=== PATIENT | female | born 1945 | race African-American/Black ===

== ENCOUNTER 2016-12-02 13:01 | Inpatient (IN) | payer OTHER ==
--- NOTE | 2016-12-02 13:18 | PDOC ---
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 She seems to attribute the paitn to the ingestion of some [employer] as it began a few hours after eating them. She describes the pain as a sharp/ tight pain 8/10 in her right lower quadrant that is occasionally positional and occasionally co-presents in her back. The pain did not allow her to sleep last night and she went to [facility] ED at which point she was diagnosed with food poisoning without imaging. She describes non-bilious/ non-bloody emesis and non-bloody, brown diarrhea. Denies fevers, chills, chest pain, cough, urinary changes, or palpitations. 12/02/16 13:37 Past History - Past Medical History Allergies/Adverse Reactions: Allergies Allergy/AdvReac Type Severity Reaction Status Date / Time No Known Drug Allergies Allergy Verified 12/02/16 13:06 Home Medications: Ambulatory Orders Amlodipine Besylate [Norvasc -] 5 mg PO DAILY 01/16/12 Levothyroxine [Synthroid -] 75 mcg PO DAILY 01/16/12 Metformin HCl [Glucophage] 1,000 mg PO BID 01/16/12 Tamoxifen Citrate 10 mg PO DAILY 01/16/12 Ergocalciferol (Vitamin D2) [Vitamin D] 50,000 PO WEEKLY 02/13/12 Warfarin Sodium [Coumadin] 4 mg PO UTDICT 02/13/12 Tramadol HCl/Acetaminophen [Ultracet -] 2 each PO TID 02/14/12 Anemia: No Asthma: No Cancer: No Cardiac Disorders: No CVA: No COPD: No CHF: No Dementia: No Diabetes: Yes GI Disorders: No Disorders: No HTN: No Hypercholesterolemia: No Liver Disease: No Seizures: No Thyroid Disease: Yes Other medical history: obesity - Surgical History Abdominal Surgery: Yes (exploratory lap for obstruction 1993) Appendectomy: No Cardiac Surgery: No Cholecystectomy: No Lung Surgery: No Neurologic Surgery: No - Suicide/Smoking/Psychosocial Hx Smoking History: Never smoked Information on smoking cessation initiated: No Hx Alcohol Use: No Drug/Substance Use Hx: No Substance Use Type: None Hx Substance Use Treatment: No Review of Systems - Review of Systems Constitutional: No: Chills, Diaphoresis, Fever HEENTM: No: Blurred Vision Respiratory: No: Cough, Orthopnea, Shortness of Breath Cardiac (ROS): No: Chest Pain ABD/GI: Yes: Diarrhea, Nausea, Poor Appetite, Vomiting Musculoskeletal: No: Back Pain Integumentary: No: Bruising, Change in Color Neurological: No: Headache, Numbness *Physical Exam - Vital Signs Last Vital Signs Temp Pulse Resp BP Pulse Ox 99.3 F 85 18 154/92 100 12/02/16 13:02 12/02/16 13:02 12/02/16 13:02 12/02/16 13:02 12/02/16 13:02 - Physical Exam General Appearance: Yes: Nourished, Appropriately Dressed. No: Apparent Distress HEENT: positive: EOMI, NEHEMIAH, Normal Voice Neck: positive: Trachea midline, Normal Thyroid, Supple. negative: Tender, Rigid Respiratory/Chest: positive: Lungs Clear, Normal Breath Sounds. negative: Chest Tender, Respiratory Distress Cardiovascular: positive: Regular Rhythm, Regular Rate, S1, S2. negative: Edema , Murmur Gastrointestinal/Abdominal: positive: Normal Bowel Sounds, Tender (RLQ rebound tenderness. + Rosving's sign. + McBurney's sign), Flat, Soft Integumentary: positive: Normal Color, Dry, Warm Neurologic: positive: Fully Oriented, Alert, Normal Mood/Affect, Normal Response ED Treatment Course - LABORATORY CBC & Chemistry Diagram: 12/02/16 14:15 12/02/16 14:15 Medical Decision Making - Medical Decision Making 71 year old female with PMH of CVA and PE on coumadin presenting with abdominal pain and current fear of food. PE most concerning for appendicitis whoever patient's medical history puts her at risk for thrombotic diseases such as mesenteric ischemia and atypical ACS presentation. Also on the differntial given her history of ex-lap and resection is obstruction (although she is having bowel movements) and diverticulitis. Lower on the list is pancreatitis, cholecystitis, or primary liver pathology. We should also exclude UTI as that could masqu[place]ade as an abdominal pain, although severity and location of pain does not match that diagnosis. This could be a simple bacterial vs. viral gastroenteritis as well which would be higher on the differential if labs and imaging return roughly inconclusive. Will get CBC, CMP, lipase, cardiac panel, EKG, CT abdomen/ pelvis with PO contrast, pt/inr, UA/UC, and type and screen. 12/02/16 14:35 12/02/16 18:59 CT came back with likely cholecystitis but no sign of stone. Patient evaluated by Dr. Fontenot and she agrees that she is appropriate for admission with need for ultrasound and fluids given lactate. Will admit patient to hospitalist. 12/02/16 19:30 Talked to medicine and will admit patient to [facility]. 12/02/16 20:37 12/02/16 20:39 *DC/Admit/Observation/Transfer Diagnosis at time of Disposition: Cholecystitis - Discharge Dispostion Condition at time of disposition: Stable Admit: Yes - Referrals Referrals: Ana Arroyo [Primary Care Provider] -
[2016-12-02 14:04] LABS: URINE APPEARANCE SLCLOUDY; URINE BILIRUBIN NEGATIVE (NEGATIVE); URINE BLOOD NEGATIVE (NEGATIVE); URINE COLOR YELLOW; URINE GLUCOSE (UA) NEGATIVE (NEGATIVE); URINE KETONE NEGATIVE (NEGATIVE); URINE LEUK ESTERASE TRACE (NEGATIVE); URINE NITRITE NEGATIVE (NEGATIVE); URINE UROBILINOGEN NEGATIVE mg/dL (0.2-1.0)
[2016-12-02 14:06] LABS: URINE PROTEIN 2+ (NEGATIVE)
[2016-12-02 14:07] LABS: URINE BACTERIA RARE /hpf (NONE SEEN); URINE MUCUS RARE; URINE RBC 1 /hpf (0-3); URINE WBC 13 /hpf (3-5)
[2016-12-02 14:25] LABS: BASOPHIL 0.5 % (0-2.0); MCH 31.7 pg (25.7-33.7); MCHC 33.3 g/dl (32.0-36.0); MEAN PLT VOLUME 7.6 fl (7.5-11.1); PLATELET COUNT 217 K/MM3 (134-434); WHITE BLOOD COUNT 8.9 K/mm3 (4.0-10.0)
[2016-12-02 14:54] LABS: ALBUMIN 3.5 g/dl (3.4-5.0); ANION GAP 12 (8-16); BILIRUBIN,TOTAL 0.6 mg/dL (0.2-1.0); CALCIUM 8.9 mg/dL (8.5-10.1); CO2 27 mmol/L (21-32); CREATININE 1.1 mg/dL (0.55-1.02); GLUCOSE,RANDOM 122 mg/dL (74-106); SGOT/AST 46 U/L (15-37); SGPT/ALT 26 U/L (12-78); TOT PROT 7.1 g/dl (6.4-8.2)
[2016-12-02 14:57] LABS: ALK PHOS 43 U/L (45-117); CPK 37 IU/L (26-192); TROPONIN I < 0.02 ng/ml (0.00-0.05)
[2016-12-02] MEDS ORDERED: MAG HYDROX/AL HYDROX/SIMETH 355 ML ORAL.SUSP PO ONE (15:02)
[2016-12-02] MEDS ORDERED: LIDOCAINE VISCOUS 2% ORAL/TOP 20 ML UNIT-DOSE CUP MM ONE (15:02)
[2016-12-02] MEDS ORDERED: FAMOTIDINE 20 MG/50 ML IVPB 50 ML IVPB ONE ×2 (15:02→15:29)
[2016-12-02 15:06] LABS: INR 1.72 (0.82-1.09); PROTHROMBIN TIME (PATIENT) 19.1 SEC (9.98-11.88)
[2016-12-02] MEDS ORDERED: MAG HYDROX/AL HYDROX/SIMETH 30 ML UNIT-DOSE CUP ONE (15:28)
[2016-12-02] MEDS ORDERED: LIDOCAINE VISCOUS 2% ORAL/TOP 20 ML UNIT-DOSE CUP ONE (15:28)
[2016-12-02] MEDS ORDERED: SODIUM CHLORIDE 0.9% 1000 ML INFUS.BAG IV ONE (15:53)
--- NOTE | 2016-12-02 20:52 | PN ---
Teaching Attending Note Name of Resident: Agustin Horta ATTENDING PHYSICIAN STATEMENT I saw and evaluated the patient. I reviewed the resident's note and discussed the case with the resident. I agree with the resident's findings and plan as documented. SUBJECTIVE: 71 F with pmhx. of HTN, HLD, Hypothyriodism, NIDDM, DVT/PE (unprovoked IVC filter/Coumadin), Colon Ca s/p hemicolectomy, Breast Ca? On Tamoxifen, who pw Right lower quadranr abdominal pain with associated nausea and vomiting X1 day. Pain level is 8/10. Non- bilous, non-bloody emesis. No chest pain or pressure, but states that she has palpitations which is related to a "valvular problem," but does not know what it is and has not followed with a restaurant culinary manager. OBJECTIVE: Physical: VS: Vital Signs Period Temp Pulse Resp BP Sys/Brandt Pulse Ox Last 24 Hr 99.3 F-100.1 F 85 18 154/92 100 GEN: NAD, Resting in bed HEENT: NCAT, PERRL, Throat without erythema or exudates CARD:RRR S1, S2 RESP: CTAB ABD: + TTP right upper/lower quadrant, BSx4 EXT: - C/C/E CBCD WBC 8.9 K/mm3 (4.0-10.0) 12/02/16 14:15 RBC 3.75 M/mm3 (3.60-5.2) 12/02/16 14:15 Hgb 11.9 GM/dL (10.7-15.3) 12/02/16 14:15 Hct 35.6 % (32.4-45.2) 12/02/16 14:15 MCV 95.0 fl (80-96) 12/02/16 14:15 MCHC 33.3 g/dl (32.0-36.0) 12/02/16 14:15 RDW 15.0 % (11.6-15.6) 12/02/16 14:15 Plt Count 217 K/MM3 (134-434) 12/02/16 14:15 MPV 7.6 fl (7.5-11.1) 12/02/16 14:15 CMP Sodium 139 mmol/L (136-145) 12/02/16 14:15 Potassium 3.7 mmol/L (3.5-5.1) 12/02/16 14:15 Chloride 100 mmol/L (98-107) 12/02/16 14:15 Carbon Dioxide 27 mmol/L (21-32) 12/02/16 14:15 Anion Gap 12 (8-16) 12/02/16 14:15 BUN 14 mg/dL (7-18) 12/02/16 14:15 Creatinine 1.1 mg/dL (0.55-1.02) H 12/02/16 14:15 Creat Clearance w eGFR 48.82 (>60) 12/02/16 14:15 Random Glucose 122 mg/dL (74-106) H 12/02/16 14:15 Calcium 8.9 mg/dL (8.5-10.1) 12/02/16 14:15 Total Bilirubin 0.6 mg/dL (0.2-1.0) 12/02/16 14:15 AST 46 U/L (15-37) H 12/02/16 14:15 ALT 26 U/L (12-78) 12/02/16 14:15 Alkaline Phosphatase 43 U/L (45-117) L 12/02/16 14:15 Total Protein 7.1 g/dl (6.4-8.2) 12/02/16 14:15 Albumin 3.5 g/dl (3.4-5.0) 12/02/16 14:15 CARDIAC ENZYMES Creatine Kinase 37 IU/L (26-192) 12/02/16 14:15 Troponin I < 0.02 ng/ml (0.00-0.05) 12/02/16 14:15 INR 1.7 Ambulatory Orders Amlodipine Besylate [Norvasc -] 5 mg PO DAILY 01/16/12 Levothyroxine [Synthroid -] 75 mcg PO DAILY 01/16/12 Metformin HCl [Glucophage] 1,000 mg PO BID 01/16/12 Tamoxifen Citrate 10 mg PO DAILY 01/16/12 Ergocalciferol (Vitamin D2) [Vitamin D] 50,000 PO WEEKLY 02/13/12 Warfarin Sodium [Coumadin] 4 mg PO UTDICT 02/13/12 Tramadol HCl/Acetaminophen [Ultracet -] 2 each PO TID 02/14/12 CT ABD/PELVIS: 7 X6 mm Opacity JEANNIE Acute Choley EKG: NSR No acute ST-t changes prolonged QTc 548 ASSESSMENT AND PLAN: 71 F with pmhx of HTN, HLD, NIDDM, Colon Ca s/p resection, ?Breast Pathology on Tamoxifen, who presents with Right abdominal pain being admitted for Acute Choleycystitis 1.) GI: Acute Choleycystitis - NPO - IVF - IV abx Zosyn - Cx - Sx. Consult - ID consult - Type and Screen - Coags, CBC in am - Repeat labs in am - LA - ? palpitations/w inc. QtC and ? Valvular path- Cardio clearance prior to sx 2.) CARDS: Palpitations/?Valvular disorder - Echo - Cardio consult 3.) Pulm- Hx. OF Dvt/PE - Hold Coumadin - Hep gtt. Hold 4 hrs prior to sx 4.) ?Breast Ca - Hold Tamoxifen 5.) NIDDM - RAISS - FS 6.) HTN - C/W Amlodipine 7.) Dvt Ppx - Hep. Gtt
--- NOTE | 2016-12-02 21:03 | CONSULT ---
Consult Consult Specialty:: General Surgery Referred by:: Dr. 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 By 2pm, she had severe right-sided abdominal pain and went to [facility]; she began having N/V on the way there and while at the ER. They gave her some meds, did no imaging, and discharged her with presumed food poisoning, but the pain persisted and got worse. She came to our ER today, where she had temp 100.1, with wbc 8.9, slightly elevated AST but essentially normal LFTs and lipase, INR 1.72 (took yest am meds but not last night or this morning). CT was done without IV contrast showing inflammation around gallbladder but no visible stones, no cbd dilation, + R hemicolectomy, fragment of metal merry near spine, IVC filter in place. US was then ordered and surgery consulted to evaluate for cholecystitis. She states her stool has tended to loose since her colon surgery. Last BM was yesterday, loose but normal for her. Tolerated oral contrast for CT, no further nausea or vomiting. Pain is described as right-sided, mostly upper at this point, sometimes also around in the back. She is always somewhat cold but had no helen fever or chills. - History Source History Provided By: Patient Limitations to Obtaining History: No Limitations - Past Medical History PVC MONITOR: Yes: CVA (h/o but pt was not aware of it) Cardio/Vascular: Yes: Deep Vein Thrombosis (and PE s/p IVC filter on coumadin), HTN, Hyperlipdemia (?), Other (possible valvular stenosis?) Gastrointestinal: Yes: Cancer (R hemicolectomy), Other (diarrhea/chronic loose stool) Reproductive: Yes: Postmenopausal ...: No Heme/Onc: Yes: Other (on tamoxifen for breast condition) Musculoskeletal: Yes: Other (R shoulder tendinitis) Endocrine: Yes: Hypothyroidism - Past Surgical History Past Surgical History: Yes: Appendectomy ((part of R hemicolectomy)), Breast Biopsy (?), Colectomy (R massiel for CA 2003), Hernia Repair (abdominal wall with mesh at time of hemicolectomy per pt) Additional Surgical History: spinal merry for scoliosis with migration and subsequent removal and revision; laparotomy for SBO prior to hemicolectomy; IVC filter - Alcohol/Substance Use Hx Alcohol Use: Yes (rare/occasional) History of Substance Use: reports: None - Smoking History Smoking history: Former smoker Have you smoked in the past 12 months: No Aproximately how many cigarettes per day: 0 (~5 pk-yr hx quit 1970) If you are a former smoker, when did you quit?: 1970 Home Medications - Allergies Allergies/Adverse Reactions: Allergies Allergy/AdvReac Type Severity Reaction Status Date / Time No Known Drug Allergies Allergy Verified 12/02/16 13:06 - Home Medications Home Medications: Ambulatory Orders Amlodipine Besylate [Norvasc -] 5 mg PO DAILY 01/16/12 Levothyroxine [Synthroid -] 75 mcg PO DAILY 01/16/12 Metformin HCl [Glucophage] 1,000 mg PO BID 01/16/12 Tamoxifen Citrate 10 mg PO DAILY 01/16/12 Ergocalciferol (Vitamin D2) [Vitamin D] 50,000 unit PO WEEKLY 02/13/12 Warfarin Sodium [Coumadin] 4 mg PO UTDICT 02/13/12 Tramadol HCl/Acetaminophen [Ultracet -] 2 each PO TID 02/14/12 Home Medications (free text): coumadin - alternates 3mg with 4mg nightly, last taken 11/30 (not last night) Review of Systems - Review of Systems Constitutional: denies: Chills, Fever Eyes: reports: Other (wears glasses). denies: Recent Change in Vision HENT: reports: Hearing Loss (left ear mostly, less on right). denies: Difficult Swallowing, Throat Pain Neck: denies: Swollen Glands, Tenderness Cardiovascular: reports: Palpitations (occasional). denies: Chest Pain Respiratory: denies: Cough, SOB Gastrointestinal: reports: Abdominal Pain (with hpi only), Diarrhea (since colon surgery tends to loose stool), Nausea (with hpi), Vomiting (with hpi). denies: Constipation, Melena, Rectal Bleeding Genitourinary: denies: Burning, Dysuria Musculoskeletal: reports: Back Pain (sometimes), Joint Pain (R shoulder), Muscle Weakness (R shoulder sometimes, has trouble lifting things) Integumentary: denies: Change in Color, Rash Neurological: reports: Headache (sometimes), Other (walks with cane). denies: Dizziness Endocrine: reports: Intolerance to Cold. denies: Excessive Sweating Psychiatric: denies: Anxiety, Depression Physical Exam Vital Signs: Vital Signs Temperature 100.1 F H 12/02/16 14:35 Pulse Rate 85 12/02/16 13:02 Respiratory Rate 18 12/02/16 13:02 Blood Pressure 154/92 12/02/16 13:02 O2 Sat by Pulse Oximetry (%) 100 12/02/16 13:02 Constitutional: Yes: No Distress, Calm, Obese Eyes: Yes: Conjunctiva Clear, EOM Intact. No: Sclera Icterus HENT: Yes: Atraumatic, Normocephalic Cardiovascular: Yes: Regular Rate and Rhythm, Murmur (systolic) Respiratory: Yes: Regular, CTA Bilaterally Gastrointestinal: Yes: Soft, Abdomen, Obese, Hyperactive Bowel Sounds, Tenderness (RUQ mainly, no R/G), Other (healed midline scar, no umbilicus) ...Rectal Exam: Yes: Deferred Renal/: No: CVA Tenderness - Left, CVA Tenderness - Right Musculoskeletal: No: Joint Stiffness, Joint Swelling Extremities: No: Cool, Cyanosis Edema: Yes Edema: LLE: 1+, RLE: 1+ Peripheral Pulses WNL: Yes Integumentary: No: Jaundice, Rash Neurological: Yes: Alert, Oriented ...Motor Strength: LUE (normal), RUE (normal) Psychiatric: Yes: Alert, Oriented Labs: CBC, BMP 12/02/16 14:15 12/02/16 14:15 CMP Sodium 139 mmol/L (136-145) 12/02/16 14:15 Potassium 3.7 mmol/L (3.5-5.1) 12/02/16 14:15 Chloride 100 mmol/L (98-107) 12/02/16 14:15 Carbon Dioxide 27 mmol/L (21-32) 12/02/16 14:15 Anion Gap 12 (8-16) 12/02/16 14:15 BUN 14 mg/dL (7-18) 12/02/16 14:15 Creatinine 1.1 mg/dL (0.55-1.02) H 12/02/16 14:15 Creat Clearance w eGFR 48.82 (>60) 12/02/16 14:15 Random Glucose 122 mg/dL (74-106) H 12/02/16 14:15 Lactic Acid 2.9 mmol/L (0.4-2.0) H* 12/02/16 14:15 Calcium 8.9 mg/dL (8.5-10.1) 12/02/16 14:15 Total Bilirubin 0.6 mg/dL (0.2-1.0) 12/02/16 14:15 AST 46 U/L (15-37) H 12/02/16 14:15 ALT 26 U/L (12-78) 12/02/16 14:15 Alkaline Phosphatase 43 U/L (45-117) L 12/02/16 14:15 Creatine Kinase 37 IU/L (26-192) 12/02/16 14:15 Troponin I < 0.02 ng/ml (0.00-0.05) 12/02/16 14:15 Total Protein 7.1 g/dl (6.4-8.2) 12/02/16 14:15 Albumin 3.5 g/dl (3.4-5.0) 12/02/16 14:15 Lipase 90 U/L (73-393) 12/02/16 14:15 INR, PTT INR 1.72 (0.82-1.09) H 12/02/16 14:15 dehydrated by labs Imaging - Results Cat Scan: Report Reviewed (inflammatory changes around gallbladder, no stones seen, no biliary dilation; R colectomy), Image Reviewed Ultrasound: Report Reviewed (multiple gallstones, wall almost 1cm thick against liver bed, mild pericholecystic fluid, little perihepatic ascites, normal cbd), Image Reviewed Problem List - Problems (1) Calculus of gallbladder with acute cholecystitis Assessment/Plan: admit to medicine NPO/IVF except essential meds with sips of H2O trend labs, ensure all preop labs are done pain meds prn Zosyn 4.5g q8H and ID to follow preop optimization, risk stratification for laparoscopic possible open cholecystectomy hold coumadin - if on heparin, will need to stop at least 6 hrs prior to surgery GI prophylaxis (NPO) DVT prophylaxis if not on heparin drip Code(s): K80.00 - CALCULUS OF GALLBLADDER W ACUTE CHOLECYST W/O OBSTRUCTION Qualifiers: Biliary obstruction: without biliary obstruction Qualified Code(s): K80.00 - Calculus of gallbladder with acute cholecystitis without obstruction (2) History of pulmonary embolus (PE) Assessment/Plan: pt has IVC filter hold coumadin if hep drip, stop 6+ hrs prior to OR if no hep drip, dvt prophylaxis needed daily coags Code(s): Z86.711 - PERSONAL HISTORY OF PULMONARY EMBOLISM (3) Hypertension Assessment/Plan: continue meds as indicated Code(s): I10 - ESSENTIAL (PRIMARY) HYPERTENSION Qualifiers: Hypertension type: essential hypertension Qualified Code(s): I10 - Essential (primary) hypertension (4) Diabetes mellitus type 2, noninsulin dependent Assessment/Plan: FS with SSI while NPO resume metformin when tolerating usual po Code(s): E11.9 - TYPE 2 DIABETES MELLITUS WITHOUT COMPLICATIONS (5) Hypothyroidism Assessment/Plan: continue synthroid, IV while NPO Code(s): E03.9 - HYPOTHYROIDISM, UNSPECIFIED Qualifiers: Hypothyroidism type: acquired Qualified Code(s): E03.9 - Hypothyroidism, unspecified (6) Obesity (BMI 30-39.9) Code(s): E66.9 - OBESITY, UNSPECIFIED Assessment/Plan Thank you for the opportunity to participate in the care of this patient.
[2016-12-02] MEDS ORDERED: SODIUM CHLORIDE 1,000 ML IV STA (21:07)
[2016-12-02] MEDS ORDERED: SODIUM CHLORIDE 1,000 ML IV SCH (21:15)
--- NOTE | 2016-12-02 22:05 | HP ---
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 As per the patient, she started having abdominal pain RUQ, 8/10 in intensity, non radiating, spasmodic, associated with nausea and vomiting after she had burger from [employer]. She went to the ED at [facility], was diagnosed to have food poisoning and was discharged. She returns to the ED as symptoms have been worsening. Denies chest pain, cough, fever, chills, rigors, sweating. Does complaint of sob which is chronic. Due to her multiple back surgeris, is wheel chair bound. 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 Allergies No Known Drug Allergies Allergy (Verified 12/02/16 13:06) HOME MEDICATIONS: Home Medications Medication Instructions Recorded Amlodipine Besylate [Norvasc -] 5 mg PO DAILY 01/16/12 Levothyroxine [Synthroid -] 75 mcg PO DAILY 01/16/12 Metformin HCl [Glucophage] 1,000 mg PO BID 01/16/12 Tamoxifen Citrate 10 mg PO DAILY 01/16/12 Ergocalciferol (Vitamin D2) 50,000 PO WEEKLY 02/13/12 [Vitamin D] Warfarin Sodium [Coumadin] 4 mg PO UTDICT 02/13/12 Tramadol HCl/Acetaminophen 2 each PO TID 02/14/12 [Ultracet -] REVIEW OF SYSTEMS CONSTITUTIONAL: Absent: fever, chills, diaphoresis, generalized weakness, malaise, loss of appetite, weight change HEENT: Absent: rhinorrhea, nasal congestion, throat pain, throat swelling, difficulty swallowing, mouth swelling, ear pain, eye pain, visual changes CARDIOVASCULAR: Absent: chest pain, syncope, palpitations, irregular heart rate, lightheadedness , peripheral edema RESPIRATORY: Absent: cough, shortness of breath, dyspnea with exertion, orthopnea, wheezing, stridor, hemoptysis GASTROINTESTINAL: Present: abdominal pain, nausea, vomiting Absent: abdominal distension, , diarrhea, constipation, melena, hematochezia GENITOURINARY: Absent: dysuria, frequency, urgency, hesitancy, hematuria, flank pain, genital pain MUSCULOSKELETAL: Absent: myalgia, arthralgia, joint swelling, back pain, neck pain SKIN: Absent: rash, itching, pallor HEMATOLOGIC/IMMUNOLOGIC: Absent: easy bleeding, easy bruising, lymphadenopathy, frequent infections ENDOCRINE: Absent: unexplained weight gain, unexplained weight loss, heat intolerance, cold intolerance NEUROLOGIC: Absent: headache, focal weakness or paresthesias, dizziness, unsteady gait, seizure, mental status changes, bladder or bowel incontinence PSYCHIATRIC: Absent: anxiety, depression, suicidal or homicidal ideation, hallucinations. PHYSICAL EXAMINATION Vital Signs - 24 hr 12/02/16 12/02/16 12/02/16 13:02 14:35 21:36 Temperature 99.3 F 100.1 F H 98.1 F Pulse Rate 85 Pulse Rate [ 81 Right Radial] Respiratory 18 18 Rate Blood Pressure 154/92 Blood Pressure 133/77 [Left Arm] O2 Sat by Pulse 100 95 Oximetry (%) GENERAL: Elderly female, Awake, alert, and fully oriented, in no acute distress. HEAD: Normal with no signs of trauma. EYES: EOM intact, no pallor or icterus. EARS, NOSE, THROAT: Ears normal. Dry mucous membranes. NECK: Supple. LUNGS: Breath sounds equal, clear to auscultation bilaterally. No wheezes, and no crackles. No accessory muscle use. HEART: Regular rate and rhythm, normal S1 and S2 without murmur, rub or gallop. ABDOMEN: Soft, tenderness in right upper quadrant, Field's sign +; not distended, normoactive bowel sounds, no guarding, no rebound, no masses. Hepatosplenomegaly couldn't be appreciated MUSCULOSKELETAL: Normal range of motion at all joints. No bony deformities or tenderness. No CVA tenderness. UPPER EXTREMITIES: 2+ pulses, warm, well-perfused. No cyanosis. No clubbing. No peripheral edema. LOWER EXTREMITIES: 2+ pulses, warm, well-perfused. No calf tenderness. No peripheral edema. NEUROLOGICAL: No facial droop; Normal speech. Gait not observed. PSYCHIATRIC: Cooperative. Good eye contact. Appropriate mood and affect. SKIN: Warm, dry, normal turgor, no rashes or lesions noted, normal capillary refill. Laboratory Results - last 24 hr 12/02/16 12/02/16 12/02/16 13:55 14:15 14:15 WBC 8.9 RBC 3.75 Hgb 11.9 Hct 35.6 MCV 95.0 MCH 31.7 MCHC 33.3 RDW 15.0 Plt Count 217 MPV 7.6 Neutrophils % 84.0 H Lymphocytes % 9.5 Monocytes % 6.0 Eosinophils % 0.0 Basophils % 0.5 PT with INR INR Sodium 139 Potassium 3.7 Chloride 100 Carbon Dioxide 27 Anion Gap 12 BUN 14 Creatinine 1.1 H Creat Clearance w eGFR 48.82 Random Glucose 122 H Lactic Acid Calcium 8.9 Total Bilirubin 0.6 AST 46 H ALT 26 Alkaline Phosphatase 43 L Creatine Kinase 37 Troponin I < 0.02 Total Protein 7.1 Albumin 3.5 Lipase 90 Urine Color Yellow Urine Appearance Slcloudy Urine pH 5.0 Ur Specific [place] >= 1.030 H Urine Protein 2+ H Urine Glucose (UA) Negative Urine Ketones Negative Urine Blood Negative Urine Nitrite Negative Urine Bilirubin Negative Urine Urobilinogen Negative Urine RBC 1 Urine WBC 13 Ur Epithelial Cells Many Urine Bacteria Rare Urine Mucus Rare Blood Type Antibody Screen 12/02/16 12/02/16 12/02/16 14:15 14:15 14:28 WBC RBC Hgb Hct MCV MCH MCHC RDW Plt Count MPV Neutrophils % Lymphocytes % Monocytes % Eosinophils % Basophils % PT with INR 19.10 H INR 1.72 H Sodium Potassium Chloride Carbon Dioxide Anion Gap BUN Creatinine Creat Clearance w eGFR Random Glucose Lactic Acid 2.9 H* Calcium Total Bilirubin AST ALT Alkaline Phosphatase Creatine Kinase Troponin I Total Protein Albumin Lipase Urine Color Urine Appearance Urine pH Ur Specific [place] Urine Protein Urine Glucose (UA) Urine Ketones Urine Blood Urine Nitrite Urine Bilirubin Urine Urobilinogen Urine RBC Urine WBC Ur Epithelial Cells Urine Bacteria Urine Mucus Blood Type A POSITIVE Antibody Screen Negative ASSESSMENT/PLAN: Patient is a 71 year old female with significant Past Medical History of Hypertension, Hyperlipidemia, Hypothyroidism, diabetes (non-insulin dependent), 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 # Abdominal pain likely due to acute cholecystits Presented with RUQ pain, + Antoine sign CT abdomen showed Acute cholecystitis. USG abdomen- official report pending On arrival, she had a fever of Tmax 100.1 F, hemodynamically stable, lactic acid 2.9 Admitted in Med-Surg Continue IV NS @ 100mls/hr IV Zosyn 3.375 gm given once, next scheduled at 6am ID consult requested Dr. Sy saw the patient in the ED and will follow her recommendations NPO after midnight for possible surgery, cardio consult requested for cardio clearance- will do an ECHo in the morning, repeat EKG in the morning. Lactic acid 2.9---> 1.8 Pain control with Continue IV Morphine 2mg Q4H PRN # DVT/PE on coumadin : subtherapeutic INR Pt mentioned that she has a IVC filter, her doc recommended her to take coumadin for life given her h/o malignancy IV Heparin drip for now and to stop 6hrs prior to surgery Watch for any bleeding and H/H drop # Acute Kidney Injury Creatinine 1.1, no baseline to compare Most likely it will improved after IV hydration Avoid nephrotoxic drugs # Prolonged QTc - approx 548 Repeat EKG in AM Avoid QTc prolonging medications # Diabetes Mellitus A1c ordered for am Hold Metformin; ISS and BGM Watch for hypoglycemic symptoms # Hypertension- stable Continue Norvasc 5mg po daily # Hypothyroidism TSH for am Continue Synthroid 75 mcg PO Daily # ? Breast Pathology As per patient, she is awaiting the biopsy report. - Hold Tamoxifen 10mg PO daily, (Day team: please call her oncologist and confirm the dose) # Chronic Back Pain - multiple back surgeries Continue IV Morphine 2mg Q4H PRN # FEN IV Fluids: IV NS @ 100 mls/hr Electrolytes WNL, to be repeated in am NPO after midnight for possible surgery in am # Prophylaxis For DVT: Already on Heparin Drip For GI: Not indicated # Dispo- Admit to Med/Surg. Duration of stay unknown. # Code Status: Full code Illness, Investigation and Plan of care explained to the patient. She verbalized understanding. Case seen and discussed with Dr. Quiroz. Visit type - Emergency Visit Emergency Visit: Yes ED Registration Date: 12/02/16 Care time: The patient presented to the Emergency Department on the above date and was hospitalized for further evaluation of their emergent condition. - New Patient This patient is new to me today: Yes Date on this admission: 12/02/16 - Critical Care Critical Care patient: No
[2016-12-02] MEDS ORDERED: HEPARIN NA (PORCINE) 5,000 UNITS/ML 1ML VIAL IVPUSH PRN ×2 (22:17)
[2016-12-02] MEDS ORDERED: PIPERACILLIN/TAZOB 3.375 GM 3.375 GM in DEXTROSE 5%-WATER - 50 ML IVPB ONE (22:18)
[2016-12-02] MEDS: SODIUM CHLORIDE 1,000 ML IV SCH (22:30)
[2016-12-02] MEDS: HEPARIN - 25,000 UNIT in SODIUM CHLORIDE 495 ML IV SCH (23:00)
--- NOTE | 2016-12-02 23:00 | HP ---
CHIEF COMPLAINT: Abdominal Pain HISTORY OF PRESENT ILLNESS: Pt is a 71yo F w/ PMHx of HTN, HLD, NIDDM who presented with R sided abdominal pain. She had 10/10, constant, sharp, that started early in the AM. Pain was assoc with nausea, few episodes of NBNB emesis. She denies fevers, but endorses chills. She has had abdominal pain before, recently after eating food at [employer]. She was seen at [facility] ER, diagnosed with food poisoning, and discharged, but the pain persisted. She denies CP, has chronic SOB on exertion. She is wheel chair bound due to numerous back surgeries. Pt endorses intermittent palpitations, and speaks of ? valvular pathology but does not follow with cardiology. Denies CHF, does not remember having an Echo cardiogram ER course was notable for: (1) Hemodynamically stable. Tmax 100.1. 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), colon cancer (s/p ex-lap and resection) and current breast pathology concerning for cancer (on tamoxifen) PAST SURGICAL HISTORY: R hemicolectomy for CRC, scoliosis surgery, disc herniation surgery Social History: Smoking: Denies Alcohol: Denies Drugs: Denies Family History: Sister has breast CA, other sister has Stomach CA Allergies: No Known Drug Allergies Allergy (Verified 12/02/16 13:06) REVIEW OF SYSTEMS CONSTITUTIONAL: Absent: fever, chills, diaphoresis, generalized weakness, malaise, loss of appetite, weight change HEENT: Absent: rhinorrhea, nasal congestion, throat pain, throat swelling, difficulty swallowing, mouth swelling, ear pain, eye pain, visual changes CARDIOVASCULAR: Absent: chest pain, syncope, palpitations, irregular heart rate, lightheadedness , peripheral edema RESPIRATORY: Absent: cough, shortness of breath, dyspnea with exertion, orthopnea, wheezing, stridor, hemoptysis GASTROINTESTINAL: Absent: abdominal pain, abdominal distension, nausea, vomiting, diarrhea, constipation, melena, hematochezia Present: abdominal pain, nausea GENITOURINARY: Absent: dysuria, frequency, urgency, hesitancy, hematuria, flank pain, genital pain MUSCULOSKELETAL: Absent: myalgia, arthralgia, joint swelling, back pain, neck pain SKIN: Absent: rash, itching, pallor HEMATOLOGIC/IMMUNOLOGIC: Absent: easy bleeding, easy bruising, lymphadenopathy, frequent infections ENDOCRINE: Absent: unexplained weight gain, unexplained weight loss, heat intolerance, cold intolerance NEUROLOGIC: Absent: headache, focal weakness or paresthesias, dizziness, unsteady gait, seizure, mental status changes, bladder or bowel incontinence PSYCHIATRIC: Absent: anxiety, depression, suicidal or homicidal ideation, hallucinations. PHYSICAL EXAMINATION GEN: AAOx3, NAD HEENT: PERRLA, EOMi, No cervical LAD CV: S1, S2, RRR, no murmurs LUNG: CTABL ABD: Soft, extreme TTP in RUQ, nondistended, normoactive BS MSK: No edema, no erythema, full ROM NEURO: CN 2-12 intact, no sensation deficits, MSK 5/5, reflexes 2+ Laboratory Last Values WBC 8.9 K/mm3 (4.0-10.0) 12/02/16 14:15 RBC 3.75 M/mm3 (3.60-5.2) 12/02/16 14:15 Hgb 11.9 GM/dL (10.7-15.3) 12/02/16 14:15 Hct 35.6 % (32.4-45.2) 12/02/16 14:15 MCV 95.0 fl (80-96) 12/02/16 14:15 MCH 31.7 pg (25.7-33.7) 12/02/16 14:15 MCHC 33.3 g/dl (32.0-36.0) 12/02/16 14:15 RDW 15.0 % (11.6-15.6) 12/02/16 14:15 Plt Count 217 K/MM3 (134-434) 12/02/16 14:15 MPV 7.6 fl (7.5-11.1) 12/02/16 14:15 Neutrophils % 84.0 % (42.8-82.8) H 12/02/16 14:15 Lymphocytes % 9.5 % (8-40) 12/02/16 14:15 Monocytes % 6.0 % (3.8-10.2) 12/02/16 14:15 Eosinophils % 0.0 % (0-4.5) 12/02/16 14:15 Basophils % 0.5 % (0-2.0) 12/02/16 14:15 PT with INR 19.10 SEC (9.98-11.88) H 12/02/16 14:15 INR 1.72 (0.82-1.09) H 12/02/16 14:15 PTT (Actin FS) 28.7 SECONDS (26.9-34.4) 12/02/16 21:56 Sodium 139 mmol/L (136-145) 12/02/16 14:15 Potassium 3.7 mmol/L (3.5-5.1) 12/02/16 14:15 Chloride 100 mmol/L (98-107) 12/02/16 14:15 Carbon Dioxide 27 mmol/L (21-32) 12/02/16 14:15 Anion Gap 12 (8-16) 12/02/16 14:15 BUN 14 mg/dL (7-18) 12/02/16 14:15 Creatinine 1.1 mg/dL (0.55-1.02) H 12/02/16 14:15 Creat Clearance w eGFR 48.82 (>60) 12/02/16 14:15 Random Glucose 122 mg/dL (74-106) H 12/02/16 14:15 Lactic Acid 1.8 mmol/L (0.4-2.0) 12/02/16 21:56 Calcium 8.9 mg/dL (8.5-10.1) 12/02/16 14:15 Total Bilirubin 0.6 mg/dL (0.2-1.0) 12/02/16 14:15 AST 46 U/L (15-37) H 12/02/16 14:15 ALT 26 U/L (12-78) 12/02/16 14:15 Alkaline Phosphatase 43 U/L (45-117) L 12/02/16 14:15 Creatine Kinase 37 IU/L (26-192) 12/02/16 14:15 Troponin I < 0.02 ng/ml (0.00-0.05) 12/02/16 14:15 Total Protein 7.1 g/dl (6.4-8.2) 12/02/16 14:15 Albumin 3.5 g/dl (3.4-5.0) 12/02/16 14:15 Lipase 90 U/L (73-393) 12/02/16 14:15 Urine Color Yellow 12/02/16 13:55 Urine Appearance Slcloudy 12/02/16 13:55 Urine pH 5.0 (5.0-8.0) 12/02/16 13:55 Ur Specific [place] >= 1.030 (1.005-1.025) H 12/02/16 13:55 Urine Protein 2+ (NEGATIVE) H 12/02/16 13:55 Urine Glucose (UA) Negative (NEGATIVE) 12/02/16 13:55 Urine Ketones Negative (NEGATIVE) 12/02/16 13:55 Urine Blood Negative (NEGATIVE) 12/02/16 13:55 Urine Nitrite Negative (NEGATIVE) 12/02/16 13:55 Urine Bilirubin Negative (NEGATIVE) 12/02/16 13:55 Urine Urobilinogen Negative mg/dL (0.2-1.0) 12/02/16 13:55 Urine RBC 1 /hpf (0-3) 12/02/16 13:55 Urine WBC 13 /hpf (3-5) 12/02/16 13:55 Ur Epithelial Cells Many /hpf (FEW) 12/02/16 13:55 Urine Bacteria Rare /hpf (NONE SEEN) 12/02/16 13:55 Urine Mucus Rare 12/02/16 13:55 Blood Type A POSITIVE 12/02/16 14:28 Antibody Screen Negative 12/02/16 14:28 Home Medication List Medication Instructions Recorded Confirmed Type Amlodipine Besylate [Norvasc -] 5 mg PO DAILY 01/16/12 12/02/16 History Levothyroxine [Synthroid -] 75 mcg PO DAILY 01/16/12 12/02/16 History Metformin HCl [Glucophage] 1,000 mg PO BID 01/16/12 12/02/16 History Tamoxifen Citrate 10 mg PO DAILY 01/16/12 12/02/16 History Ergocalciferol (Vitamin D2) 50,000 unit PO WEEKLY 02/13/12 12/02/16 History [Vitamin D] Warfarin Sodium [Coumadin] 4 mg PO UTDICT 02/13/12 12/02/16 History Tramadol HCl/Acetaminophen 2 each PO TID 02/14/12 12/02/16 History [Ultracet -] Active Medications Generic Name Dose Route Start Last Admin Trade Name Freq PRN Reason Stop Dose Admin Amlodipine Besylate 5 mg 12/03/16 10:00 Norvasc - PO DAILY [facility] Heparin Sodium (Porcine) 1,000 unit 12/02/16 22:17 Heparin - IVPUSH PRN PRN Heparin Heparin Sodium (Porcine) 5,000 unit 12/02/16 22:17 Heparin - IVPUSH PRN PRN Heparin Sodium Chloride 1,000 mls @ 100 mls/hr 12/02/16 21:57 Normal Saline - IV ASDIR GIL Heparin Sodium (Porcine) 25, 500 mls @ 20 mls/hr 12/02/16 22:30 000 unit/ Sodium Chloride IV TITR GIL Protocol 1,000 UNIT/HR Insulin Aspart 1 vial 12/03/16 07:00 Novolog Vial Sliding Scale - SQ ACHS [facility] Protocol Levothyroxine Sodium 75 mcg 12/03/16 10:00 Synthroid - PO DAILY [facility] Morphine Sulfate 2 mg 12/02/16 22:06 Morphine Injection - IVPUSH Q4H PRN PAIN Tamoxifen Citrate 10 mg 12/03/16 10:00 Tamoxifen Citrate PO DAILY [facility] IMAGING: CT Abdomen/Pelvis - Acute cholecystitis without common bile duct dilatation. Reactive duodenitis likely secondary to gallbladder inflammation. A 1.7 x 1.8 cm diverticulum in the first portion of the duodenum. Status post right hemicolectomy. No evidence of intestinal obstruction. Dilated main pulmonary artery measuring 34 mm, suggestive of pulmonary artery hypertension. U/S RUQ - Official read pending ASSESSMENT/PLAN: Pt is a 71 yo F with PMHx of HTN, HLD, NIDDM who presented with R sided abdominal pain and diagnosed with acute cholecystitis. # Acute Cholecystitis - signs on CT abd, RUQ U/S to check for gallstones - IV Zosyn 3.375mg x1 - ID to continue - IVF 100cc/hr - Lactic acid normalized - NPO, T+S, Coags - IV Morphine 2mg Q4 PRN - Surgery consulted, evaluated in ED - Cardio consulted for pre-op risk - ID consult # Subjective Palpitations - pt states she has ?valvular problems, no prior echo - Cardio consult for ?palpitations + preop risk - Echo # Prolonged QTc - >500, poor quality EKG, asymptomatic - Repeat EKG in AM - Avoid QTc prolonging medications # Subtherapeutic INR - hx of DVT/PE - Pt is on Coumadin daily for DVT/PE, also has IVC filter - Will start Heparin drip, stop 6 hrs prior to surgery - Eventually bridge to Coumadin # Elevated Cr - 1.1, no hx of Kidney Disease, no baseline - IVF - Repeat BMP in AM # NIDDM - Hold Metformin due to lactic acidosis - ISS and BGMs ACHS - A1C ordered # Hx of HTN - Continue Norvasc # Hx of Hypothyroidism - Continue Synthroid # ?Breast Pathology - Hold Tamoxifen, Dayteam to call Oncology to confirm medications # Hx of Chronic Back Pain - multiple back surgeries - Hold Ultracet pain meds - Pt is already on IV Morphine for cholecystitsis # Pulmonary Nodule - Irregular 7 x 6 mm nodular opacity in the left upper lobe seen on CT scan - Recommend outpatient imaging followup # FEN - Fluids: IVNS @ 100cc/hr - Electrolytes: WNL - Nutrition: NPO except PO meds # Prophylaxis - DVT: On Heparin Drip - GI: Not indicated - Deconditioning: PT ordered # Dispo - Admit to Med/Surg Case d/w Dr. Quiroz and Dr. Radha Horta MD - PGY1 Internal Medicine Visit type - Emergency Visit Emergency Visit: Yes ED Registration Date: 12/02/16 Care time: The patient presented to the Emergency Department on the above date and was hospitalized for further evaluation of their emergent condition. - New Patient This patient is new to me today: Yes Date on this admission: 12/04/16 - Critical Care Critical Care patient: No
[2016-12-03 00:40] VITALS: BMI 35.2
[2016-12-03] MEDS ORDERED: PIPERACILLIN/TAZOB 3.375 GM/50 ML PRE-DOCKED IVPB ONE ×2 (06:00→10:00)
[2016-12-03] MEDS: INSULIN SLIDING SCALE (NOVOLOG) 1 VIAL SQ SCH ×4 (06:38→21:09)
[2016-12-03] MEDS: morphine CARPU-JECT 2 MG/1 ML DISP.SYRIN IVPUSH PRN ×4 (06:43→21:02)
[2016-12-03] MEDS: LEVOTHYROXINE NA 75 MCG TABLET (FP) PO SCH (06:43)
[2016-12-03] MEDS: SODIUM CHLORIDE 1,000 ML IV SCH (07:01)
--- NOTE | 2016-12-03 08:56 | CON.CARD ---
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 She seems to attribute the paitn to the ingestion of some [employer] as it began a few hours after eating them. She describes the pain as a sharp/ tight pain 8/10 in her right lower quadrant that is occasionally positional and occasionally co-presents in her back. The pain did not allow her to sleep last night and she went to [facility] ED at which point she was diagnosed with food poisoning without imaging. She describes non-bilious/ non-bloody emesis and non-bloody, brown diarrhea. Denies fevers, chills, chest pain, cough, urinary changes, or palpitations. 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: CVA (h/o but pt was not aware of it) Cardio/Vascular: Yes: Deep Vein Thrombosis (and PE s/p IVC filter on coumadin), HTN, Hyperlipdemia (?), Other (possible valvular stenosis?) Gastrointestinal: Yes: Cancer (R hemicolectomy), Other (diarrhea/chronic loose stool) ...: No Musculoskeletal: Yes: Other (R shoulder tendinitis) Endocrine: Yes: Hypothyroidism - Past Surgical History Past Surgical History: Yes: Appendectomy ((part of R hemicolectomy)), Breast Biopsy (?), Colectomy (R massiel for CA 2003), Hernia Repair (abdominal wall with mesh at time of hemicolectomy per pt) Additional Surgical History: spinal merry for scoliosis with migration and subsequent removal and revision; laparotomy for SBO prior to hemicolectomy; IVC filter - Alcohol/Substance Use Hx Alcohol Use: Yes (rare/occasional) History of Substance Use: reports: None - Smoking History Smoking history: Former smoker Have you smoked in the past 12 months: No Aproximately how many cigarettes per day: 0 (~5 pk-yr hx quit 1970) If you are a former smoker, when did you quit?: 1971 Home Medications - Allergies Allergies/Adverse Reactions: Allergies Allergy/AdvReac Type Severity Reaction Status Date / Time No Known Drug Allergies Allergy Verified 12/02/16 13:06 - Home Medications Home Medications: Ambulatory Orders Amlodipine Besylate [Norvasc -] 5 mg PO DAILY 01/16/12 Levothyroxine [Synthroid -] 75 mcg PO DAILY 01/16/12 Metformin HCl [Glucophage] 1,000 mg PO BID 01/16/12 Tamoxifen Citrate 10 mg PO DAILY 01/16/12 Ergocalciferol (Vitamin D2) [Vitamin D] 50,000 unit PO WEEKLY 02/13/12 Warfarin Sodium [Coumadin] 4 mg PO UTDICT 02/13/12 Tramadol HCl/Acetaminophen [Ultracet -] 2 each PO TID 02/14/12 Review of Systems - Review of Systems Constitutional: reports: No Symptoms Eyes: reports: No Symptoms HENT: reports: No Symptoms Neck: reports: No Symptoms Cardiovascular: reports: No Symptoms Gastrointestinal: reports: Abdominal Pain, Nausea, Vomiting Genitourinary: reports: No Symptoms Breasts: reports: No Symptoms Reported Musculoskeletal: reports: No Symptoms Integumentary: reports: No Symptoms Neurological: reports: No Symptoms Endocrine: reports: No Symptoms Hematology/Lymphatic: reports: No Symptoms Psychiatric: reports: No Symptoms Vital Signs: Vital Signs Temperature 98.4 F 12/03/16 05:22 Pulse Rate 76 12/03/16 05:22 Respiratory Rate 18 12/03/16 05:22 Blood Pressure 120/70 12/03/16 05:22 O2 Sat by Pulse Oximetry (%) 96 12/02/16 22:34 Constitutional: Yes: Well Nourished, No Distress, Calm Eyes: Yes: WNL, Conjunctiva Clear, EOM Intact HENT: Yes: WNL, Atraumatic, Normocephalic Neck: Yes: WNL, Supple, Trachea Midline Respiratory: Yes: WNL, Regular, CTA Bilaterally Gastrointestinal: Yes: Tenderness Renal/: Yes: WNL Cardiovascular: Yes: WNL, Regular Rate and Rhythm Musculoskeletal: Yes: WNL Extremities: Yes: WNL Integumentary: Yes: WNL Neurological: Yes: WNL, Alert, Oriented ...Motor Strength: WNL Psychiatric: Yes: WNL, Alert, Oriented - Other Data Labs, Other Data: INR, PTT INR 1.72 (0.82-1.09) H 12/02/16 14:15 Imaging - Results Chest X-ray: Image Reviewed (no i/e) EKG: Image Reviewed (sr lvh) Problem List - Problems (1) Calculus of gallbladder with acute cholecystitis Code(s): K80.00 - CALCULUS OF GALLBLADDER W ACUTE CHOLECYST W/O OBSTRUCTION Qualifiers: Biliary obstruction: without biliary obstruction Qualified Code(s): K80.00 - Calculus of gallbladder with acute cholecystitis without obstruction (2) Cholecystitis Code(s): K81.9 - CHOLECYSTITIS, UNSPECIFIED (3) Diabetes mellitus type 2, noninsulin dependent Code(s): E11.9 - TYPE 2 DIABETES MELLITUS WITHOUT COMPLICATIONS (4) History of pulmonary embolus (PE) Code(s): Z86.711 - PERSONAL HISTORY OF PULMONARY EMBOLISM (5) Hypertension Code(s): I10 - ESSENTIAL (PRIMARY) HYPERTENSION Qualifiers: Hypertension type: essential hypertension Qualified Code(s): I10 - Essential (primary) hypertension (6) Hypothyroidism Code(s): E03.9 - HYPOTHYROIDISM, UNSPECIFIED Qualifiers: Hypothyroidism type: acquired Qualified Code(s): E03.9 - Hypothyroidism, unspecified (7) Obesity (BMI 30-39.9) Code(s): E66.9 - OBESITY, UNSPECIFIED Assessment/Plan HTN, HLD, Hypothyroidism, diabetes (non-insulin dependent), history of DVT/ PE ( most recently 5 years prior on Coumadin), colon cancer (s/p ex-lap and resection , and current breast pathology concerning for cancer (on tamoxifen) presenting with cholecystitis. echo nl ef no recent mi/angina/or chf patient is moderate risks for non-cardiac surgery on the basis of comorbidities. She is curently optimized and cleared for OR - awaiting INR normalization. cont bridging with IV heparin. Post op telemetry monitoring. Risk stratification with MIBI stress test as outpatient when stable.
[2016-12-03] MEDS ORDERED: FLU VACCINE QUAD 60 MCG/0.5 ML (MDV 17-18) IM ONE (09:00)
[2016-12-03] MEDS ORDERED: TAMOXIFEN CITRATE 10 MG TABLET PO SCH (10:00)
[2016-12-03] MEDS ORDERED: PIPERACILLIN/TAZOB 3.375 GM 3.375 GM in DEXTROSE 5%-WATER - 50 ML IVPB ONE (10:00)
--- NOTE | 2016-12-03 10:45 | PN ---
Progress Note (short form) - Note Progress Note: ID Full note dictated Assessment Acute cholecystitis Plan For surgery Empiric Ceftriaxone and metrondazole Sam JANG Problem List - Problems (1) Cholecystitis Code(s): K81.9 - CHOLECYSTITIS, UNSPECIFIED
[2016-12-03] MEDS ORDERED: PIPERACILLIN/TAZOBACTAM 3.375 GM VIAL IVPB ONE (10:56)
[2016-12-03] MEDS ORDERED: DEXTROSE 5%-WATER - 50 ML IVPB ONE (10:56)
[2016-12-03] MEDS ORDERED: PIPERACILLIN/TAZOB 4.5 GM/100 ML PRE-DOCKED IVPB ONE (10:58)
[2016-12-03 11:00] LABS: MCH 31.6 pg (25.7-33.7); MCHC 33.3 g/dl (32.0-36.0); MEAN CELL VOLUME 95.1 fl (80-96); MEAN PLT VOLUME 7.9 fl (7.5-11.1); PLATELET COUNT 171 K/MM3 (134-434); RDW 14.5 % (11.6-15.6); WHITE BLOOD COUNT 6.3 K/mm3 (4.0-10.0)
--- NOTE | 2016-12-03 11:01 | EKG ---
Test Reason : Blood Pressure : / mmHG Vent. Rate : 074 BPM Atrial Rate : 074 BPM P-R Int : 156 ms QRS Dur : 080 ms QT Int : 386 ms P-R-T Axes : 024 -17 -12 degrees QTc Int : 428 ms NORMAL SINUS RHYTHM MINIMAL VOLTAGE CRITERIA FOR LVH, MAY BE NORMAL VARIANT CANNOT RULE OUT ANTERIOR INFARCT (CITED ON OR BEFORE 02-DEC-2016) ABNORMAL ECG WHEN COMPARED WITH ECG OF 02-DEC-2016 15:53, QUESTIONABLE CHANGE IN INITIAL FORCES OF LATERAL LEADS NONSPECIFIC T WAVE ABNORMALITY NO LONGER EVIDENT IN ANTERIOR LEADS QT HAS SHORTENED Confirmed by NIALL CHACKO MD ([id number]) on 12/03/2016 11:00:20 AM Referred By: [facility] [place] Confirmed By:NIALL CHACKO MD
[2016-12-03] MEDS ORDERED: PIPERACILLIN/TAZOBACTAM 4.5 GM VIAL IVPB ONE ×2 (11:10→18:16)
[2016-12-03] MEDS ORDERED: DEXTROSE 5%-WATER 100 ML IVPB ONE ×2 (11:10→18:16)
[2016-12-03] MEDS: amLODIPine BESYLATE 5 MG TABLET (FP) PO SCH (11:13)
--- NOTE | 2016-12-03 11:15 | EKG ---
Test Reason : Blood Pressure : / mmHG Vent. Rate : 078 BPM Atrial Rate : 078 BPM P-R Int : 174 ms QRS Dur : 074 ms QT Int : 490 ms P-R-T Axes : 031 -19 -40 degrees QTc Int : 558 ms POOR DATA QUALITY, INTERPRETATION MAY BE ADVERSELY AFFECTED BASELINE ARTIFACT NORMAL SINUS RHYTHM MINIMAL VOLTAGE CRITERIA FOR LVH, MAY BE NORMAL VARIANT POSSIBLE ANTEROLATERAL INFARCT (CITED ON OR BEFORE 02-DEC-2016) ABNORMAL ECG WHEN COMPARED WITH ECG OF 01-MAY-2004 14:39, QUESTIONABLE CHANGE IN INITIAL FORCES OF LATERAL LEADS QT HAS LENGTHENED Confirmed by NIALL CHACKO MD ([id number]) on 12/03/2016 11:15:04 AM Referred By: Confirmed By:NIALL CHACKO MD
[2016-12-03 11:24] LABS: CHOLESTEROL 203 mg/dL (50-200)
[2016-12-03 11:30] LABS: PROTHROMBIN TIME (PATIENT) 22.3 SEC (9.98-11.88)
[2016-12-03] MEDS ORDERED: PIPERACILLIN/TAZOB 4.5 GM 4.5 GM in DEXTROSE 5%-WATER 100 ML IVPB ONE (11:30)
[2016-12-03 11:32] LABS: AMYLASE 183 U/L (25-115); ANION GAP 8 (8-16); CO2 28 mmol/L (21-32); CREATININE 0.8 mg/dL (0.55-1.02); GLUCOSE,RANDOM 91 mg/dL (74-106)
--- NOTE | 2016-12-03 11:39 | CONS ---
DATE OF CONSULTATION: HISTORY: This is a 71-year-old female with a history of multiple comorbidities including hypertension and noninsulin-dependent diabetes who presented with chief complaint of right-sided abdominal pain severe in nature and associated with nausea and vomiting. She denied any fever but did note chills. Temperature was noted to be low grade, 100.1, and a CT scan of the abdomen suggested acute cholecystitis. She is currently scheduled for surgery, and I am asked to see her regarding antibiotic management having been given a dose of Zosyn already. She has been afebrile here and denies any chills or systemic complaints. PAST MEDICAL HISTORY: Hypertension, hypothyroidism, history of DVT and PE, colon cancer status post resection, current breast pathology concerning for malignancy. MEDICATIONS: Include Norvasc, Synthroid. ALLERGIES: None known. SOCIAL HISTORY: Nonsmoker. No history of alcohol use. Denies substance use. FAMILY HISTORY: Reviewed and noncontributory. REVIEW OF SYSTEMS: All systems reviewed and noncontributory. PHYSICAL EXAMINATION: General: She is an alert female in no acute distress. Vital Signs: Temperature 98.4, pulse 76, blood pressure 120/70, respirations 18. Neck: Supple. Lungs: Clear to percussion and auscultation. Heart: S1, S2. Regular rhythm without audible murmur. Abdomen: Soft. Normoactive bowel sounds. Tenderness noted in the right upper quadrant area. Positive Field sign. Extremities: No clubbing, cyanosis, or edema. LABORATORY DATA: The white count was 8.9 with a hemoglobin 11.9, INR 1.72, bilirubin 0.6, AST 46, ALT 26, alkaline phosphatase 43, lactic acid 1.8. Abdominal sonogram shows distended gallbladder with calculi, thickened cheney, and pericholecystic fluid as well as diffuse fatty infiltration of other liver and trace ascites. ASSESSMENT: Acute cholecystitis. PLAN: Empiric therapy with Pip Tazobactam. Surgical for scheduled cholecystectomy. ANH MARSHALL M.D. [id number] MTDD
[2016-12-03 11:57] LABS: ALBUMIN 2.7 g/dl (3.4-5.0); ALK PHOS 55 U/L (45-117); ANION GAP 8 (8-16); BILIRUBIN,TOTAL 0.5 mg/dL (0.2-1.0); CALCIUM 7.9 mg/dL (8.5-10.1); CO2 26 mmol/L (21-32); CREATININE 0.8 mg/dL (0.55-1.02); GLUCOSE,RANDOM 91 mg/dL (74-106); SGOT/AST 89 U/L (15-37); SGPT/ALT 88 U/L (12-78); TOT PROT 5.6 g/dl (6.4-8.2)
--- NOTE | 2016-12-03 12:00 | PN ---
Progress Note, Physician Chief Complaint: RUQ pain History of Present Illness: Pt seen and examined sitting in chair in room. No overnight events. Pt still with RUQ pain, but somewhat better. No N/V. No BM yet. She is NPO except meds. Heparin drip running, some am labs still pending. Family at bedside toward end of visit; R/B/A of surgery discussed and questions of all answered. - Current Medication List Current Medications: Active Medications Amlodipine Besylate (Norvasc -) 5 mg PO DAILY [facility] Last Admin: 12/03/16 11:13 Dose: 5 mg Heparin Sodium (Porcine) (Heparin -) 1,000 unit IVPUSH PRN PRN PRN Reason: Heparin Heparin Sodium (Porcine) (Heparin -) 5,000 unit IVPUSH PRN PRN PRN Reason: Heparin Sodium Chloride (Normal Saline -) 1,000 mls @ 100 mls/hr IV ASDIR [facility] Last Admin: 12/03/16 07:01 Dose: 100 mls/hr Heparin Sodium (Porcine) 25, (000 unit/ Sodium Chloride) 500 mls @ 20 mls/hr IV TITR GIL; 1,000 UNIT/HR PRN Reason: Protocol Last Admin: 12/02/16 23:00 Dose: 20 mls/hr Piperacillin Sod/Tazobactam (Sod 4.5 gm/ Dextrose) 100 mls @ 200 mls/hr IVPB ONCE ONE Stop: 12/03/16 11:59 Last Admin: 12/03/16 11:13 Dose: 200 mls/hr Piperacillin Sod/Tazobactam (Sod 4.5 gm/ Dextrose) 100 mls @ 200 mls/hr IVPB Q8H-IV GIL Insulin Aspart (Novolog Vial Sliding Scale -) 1 vial SQ ACHS GIL PRN Reason: Protocol Last Admin: 12/03/16 11:33 Dose: Not Given Levothyroxine Sodium (Synthroid -) 75 mcg PO DAILY@0700 [facility] Last Admin: 12/03/16 06:43 Dose: 75 mcg Morphine Sulfate (Morphine Injection -) 2 mg IVPUSH Q4H PRN PRN Reason: PAIN Last Admin: 12/03/16 06:43 Dose: 2 mg - Objective Vital Signs: Vital Signs Temperature 98.7 F 12/03/16 09:00 Pulse Rate 75 12/03/16 09:00 Respiratory Rate 18 12/03/16 09:00 Blood Pressure 115/73 12/03/16 09:00 O2 Sat by Pulse Oximetry (%) 96 12/02/16 22:34 Vital Signs Period Temp Pulse Resp BP Sys/Brandt Pulse Ox Last 24 Hr 98.1 F-100.1 F 75-85 18-18 110-154/57-92 95-100 Constitutional: Yes: No Distress, Calm, Obese Eyes: Yes: Conjunctiva Clear. No: Sclera Icterus Cardiovascular: Yes: Regular Rate and Rhythm. No: Murmur (not appreciated at this time) Respiratory: Yes: Regular, CTA Bilaterally Gastrointestinal: Yes: Normal Bowel Sounds, Soft, Abdomen, Obese, Tenderness ( RUQ without R/G). No: Tenderness, Epigastrium Neurological: Yes: Alert, Oriented Labs: CBC, BMP 12/03/16 10:00 12/03/16 10:00 INR, PTT INR 1.72 (0.82-1.09) H 12/02/16 14:15 CMP Sodium 142 mmol/L (136-145) 12/03/16 10:00 Potassium 3.6 mmol/L (3.5-5.1) 12/03/16 10:00 Chloride 108 mmol/L (98-107) H 12/03/16 10:00 Carbon Dioxide 26 mmol/L (21-32) 12/03/16 10:00 Anion Gap 8 (8-16) 12/03/16 10:00 BUN 12 mg/dL (7-18) 12/03/16 10:00 Creatinine 0.8 mg/dL (0.55-1.02) 12/03/16 10:00 Creat Clearance w eGFR > 60 (>60) 12/03/16 10:00 POC Glucometer 111 UNITS (()) 12/03/16 11:32 Random Glucose 91 mg/dL (74-106) 12/03/16 10:00 Hemoglobin A1c % 5.2 % (4.8-6.0) 12/03/16 10:00 Lactic Acid 1.8 mmol/L (0.4-2.0) 12/02/16 21:56 Calcium 7.9 mg/dL (8.5-10.1) L 12/03/16 10:00 Total Bilirubin 0.5 mg/dL (0.2-1.0) 12/03/16 10:00 AST 89 U/L (15-37) H D 12/03/16 10:00 ALT 88 U/L (12-78) H D 12/03/16 10:00 Alkaline Phosphatase 55 U/L (45-117) D 12/03/16 10:00 Creatine Kinase 37 IU/L (26-192) 12/02/16 14:15 Troponin I < 0.02 ng/ml (0.00-0.05) 12/02/16 14:15 Total Protein 5.6 g/dl (6.4-8.2) L D 12/03/16 10:00 Albumin 2.7 g/dl (3.4-5.0) L D 12/03/16 10:00 Triglycerides 98 mg/dL (35-160) 12/03/16 10:00 Cholesterol 203 mg/dL (50-200) H 12/03/16 10:00 Total LDL Cholesterol 99 mg/dL (5-100) 12/03/16 10:00 HDL Cholesterol 80 mg/dL (40-60) H 12/03/16 10:00 Total Amylase 183 U/L (25-115) H 12/03/16 10:00 Lipase 344 U/L (73-393) 12/03/16 10:00 TSH 2.57 uIU/ml (0.358-3.74) 12/03/16 10:00 AST/ALT slightly up, amylase elevated, lipase up INR, PTT INR 2.00 (0.82-1.09) H 12/03/16 10:00 PTT pending - ....Imaging Other: Report Reviewed (echo - EF 57%, trace regurgitations, trace aortic stenosis, mild pulm htn) Problem List - Problems (1) Calculus of gallbladder with acute cholecystitis Assessment/Plan: NPO/IVF except essential meds with sips of H2O trend labs - amylase elevated, lipase, AST, ALT up today consider GI consultation pt may not be able to have MRI/MRCP secondary to metal merry fragments in back pain meds prn Zosyn per ID preop optimization, risk stratification for laparoscopic possible open cholecystectomy echo done, cardio consult pending hold coumadin - if on heparin, will need to stop at least 6 hrs prior to surgery GI prophylaxis (NPO) DVT prophylaxis if not on heparin drip Discussed with patient risks, benefits and alternatives of laparoscopic possible open cholecystectomy, including but not limited to bleeding, infection , injury to adjacent structures, bile leak or ductal injury, intraabdominal fluid collection, higher risk for open procedure, hernia, existing abdominal wall mesh infection, need for further procedures; alternatives include antibiotics, percutaneous biliary drainage, delayed or no surgery - risks of this include recurrent cholecystitis, pancreatitis, ascending cholangitis, sepsis, need for future surgery, . Patient being risk stratified and optimized for surgery, desires to proceed with operation when appropriate. Will sign informed consent for same. Will follow and plan for OR pending cardiac and medical optimization. Code(s): K80.00 - CALCULUS OF GALLBLADDER W ACUTE CHOLECYST W/O OBSTRUCTION Qualifiers: Biliary obstruction: without biliary obstruction Qualified Code(s): K80.00 - Calculus of gallbladder with acute cholecystitis without obstruction (2) History of pulmonary embolus (PE) Assessment/Plan: pt has IVC filter hold coumadin if hep drip, stop 6+ hrs prior to OR if no hep drip, dvt prophylaxis needed daily coags Code(s): Z86.711 - PERSONAL HISTORY OF PULMONARY EMBOLISM (3) Hypertension Assessment/Plan: continue meds as indicated Code(s): I10 - ESSENTIAL (PRIMARY) HYPERTENSION Qualifiers: Hypertension type: essential hypertension Qualified Code(s): I10 - Essential (primary) hypertension (4) Diabetes mellitus type 2, noninsulin dependent Assessment/Plan: FS with SSI while NPO resume metformin when tolerating usual po Code(s): E11.9 - TYPE 2 DIABETES MELLITUS WITHOUT COMPLICATIONS (5) Hypothyroidism Assessment/Plan: continue synthroid Code(s): E03.9 - HYPOTHYROIDISM, UNSPECIFIED Qualifiers: Hypothyroidism type: acquired Qualified Code(s): E03.9 - Hypothyroidism, unspecified (6) Obesity (BMI 30-39.9) Code(s): E66.9 - OBESITY, UNSPECIFIED
--- NOTE | 2016-12-03 15:53 | CONSULT ---
Consult Consult Specialty:: Gastronenterology Referred by:: Natty Gonzalez Reason for Consultation:: Abdominal Pain - History of Present Illness History of Present Illness: RUQ abdominal pain since Saturday preceded by nausea "few" days prior to that. The pain is moderate, non-radiating, interferes with breathing. Feels nauseous, denies vomiting. Last meal (take out) on Saturday. No appetite. Reports loose stools, no melena, hematochezia, mucous. Denies fever, but had chills at home. Denies icterus/jaundice. No ill contacts. Family members asymptomatic. Denies dysphasia, odynophagia, hematemesis. RUQ US showed thickened GB with pericholesystic fluid. CT abdomen revealed the same with 1st portion of the duodenum evolvement, s/p R. hemicolectomy. Blood testing revealed mild transaminatis, normal WBC, bili, ALP and lipase. Last surveillance colonoscopy, by Dr Elliott, was done earlier this year. R. hemicolectomy for "colon cancer" in 2003. Hx of exlap for abdominal pain. No history of pancreatitis, /PUD, esophgagitis. 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 hemicolectomy) Musculoskeletal: Yes: Other (R shoulder tendinitis) Endocrine: Yes: Hypothyroidism - Past Surgical History Past Surgical History: Yes: Appendectomy ((part of R hemicolectomy)), Breast Biopsy (?), Colectomy (R massiel for CA 2003), Hernia Repair (abdominal wall with mesh at time of hemicolectomy per pt) Additional Surgical History: spinal merry for scoliosis with migration and subsequent removal and revision; laparotomy for SBO prior to hemicolectomy; IVC filter - Alcohol/Substance Use Hx Alcohol Use: Yes (rare/occasional) History of Substance Use: reports: None - Smoking History Smoking history: Former smoker Have you smoked in the past 12 months: No Aproximately how many cigarettes per day: 0 (~5 pk-yr hx quit 1970) If you are a former smoker, when did you quit?: 1970 Home Medications - Allergies Allergies/Adverse Reactions: Allergies Allergy/AdvReac Type Severity Reaction Status Date / Time No Known Drug Allergies Allergy Verified 12/02/16 13:06 - Home Medications Home Medications: Ambulatory Orders Amlodipine Besylate [Norvasc -] 5 mg PO DAILY 01/16/12 Levothyroxine [Synthroid -] 75 mcg PO DAILY 01/16/12 Metformin HCl [Glucophage] 1,000 mg PO BID 01/16/12 Tamoxifen Citrate 10 mg PO DAILY 01/16/12 Ergocalciferol (Vitamin D2) [Vitamin D] 50,000 unit PO WEEKLY 02/13/12 Warfarin Sodium [Coumadin] 4 mg PO UTDICT 02/13/12 Tramadol HCl/Acetaminophen [Ultracet -] 2 each PO TID 02/14/12 Family Disease History - Family Disease History Family History: Unremarkable Review of Systems - Review of Systems Constitutional: reports: Chills Eyes: reports: No Symptoms HENT: reports: No Symptoms Neck: reports: No Symptoms Cardiovascular: reports: No Symptoms Respiratory: reports: No Symptoms Gastrointestinal: reports: Abdominal Pain (see HPI), Diarrhea (lose stools), Nausea. denies: Dysphagia, Melena, Rectal Bleeding, Vomiting, Vomiting Blood Physical Exam Vital Signs: Vital Signs Temperature 98.5 F 12/03/16 13:41 Pulse Rate 79 12/03/16 13:41 Respiratory Rate 17 12/03/16 13:41 Blood Pressure 127/58 12/03/16 13:41 O2 Sat by Pulse Oximetry (%) 96 12/03/16 09:00 Constitutional: Yes: No Distress, Calm, Obese Eyes: Yes: WNL. No: Sclera Icterus HENT: Yes: Atraumatic, Normocephalic Neck: No: Thyromegaly Cardiovascular: Yes: Regular Rate and Rhythm. No: JVD Respiratory: Yes: CTA Bilaterally. No: Cough, Rhonchi, SOB Gastrointestinal: Yes: Abdomen, Obese, Tenderness (RUQ, postive ahmadi's). No: Distention Integumentary: No: Jaundice Neurological: Yes: Alert, Oriented Labs: CBC, BMP Laboratory Tests 12/02/16 12/02/16 12/02/16 13:55 14:15 14:15 WBC 8.9 RBC 3.75 Hgb 11.9 Hct 35.6 MCV 95.0 MCH 31.7 MCHC 33.3 RDW 15.0 Plt Count 217 MPV 7.6 Neutrophils % 84.0 H Lymphocytes % 9.5 Monocytes % 6.0 Eosinophils % 0.0 Basophils % 0.5 PT with INR INR PTT (Actin FS) Sodium 139 Potassium 3.7 Chloride 100 Carbon Dioxide 27 Anion Gap 12 BUN 14 Creatinine 1.1 H Creat Clearance w eGFR 48.82 POC Glucometer Random Glucose 122 H Hemoglobin A1c % Lactic Acid Calcium 8.9 Total Bilirubin 0.6 AST 46 H ALT 26 Alkaline Phosphatase 43 L Creatine Kinase 37 Troponin I < 0.02 Total Protein 7.1 Albumin 3.5 Triglycerides Cholesterol Total LDL Cholesterol HDL Cholesterol Total Amylase Lipase 90 TSH Urine Color Yellow Urine Appearance Slcloudy Urine pH 5.0 Ur Specific [place] >= 1.030 H Urine Protein 2+ H Urine Glucose (UA) Negative Urine Ketones Negative Urine Blood Negative Urine Nitrite Negative Urine Bilirubin Negative Urine Urobilinogen Negative Urine RBC 1 Urine WBC 13 Ur Epithelial Cells Many Urine Bacteria Rare Urine Mucus Rare Blood Type Antibody Screen 12/02/16 12/02/16 12/02/16 14:15 14:15 14:28 WBC RBC Hgb Hct MCV MCH MCHC RDW Plt Count MPV Neutrophils % Lymphocytes % Monocytes % Eosinophils % Basophils % PT with INR 19.10 H INR 1.72 H PTT (Actin FS) Sodium Potassium Chloride Carbon Dioxide Anion Gap BUN Creatinine Creat Clearance w eGFR POC Glucometer Random Glucose Hemoglobin A1c % Lactic Acid 2.9 H* Calcium Total Bilirubin AST ALT Alkaline Phosphatase Creatine Kinase Troponin I Total Protein Albumin Triglycerides Cholesterol Total LDL Cholesterol HDL Cholesterol Total Amylase Lipase TSH Urine Color Urine Appearance Urine pH Ur Specific [place] Urine Protein Urine Glucose (UA) Urine Ketones Urine Blood Urine Nitrite Urine Bilirubin Urine Urobilinogen Urine RBC Urine WBC Ur Epithelial Cells Urine Bacteria Urine Mucus Blood Type A POSITIVE Antibody Screen Negative 12/02/16 12/02/16 12/03/16 21:56 21:56 06:37 WBC RBC Hgb Hct MCV MCH MCHC RDW Plt Count MPV Neutrophils % Lymphocytes % Monocytes % Eosinophils % Basophils % PT with INR INR PTT (Actin FS) 28.7 Sodium Potassium Chloride Carbon Dioxide Anion Gap BUN Creatinine Creat Clearance w eGFR POC Glucometer 116 Random Glucose Hemoglobin A1c % Lactic Acid 1.8 Calcium Total Bilirubin AST ALT Alkaline Phosphatase Creatine Kinase Troponin I Total Protein Albumin Triglycerides Cholesterol Total LDL Cholesterol HDL Cholesterol Total Amylase Lipase TSH Urine Color Urine Appearance Urine pH Ur Specific [place] Urine Protein Urine Glucose (UA) Urine Ketones Urine Blood Urine Nitrite Urine Bilirubin Urine Urobilinogen Urine RBC Urine WBC Ur Epithelial Cells Urine Bacteria Urine Mucus Blood Type Antibody Screen 12/03/16 12/03/16 12/03/16 10:00 10:00 10:00 WBC 6.3 RBC 3.30 L Hgb 10.4 L D Hct 31.4 L MCV 95.1 MCH 31.6 MCHC 33.3 RDW 14.5 Plt Count 171 D MPV 7.9 Neutrophils % Lymphocytes % Monocytes % Eosinophils % Basophils % PT with INR 22.30 H INR 2.00 H PTT (Actin FS) Sodium Potassium Chloride Carbon Dioxide Anion Gap BUN Creatinine Creat Clearance w eGFR POC Glucometer Random Glucose Hemoglobin A1c % Lactic Acid Calcium Total Bilirubin AST ALT Alkaline Phosphatase Creatine Kinase Troponin I Total Protein Albumin Triglycerides Cholesterol Total LDL Cholesterol HDL Cholesterol Total Amylase Lipase TSH 2.57 Urine Color Urine Appearance Urine pH Ur Specific [place] Urine Protein Urine Glucose (UA) Urine Ketones Urine Blood Urine Nitrite Urine Bilirubin Urine Urobilinogen Urine RBC Urine WBC Ur Epithelial Cells Urine Bacteria Urine Mucus Blood Type Antibody Screen 12/03/16 12/03/16 12/03/16 10:00 10:00 10:00 WBC RBC Hgb Hct MCV MCH MCHC RDW Plt Count MPV Neutrophils % Lymphocytes % Monocytes % Eosinophils % Basophils % PT with INR INR PTT (Actin FS) Sodium 143 Potassium 3.6 Chloride 107 Carbon Dioxide 28 Anion Gap 8 BUN 11 D Creatinine 0.8 D Creat Clearance w eGFR POC Glucometer Random Glucose 91 D Hemoglobin A1c % 5.2 Lactic Acid Calcium 8.0 L Total Bilirubin AST ALT Alkaline Phosphatase Creatine Kinase Troponin I Total Protein Albumin Triglycerides 98 Cholesterol 203 H Total LDL Cholesterol 99 HDL Cholesterol 80 H Total Amylase 183 H Lipase 344 TSH Urine Color Urine Appearance Urine pH Ur Specific [place] Urine Protein Urine Glucose (UA) Urine Ketones Urine Blood Urine Nitrite Urine Bilirubin Urine Urobilinogen Urine RBC Urine WBC Ur Epithelial Cells Urine Bacteria Urine Mucus Blood Type Antibody Screen 12/03/16 12/03/16 12/03/16 10:00 10:00 11:32 WBC RBC Hgb Hct MCV MCH MCHC RDW Plt Count MPV Neutrophils % Lymphocytes % Monocytes % Eosinophils % Basophils % PT with INR INR PTT (Actin FS) 53.6 H D Sodium 142 Potassium 3.6 Chloride 108 H Carbon Dioxide 26 Anion Gap 8 BUN 12 Creatinine 0.8 Creat Clearance w eGFR > 60 POC Glucometer 111 Random Glucose 91 Hemoglobin A1c % Lactic Acid Calcium 7.9 L Total Bilirubin 0.5 AST 89 H D ALT 88 H D Alkaline Phosphatase 55 D Creatine Kinase Troponin I Total Protein 5.6 L D Albumin 2.7 L D Triglycerides Cholesterol Total LDL Cholesterol HDL Cholesterol Total Amylase Lipase TSH Urine Color Urine Appearance Urine pH Ur Specific [place] Urine Protein Urine Glucose (UA) Urine Ketones Urine Blood Urine Nitrite Urine Bilirubin Urine Urobilinogen Urine RBC Urine WBC Ur Epithelial Cells Urine Bacteria Urine Mucus Blood Type Antibody Screen Vital Signs (72 hours) 12/02/16 12/02/16 12/02/16 13:02 14:35 21:36 Temperature 99.3 F 100.1 F H 98.1 F Pulse Rate 85 Pulse Rate [ 81 Right Radial] Respiratory 18 18 Rate Blood Pressure 154/92 Blood Pressure 133/77 [Left Arm] O2 Sat by Pulse 100 95 Oximetry (%) 12/02/16 12/03/16 12/03/16 22:34 05:22 09:00 Temperature 98.8 F 98.4 F 98.7 F Pulse Rate 82 76 75 Pulse Rate [ Right Radial] Respiratory 18 18 18 Rate Blood Pressure 110/57 120/70 115/73 Blood Pressure [Left Arm] O2 Sat by Pulse 96 96 Oximetry (%) 12/03/16 13:41 Temperature 98.5 F Pulse Rate 79 Pulse Rate [ Right Radial] Respiratory 17 Rate Blood Pressure 127/58 Blood Pressure [Left Arm] O2 Sat by Pulse Oximetry (%) Current Medications Generic Name Dose Route Start Last Admin Trade Name Freq PRN Reason Stop Dose Admin Amlodipine Besylate 5 mg 12/03/16 10:00 12/03/16 11:13 Norvasc - PO 5 mg DAILY GIL Administration Heparin Sodium (Porcine) 1,000 unit 12/02/16 22:17 Heparin - IVPUSH PRN PRN Heparin Heparin Sodium (Porcine) 5,000 unit 12/02/16 22:17 Heparin - IVPUSH PRN PRN Heparin Sodium Chloride 1,000 mls @ 100 mls/hr 12/02/16 21:57 12/03/16 07:01 Normal Saline - IV 100 mls/hr ASDIR GIL Administration Heparin Sodium (Porcine) 25, 500 mls @ 20 mls/hr 12/02/16 22:30 12/02/16 23:00 000 unit/ Sodium Chloride IV 20 mls/hr TITR GIL Administration Protocol 1,000 UNIT/HR Piperacillin Sod/Tazobactam 100 mls @ 200 mls/hr 12/03/16 18:00 Sod 4.5 gm/ Dextrose IVPB Q8H-IV GIL Insulin Aspart 1 vial 12/03/16 07:00 12/03/16 11:33 Novolog Vial Sliding Scale - SQ Not Given ACHS [facility] Protocol Levothyroxine Sodium 75 mcg 12/03/16 07:00 12/03/16 06:43 Synthroid - PO 75 mcg DAILY@0700 [facility] Administration Morphine Sulfate 2 mg 12/02/16 22:06 12/03/16 13:01 Morphine Injection - IVPUSH 2 mg Q4H PRN Administration PAIN Home Medications Medication Instructions Recorded Amlodipine Besylate [Norvasc -] 5 mg PO DAILY 01/16/12 Levothyroxine [Synthroid -] 75 mcg PO DAILY 01/16/12 Metformin HCl [Glucophage] 1,000 mg PO BID 01/16/12 Tamoxifen Citrate 10 mg PO DAILY 01/16/12 Ergocalciferol (Vitamin D2) 50,000 unit PO WEEKLY 02/13/12 [Vitamin D] Warfarin Sodium [Coumadin] 4 mg PO UTDICT 02/13/12 Tramadol HCl/Acetaminophen 2 each PO TID 02/14/12 [Ultracet -] Imaging - Results X-ray: Report Reviewed Cat Scan: Report Reviewed Ultrasound: Report Reviewed Problem List - Problems (1) Cholecystitis Code(s): K81.9 - CHOLECYSTITIS, UNSPECIFIED (2) Diabetes mellitus type 2, noninsulin dependent Code(s): E11.9 - TYPE 2 DIABETES MELLITUS WITHOUT COMPLICATIONS (3) History of pulmonary embolus (PE) Code(s): Z86.711 - PERSONAL HISTORY OF PULMONARY EMBOLISM (4) Obesity (BMI 30-39.9) Code(s): E66.9 - OBESITY, UNSPECIFIED Assessment/Plan The symptoms, physical exam findings and the history are consistent with acute cholesystitis without obstruction. Mild tranasminitis is probably multifactorial including possible metabolic syndrome and the acute event. Agree with current management. Cholesystectomy as per surgery Will monitor Discussed with the patient Visit type - Emergency Visit Emergency Visit: No - New Patient This patient is new to me today: Yes Date on this admission: 12/03/16 - Critical Care Critical Care patient: No
[2016-12-03] MEDS ORDERED: PIPERACILLIN/TAZOB 4.5 GM/100 ML PRE-DOCKED IVPB SCH (18:00)
[2016-12-03] MEDS: PIPERACILLIN/TAZOB 4.5 GM 4.5 GM in DEXTROSE 5%-WATER 100 ML IVPB SCH (18:20)
--- NOTE | 2016-12-03 18:36 | PN ---
Physical Exam: SUBJECTIVE: Patient seen and examined at the bedside. She verbalizes intermittent abdominal pain. OBJECTIVE: Vital Signs Period Temp Pulse Resp BP Sys/Brandt Pulse Ox Last 24 Hr 98.4 F-98.7 F 75-79 17-18 115-127/58-73 96 GENERAL: The patient is awake, alert, and fully oriented, in no acute distress. HEAD: Normal with no signs of trauma. EYES: PERRL, extraocular movements intact, sclera anicteric, conjunctiva clear. No ptosis. ENT: Ears normal, nares patent, oropharynx clear without exudates, moist mucous membranes. NECK: Trachea midline, full range of motion, supple. LUNGS: Diminished breath sound bilaterally HEART: Regular rate and rhythm, S1, S2 without murmur, rub or gallop. ABDOMEN: Soft, +tender on RUQ, nondistended, normoactive bowel sounds, no guarding, no rebound, no hepatosplenomegaly, no masses. EXTREMITIES: no edema. NEUROLOGICAL: Normal speech, gait not observed. PSYCH: Normal mood, normal affect. SKIN: Warm, dry, normal turgor, no rashes or lesions noted Laboratory Results - last 24 hr 12/03/16 12/03/16 12/03/16 06:37 10:00 10:00 WBC 6.3 RBC 3.30 L Hgb 10.4 L D Hct 31.4 L MCV 95.1 MCH 31.6 MCHC 33.3 RDW 14.5 Plt Count 171 D MPV 7.9 PT with INR INR PTT (Actin FS) Sodium Potassium Chloride Carbon Dioxide Anion Gap BUN Creatinine Creat Clearance w eGFR POC Glucometer 116 Random Glucose Hemoglobin A1c % Calcium Total Bilirubin AST ALT Alkaline Phosphatase Total Protein Albumin Triglycerides Cholesterol Total LDL Cholesterol HDL Cholesterol Total Amylase Lipase TSH 2.57 12/03/16 12/03/16 12/03/16 10:00 10:00 10:00 WBC RBC Hgb Hct MCV MCH MCHC RDW Plt Count MPV PT with INR 22.30 H INR 2.00 H PTT (Actin FS) Sodium 143 Potassium 3.6 Chloride 107 Carbon Dioxide 28 Anion Gap 8 BUN 11 D Creatinine 0.8 D Creat Clearance w eGFR POC Glucometer Random Glucose 91 D Hemoglobin A1c % Calcium 8.0 L Total Bilirubin AST ALT Alkaline Phosphatase Total Protein Albumin Triglycerides 98 Cholesterol 203 H Total LDL Cholesterol 99 HDL Cholesterol 80 H Total Amylase 183 H Lipase 344 TSH 09/25/17 09/25/17 09/25/17 10:00 10:00 10:00 WBC RBC Hgb Hct MCV MCH MCHC RDW Plt Count MPV PT with INR INR PTT (Actin FS) 53.6 H D Sodium 142 Potassium 3.6 Chloride 108 H Carbon Dioxide 26 Anion Gap 8 BUN 12 Creatinine 0.8 Creat Clearance w eGFR > 60 POC Glucometer Random Glucose 91 Hemoglobin A1c % 5.2 Calcium 7.9 L Total Bilirubin 0.5 AST 89 H D ALT 88 H D Alkaline Phosphatase 55 D Total Protein 5.6 L D Albumin 2.7 L D Triglycerides Cholesterol Total LDL Cholesterol HDL Cholesterol Total Amylase Lipase TSH 12/03/16 12/03/16 11:32 17:03 WBC RBC Hgb Hct MCV MCH MCHC RDW Plt Count MPV PT with INR INR PTT (Actin FS) Sodium Potassium Chloride Carbon Dioxide Anion Gap BUN Creatinine Creat Clearance w eGFR POC Glucometer 111 94 Random Glucose Hemoglobin A1c % Calcium Total Bilirubin AST ALT Alkaline Phosphatase Total Protein Albumin Triglycerides Cholesterol Total LDL Cholesterol HDL Cholesterol Total Amylase Lipase TSH Active Medications Generic Name Dose Route Start Last Admin Trade Name Freq PRN Reason Stop Dose Admin Amlodipine Besylate 5 mg 12/03/16 10:00 12/03/16 11:13 Norvasc - PO 5 mg DAILY GIL Administration Heparin Sodium (Porcine) 1,000 unit 12/02/16 22:17 Heparin - IVPUSH PRN PRN Heparin Heparin Sodium (Porcine) 5,000 unit 12/02/16 22:17 Heparin - IVPUSH PRN PRN Heparin Sodium Chloride 1,000 mls @ 100 mls/hr 12/02/16 21:57 12/03/16 07:01 Normal Saline - IV 100 mls/hr ASDIR GIL Administration Heparin Sodium (Porcine) 25, 500 mls @ 20 mls/hr 12/02/16 22:30 12/02/16 23:00 000 unit/ Sodium Chloride IV 20 mls/hr TITR GIL Administration Protocol 1,000 UNIT/HR Piperacillin Sod/Tazobactam 100 mls @ 200 mls/hr 12/03/16 18:00 12/03/16 18:20 Sod 4.5 gm/ Dextrose IVPB 200 mls/hr Q8H-IV GIL Administration Insulin Aspart 1 vial 12/03/16 07:00 12/03/16 17:45 Novolog Vial Sliding Scale - SQ Not Given ACHS [facility] Protocol Levothyroxine Sodium 75 mcg 12/03/16 07:00 12/03/16 06:43 Synthroid - PO 75 mcg DAILY@0700 GIL Administration Morphine Sulfate 2 mg 12/02/16 22:06 12/03/16 16:55 Morphine Injection - IVPUSH 2 mg Q4H PRN Administration PAIN ASSESSMENT/PLAN: Patient is a 71 year old female with a significant past medical history of hypertenstion, hyperlipidemia, diabetes mellitus, colon cancer (s/p ex-lap and resection) and current breast pathology concerning for cancer (on tamoxifen). She presented to the Ed on 12/02/2016 with right sided abdominal pain. She had 10/10, constant, sharp, that started early in the AM. Pain was associated with nausea and few episodes of non bloody emesis. She denies fevers, but endorses chills. She was seen at [facility] ER, diagnosed with food poisoning, and discharged, but the pain persisted. On exam denies CP, has chronic SOB on exertion but not at rest. Imaging: GI: Acute Cholecystitis A/P: On Zosyn as per ID NS @ 100cc hr NPO as per surgery and GI Morphine 2mg ivpush q4 for abdominal pain Lactic acidosis normalized Cardiology following, for questionable valvular pathology and for pre op clearance Monitor for pain, Monitor liver function, monitor labs and vitals GI consulted Cardiology: A/P: Palpitations/Prolonged QTC No prior echos available, prolonged QT on EKG Echo reviewed Hypertension A/P: On Norvasc Monitor BP Subtherapeutic INR A/P: Hx of DVT/PE On home Coumadin daily, now on a heparin drip Bridge to Coumadin prior to d/c Renal: A/P: Sightly elevated creat on admission Monitor renal functions Oncology: Colon cancer hx/Breast pathology concerning for cancer On Tamoxifen for breast pathology concerning for cancer She is a patient of Dr. Freedman Will consult Endocrine: Diabetes Mellitus A/P: BGMs, sliding scale Hypothyroidism A/P: On Synthoroid TSH wnl Pulmonary Pulmonary Nodule - acute vs. chronic A/P: Irregular 7 x 6 mm nodular opacity in the left upper lobe seen on CT scan, Monitor respiratory status FEN Fluids: NS @ 100cc/hr Electrolytes: monitor Nutrition: NPO, PO meds OK to give Prophylaxis DVT: On Heparin Drip GI: Protonix
[2016-12-04] MEDS: HEPARIN - 25,000 UNIT in SODIUM CHLORIDE 495 ML IV SCH ×4 (01:42→22:39)
[2016-12-04] MEDS ORDERED: PIPERACILLIN/TAZOBACTAM 4.5 GM VIAL IVPB ONE ×3 (01:53→18:33)
[2016-12-04] MEDS ORDERED: DEXTROSE 5%-WATER 100 ML IVPB ONE ×3 (01:53→18:34)
[2016-12-04] MEDS: PIPERACILLIN/TAZOB 4.5 GM 4.5 GM in DEXTROSE 5%-WATER 100 ML IVPB SCH ×3 (01:57→18:41)
[2016-12-04] MEDS: morphine CARPU-JECT 2 MG/1 ML DISP.SYRIN IVPUSH PRN ×4 (04:34→18:45)
[2016-12-04] MEDS: SODIUM CHLORIDE 1,000 ML IV SCH ×2 (05:38→05:46)
[2016-12-04] MEDS: INSULIN SLIDING SCALE (NOVOLOG) 1 VIAL SQ SCH ×4 (06:16→21:32)
[2016-12-04] MEDS: LEVOTHYROXINE NA 75 MCG TABLET (FP) PO SCH (06:16)
[2016-12-04 07:16] LABS: BASOPHIL 0.8 % (0-2.0); EOSINOPHIL 1.8 % (0-4.5); MCH 31.7 pg (25.7-33.7); MCHC 33.1 g/dl (32.0-36.0); MEAN CELL VOLUME 95.8 fl (80-96); MEAN PLT VOLUME 7.9 fl (7.5-11.1); PLATELET COUNT 165 K/MM3 (134-434); RDW 14.4 % (11.6-15.6); WHITE BLOOD COUNT 5.1 K/mm3 (4.0-10.0)
[2016-12-04 07:26] LABS: INR 1.86 (0.82-1.09); PROTHROMBIN TIME (PATIENT) 20.7 SEC (9.98-11.88)
[2016-12-04 08:38] LABS: ALBUMIN 2.6 g/dl (3.4-5.0); ALK PHOS 42 U/L (45-117); AMYLASE 61 U/L (25-115); ANION GAP 9 (8-16); BILIRUBIN,TOTAL 0.5 mg/dL (0.2-1.0); CALCIUM 7.7 mg/dL (8.5-10.1); CO2 24 mmol/L (21-32); CREATININE 0.8 mg/dL (0.55-1.02); GLUCOSE,RANDOM 71 mg/dL (74-106); MAGNESIUM 1.7 mg/dL (1.8-2.4); SGOT/AST 41 U/L (15-37); SGPT/ALT 56 U/L (12-78); TOT PROT 5.1 g/dl (6.4-8.2)
--- NOTE | 2016-12-04 10:33 | PN ---
Progress Note, Physician Chief Complaint: RUQ pain History of Present Illness: Pt seen and examined in bed. No overnight events. Pt still with intermittent RUQ pain, but overall feeling a little better. No N/V. Heparin drip running, PTT therapeutic. Had pain med this am. - Current Medication List Current Medications: Active Medications Amlodipine Besylate (Norvasc -) 5 mg PO DAILY GIL Last Admin: 12/03/16 11:13 Dose: 5 mg Heparin Sodium (Porcine) (Heparin -) 1,000 unit IVPUSH PRN PRN PRN Reason: Heparin Heparin Sodium (Porcine) (Heparin -) 5,000 unit IVPUSH PRN PRN PRN Reason: Heparin Sodium Chloride (Normal Saline -) 1,000 mls @ 100 mls/hr IV ASDIR GIL Last Admin: 12/04/16 05:46 Dose: Not Given Heparin Sodium (Porcine) 25, (000 unit/ Sodium Chloride) 500 mls @ 20 mls/hr IV TITR GIL; 1,000 UNIT/HR PRN Reason: Protocol Last Admin: 12/04/16 08:59 Dose: 20 mls/hr Piperacillin Sod/Tazobactam (Sod 4.5 gm/ Dextrose) 100 mls @ 200 mls/hr IVPB Q8H-IV GIL Last Admin: 12/04/16 01:57 Dose: 200 mls/hr Insulin Aspart (Novolog Vial Sliding Scale -) 1 vial SQ ACHS GIL PRN Reason: Protocol Last Admin: 12/04/16 06:16 Dose: Not Given Levothyroxine Sodium (Synthroid -) 75 mcg PO DAILY@0700 [facility] Last Admin: 12/04/16 06:16 Dose: 75 mcg Magnesium Sulfate (Magnesium Sulfate) 1 gm IVPB ONCE ONE Stop: 12/04/16 10:25 Morphine Sulfate (Morphine Injection -) 2 mg IVPUSH Q4H PRN PRN Reason: PAIN Last Admin: 12/04/16 08:55 Dose: 2 mg - Objective Vital Signs: Vital Signs Temperature 98 F 12/04/16 09:01 Pulse Rate 70 12/04/16 09:01 Respiratory Rate 18 12/04/16 09:01 Blood Pressure 132/66 12/04/16 09:01 O2 Sat by Pulse Oximetry (%) 96 12/03/16 09:00 Vital Signs Period Temp Pulse Resp BP Sys/Brandt Pulse Ox Last 24 Hr 98 F-98.8 F 69-81 17-18 100-132/53-66 Constitutional: Yes: No Distress, Calm, Obese Eyes: Yes: Conjunctiva Clear. No: Sclera Icterus Cardiovascular: Yes: Regular Rate and Rhythm, Murmur (soft systolic) Respiratory: Yes: Regular, CTA Bilaterally (somewhat shallow but can take a deep breath) Gastrointestinal: Yes: Soft, Abdomen, Obese, Hyperactive Bowel Sounds, Tenderness (RUQ, minimal epigastric) Neurological: Yes: Alert, Oriented Labs: CBC, BMP 12/04/16 06:10 12/04/16 06:10 INR, PTT INR 1.86 (0.82-1.09) H 12/04/16 06:10 CMP Sodium 142 mmol/L (136-145) 12/04/16 06:10 Potassium 3.5 mmol/L (3.5-5.1) 12/04/16 06:10 Chloride 109 mmol/L (98-107) H 12/04/16 06:10 Carbon Dioxide 24 mmol/L (21-32) 12/04/16 06:10 Anion Gap 9 (8-16) 12/04/16 06:10 BUN 9 mg/dL (7-18) D 12/04/16 06:10 Creatinine 0.8 mg/dL (0.55-1.02) 12/04/16 06:10 Creat Clearance w eGFR > 60 (>60) 12/04/16 06:10 POC Glucometer 81 UNITS (()) 12/04/16 05:53 Random Glucose 71 mg/dL (74-106) L D 12/04/16 06:10 Hemoglobin A1c % 5.2 % (4.8-6.0) 12/03/16 10:00 Lactic Acid 1.8 mmol/L (0.4-2.0) 12/02/16 21:56 Calcium 7.7 mg/dL (8.5-10.1) L 12/04/16 06:10 Magnesium 1.7 mg/dL (1.8-2.4) L 12/04/16 06:10 Total Bilirubin 0.5 mg/dL (0.2-1.0) 12/04/16 06:10 AST 41 U/L (15-37) H D 12/04/16 06:10 ALT 56 U/L (12-78) D 12/04/16 06:10 Alkaline Phosphatase 42 U/L (45-117) L D 12/04/16 06:10 Creatine Kinase 37 IU/L (26-192) 12/02/16 14:15 Troponin I < 0.02 ng/ml (0.00-0.05) 12/02/16 14:15 Total Protein 5.1 g/dl (6.4-8.2) L 12/04/16 06:10 Albumin 2.6 g/dl (3.4-5.0) L 12/04/16 06:10 Triglycerides 98 mg/dL (35-160) 12/03/16 10:00 Cholesterol 203 mg/dL (50-200) H 12/03/16 10:00 Total LDL Cholesterol 99 mg/dL (5-100) 12/03/16 10:00 HDL Cholesterol 80 mg/dL (40-60) H 12/03/16 10:00 Total Amylase 61 U/L (25-115) D 12/04/16 06:10 Lipase 101 U/L (73-393) 12/04/16 06:10 TSH 2.57 uIU/ml (0.358-3.74) 12/03/16 10:00 PTT therapeutic LFTs, am/lip down, essentially normal Problem List - Problems (1) Calculus of gallbladder with acute cholecystitis Assessment/Plan: NPO/IVF except meds amylase/lipase/LFTs down, essentially normal today PTT therapeutic on heparin, INR 1.8 today GI consult noted pain meds prn continue Zosyn per ID preop optimization for laparoscopic possible open cholecystectomy cardiology note appreciated - postop telemetry noted holding coumadin GI prophylaxis (NPO), glucose controlled Discussed possible need for FFP to normalize INR preop, pt ok with blood product transfusion prn Need INR at least < 1.5 for OR Will sign consent for surgery today Plan for OR tomorrow 1pm if optimized per medicine Hold heparin drip at 0600 in am Repeat T&S ordered for am, as it will tomorrow midday Incentive spirometry to start today Change to maintenance IVF Code(s): K80.00 - CALCULUS OF GALLBLADDER W ACUTE CHOLECYST W/O OBSTRUCTION Qualifiers: Biliary obstruction: without biliary obstruction Qualified Code(s): K80.00 - Calculus of gallbladder with acute cholecystitis without obstruction (2) History of pulmonary embolus (PE) Assessment/Plan: pt has IVC filter hold coumadin hold heparin 6AM daily coags will advise on resuming anticoagulation postop Code(s): Z86.711 - PERSONAL HISTORY OF PULMONARY EMBOLISM (3) Hypertension Assessment/Plan: continue meds as indicated Code(s): I10 - ESSENTIAL (PRIMARY) HYPERTENSION Qualifiers: Hypertension type: essential hypertension Qualified Code(s): I10 - Essential (primary) hypertension (4) Diabetes mellitus type 2, noninsulin dependent Assessment/Plan: FS with SSI while NPO resume metformin when tolerating usual po Code(s): E11.9 - TYPE 2 DIABETES MELLITUS WITHOUT COMPLICATIONS (5) Hypothyroidism Assessment/Plan: continue synthroid Code(s): E03.9 - HYPOTHYROIDISM, UNSPECIFIED Qualifiers: Hypothyroidism type: acquired Qualified Code(s): E03.9 - Hypothyroidism, unspecified (6) Obesity (BMI 30-39.9) Code(s): E66.9 - OBESITY, UNSPECIFIED
[2016-12-04] MEDS: amLODIPine BESYLATE 5 MG TABLET (FP) PO SCH (10:38)
[2016-12-04] MEDS ORDERED: D5-1/2NS+20 MEQ KCL - 1,000 ML IV SCH (10:45)
[2016-12-04] MEDS ORDERED: MAGNESIUM SULF 50% (8.12 MEQ/2 ML-1 GM VIAL) IVPB ONE (11:30)
[2016-12-04] MEDS ORDERED: TAMOXIFEN CITRATE 10 MG TABLET PO SCH (11:45)
--- NOTE | 2016-12-04 13:23 | PN ---
Progress Note, Physician Chief Complaint: Pt sitting in chair; occasional abdominal pain; no chest pain or dyspnea. Her daughter is visiting. History of Present Illness: 71 year old black female with PMH of HTN, HLD, Hypothyroidism, diabetes (non- insulin dependent), history of DVT/ PE (most recently 5 years prior on Coumadin) , colon cancer (s/p ex-lap and resection, and current breast pathology concerning for cancer (on tamoxifen) presenting with nausea, vomiting, diarrhea , and abdominal pain for approximately 24 hours. She seems to attribute the paitn to the ingestion of some [employer] as it began a few hours after eating them. She describes the pain as a sharp/ tight pain 8/10 in her right lower quadrant that is occasionally positional and occasionally co- presents in her back. The pain did not allow her to sleep last night and she went to [facility] ED at which point she was diagnosed with food poisoning without imaging. She describes non-bilious/ non-bloody emesis and non-bloody, brown diarrhea. Denies fevers, chills, chest pain, cough, urinary changes, or palpitations. - Current Medication List Current Medications: Active Medications Amlodipine Besylate (Norvasc -) 5 mg PO DAILY [facility] Last Admin: 12/04/16 10:38 Dose: 5 mg Heparin Sodium (Porcine) (Heparin -) 1,000 unit IVPUSH PRN PRN PRN Reason: Heparin Heparin Sodium (Porcine) (Heparin -) 5,000 unit IVPUSH PRN PRN PRN Reason: Heparin Heparin Sodium (Porcine) 25, (000 unit/ Sodium Chloride) 500 mls @ 20 mls/hr IV TITR GIL; 1,000 UNIT/HR PRN Reason: Protocol Last Admin: 12/04/16 08:59 Dose: 20 mls/hr Piperacillin Sod/Tazobactam (Sod 4.5 gm/ Dextrose) 100 mls @ 200 mls/hr IVPB Q8H-IV GIL Last Admin: 12/04/16 10:40 Dose: 200 mls/hr Potassium Chloride/Dextrose/Sod Cl (D5-1/2ns+20 Meq Kcl -) 1,000 mls @ 75 mls/ hr IV ASDIR GIL Last Admin: 12/04/16 12:50 Dose: 75 mls/hr Insulin Aspart (Novolog Vial Sliding Scale -) 1 vial SQ ACHS GIL PRN Reason: Protocol Last Admin: 12/04/16 11:47 Dose: Not Given Levothyroxine Sodium (Synthroid -) 75 mcg PO DAILY@0700 [facility] Last Admin: 12/04/16 06:16 Dose: 75 mcg Morphine Sulfate (Morphine Injection -) 2 mg IVPUSH Q4H PRN PRN Reason: PAIN Last Admin: 12/04/16 08:55 Dose: 2 mg Tamoxifen Citrate (Tamoxifen Citrate) 20 mg PO DAILY [facility] - Objective Vital Signs: Vital Signs Temperature 98 F 12/04/16 09:01 Pulse Rate 70 12/04/16 09:01 Respiratory Rate 18 12/04/16 09:01 Blood Pressure 132/66 12/04/16 09:01 O2 Sat by Pulse Oximetry (%) 96 12/03/16 09:00 Constitutional: Yes: Calm Eyes: Yes: WNL HENT: Yes: WNL Neck: Yes: WNL Cardiovascular: Yes: WNL, S1, S2 Respiratory: Yes: WNL Gastrointestinal: Yes: Soft, Abdomen, Obese ...Rectal Exam: Yes: Deferred Genitourinary: No: Anuria Breast(s): Yes: WNL Musculoskeletal: Yes: Joint Stiffness Extremities: Yes: WNL Edema: Yes Edema: LLE: Trace, RLE: Trace Peripheral Pulses WNL: Yes Integumentary: Yes: WNL Neurological: Yes: WNL Psychiatric: Yes: WNL Labs: CBC, BMP 12/04/16 06:10 12/04/16 06:10 INR, PTT INR 1.86 (0.82-1.09) H 12/04/16 06:10 Abnormal Lab Results 12/04/16 12/04/16 12/04/16 06:10 06:10 06:10 RBC 3.13 L Hgb 9.9 L Hct 30.0 L PT with INR 20.70 H INR 1.86 H PTT (Actin FS) 66.4 H Chloride Random Glucose Calcium Magnesium AST Alkaline Phosphatase Total Protein Albumin 12/04/16 06:10 RBC Hgb Hct PT with INR INR PTT (Actin FS) Chloride 109 H Random Glucose 71 L D Calcium 7.7 L Magnesium 1.7 L AST 41 H D Alkaline Phosphatase 42 L D Total Protein 5.1 L Albumin 2.6 L Problem List - Problems (1) Calculus of gallbladder with acute cholecystitis Assessment/Plan: For cholecystectomy when INR level is acceptable (presently 1.86). Code(s): K80.00 - CALCULUS OF GALLBLADDER W ACUTE CHOLECYST W/O OBSTRUCTION Qualifiers: Qualified Code(s): K80.00 - Calculus of gallbladder with acute cholecystitis without obstruction (2) Diabetes mellitus type 2, noninsulin dependent Assessment/Plan: Recommend starting lisinopril 2.5 mg daily (HTN; DM). Code(s): E11.9 - TYPE 2 DIABETES MELLITUS WITHOUT COMPLICATIONS (3) History of pulmonary embolus (PE) Assessment/Plan: warfarin held; on IV heparin pending cholecystectomy. Code(s): Z86.711 - PERSONAL HISTORY OF PULMONARY EMBOLISM (4) Hypertension Code(s): I10 - ESSENTIAL (PRIMARY) HYPERTENSION Qualifiers: Qualified Code(s): I10 - Essential (primary) hypertension (5) Hypothyroidism Code(s): E03.9 - HYPOTHYROIDISM, UNSPECIFIED Qualifiers: Qualified Code(s): E03.9 - Hypothyroidism, unspecified (6) Obesity (BMI 30-39.9) Assessment/Plan: Pt has lost a significant amount of weight in the past few months. She plans on following a healthier diet at home, and will try to exercise more ( denies history of heart disease; sedentary, and easily fatigued and short of breath on exertion; consider stress test as outpatient, if not done recently). Code(s): E66.9 - OBESITY, UNSPECIFIED (7) Hypomagnesemia Assessment/Plan: replete; f/u all electrolytes. (K+ 3.5; receiving K+ in IVF). Code(s): E83.42 - HYPOMAGNESEMIA
--- NOTE | 2016-12-04 14:56 | CONSULT ---
Consult Consult Specialty:: Oncology - History of Present Illness History of Present Illness: 71 year old female with a significant past medical history of hypertenstion, hyperlipidemia, diabetes mellitus, colon cancer (s/p ex-lap and resection, chemo in 2004) and LCIS on 2011 (on tamoxifen), h/o DVT [PE on coumadin. She presented to the Ed on 12/02/2016 with right sided abdominal pain and is admitted for diagnosis of acute cholecystitis. Oncology consulted as pt is on tamoxifen. Patient seen and examined this am. She is feeling a little better ,and is on npo and is being prepped for lap salomón this admission - Past Medical History TOURIST ESCORT: Yes: CVA (h/o but pt was not aware of it) Cardio/Vascular: Yes: Deep Vein Thrombosis (and PE s/p IVC filter on coumadin), HTN, Hyperlipdemia (?), Other (possible valvular stenosis?) Gastrointestinal: Yes: Cancer (R hemicolectomy), Other (diarrhea/chronic loose stool) Hepatobiliary: No: Cirrhosis, Cholelithiasis, Cholecystitis, Choledocholithiasis , Hepatitis A, Hepatitis B, Hepatitis C ...: No Musculoskeletal: Yes: Other (R shoulder tendinitis) Endocrine: Yes: Hypothyroidism - Past Surgical History Past Surgical History: Yes: Appendectomy ((part of R hemicolectomy)), Breast Biopsy (?), Colectomy (R massiel for CA 2003), Hernia Repair (abdominal wall with mesh at time of hemicolectomy per pt) Additional Surgical History: spinal merry for scoliosis with migration and subsequent removal and revision; laparotomy for SBO prior to hemicolectomy; IVC filter - Alcohol/Substance Use Hx Alcohol Use: Yes (rare/occasional) History of Substance Use: reports: None - Smoking History Smoking history: Former smoker Have you smoked in the past 12 months: No Aproximately how many cigarettes per day: 0 (~5 pk-yr hx quit 1970) If you are a former smoker, when did you quit?: 1970 Home Medications - Allergies Allergies/Adverse Reactions: Allergies Allergy/AdvReac Type Severity Reaction Status Date / Time No Known Drug Allergies Allergy Verified 12/02/16 13:06 - Home Medications Home Medications: Ambulatory Orders Amlodipine Besylate [Norvasc -] 5 mg PO DAILY 01/16/12 Levothyroxine [Synthroid -] 75 mcg PO DAILY 01/16/12 Metformin HCl [Glucophage] 1,000 mg PO BID 01/16/12 Tamoxifen Citrate 10 mg PO DAILY 01/16/12 Ergocalciferol (Vitamin D2) [Vitamin D] 50,000 unit PO WEEKLY 02/13/12 Warfarin Sodium [Coumadin] 4 mg PO UTDICT 02/13/12 Tramadol HCl/Acetaminophen [Ultracet -] 2 each PO TID 02/14/12 Review of Systems - Review of Systems Constitutional: reports: Weakness HENT: denies: Difficult Swallowing, Hearing Loss Neck: denies: Decreased ROM, Lumps Cardiovascular: denies: Chest Pain, Edema, Palpitations, Shortness of Breath Respiratory: denies: Cough, Exercise Intolerance Gastrointestinal: reports: Abdominal Pain, Nausea Physical Exam Vital Signs: Vital Signs Temperature 98.1 F 12/04/16 14:29 Pulse Rate 76 12/04/16 14:29 Respiratory Rate 19 12/04/16 14:29 Blood Pressure 122/57 12/04/16 14:29 O2 Sat by Pulse Oximetry (%) 96 12/03/16 09:00 Constitutional: Yes: Well Nourished, No Distress, Calm HENT: Yes: Atraumatic, Normocephalic Neck: Yes: Supple, Trachea Midline Cardiovascular: Yes: Regular Rate and Rhythm Respiratory: Yes: Regular, CTA Bilaterally Gastrointestinal: Yes: Normal Bowel Sounds, Tenderness, Tenderness, Epigastrium Edema: No Labs: CBC, BMP 12/04/16 06:10 12/04/16 06:10 Imaging - Results Cat Scan: Report Reviewed Problem List - Problems (1) Lobular carcinoma in situ (LCIS) of right breast Code(s): D05.01 - LOBULAR CARCINOMA IN SITU OF RIGHT BREAST (2) Calculus of gallbladder with acute cholecystitis Code(s): K80.00 - CALCULUS OF GALLBLADDER W ACUTE CHOLECYST W/O OBSTRUCTION Qualifiers: Biliary obstruction: without biliary obstruction Qualified Code(s): K80.00 - Calculus of gallbladder with acute cholecystitis without obstruction (3) Cholecystitis Code(s): K81.9 - CHOLECYSTITIS, UNSPECIFIED (4) Personal history of colon cancer Code(s): Z85.038 - PERSONAL HISTORY OF MALIGNANT NEOPLASM OF LARGE INTESTINE (5) History of pulmonary embolus (PE) Code(s): Z86.711 - PERSONAL HISTORY OF PULMONARY EMBOLISM Assessment/Plan Pt with LCIS , not breast cancer as per OP records, on tamoxifen since 10/2011. She completed her therapy as of 10/2016. No further need for tamoxifen. Need to get regular OP mammogram. Re-iterate to the pt. The last report needs to be verified. Pt w/ h.o colon ca in CR ( s/p treatment in 2004) Pt with a CT chest with Irregular nodule in the lung, prefer to have CT chest non con prior to discharge in the light of above. On hep ,reversal of INR underway Being prepared for surgery lap salomón likely in the am.
--- NOTE | 2016-12-04 15:48 | PN ---
Progress Note (short form) - Note Progress Note: no fevers still some intermittent RUQ pain Vital Signs Period Temp Pulse Resp BP Sys/Brandt Pulse Ox Last 24 Hr 98 F-98.8 F 69-81 18-19 100-132/53-66 cor-rrr lungs clear abd soft, mild ruq discomfort to palpation ext no edema CBC, BMP 12/04/16 06:10 12/04/16 06:10 Microbiology 12/03/16 14:45 Urine - Urine Clean Catch Urine Culture - Final 12/02/16 13:55 Urine - Urine Clean Catch Urine Culture - Final Contaminated: Please Repeat a/p cholycystitis- for OR in am, continue zosyn perioperatively
--- NOTE | 2016-12-04 15:56 | PN ---
Physical Exam: SUBJECTIVE: Patient seen and examined. Sitting in chair, in no acute distress. OBJECTIVE: For possible lap salomón in a.m. NPO at midnight Stat 5a.m. labs, 2 units of FFP ordered for tomorrow if INR is 1.5 or greater Vital Signs Period Temp Pulse Resp BP Sys/Brandt Pulse Ox Last 24 Hr 98 F-98.8 F 69-81 18-19 100-132/53-66 GENERAL: The patient is awake, alert, and fully oriented, in no acute distress. HEAD: Normal with no signs of trauma. EYES: PERRL, extraocular movements intact, sclera anicteric, conjunctiva clear. No ptosis. ENT: Ears normal, nares patent, oropharynx clear without exudates, moist mucous membranes. NECK: Trachea midline, full range of motion, supple. LUNGS: Diminished breath sound bilaterally HEART: Regular rate and rhythm, S1, S2 without murmur, rub or gallop. ABDOMEN: Soft, +tender on RUQ, nondistended, normoactive bowel sounds, no guarding, no rebound, no hepatosplenomegaly, no masses. EXTREMITIES: no edema. NEUROLOGICAL: Normal speech, gait not observed. PSYCH: Normal mood, normal affect. SKIN: Warm, dry, normal turgor, no rashes or lesions noted Laboratory Results - last 24 hr 12/03/16 12/03/16 12/04/16 17:03 21:07 05:53 WBC RBC Hgb Hct MCV MCH MCHC RDW Plt Count MPV Neutrophils % Lymphocytes % Monocytes % Eosinophils % Basophils % PT with INR INR PTT (Actin FS) Sodium Potassium Chloride Carbon Dioxide Anion Gap BUN Creatinine Creat Clearance w eGFR POC Glucometer 94 82 81 Random Glucose Calcium Magnesium Total Bilirubin AST ALT Alkaline Phosphatase Total Protein Albumin Total Amylase Lipase 12/04/16 12/04/16 12/04/16 06:10 06:10 06:10 WBC 5.1 RBC 3.13 L Hgb 9.9 L Hct 30.0 L MCV 95.8 MCH 31.7 MCHC 33.1 RDW 14.4 Plt Count 165 MPV 7.9 Neutrophils % 61.0 D Lymphocytes % 31.3 D Monocytes % 5.1 Eosinophils % 1.8 D Basophils % 0.8 PT with INR 20.70 H INR 1.86 H PTT (Actin FS) 66.4 H Sodium Potassium Chloride Carbon Dioxide Anion Gap BUN Creatinine Creat Clearance w eGFR POC Glucometer Random Glucose Calcium Magnesium Total Bilirubin AST ALT Alkaline Phosphatase Total Protein Albumin Total Amylase Lipase 12/04/16 12/04/16 06:10 11:46 WBC RBC Hgb Hct MCV MCH MCHC RDW Plt Count MPV Neutrophils % Lymphocytes % Monocytes % Eosinophils % Basophils % PT with INR INR PTT (Actin FS) Sodium 142 Potassium 3.5 Chloride 109 H Carbon Dioxide 24 Anion Gap 9 BUN 9 D Creatinine 0.8 Creat Clearance w eGFR > 60 POC Glucometer 83 Random Glucose 71 L D Calcium 7.7 L Magnesium 1.7 L Total Bilirubin 0.5 AST 41 H D ALT 56 D Alkaline Phosphatase 42 L D Total Protein 5.1 L Albumin 2.6 L Total Amylase 61 D Lipase 101 Active Medications Generic Name Dose Route Start Last Admin Trade Name Freq PRN Reason Stop Dose Admin Amlodipine Besylate 5 mg 12/03/16 10:00 12/04/16 10:38 Norvasc - PO 5 mg DAILY GIL Administration Heparin Sodium (Porcine) 1,000 unit 12/02/16 22:17 Heparin - IVPUSH PRN PRN Heparin Heparin Sodium (Porcine) 5,000 unit 12/02/16 22:17 Heparin - IVPUSH PRN PRN Heparin Heparin Sodium (Porcine) 25, 500 mls @ 20 mls/hr 12/02/16 22:30 12/04/16 08:59 000 unit/ Sodium Chloride IV 20 mls/hr TITR GIL Administration Protocol 1,000 UNIT/HR Piperacillin Sod/Tazobactam 100 mls @ 200 mls/hr 12/03/16 18:00 12/04/16 10:40 Sod 4.5 gm/ Dextrose IVPB 200 mls/hr Q8H-IV GIL Administration Potassium Chloride/Dextrose/Sod Cl 1,000 mls @ 75 mls/hr 12/04/16 10:45 12:50 D5-1/2ns+20 Meq Kcl - IV 75 mls/hr ASDIR GIL Administration Insulin Aspart 1 vial 12/03/16 07:00 12/04/16 11:47 Novolog Vial Sliding Scale - SQ Not Given ACHS IGL Protocol Levothyroxine Sodium 75 mcg 12/03/16 07:00 12/04/16 06:16 Synthroid - PO 75 mcg DAILY@0700 GIL Administration Morphine Sulfate 2 mg 12/02/16 22:06 12/04/16 13:51 Morphine Injection - IVPUSH 2 mg Q4H PRN Administration PAIN Tamoxifen Citrate 20 mg 12/04/16 11:45 12/04/16 13:53 Tamoxifen Citrate PO 20 mg DAILY GIL Administration ASSESSMENT/PLAN: Patient is a 71 year old female with a significant past medical history of hypertenstion, hyperlipidemia, diabetes mellitus, colon cancer (s/p ex-lap and resection) and current breast pathology concerning for cancer (was on tamoxifen) . She presented to the Ed on 12/02/2016 with right sided abdominal pain. She had 10/10, constant, sharp, that started early in the AM. Pain was associated with nausea and few episodes of non bloody emesis. She denies fevers, but endorses chills. She was seen at [facility] ER, diagnosed with food poisoning , and discharged, but the pain persisted. On exam denies CP, has chronic SOB on exertion but not at rest. GI: Acute Cholecystitis A/P: On Zosyn as per ID NPO as per surgery and GI, for lap salomón tomorrow, stat a.m. labs, FFP on standby ordered if INR is 1.5 or greater Morphine 2mg ivpush q4 for abdominal pain Lactic acidosis normalized Cardiology following, for questionable valvular pathology and for pre op clearance Monitor for pain, Monitor liver function, monitor labs and vitals GI following Cardiology: A/P: Palpitations/Prolonged QTC No prior echos available, prolonged QT on EKG Echo reviewed Hypertension A/P: On Norvasc Monitor BP Subtherapeutic INR A/P: Hx of DVT/PE On home Coumadin daily, now on a heparin drip Bridge to Coumadin prior to d/c Renal: A/P: Sightly elevated creat on admission Monitor renal functions Oncology: Colon cancer hx/Breast pathology concerning for cancer On Tamoxifen for breast pathology completed full course of tamoxifen She is a patient of Dr. Freedman, Oncology consulted Endocrine: Diabetes Mellitus A/P: BGMs, sliding scale Hypothyroidism A/P: On Synthoroid TSH wnl Pulmonary Pulmonary Nodule - acute vs. chronic A/P: Irregular 7 x 6 mm nodular opacity in the left upper lobe seen on CT scan, Monitor respiratory status, unclear if this nodule is a new finding Oncology following FEN Fluids: D5 1/2 NS 20meq at 75cc/hr Electrolytes: monitor Nutrition: NPO, PO meds OK to give Prophylaxis DVT: On Heparin Drip GI: Protonix
--- NOTE | 2016-12-04 19:42 | EKG ---
Test Reason : Blood Pressure : / mmHG Vent. Rate : 080 BPM Atrial Rate : 080 BPM P-R Int : 192 ms QRS Dur : 080 ms QT Int : 476 ms P-R-T Axes : 052 -18 030 degrees QTc Int : 548 ms NORMAL SINUS RHYTHM BASELINE ARTIFACTS MINIMAL VOLTAGE CRITERIA FOR LVH, MAY BE NORMAL VARIANT POOR R WAVE PROGRESSION V1-V6 ABNORMAL ECG WHEN COMPARED WITH ECG OF 02-DEC-2016 14:30, NO SIGNIFICANT CHANGE WAS FOUND REPEAT EKG IF CLINICALLY INDICATED Confirmed by REYES GREER MD ([id number]) on 12/04/2016 7:42:25 PM Referred By: Confirmed By:REYES GREER MD
[2016-12-05] MEDS ORDERED: PIPERACILLIN/TAZOBACTAM 4.5 GM VIAL IVPB ONE ×3 (00:38→11:56)
[2016-12-05] MEDS: PIPERACILLIN/TAZOB 4.5 GM 4.5 GM in DEXTROSE 5%-WATER 100 ML IVPB SCH ×3 (01:06→22:20)
[2016-12-05] MEDS: morphine CARPU-JECT 2 MG/1 ML DISP.SYRIN IVPUSH PRN ×3 (03:09→12:22)
[2016-12-05 05:18] LABS: BASOPHIL 1.2 % (0-2.0); EOSINOPHIL 1.4 % (0-4.5); MCH 32.3 pg (25.7-33.7); MCHC 33.9 g/dl (32.0-36.0); MEAN CELL VOLUME 95.3 fl (80-96); MEAN PLT VOLUME 7.6 fl (7.5-11.1); NEUTROPHILS 50.4 % (42.8-82.8); PLATELET COUNT 189 K/MM3 (134-434); RDW 14.6 % (11.6-15.6); WHITE BLOOD COUNT 5.5 K/mm3 (4.0-10.0)
[2016-12-05 05:42] LABS: ALBUMIN 2.8 g/dl (3.4-5.0); ALK PHOS 45 U/L (45-117); ANION GAP 11 (8-16); BILIRUBIN,TOTAL 0.5 mg/dL (0.2-1.0); CALCIUM 8.1 mg/dL (8.5-10.1); CO2 25 mmol/L (21-32); CREATININE 0.9 mg/dL (0.55-1.02); GLUCOSE,RANDOM 88 mg/dL (74-106); MAGNESIUM 1.9 mg/dL (1.8-2.4); SGOT/AST 27 U/L (15-37); SGPT/ALT 46 U/L (12-78); TOT PROT 6.1 g/dl (6.4-8.2)
[2016-12-05 05:44] LABS: INR 1.72 (0.82-1.09); PROTHROMBIN TIME (PATIENT) 19.1 SEC (9.98-11.88)
[2016-12-05] MEDS: LEVOTHYROXINE NA 75 MCG TABLET (FP) PO SCH (06:04)
[2016-12-05] MEDS: INSULIN SLIDING SCALE (NOVOLOG) 1 VIAL SQ SCH ×4 (06:04→22:20)
[2016-12-05] MEDS ORDERED: KCL 10 MEQ IVPB 100 ML IVPB SCH ×2 (08:30→09:30)
--- NOTE | 2016-12-05 08:54 | PN ---
Progress Note (short form) - Note Progress Note: Pt seen and examined in bed. No overnight events. No significant pain, no complaints. Had chest CT last night - results noted. Med to discuss with oncology and possibly pulmonary. INR 1.7 this am, receiving 2u FFP. Also repleting K+. Will recheck labs after. Heparin drip held at 6am. Vital Signs Period Temp Pulse Resp BP Sys/Brandt Pulse Ox Last 24 Hr 97.3 F-98.2 F 68-80 18-20 102-132/53-66 95-95 PE: abdomen soft, obese, tender RUQ and mild epigastric, no R/G RRR lungs clear A&O CBCD WBC 5.5 K/mm3 (4.0-10.0) 12/05/16 05:00 RBC 3.31 M/mm3 (3.60-5.2) L 12/05/16 05:00 Hgb 10.7 GM/dL (10.7-15.3) 12/05/16 05:00 Hct 31.6 % (32.4-45.2) L 12/05/16 05:00 MCV 95.3 fl (80-96) 12/05/16 05:00 MCHC 33.9 g/dl (32.0-36.0) 12/05/16 05:00 RDW 14.6 % (11.6-15.6) 12/05/16 05:00 Plt Count 189 K/MM3 (134-434) 12/05/16 05:00 MPV 7.6 fl (7.5-11.1) 12/05/16 05:00 CMP Sodium 144 mmol/L (136-145) 12/05/16 05:00 Potassium 3.4 mmol/L (3.5-5.1) L 12/05/16 05:00 Chloride 108 mmol/L (98-107) H 12/05/16 05:00 Carbon Dioxide 25 mmol/L (21-32) 12/05/16 05:00 Anion Gap 11 (8-16) 12/05/16 05:00 BUN 6 mg/dL (7-18) L D 12/05/16 05:00 Creatinine 0.9 mg/dL (0.55-1.02) 12/05/16 05:00 Creat Clearance w eGFR > 60 (>60) 12/05/16 05:00 Calcium 8.1 mg/dL (8.5-10.1) L 12/05/16 05:00 Total Bilirubin 0.5 mg/dL (0.2-1.0) 12/05/16 05:00 AST 27 U/L (15-37) D 12/05/16 05:00 ALT 46 U/L (12-78) 12/05/16 05:00 Alkaline Phosphatase 45 U/L (45-117) 12/05/16 05:00 Total Protein 6.1 g/dl (6.4-8.2) L 12/05/16 05:00 Albumin 2.8 g/dl (3.4-5.0) L 12/05/16 05:00 INR, PTT INR 1.72 (0.82-1.09) H 12/05/16 05:00 A/P: acute cholecystitis for OR today - consent on chart f/u labs after FFP and K+ f/u onc, pulm regarding chest CT postop telemetry per cardio continue antibiotics Problem List - Problems (1) Calculus of gallbladder with acute cholecystitis Code(s): K80.00 - CALCULUS OF GALLBLADDER W ACUTE CHOLECYST W/O OBSTRUCTION Qualifiers: Qualified Code(s): K80.00 - Calculus of gallbladder with acute cholecystitis without obstruction (2) History of pulmonary embolus (PE) Code(s): Z86.711 - PERSONAL HISTORY OF PULMONARY EMBOLISM (3) Hypertension Code(s): I10 - ESSENTIAL (PRIMARY) HYPERTENSION Qualifiers: Qualified Code(s): I10 - Essential (primary) hypertension (4) Diabetes mellitus type 2, noninsulin dependent Code(s): E11.9 - TYPE 2 DIABETES MELLITUS WITHOUT COMPLICATIONS (5) Hypothyroidism Code(s): E03.9 - HYPOTHYROIDISM, UNSPECIFIED Qualifiers: Qualified Code(s): E03.9 - Hypothyroidism, unspecified (6) Obesity (BMI 30-39.9) Code(s): E66.9 - OBESITY, UNSPECIFIED
[2016-12-05] MEDS ORDERED: DEXTROSE 5%-WATER 100 ML IVPB ONE ×2 (09:28→11:57)
[2016-12-05 09:51] LABS: PHOSPHOROUS 2.5 mg/dL (2.5-4.9)
[2016-12-05] MEDS: amLODIPine BESYLATE 5 MG TABLET (FP) PO SCH (10:01)
--- NOTE | 2016-12-05 10:31 | PN ---
Progress Note (short form) - Note Progress Note: Patient seen and examined. continues to have pain in the abdomen s/p FFP, repeat INR pending O/E: General: NAD No LAD in the neck Bilateral breast exam : no palpable nodules Abdomen: RUQ TTP Lungs: Rales present in the right lower lung base. Extremities> No LLE. Temp Pulse Resp BP Pulse Ox 98.1 F 70 18 121/58 95 12/05/16 09:50 12/05/16 09:50 12/05/16 09:50 12/05/16 09:50 12/04/16 20:15 Current Medications Generic Name Dose Route Start Last Admin Trade Name Freq PRN Reason Stop Dose Admin Amlodipine Besylate 5 mg 12/03/16 10:00 12/05/16 10:01 Norvasc - PO 5 mg DAILY GIL Administration Piperacillin Sod/Tazobactam 100 mls @ 200 mls/hr 12/03/16 18:00 12/05/16 10:01 Sod 4.5 gm/ Dextrose IVPB 200 mls/hr Q8H-IV GIL Administration Potassium Chloride/Dextrose/Sod Cl 1,000 mls @ 75 mls/hr 12/04/16 10:45 12:50 D5-1/2ns+20 Meq Kcl - IV 75 mls/hr ASDIR GIL Administration Insulin Aspart 1 vial 12/03/16 07:00 12/05/16 06:04 Novolog Vial Sliding Scale - SQ Not Given ACHS GIL Protocol Levothyroxine Sodium 75 mcg 12/03/16 07:00 12/05/16 06:04 Synthroid - PO 75 mcg DAILY@0700 GIL Administration Morphine Sulfate 2 mg 12/02/16 22:06 12/05/16 07:40 Morphine Injection - IVPUSH 2 mg Q4H PRN Administration PAIN CBC, BMP 12/05/16 05:00 12/05/16 05:00 Assessment/Plan: -personal hx of colon ca, s/p Rx in 2004 -LCIS on tamoxifen for 5 years ( completed 10/2016) -hx of DVT/PE on coumadin -Admitted with acute cholecystitis -CT chest with non specific lung nodules. CT chest with non-specific lung nodules, repeat recommended. She mentioned that she does not have any prior CT scan. Prior to OR, for the findings on the CT no w/u from Oncological stand-point. s/p FFP, INR pending Systemic anticoagulation to be re-started as per surgical team , as pt with a personal hx of VTE she remains a high risk post surgery. Abx on zosyn ,seen by HADLEY. Await on Pulm recommendations [facility] Hospitalist and Problem List - Problems (1) Lobular carcinoma in situ (LCIS) of right breast Code(s): D05.01 - LOBULAR CARCINOMA IN SITU OF RIGHT BREAST (2) Calculus of gallbladder with acute cholecystitis Code(s): K80.00 - CALCULUS OF GALLBLADDER W ACUTE CHOLECYST W/O OBSTRUCTION Qualifiers: Qualified Code(s): K80.00 - Calculus of gallbladder with acute cholecystitis without obstruction (3) Cholecystitis Code(s): K81.9 - CHOLECYSTITIS, UNSPECIFIED (4) Personal history of colon cancer Code(s): Z85.038 - PERSONAL HISTORY OF MALIGNANT NEOPLASM OF LARGE INTESTINE (5) History of pulmonary embolus (PE) Code(s): Z86.711 - PERSONAL HISTORY OF PULMONARY EMBOLISM
[2016-12-05 11:12] LABS: INR 1.36 (0.82-1.09); PROTHROMBIN TIME (PATIENT) 15.1 SEC (9.98-11.88)
--- NOTE | 2016-12-05 11:35 | CONSULT ---
Consultation: PULMONARY CONSULT REQUEST: We have been asked to medically evaluate this patient for possible superimposed PNA HISTORY OF PRESENT ILLNESS: Pt is a 71yo F w/ PMHx of HTN, HLD, NIDDM who presented with R sided constant abdominal pain, emesis, chills, and + Field's sign. She was diagnosed with acute cholecystitis. On admission she denied CP, cough, endorsed chronic SOB on exertion. Patient also has past medical history of DVT/ PE (most recently 5 years prior on Coumadin), colon cancer (s/p ex-lap and resection) and current breast pathology concerning for cancer (on tamoxifen). REVIEW OF SYSTEMS: CONSTITUTIONAL: Absent: fever, chills, diaphoresis, generalized weakness, malaise, loss of appetite, weight change HEENT: Absent: rhinorrhea, nasal congestion, throat pain, throat swelling, difficulty swallowing, mouth swelling, ear pain, eye pain, visual changes CARDIOVASCULAR: Absent: chest pain, syncope, palpitations, irregular heart rate, lightheadedness , peripheral edema RESPIRATORY: Absent: cough, shortness of breath, dyspnea with exertion, orthopnea, wheezing, stridor, hemoptysis GASTROINTESTINAL: Absent: abdominal distension, nausea, vomiting, diarrhea, constipation, melena, hematochezia Present: abdominal pain GENITOURINARY: Absent: dysuria, frequency, urgency, hesitancy, hematuria, flank pain, genital pain MUSCULOSKELETAL: Absent: myalgia, arthralgia, joint swelling, back pain, neck pain SKIN: Absent: rash, itching, pallor HEMATOLOGIC/IMMUNOLOGIC: Absent: easy bleeding, easy bruising, lymphadenopathy, frequent infections ENDOCRINE: Absent: unexplained weight gain, unexplained weight loss, heat intolerance, cold intolerance NEUROLOGIC: Absent: headache, focal weakness or paresthesias, dizziness, unsteady gait, seizure, mental status changes, bladder or bowel incontinence PSYCHIATRIC: Absent: anxiety, depression, suicidal or homicidal ideation, hallucinations. PHYSICAL EXAMINATION Vital Signs Temperature 98.3 F 12/05/16 10:40 Pulse Rate 71 12/05/16 10:40 Respiratory Rate 18 12/05/16 10:40 Blood Pressure 120/60 12/05/16 10:40 O2 Sat by Pulse Oximetry (%) 95 12/04/16 20:15 GEN: AAOx3, NAD, Lying comfortably HEENT: PERRLA, EOMi CV: S1, S2, RRR LUNG: Crackles at the R lung base, clear otherwise ABD: Soft, TTP in RUQ MSK: No edema, no erythema Laboratory Last Values WBC 5.5 K/mm3 (4.0-10.0) 12/05/16 05:00 RBC 3.31 M/mm3 (3.60-5.2) L 12/05/16 05:00 Hgb 10.7 GM/dL (10.7-15.3) 12/05/16 05:00 Hct 31.6 % (32.4-45.2) L 12/05/16 05:00 MCV 95.3 fl (80-96) 12/05/16 05:00 MCH 32.3 pg (25.7-33.7) 12/05/16 05:00 MCHC 33.9 g/dl (32.0-36.0) 12/05/16 05:00 RDW 14.6 % (11.6-15.6) 12/05/16 05:00 Plt Count 189 K/MM3 (134-434) 12/05/16 05:00 MPV 7.6 fl (7.5-11.1) 12/05/16 05:00 Neutrophils % 50.4 % (42.8-82.8) 12/05/16 05:00 Lymphocytes % 41.5 % (8-40) H D 12/05/16 05:00 Monocytes % 5.5 % (3.8-10.2) 12/05/16 05:00 Eosinophils % 1.4 % (0-4.5) 12/05/16 05:00 Basophils % 1.2 % (0-2.0) 12/05/16 05:00 PT with INR 15.10 SEC (9.98-11.88) H 12/05/16 10:41 INR 1.36 (0.82-1.09) H 12/05/16 10:41 PTT (Actin FS) 82.7 SECONDS (26.9-34.4) H 12/05/16 05:00 Sodium 144 mmol/L (136-145) 12/05/16 05:00 Potassium 3.4 mmol/L (3.5-5.1) L 12/05/16 05:00 Chloride 108 mmol/L (98-107) H 12/05/16 05:00 Carbon Dioxide 25 mmol/L (21-32) 12/05/16 05:00 Anion Gap 11 (8-16) 12/05/16 05:00 BUN 6 mg/dL (7-18) L D 12/05/16 05:00 Creatinine 0.9 mg/dL (0.55-1.02) 12/05/16 05:00 Creat Clearance w eGFR > 60 (>60) 12/05/16 05:00 POC Glucometer 100 UNITS (()) 12/05/16 05:45 Random Glucose 88 mg/dL (74-106) D 12/05/16 05:00 Hemoglobin A1c % 5.2 % (4.8-6.0) 12/03/16 10:00 Lactic Acid 1.8 mmol/L (0.4-2.0) 12/02/16 21:56 Calcium 8.1 mg/dL (8.5-10.1) L 12/05/16 05:00 Phosphorus 2.5 mg/dL (2.5-4.9) 12/05/16 05:00 Magnesium 1.9 mg/dL (1.8-2.4) 12/05/16 05:00 Total Bilirubin 0.5 mg/dL (0.2-1.0) 12/05/16 05:00 AST 27 U/L (15-37) D 12/05/16 05:00 ALT 46 U/L (12-78) 12/05/16 05:00 Alkaline Phosphatase 45 U/L (45-117) 12/05/16 05:00 Creatine Kinase 37 IU/L (26-192) 12/02/16 14:15 Troponin I < 0.02 ng/ml (0.00-0.05) 12/02/16 14:15 Total Protein 6.1 g/dl (6.4-8.2) L 12/05/16 05:00 Albumin 2.8 g/dl (3.4-5.0) L 12/05/16 05:00 Triglycerides 98 mg/dL (35-160) 12/03/16 10:00 Cholesterol 203 mg/dL (50-200) H 12/03/16 10:00 Total LDL Cholesterol 99 mg/dL (5-100) 12/03/16 10:00 HDL Cholesterol 80 mg/dL (40-60) H 12/03/16 10:00 Total Amylase 61 U/L (25-115) D 12/04/16 06:10 Lipase 101 U/L (73-393) 12/04/16 06:10 TSH 2.57 uIU/ml (0.358-3.74) 12/03/16 10:00 Urine Color Yellow 12/02/16 13:55 Urine Appearance Slcloudy 12/02/16 13:55 Urine pH 5.0 (5.0-8.0) 12/02/16 13:55 Ur Specific [place] >= 1.030 (1.005-1.025) H 12/02/16 13:55 Urine Protein 2+ (NEGATIVE) H 12/02/16 13:55 Urine Glucose (UA) Negative (NEGATIVE) 12/02/16 13:55 Urine Ketones Negative (NEGATIVE) 12/02/16 13:55 Urine Blood Negative (NEGATIVE) 12/02/16 13:55 Urine Nitrite Negative (NEGATIVE) 12/02/16 13:55 Urine Bilirubin Negative (NEGATIVE) 12/02/16 13:55 Urine Urobilinogen Negative mg/dL (0.2-1.0) 12/02/16 13:55 Urine RBC 1 /hpf (0-3) 12/02/16 13:55 Urine WBC 13 /hpf (3-5) 12/02/16 13:55 Ur Epithelial Cells Many /hpf (FEW) 12/02/16 13:55 Urine Bacteria Rare /hpf (NONE SEEN) 12/02/16 13:55 Urine Mucus Rare 12/02/16 13:55 Blood Type A POSITIVE 12/05/16 05:00 Antibody Screen Negative 12/05/16 05:00 Active Medications Generic Name Dose Route Start Last Admin Trade Name Freq PRN Reason Stop Dose Admin Amlodipine Besylate 5 mg 12/03/16 10:00 12/05/16 10:01 Norvasc - PO 5 mg DAILY GIL Administration Piperacillin Sod/Tazobactam 100 mls @ 200 mls/hr 12/03/16 18:00 12/05/16 10:01 Sod 4.5 gm/ Dextrose IVPB 200 mls/hr Q8H-IV GIL Administration Potassium Chloride/Dextrose/Sod Cl 1,000 mls @ 75 mls/hr 12/04/16 10:45 12:50 D5-1/2ns+20 Meq Kcl - IV 75 mls/hr ASDIR GIL Administration Insulin Aspart 1 vial 12/03/16 07:00 12/05/16 06:04 Novolog Vial Sliding Scale - SQ Not Given ACHS [facility] Protocol Levothyroxine Sodium 75 mcg 12/03/16 07:00 12/05/16 06:04 Synthroid - PO 75 mcg DAILY@0700 GIL Administration Morphine Sulfate 2 mg 12/02/16 22:06 12/05/16 07:40 Morphine Injection - IVPUSH 2 mg Q4H PRN Administration PAIN ASSESSMENT/PLAN: Pt is a 71yo F w/ PMHx of HTN, HLD, NIDDM, hx of DVT/PE who was admitted for acute cholecystitis. Due for OR today, receiving FFP for high INR. # RLL Atelectasis - seen on CT chest, unlikely PNA - No pulmonary contraindication for surgery - Afebrile, no WBC, unlikely PNA - Atelectasis could be secondary to external compression, pt has extensive scoliosis - Needs incentive spirometer post-op # Pulmonary Nodules - Multiple irregular nodules, largest about 9mm - Pt has past hx of malignancy (CRC s/p resection) + ?breast pathology - Had recent colonoscopy, but due for mammogram - Needs imaging f/u as outpatient - according to Fleischner Society guidelines CT scan in 3-6 months - Follows with Dr Freedman already Thank you for this consultative opportunity. Agustin Horta MD - PGY1 Visit type - Emergency Visit Emergency Visit: No - New Patient This patient is new to me today: Yes Date on this admission: 12/05/16 - Critical Care Critical Care patient: No
--- NOTE | 2016-12-05 12:05 | PN ---
Progress Note, Physician History of Present Illness: 71 year old female with PMH of HTN, HLD, Hypothyroidism, diabetes (non-insulin dependent), history of DVT/ PE (most recently 5 years prior on Coumadin), colon cancer (s/p ex-lap and resection, and current breast pathology concerning for cancer (on tamoxifen) presenting with nausea, vomiting, diarrhea, and abdominal pain for approximately 24 hours. She seems to attribute the paitn to the ingestion of some [place] burgers as it began a few hours after eating them. She describes the pain as a sharp/ tight pain 8/10 in her right lower quadrant that is occasionally positional and occasionally co-presents in her back. The pain did not allow her to sleep last night and she went to [facility] ED at which point she was diagnosed with food poisoning without imaging. She describes non-bilious/ non-bloody emesis and non-bloody, brown diarrhea. Denies fevers, chills, chest pain, cough, urinary changes, or palpitations. - Current Medication List Current Medications: Active Medications Amlodipine Besylate (Norvasc -) 5 mg PO DAILY [facility] Last Admin: 12/05/16 10:01 Dose: 5 mg Piperacillin Sod/Tazobactam (Sod 4.5 gm/ Dextrose) 100 mls @ 200 mls/hr IVPB Q8H-IV GIL Last Admin: 12/05/16 10:01 Dose: 200 mls/hr Potassium Chloride/Dextrose/Sod Cl (D5-1/2ns+20 Meq Kcl -) 1,000 mls @ 75 mls/ hr IV ASDIR [facility] Last Admin: 12/04/16 12:50 Dose: 75 mls/hr Insulin Aspart (Novolog Vial Sliding Scale -) 1 vial SQ ACHS GIL PRN Reason: Protocol Last Admin: 12/05/16 11:32 Dose: Not Given Levothyroxine Sodium (Synthroid -) 75 mcg PO DAILY@0700 [facility] Last Admin: 12/05/16 06:04 Dose: 75 mcg Morphine Sulfate (Morphine Injection -) 2 mg IVPUSH Q4H PRN PRN Reason: PAIN Last Admin: 12/05/16 07:40 Dose: 2 mg - Objective Vital Signs: Vital Signs Temperature 98.3 F 12/05/16 10:40 Pulse Rate 71 12/05/16 10:40 Respiratory Rate 18 12/05/16 10:40 Blood Pressure 120/60 12/05/16 10:40 O2 Sat by Pulse Oximetry (%) 95 12/04/16 20:15 Eyes: Yes: WNL, Conjunctiva Clear, EOM Intact HENT: Yes: WNL, Atraumatic, Normocephalic Neck: Yes: WNL, Supple, Trachea Midline Cardiovascular: Yes: WNL, Regular Rate and Rhythm Respiratory: Yes: WNL, Regular, CTA Bilaterally Gastrointestinal: Yes: WNL, Normal Bowel Sounds Genitourinary: Yes: WNL Musculoskeletal: Yes: WNL Extremities: Yes: WNL Edema: No Integumentary: Yes: WNL Neurological: Yes: WNL, Alert, Oriented ...Motor Strength: WNL Psychiatric: Yes: WNL Labs: CBC, BMP 12/05/16 05:00 12/05/16 05:00 INR, PTT INR 1.36 (0.82-1.09) H 12/05/16 10:41 Problem List - Problems (1) Calculus of gallbladder with acute cholecystitis Code(s): K80.00 - CALCULUS OF GALLBLADDER W ACUTE CHOLECYST W/O OBSTRUCTION Qualifiers: Qualified Code(s): K80.00 - Calculus of gallbladder with acute cholecystitis without obstruction (2) Cholecystitis Code(s): K81.9 - CHOLECYSTITIS, UNSPECIFIED (3) Diabetes mellitus type 2, noninsulin dependent Code(s): E11.9 - TYPE 2 DIABETES MELLITUS WITHOUT COMPLICATIONS (4) History of pulmonary embolus (PE) Code(s): Z86.711 - PERSONAL HISTORY OF PULMONARY EMBOLISM (5) Hypertension Code(s): I10 - ESSENTIAL (PRIMARY) HYPERTENSION Qualifiers: Qualified Code(s): I10 - Essential (primary) hypertension (6) Hypothyroidism Code(s): E03.9 - HYPOTHYROIDISM, UNSPECIFIED Qualifiers: Qualified Code(s): E03.9 - Hypothyroidism, unspecified (7) Obesity (BMI 30-39.9) Code(s): E66.9 - OBESITY, UNSPECIFIED Assessment/Plan Problems (1) Calculus of gallbladder with acute cholecystitis Assessment/Plan: For cholecystectomy when INR level is acceptable (presently 1.86). Code(s): K80.00 - CALCULUS OF GALLBLADDER W ACUTE CHOLECYST W/O OBSTRUCTION Qualifiers: Qualified Code(s): K80.00 - Calculus of gallbladder with acute cholecystitis without obstruction (2) Diabetes mellitus type 2, noninsulin dependent Assessment/Plan: Recommend starting lisinopril 2.5 mg daily (HTN; DM). Code(s): E11.9 - TYPE 2 DIABETES MELLITUS WITHOUT COMPLICATIONS (3) History of pulmonary embolus (PE) Assessment/Plan: warfarin held; on IV heparin pending cholecystectomy. Code(s): Z86.711 - PERSONAL HISTORY OF PULMONARY EMBOLISM (4) Hypertension Code(s): I10 - ESSENTIAL (PRIMARY) HYPERTENSION Qualifiers: Qualified Code(s): I10 - Essential (primary) hypertension (5) Hypothyroidism Code(s): E03.9 - HYPOTHYROIDISM, UNSPECIFIED Qualifiers: Qualified Code(s): E03.9 - Hypothyroidism, unspecified (6) Obesity (BMI 30-39.9) Assessment/Plan: Pt has lost a significant amount of weight in the past few months. She plans on following a healthier diet at home, and will try to exercise more ( denies history of heart disease; sedentary, and easily fatigued and short of breath on exertion; consider stress test as outpatient, if not done recently). Code(s): E66.9 - OBESITY, UNSPECIFIED (7) Hypomagnesemia Assessment/Plan: replete; f/u all electrolytes. (K+ 3.5; receiving K+ in IVF). Code(s): E83.42 - HYPOMAGNESEMIA
--- NOTE | 2016-12-05 12:34 | PN ---
Teaching Attending Note Name of Resident: Agustin Horta ATTENDING PHYSICIAN STATEMENT I saw and evaluated the patient. I reviewed the resident's note and discussed the case with the resident. I agree with the resident's findings and plan as documented. PULMONARY IMP ACUTE CHOLECYSTITIS RLL ATELECTASIS BILATERAL PULMONARY NODULES ? ETIOLOGY ?INFLAMMATORY,? MALIGNANT HTN DM H/O COLON CA S/P RESECTION,CHEMO H/O PE/DVT BREAST LESION PLAN NO PULMONARY CONTRAINDICATION TO SURGERY AT THIS TIME F/U CHEST CT 3 MONTHS ? PET SCAN OUTPATIENT DVT PROPHYLAXIS INCENTIVE SPIROMETER POST-OP PFTS OUTPATIENT DR AVILEZ
--- NOTE | 2016-12-05 12:54 | PN ---
Physical Exam: SUBJECTIVE: Patient seen and examined. She denies any chest pain or shortness of breath OBJECTIVE: Patient received 2 units of FFP for elevated INR prior to lap salomón Oncology and Pulmonary reviewed CT scan prior to surgery Patient to be managed post op on tele monitoring per cardiology as she is high risk post op. Vital Signs Period Temp Pulse Resp BP Sys/Brandt Pulse Ox Last 24 Hr 97.3 F-98.3 F 68-80 18-20 102-124/53-69 95 GENERAL: The patient is awake, alert, and fully oriented, in no acute distress. HEAD: Normal with no signs of trauma. EYES: PERRL, extraocular movements intact, sclera anicteric, conjunctiva clear. No ptosis. ENT: Ears normal, nares patent, oropharynx clear without exudates, moist mucous membranes. NECK: Trachea midline, full range of motion, supple. LUNGS: Diminished breath sound bilaterally HEART: Regular rate and rhythm, S1, S2 without murmur, rub or gallop. ABDOMEN: Soft, +tender on RUQ, nondistended, normoactive bowel sounds, no guarding, no rebound, no hepatosplenomegaly, no masses. EXTREMITIES: no edema. NEUROLOGICAL: Normal speech, gait not observed. PSYCH: Normal mood, normal affect. SKIN: Warm, dry, normal turgor, no rashes or lesions noted Laboratory Results - last 24 hr 12/04/16 12/04/16 12/05/16 16:40 21:31 05:00 WBC RBC Hgb Hct MCV MCH MCHC RDW Plt Count MPV Neutrophils % Lymphocytes % Monocytes % Eosinophils % Basophils % PT with INR INR PTT (Actin FS) Sodium Potassium Chloride Carbon Dioxide Anion Gap BUN Creatinine Creat Clearance w eGFR POC Glucometer 86 82 Random Glucose Calcium Phosphorus Magnesium Total Bilirubin AST ALT Alkaline Phosphatase Total Protein Albumin Blood Type A POSITIVE Antibody Screen Negative 12/05/16 12/05/16 12/05/16 05:00 05:00 05:00 WBC 5.5 RBC 3.31 L Hgb 10.7 Hct 31.6 L MCV 95.3 MCH 32.3 MCHC 33.9 RDW 14.6 Plt Count 189 MPV 7.6 Neutrophils % 50.4 Lymphocytes % 41.5 H D Monocytes % 5.5 Eosinophils % 1.4 Basophils % 1.2 PT with INR 19.10 H INR 1.72 H PTT (Actin FS) Sodium 144 Potassium 3.4 L Chloride 108 H Carbon Dioxide 25 Anion Gap 11 BUN 6 L D Creatinine 0.9 Creat Clearance w eGFR > 60 POC Glucometer Random Glucose 88 D Calcium 8.1 L Phosphorus 2.5 Magnesium 1.9 Total Bilirubin 0.5 AST 27 D ALT 46 Alkaline Phosphatase 45 Total Protein 6.1 L Albumin 2.8 L Blood Type Antibody Screen 12/05/16 12/05/16 12/05/16 05:00 05:00 05:45 WBC RBC Hgb Hct MCV MCH MCHC RDW Plt Count MPV Neutrophils % Lymphocytes % Monocytes % Eosinophils % Basophils % PT with INR INR PTT (Actin FS) 82.7 H Sodium Potassium Chloride Carbon Dioxide Anion Gap BUN Creatinine Creat Clearance w eGFR POC Glucometer 100 Random Glucose Calcium Phosphorus Cancelled Magnesium Total Bilirubin AST ALT Alkaline Phosphatase Total Protein Albumin Blood Type Antibody Screen 12/05/16 12/05/16 10:41 11:32 WBC RBC Hgb Hct MCV MCH MCHC RDW Plt Count MPV Neutrophils % Lymphocytes % Monocytes % Eosinophils % Basophils % PT with INR 15.10 H INR 1.36 H PTT (Actin FS) Sodium Potassium Chloride Carbon Dioxide Anion Gap BUN Creatinine Creat Clearance w eGFR POC Glucometer 85 Random Glucose Calcium Phosphorus Magnesium Total Bilirubin AST ALT Alkaline Phosphatase Total Protein Albumin Blood Type Antibody Screen Active Medications Generic Name Dose Route Start Last Admin Trade Name Arnie PRN Reason Stop Dose Admin Amlodipine Besylate 5 mg 12/03/16 10:00 12/05/16 10:01 Norvasc - PO 5 mg DAILY GIL Administration Piperacillin Sod/Tazobactam 100 mls @ 200 mls/hr 12/03/16 18:00 12/05/16 10:01 Sod 4.5 gm/ Dextrose IVPB 200 mls/hr Q8H-IV GIL Administration Potassium Chloride/Dextrose/Sod Cl 1,000 mls @ 75 mls/hr 12/04/16 10:45 12:50 D5-1/2ns+20 Meq Kcl - IV 75 mls/hr ASDIR GIL Administration Insulin Aspart 1 vial 12/03/16 07:00 12/05/16 11:32 Novolog Vial Sliding Scale - SQ Not Given ACHS GIL Protocol Levothyroxine Sodium 75 mcg 12/03/16 07:00 12/05/16 06:04 Synthroid - PO 75 mcg DAILY@0700 GIL Administration Morphine Sulfate 2 mg 12/02/16 22:06 12/05/16 12:22 Morphine Injection - IVPUSH 2 mg Q4H PRN Administration PAIN ASSESSMENT/PLAN: Patient is a 71 year old female with a significant past medical history of hypertenstion, hyperlipidemia, diabetes mellitus, colon cancer (s/p ex-lap and resection) and current breast pathology concerning for cancer (was on tamoxifen) . She presented to the Ed on 12/02/2016 with right sided abdominal pain. She had 10/10, constant, sharp, that started early in the AM. Pain was associated with nausea and few episodes of non bloody emesis. She denies fevers, but endorses chills. She was seen at [facility], diagnosed with food poisoning , and discharged, but the pain persisted. On exam denies CP, has chronic SOB on exertion but not at rest. Chest CT: (1) distal gallblader with wall thickening (2) Multiple non specific non calcified irregular nodular opacities in both lungs. GI: Acute Cholecystitis A/P: On Zosyn as per ID NPO as per surgery and GI, for lap salomón today with Dr. 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 Freedman, Oncology consulted Endocrine: Diabetes Mellitus A/P: BGMs, sliding scale Hypothyroidism A/P: On Synthoroid TSH wnl Pulmonary Pulmonary Nodule - acute vs. chronic A/P: Irregular 7 x 6 mm nodular opacity in the left upper lobe seen on CT scan, Monitor respiratory status, unclear if this nodule is a new finding Oncology following FEN Fluids: D5 1/2 NS 20meq at 75cc/hr Electrolytes: hypokalemia, 4 K riders given prior to surgery, repeat cmp Nutrition: NPO, PO meds OK to give Prophylaxis DVT: On Heparin Drip GI: Protonix
[2016-12-05] MEDS: KCL 10 MEQ IVPB 100 ML IVPB SCH ×2 (13:55→21:03)
[2016-12-05] MEDS ORDERED: ROCURONIUM BROMIDE 50 MG/5 ML VIAL ONE (16:23)
[2016-12-05] MEDS ORDERED: GLYCOPYRROLATE 0.2 MG/1 ML VIAL ONE (17:05)
[2016-12-05] MEDS ORDERED: NEOSTIGMINE METHYLSULFATE 0.5 MG/ML - 10 ML MDV ONE (17:05)
[2016-12-05] MEDS ORDERED: BUPIVACAINE HCL/PF (5 MG/ML) 30 ML VIAL IJ ONE (17:53)
[2016-12-05] MEDS ORDERED: LIDOCAINE HCL 1%, 10 MG/ML (20ML VIAL) PNB ONE (17:54)
[2016-12-05] MEDS ORDERED: ONDANSETRON 4 MG/2 ML VIAL IVPUSH PRN (18:09)
[2016-12-05] MEDS ORDERED: LACTATED RINGERS SOLUTION 1,000 ML IV SCH (18:15)
[2016-12-05] MEDS ORDERED: D5-1/2NS+20 MEQ KCL - 1,000 ML IV SCH (18:41)
[2016-12-05] MEDS ORDERED: morphine CARPU-JECT 2 MG/1 ML DISP.SYRIN IVPUSH PRN ×2 (18:41→19:30)
[2016-12-05] MEDS ORDERED: ACETAMINOPHEN INJECTION 100 ML IVPB ONE (19:23)
--- NOTE | 2016-12-05 19:24 | OP ---
Operative Note - Note: Operative Date: 12/05/16 Pre-Operative Diagnosis: acute cholecystitis Operation: laparoscopic cholecystectomy and adhesiolysis Findings: multiple adhesions of bowel and omentum to anterior abdominal wall/midline, gallbladder and liver- some taken down to expose right side of abdomen and gallbladder; inflamed gallbladder, critical view obtained; XL Weck clips used on cystic duct and artery; some bile and stone spillage suctioned out Post-Operative Diagnosis: Same as Pre-op (with multiple adhesions to anterior abdominal wall) Surgeon: Eligio Fontenot Panel Machine Operator: Julien Saleh Anesthesiologist/HYDRAULIC JACK MECHANIC: Alda Weldon MD (w/Mario Pulliam) Anesthesia: General, Local (10 1% lidocaine + 0.5% marcaine) Specimens Removed: gallbladder to pathology Estimated Blood Loss (mls): 20 Fluid Volume Replaced (mls): 800 (crystalloid) Operative Report Dictated: Yes
[2016-12-05] MEDS: ACETAMINOPHEN 1000 MG/100 ML VIAL (NON FORMULARY) IVPB ONE ×2 (19:28→21:05)
[2016-12-05] MEDS: DOCUSATE SODIUM 100 MG CAPSULE (FP) PO SCH (21:06)
[2016-12-05] MEDS: oxyCODONE HCL 5 MG TABLET PO PRN (21:06)
[2016-12-06] MEDS ORDERED: PIPERACILLIN/TAZOBACTAM 4.5 GM VIAL IVPB ONE ×3 (01:11→18:27)
[2016-12-06] MEDS ORDERED: DEXTROSE 5%-WATER 100 ML IVPB ONE ×3 (01:11→18:27)
[2016-12-06] MEDS: PIPERACILLIN/TAZOB 4.5 GM 4.5 GM in DEXTROSE 5%-WATER 100 ML IVPB SCH ×3 (01:21→18:32)
[2016-12-06] MEDS: ACETAMINOPHEN 325 MG TABLET (FP) PO PRN ×2 (01:21→12:42)
[2016-12-06] MEDS ORDERED: INSULIN (NOVOLOG) ASPART 100 UNITS/ML 10ML VIAL ONE ×2 (06:02→21:13)
[2016-12-06] MEDS: INSULIN SLIDING SCALE (NOVOLOG) 1 VIAL SQ SCH ×4 (06:06→21:29)
[2016-12-06] MEDS: LEVOTHYROXINE NA 75 MCG TABLET (FP) PO SCH (06:08)
[2016-12-06] MEDS: oxyCODONE HCL 5 MG TABLET PO PRN ×2 (07:38→18:33)
[2016-12-06 08:50] LABS: BASOPHIL 0.5 % (0-2.0); EOSINOPHIL 0.6 % (0-4.5); MCH 31.5 pg (25.7-33.7); MEAN CELL VOLUME 95.6 fl (80-96); MEAN PLT VOLUME 7.7 fl (7.5-11.1); NEUTROPHILS 66.5 % (42.8-82.8); PLATELET COUNT 184 K/MM3 (134-434); RDW 14.5 % (11.6-15.6); WHITE BLOOD COUNT 5.3 K/mm3 (4.0-10.0)
--- NOTE | 2016-12-06 09:00 | PN ---
Progress Note (short form) - Note Progress Note: ANESTHESIOLOGY POST-OP CHECK 71F s/p laparoscopic cholecystectomy under general anesthesia, POD #1. No acute complaints. Pain 6/10 and tolerable. Denies N/V, tolerating PO liquids . Voiding , not yet OOB. Vital Signs Temperature 98.2 F 12/06/16 05:59 Pulse Rate 70 12/06/16 05:59 Respiratory Rate 18 12/06/16 05:59 Blood Pressure 117/69 12/06/16 05:59 O2 Sat by Pulse Oximetry (%) 100 12/05/16 22:41 Active Medications Acetaminophen (Tylenol -) 650 mg PO Q6H PRN PRN Reason: FEVER OR PAIN Last Admin: 12/06/16 01:21 Dose: 650 mg Amlodipine Besylate (Norvasc -) 5 mg PO DAILY [facility] Docusate Sodium (Colace -) 100 mg PO BID [facility] Last Admin: 12/05/16 21:06 Dose: 100 mg Fentanyl (Sublimaze Injection -) 50 mcg IVPUSH [id number] PRN PRN Reason: PAIN Stop: 12/08/16 18:10 Last Admin: 12/05/16 19:50 Dose: 50 mcg Piperacillin Sod/Tazobactam (Sod 4.5 gm/ Dextrose) 100 mls @ 200 mls/hr IVPB Q8H-IV GIL Last Admin: 12/06/16 01:21 Dose: 200 mls/hr Potassium Chloride/Dextrose/Sod Cl (D5-1/2ns+20 Meq Kcl -) 1,000 mls @ 75 mls/ hr IV ASDIR [facility] Last Admin: 12/05/16 20:30 Dose: 75 mls/hr Insulin Aspart (Novolog Vial Sliding Scale -) 1 vial SQ ACHS [facility] PRN Reason: Protocol Last Admin: 12/06/16 06:06 Dose: Not Given Levothyroxine Sodium (Synthroid -) 75 mcg PO DAILY@0700 [facility] Last Admin: 12/06/16 06:08 Dose: 75 mcg Morphine Sulfate (Morphine Injection -) 4 mg IVPUSH Q3H PRN PRN Reason: SEVERE PAIN Oxycodone HCl (Roxicodone -) 10 mg PO Q6H PRN PRN Reason: PAIN LEVEL 6-10 Last Admin: 12/06/16 07:38 Dose: 10 mg Gen: Awake, alert No apparent anesthesia complications, pain controlled. Continue management as per primary team.
[2016-12-06 09:18] LABS: INR 1.64 (0.82-1.09); PROTHROMBIN TIME (PATIENT) 18.2 SEC (9.98-11.88)
[2016-12-06 09:22] LABS: ALBUMIN 2.7 g/dl (3.4-5.0); ANION GAP 10 (8-16); CALCIUM 8.1 mg/dL (8.5-10.1); CO2 26 mmol/L (21-32); GLUCOSE,RANDOM 99 mg/dL (74-106); MAGNESIUM 1.7 mg/dL (1.8-2.4)
[2016-12-06 09:25] LABS: ALK PHOS 45 U/L (45-117); BILIRUBIN,TOTAL 0.6 mg/dL (0.2-1.0); PHOSPHOROUS 2.6 mg/dL (2.5-4.9); SGOT/AST 40 U/L (15-37); SGPT/ALT 46 U/L (12-78); TOT PROT 5.8 g/dl (6.4-8.2)
[2016-12-06] MEDS: DOCUSATE SODIUM 100 MG CAPSULE (FP) PO SCH ×2 (09:29→21:29)
[2016-12-06] MEDS: amLODIPine BESYLATE 5 MG TABLET (FP) PO SCH (09:30)
--- NOTE | 2016-12-06 10:14 | PN ---
Physical Exam: PULMONARY CONSULT SUBJECTIVE: Patient seen and examined. No complaints of CP, SOB, cough. Endorses compliance w/ incentive spirometer OBJECTIVE: Vital Signs Period Temp Pulse Resp BP Sys/Brandt Pulse Ox Last 24 Hr 97.6 F-98.9 F 69-88 10-24 117-142/54-79 10-100 GEN: AAOx3, NAD, Sitting comfortably in chair HEENT: PERRLA, EOMi CV: S1, S2, RRR LUNG: Crackles at the R lung base ABD: Soft, TTP along incision site MSK: No edema, no erythema Laboratory Last Values WBC 5.3 K/mm3 (4.0-10.0) 12/06/16 07:55 RBC 3.01 M/mm3 (3.60-5.2) L 12/06/16 07:55 Hgb 9.5 GM/dL (10.7-15.3) L D 12/06/16 07:55 Hct 28.7 % (32.4-45.2) L 12/06/16 07:55 MCV 95.6 fl (80-96) 12/06/16 07:55 MCH 31.5 pg (25.7-33.7) 12/06/16 07:55 MCHC 33.0 g/dl (32.0-36.0) 12/06/16 07:55 RDW 14.5 % (11.6-15.6) 12/06/16 07:55 Plt Count 184 K/MM3 (134-434) 12/06/16 07:55 MPV 7.7 fl (7.5-11.1) 12/06/16 07:55 Neutrophils % 66.5 % (42.8-82.8) D 12/06/16 07:55 Lymphocytes % 25.1 % (8-40) D 12/06/16 07:55 Monocytes % 7.3 % (3.8-10.2) 12/06/16 07:55 Eosinophils % 0.6 % (0-4.5) 12/06/16 07:55 Basophils % 0.5 % (0-2.0) 12/06/16 07:55 PT with INR 18.20 SEC (9.98-11.88) H 12/06/16 07:55 INR 1.64 (0.82-1.09) H 12/06/16 07:55 PTT (Actin FS) 26.3 SECONDS (26.9-34.4) L D 12/06/16 07:55 Sodium 141 mmol/L (136-145) 12/06/16 07:55 Potassium 3.5 mmol/L (3.5-5.1) 12/06/16 07:55 Chloride 105 mmol/L (98-107) 12/06/16 07:55 Carbon Dioxide 26 mmol/L (21-32) 12/06/16 07:55 Anion Gap 10 (8-16) 12/06/16 07:55 BUN 5 mg/dL (7-18) L 12/06/16 07:55 Creatinine 1.0 mg/dL (0.55-1.02) 12/06/16 07:55 Creat Clearance w eGFR 54.50 (>60) 12/06/16 07:55 POC Glucometer 91 UNITS (()) 12/06/16 11:23 Random Glucose 99 mg/dL (74-106) 12/06/16 07:55 Hemoglobin A1c % 5.2 % (4.8-6.0) 12/03/16 10:00 Lactic Acid 1.8 mmol/L (0.4-2.0) 12/02/16 21:56 Calcium 8.1 mg/dL (8.5-10.1) L 12/06/16 07:55 Phosphorus 2.6 mg/dL (2.5-4.9) 12/06/16 07:55 Magnesium 1.7 mg/dL (1.8-2.4) L 12/06/16 07:55 Total Bilirubin 0.6 mg/dL (0.2-1.0) 12/06/16 07:55 AST 40 U/L (15-37) H D 12/06/16 07:55 ALT 46 U/L (12-78) 12/06/16 07:55 Alkaline Phosphatase 45 U/L (45-117) 12/06/16 07:55 Creatine Kinase 37 IU/L (26-192) 12/02/16 14:15 Troponin I < 0.02 ng/ml (0.00-0.05) 12/02/16 14:15 Total Protein 5.8 g/dl (6.4-8.2) L 12/06/16 07:55 Albumin 2.7 g/dl (3.4-5.0) L 12/06/16 07:55 Triglycerides 98 mg/dL (35-160) 12/03/16 10:00 Cholesterol 203 mg/dL (50-200) H 12/03/16 10:00 Total LDL Cholesterol 99 mg/dL (5-100) 12/03/16 10:00 HDL Cholesterol 80 mg/dL (40-60) H 12/03/16 10:00 Total Amylase 61 U/L (25-115) D 12/04/16 06:10 Lipase 101 U/L (73-393) 12/04/16 06:10 TSH 2.57 uIU/ml (0.358-3.74) 12/03/16 10:00 Urine Color Yellow 12/02/16 13:55 Urine Appearance Slcloudy 12/02/16 13:55 Urine pH 5.0 (5.0-8.0) 12/02/16 13:55 Ur Specific Howes >= 1.030 (1.005-1.025) H 12/02/16 13:55 Urine Protein 2+ (NEGATIVE) H 12/02/16 13:55 Urine Glucose (UA) Negative (NEGATIVE) 12/02/16 13:55 Urine Ketones Negative (NEGATIVE) 12/02/16 13:55 Urine Blood Negative (NEGATIVE) 12/02/16 13:55 Urine Nitrite Negative (NEGATIVE) 12/02/16 13:55 Urine Bilirubin Negative (NEGATIVE) 12/02/16 13:55 Urine Urobilinogen Negative mg/dL (0.2-1.0) 12/02/16 13:55 Urine RBC 1 /hpf (0-3) 12/02/16 13:55 Urine WBC 13 /hpf (3-5) 12/02/16 13:55 Ur Epithelial Cells Many /hpf (FEW) 12/02/16 13:55 Urine Bacteria Rare /hpf (NONE SEEN) 12/02/16 13:55 Urine Mucus Rare 12/02/16 13:55 Blood Type A POSITIVE 12/05/16 05:00 Antibody Screen Negative 12/05/16 05:00 Active Medications Generic Name Dose Route Start Last Admin Trade Name Freq PRN Reason Stop Dose Admin Acetaminophen 650 mg 12/06/16 02:00 12/06/16 01:21 Tylenol - PO 650 mg Q6H PRN Administration FEVER OR PAIN Amlodipine Besylate 5 mg 12/06/16 10:00 12/06/16 09:30 Norvasc - PO 5 mg DAILY GIL Administration Docusate Sodium 100 mg 12/05/16 22:00 12/06/16 09:29 Colace - PO 100 mg BID GIL Administration Fentanyl 50 mcg 12/05/16 18:09 12/05/16 19:50 Sublimaze Injection - IVPUSH 12/08/16 18:10 50 mcg [id number] PRN Administration PAIN Piperacillin Sod/Tazobactam 100 mls @ 200 mls/hr 12/06/16 02:00 12/06/16 09:28 Sod 4.5 gm/ Dextrose IVPB 200 mls/hr Q8H-IV GIL Administration Potassium Chloride/Dextrose/Sod Cl 1,000 mls @ 75 mls/hr 12/05/16 18:41 20:30 D5-1/2ns+20 Meq Kcl - IV 75 mls/hr ASDIR GIL Administration Insulin Aspart 1 vial 12/05/16 22:00 12/06/16 06:06 Novolog Vial Sliding Scale - SQ Not Given ACHS [facility]PL[facility] Protocol Levothyroxine Sodium 75 mcg 12/06/16 07:00 12/06/16 06:08 Synthroid - PO 75 mcg DAILY@0700 GIL Administration Morphine Sulfate 4 mg 12/05/16 19:30 Morphine Injection - IVPUSH Q3H PRN SEVERE PAIN Oxycodone HCl 10 mg 12/05/16 19:28 12/06/16 07:38 Roxicodone - PO 10 mg Q6H PRN Administration PAIN LEVEL 6-10 ASSESSMENT/PLAN: Pt is a 71yo F w/ PMHx of HTN, HLD, NIDDM, hx of DVT/PE who was admitted for acute cholecystitis. Due for OR today, receiving FFP for high INR. # RLL Atelectasis - seen on CT chest, unlikely PNA - Atelectasis could be secondary to external compression w/ respiratory splinting from abdominal pain - Continue incentive spirometer post-op - DVT prophylaxis # Pulmonary Nodules - Multiple irregular nodules, largest about 9mm - Pt has past hx of malignancy (CRC s/p resection) + ?breast pathology - Had recent colonoscopy, but due for mammogram - With history of malignancy, there is a chance the nodules can be malignant , however could also be inflammatory, f/u CT Chest in 4-6 weeks and if the nodules are persistent, get PET scan to r/o malignancy - Follows with Dr Freedman already Rest as per Primary. Will continue to follow. Thank you. Agustin Horta MD - PGY1 Visit type - Emergency Visit Emergency Visit: No - New Patient This patient is new to me today: No - Critical Care Critical Care patient: No - Discharge Referral Referred to [facility] Med P.C.: No
--- NOTE | 2016-12-06 10:52 | PN ---
Progress Note (short form) - Note Progress Note: No acute events overnight. Some incisional discomfort. No CP or SOB. In PT. Intake & Output 12/03/16 12/04/16 12/05/16 12/06/16 23:59 23:59 23:59 23:59 Intake Total 3180 3416 800 Output Total 100 1350 Balance -100 3180 2066 800 Last Vital Signs Temp Pulse Resp BP Pulse Ox 98.2 F 70 18 117/69 100 12/06/16 05:59 12/06/16 05:59 12/06/16 05:59 12/06/16 05:59 12/05/16 22:41 Active Medications Acetaminophen (Tylenol -) 650 mg PO Q6H PRN PRN Reason: FEVER OR PAIN Last Admin: 12/06/16 01:21 Dose: 650 mg Amlodipine Besylate (Norvasc -) 5 mg PO DAILY [facility] Last Admin: 12/06/16 09:30 Dose: 5 mg Docusate Sodium (Colace -) 100 mg PO BID [facility] Last Admin: 12/06/16 09:29 Dose: 100 mg Fentanyl (Sublimaze Injection -) 50 mcg IVPUSH [id number] PRN PRN Reason: PAIN Stop: 12/08/16 18:10 Last Admin: 12/05/16 19:50 Dose: 50 mcg Piperacillin Sod/Tazobactam (Sod 4.5 gm/ Dextrose) 100 mls @ 200 mls/hr IVPB Q8H-IV [facility] Last Admin: 12/06/16 09:28 Dose: 200 mls/hr Potassium Chloride/Dextrose/Sod Cl (D5-1/2ns+20 Meq Kcl -) 1,000 mls @ 75 mls/ hr IV ASDIR [facility] Last Admin: 12/05/16 20:30 Dose: 75 mls/hr Insulin Aspart (Novolog Vial Sliding Scale -) 1 vial SQ ACHS [facility] PRN Reason: Protocol Last Admin: 12/06/16 06:06 Dose: Not Given Levothyroxine Sodium (Synthroid -) 75 mcg PO DAILY@0700 [facility] Last Admin: 12/06/16 06:08 Dose: 75 mcg Morphine Sulfate (Morphine Injection -) 4 mg IVPUSH Q3H PRN PRN Reason: SEVERE PAIN Oxycodone HCl (Roxicodone -) 10 mg PO Q6H PRN PRN Reason: PAIN LEVEL 6-10 Last Admin: 12/06/16 07:38 Dose: 10 mg GENERAL: The patient is awake, alert, and fully oriented, in no acute distress. HEAD: Normal with no signs of trauma. EYES: PERRL, extraocular movements intact, sclera anicteric, conjunctiva clear. No ptosis. ENT: Ears normal, nares patent, oropharynx clear without exudates, moist mucous membranes. NECK: Trachea midline, full range of motion, supple. LUNGS: Clear to auscultation, no wheezes, no crackles HEART: Regular rate and rhythm, S1, S2 without murmur, rub or gallop. ABDOMEN: Soft, mild appropriate tenderness, no guarding, no rebound EXTREMITIES: 2+ pulses, warm, well-perfused, no edema. NEUROLOGICAL: Awake and alert Laboratory Results - last 24 hr 12/05/16 12/05/16 12/05/16 10:41 11:32 12:40 WBC RBC Hgb Hct MCV MCH MCHC RDW Plt Count MPV Neutrophils % Lymphocytes % Monocytes % Eosinophils % Basophils % PT with INR 15.10 H INR 1.36 H PTT (Actin FS) Sodium Potassium 3.4 L Chloride Carbon Dioxide Anion Gap BUN Creatinine Creat Clearance w eGFR POC Glucometer 85 Random Glucose Calcium Phosphorus Magnesium Total Bilirubin AST ALT Alkaline Phosphatase Total Protein Albumin 12/05/16 12/06/16 12/06/16 20:14 06:05 07:55 WBC RBC Hgb Hct MCV MCH MCHC RDW Plt Count MPV Neutrophils % Lymphocytes % Monocytes % Eosinophils % Basophils % PT with INR INR PTT (Actin FS) 26.3 L D Sodium Potassium Chloride Carbon Dioxide Anion Gap BUN Creatinine Creat Clearance w eGFR POC Glucometer 111 113 Random Glucose Calcium Phosphorus Magnesium Total Bilirubin AST ALT Alkaline Phosphatase Total Protein Albumin 12/06/16 12/06/16 12/06/16 07:55 07:55 07:55 WBC 5.3 RBC 3.01 L Hgb 9.5 L D Hct 28.7 L MCV 95.6 MCH 31.5 MCHC 33.0 RDW 14.5 Plt Count 184 MPV 7.7 Neutrophils % 66.5 D Lymphocytes % 25.1 D Monocytes % 7.3 Eosinophils % 0.6 Basophils % 0.5 PT with INR 18.20 H INR 1.64 H PTT (Actin FS) Sodium 141 Potassium 3.5 Chloride 105 Carbon Dioxide 26 Anion Gap 10 BUN 5 L Creatinine 1.0 Creat Clearance w eGFR 54.50 POC Glucometer Random Glucose 99 Calcium 8.1 L Phosphorus 2.6 Magnesium 1.7 L Total Bilirubin 0.6 AST 40 H D ALT 46 Alkaline Phosphatase 45 Total Protein 5.8 L Albumin 2.7 L IMP ACUTE CHOLECYSTITIS S/P CHOLECYSTECTOMY RLL ATELECTASIS BILATERAL PULMONARY NODULES -> ETIOLOGY TO BE DETERMINED HTN DM H/O COLON CA S/P RESECTION,CHEMO H/O PE/DVT BREAST LESION PLAN PT TOLERATED PO WHEN OK WITH SURGERY WOULD FOLLOW NODULES AN OUTPATIENT WITH CT CHEST IN 4 TO 6 WEEKS -> IF PERSISTENT -> PET SCAN DVT PROPHYLAXIS INCENTIVE SPIROMETRY DR VICTOR
--- NOTE | 2016-12-06 11:41 | PN ---
Progress Note (short form) - Note Progress Note: ID Day 1 post op and operative findings discussed with surgery Continues on Zosyn Selected Entries 12/06/16 05:59 Temperature 98.2 F Pulse Rate 70 Respiratory 18 Rate Blood Pressure 117/69 Microbiology 12/03/16 14:45 Urine - Urine Clean Catch Urine Culture - Final 12/02/16 13:55 Urine - Urine Clean Catch Urine Culture - Final Contaminated: Please Repeat Laboratory Tests 12/06/16 12/06/16 07:55 07:55 WBC 5.3 Hgb 9.5 L D Hct 28.7 L Plt Count 184 BUN 5 L Creatinine 1.0 Creat Clearance w eGFR 54.50 Assessment Post lap cholecystectomy Difficult surgery multiple adhesions wit diseased GB Plan Continue antibiotic another 24 hours Anticoagulation Sam JANG Problem List - Problems (1) Cholecystitis Code(s): K81.9 - CHOLECYSTITIS, UNSPECIFIED
--- NOTE | 2016-12-06 14:01 | PN ---
Progress Note, Physician Chief Complaint: RUQ pain History of Present Illness: Pt seen and examined in bed. No overnight events. Pt was in PT this morning. She states her pain is different, and she is sore, but not as much. Pain medications are having good effect, oral today. Tolerating clears, not much appetite yet. Using IS, can get to about [id number] in bed, better sitting up per her. Subxiphoid incision is most uncomfortable. No nausea or fevers. - Current Medication List Current Medications: Active Medications Acetaminophen (Tylenol -) 650 mg PO Q6H PRN PRN Reason: FEVER OR PAIN Last Admin: 12/06/16 12:42 Dose: 650 mg Amlodipine Besylate (Norvasc -) 5 mg PO DAILY [facility] Last Admin: 12/06/16 09:30 Dose: 5 mg Docusate Sodium (Colace -) 100 mg PO BID [facility] Last Admin: 12/06/16 09:29 Dose: 100 mg Piperacillin Sod/Tazobactam (Sod 4.5 gm/ Dextrose) 100 mls @ 200 mls/hr IVPB Q8H-IV GIL Last Admin: 12/06/16 09:28 Dose: 200 mls/hr Insulin Aspart (Novolog Vial Sliding Scale -) 1 vial SQ ACHS GIL PRN Reason: Protocol Last Admin: 12/06/16 12:14 Dose: Not Given Levothyroxine Sodium (Synthroid -) 75 mcg PO DAILY@0700 [facility] Last Admin: 12/06/16 06:08 Dose: 75 mcg Morphine Sulfate (Morphine Injection -) 4 mg IVPUSH Q3H PRN PRN Reason: SEVERE PAIN Oxycodone HCl (Roxicodone -) 10 mg PO Q6H PRN PRN Reason: PAIN LEVEL 6-10 Last Admin: 12/06/16 07:38 Dose: 10 mg - Objective Vital Signs: Vital Signs Temperature 98.5 F 12/06/16 09:00 Pulse Rate 69 12/06/16 09:00 Respiratory Rate 20 12/06/16 09:00 Blood Pressure 137/62 12/06/16 09:00 O2 Sat by Pulse Oximetry (%) 97 12/06/16 09:00 Vital Signs Period Temp Pulse Resp BP Sys/Brandt Pulse Ox Last 24 Hr 98.2 F-98.9 F 69-88 10-24 117-142/54-79 10-100 Constitutional: Yes: No Distress, Calm, Obese Eyes: Yes: Conjunctiva Clear. No: Sclera Icterus Cardiovascular: Yes: Regular Rate and Rhythm, Murmur (very soft) Respiratory: Yes: Regular, CTA Bilaterally Gastrointestinal: Yes: Normal Bowel Sounds, Soft, Abdomen, Obese, Tenderness ( incisional and some RUQ still, no R/G; subxiphoid more tender than left-sided incisions) Wound/Incision: Yes: Clean/Dry, Dressing Dry and Intact (x4) Neurological: Yes: Alert, Oriented Labs: CBC, BMP 12/06/16 07:55 12/06/16 07:55 INR, PTT INR 1.64 (0.82-1.09) H 12/06/16 07:55 CMP Sodium 141 mmol/L (136-145) 12/06/16 07:55 Potassium 3.5 mmol/L (3.5-5.1) 12/06/16 07:55 Chloride 105 mmol/L (98-107) 12/06/16 07:55 Carbon Dioxide 26 mmol/L (21-32) 12/06/16 07:55 Anion Gap 10 (8-16) 12/06/16 07:55 BUN 5 mg/dL (7-18) L 12/06/16 07:55 Creatinine 1.0 mg/dL (0.55-1.02) 12/06/16 07:55 Creat Clearance w eGFR 54.50 (>60) 12/06/16 07:55 POC Glucometer 91 UNITS (()) 12/06/16 11:23 Random Glucose 99 mg/dL (74-106) 12/06/16 07:55 Hemoglobin A1c % 5.2 % (4.8-6.0) 12/03/16 10:00 Lactic Acid 1.8 mmol/L (0.4-2.0) 12/02/16 21:56 Calcium 8.1 mg/dL (8.5-10.1) L 12/06/16 07:55 Phosphorus 2.6 mg/dL (2.5-4.9) 12/06/16 07:55 Magnesium 1.7 mg/dL (1.8-2.4) L 12/06/16 07:55 Total Bilirubin 0.6 mg/dL (0.2-1.0) 12/06/16 07:55 AST 40 U/L (15-37) H D 12/06/16 07:55 ALT 46 U/L (12-78) 12/06/16 07:55 Alkaline Phosphatase 45 U/L (45-117) 12/06/16 07:55 Creatine Kinase 37 IU/L (26-192) 12/02/16 14:15 Troponin I < 0.02 ng/ml (0.00-0.05) 12/02/16 14:15 Total Protein 5.8 g/dl (6.4-8.2) L 12/06/16 07:55 Albumin 2.7 g/dl (3.4-5.0) L 12/06/16 07:55 Triglycerides 98 mg/dL (35-160) 12/03/16 10:00 Cholesterol 203 mg/dL (50-200) H 12/03/16 10:00 Total LDL Cholesterol 99 mg/dL (5-100) 12/03/16 10:00 HDL Cholesterol 80 mg/dL (40-60) H 12/03/16 10:00 Total Amylase 61 U/L (25-115) D 12/04/16 06:10 Lipase 101 U/L (73-393) 12/04/16 06:10 TSH 2.57 uIU/ml (0.358-3.74) 12/03/16 10:00 Problem List - Problems (1) Calculus of gallbladder with acute cholecystitis Assessment/Plan: POD1 s/p laparoscopic cholecystectomy and adhesiolysis overall doing well mainly incisional pain, controlled with oral meds today getting OOB to chair and to physical therapy tolerating po - advance diet to diabetic voiding, no BM yet continue antibiotics for now ok to resume coumadin tonight if heparin drip to resume (or full-dose lovenox), ok after 7pm tonight SCD's for DVT prophylaxis until INR back up INR 1.6 today from surgical standpoint, may be able to go home tomorrow Code(s): K80.00 - CALCULUS OF GALLBLADDER W ACUTE CHOLECYST W/O OBSTRUCTION Qualifiers: Qualified Code(s): K80.00 - Calculus of gallbladder with acute cholecystitis without obstruction (2) History of pulmonary embolus (PE) Assessment/Plan: pt has IVC filter daily coags ok to resume coumadin tonight full anticoagulation (hep or lovenox) ok after 7pm if needed Code(s): Z86.711 - PERSONAL HISTORY OF PULMONARY EMBOLISM (3) Hypertension Assessment/Plan: continue meds as indicated Code(s): I10 - ESSENTIAL (PRIMARY) HYPERTENSION Qualifiers: Qualified Code(s): I10 - Essential (primary) hypertension (4) Diabetes mellitus type 2, noninsulin dependent Assessment/Plan: FS with SSI while NPO resume metformin when tolerating usual po Code(s): E11.9 - TYPE 2 DIABETES MELLITUS WITHOUT COMPLICATIONS (5) Hypothyroidism Assessment/Plan: continue synthroid Code(s): E03.9 - HYPOTHYROIDISM, UNSPECIFIED Qualifiers: Qualified Code(s): E03.9 - Hypothyroidism, unspecified (6) Obesity (BMI 30-39.9) Code(s): E66.9 - OBESITY, UNSPECIFIED
[2016-12-06] MEDS ORDERED: MAGNESIUM SULF 50% (8.12 MEQ/2 ML-1 GM VIAL) IVPB ONE (17:55)
--- NOTE | 2016-12-06 17:56 | PN ---
Physical Exam: SUBJECTIVE: Patient seen and examined at the bedside. OBJECTIVE: S/P lap salomón, POD #1 Appears well rested, denies pain INR 1.6 Will resume home Coumadin today, patient alternates between Coumadin 3mg and Coumadin 4mg at home. Vital Signs Period Temp Pulse Resp BP Sys/Brandt Pulse Ox Last 24 Hr 98.2 F-99.3 F 69-87 10-23 103-139/54-79 10-100 GENERAL: The patient is awake, alert, and fully oriented, in no acute distress. HEAD: Normal with no signs of trauma. EYES: PERRL, extraocular movements intact, sclera anicteric, conjunctiva clear. No ptosis. ENT: Ears normal, nares patent, oropharynx clear without exudates, moist mucous membranes. NECK: Trachea midline, full range of motion, supple. LUNGS: Diminished breath sound bilaterally HEART: Regular rate and rhythm, S1, S2 without murmur, rub or gallop. ABDOMEN: Surgical sites c/d/i EXTREMITIES: no edema. NEUROLOGICAL: Normal speech, gait not observed. PSYCH: Normal mood, normal affect. SKIN: Warm, dry, normal turgor, no rashes or lesions noted Laboratory Results - last 24 hr 12/05/16 12/06/16 12/06/16 20:14 06:05 07:55 WBC RBC Hgb Hct MCV MCH MCHC RDW Plt Count MPV Neutrophils % Lymphocytes % Monocytes % Eosinophils % Basophils % PT with INR INR PTT (Actin FS) 26.3 L D Sodium Potassium Chloride Carbon Dioxide Anion Gap BUN Creatinine Creat Clearance w eGFR POC Glucometer 111 113 Random Glucose Calcium Phosphorus Magnesium Total Bilirubin AST ALT Alkaline Phosphatase Total Protein Albumin 12/06/16 12/06/16 12/06/16 07:55 07:55 07:55 WBC 5.3 RBC 3.01 L Hgb 9.5 L D Hct 28.7 L MCV 95.6 MCH 31.5 MCHC 33.0 RDW 14.5 Plt Count 184 MPV 7.7 Neutrophils % 66.5 D Lymphocytes % 25.1 D Monocytes % 7.3 Eosinophils % 0.6 Basophils % 0.5 PT with INR 18.20 H INR 1.64 H PTT (Actin FS) Sodium 141 Potassium 3.5 Chloride 105 Carbon Dioxide 26 Anion Gap 10 BUN 5 L Creatinine 1.0 Creat Clearance w eGFR 54.50 POC Glucometer Random Glucose 99 Calcium 8.1 L Phosphorus 2.6 Magnesium 1.7 L Total Bilirubin 0.6 AST 40 H D ALT 46 Alkaline Phosphatase 45 Total Protein 5.8 L Albumin 2.7 L 12/06/16 12/06/16 11:23 16:45 WBC RBC Hgb Hct MCV MCH MCHC RDW Plt Count MPV Neutrophils % Lymphocytes % Monocytes % Eosinophils % Basophils % PT with INR INR PTT (Actin FS) Sodium Potassium Chloride Carbon Dioxide Anion Gap BUN Creatinine Creat Clearance w eGFR POC Glucometer 91 103 Random Glucose Calcium Phosphorus Magnesium Total Bilirubin AST ALT Alkaline Phosphatase Total Protein Albumin Active Medications Generic Name Dose Route Start Last Admin Trade Name Freq PRN Reason Stop Dose Admin Acetaminophen 650 mg 12/06/16 02:00 12/06/16 12:42 Tylenol - PO 650 mg Q6H PRN Administration FEVER OR PAIN Amlodipine Besylate 5 mg 12/06/16 10:00 12/06/16 09:30 Norvasc - PO 5 mg DAILY GIL Administration Docusate Sodium 100 mg 12/05/16 22:00 12/06/16 09:29 Colace - PO 100 mg BID GIL Administration Piperacillin Sod/Tazobactam 100 mls @ 200 mls/hr 12/06/16 02:00 12/06/16 09:28 Sod 4.5 gm/ Dextrose IVPB 200 mls/hr Q8H-IV GIL Administration Insulin Aspart 1 vial 12/05/16 22:00 12/06/16 16:57 Novolog Vial Sliding Scale - SQ Not Given ACHS [facility] Protocol Levothyroxine Sodium 75 mcg 12/06/16 07:00 12/06/16 06:08 Synthroid - PO 75 mcg DAILY@0700 GIL Administration Morphine Sulfate 4 mg 12/05/16 19:30 Morphine Injection - IVPUSH Q3H PRN SEVERE PAIN Oxycodone HCl 10 mg 12/05/16 19:28 12/06/16 07:38 Roxicodone - PO 10 mg Q6H PRN Administration PAIN LEVEL 6-10 Warfarin Sodium 4 mg 12/06/16 18:00 Coumadin - PO DAILY@1800 [facility] ASSESSMENT/PLAN: Patient is a 71 year old female with a significant past medical history of hypertenstion, hyperlipidemia, diabetes mellitus, colon cancer (s/p ex-lap and resection) and current breast pathology concerning for cancer (was on tamoxifen) . She presented to the Ed on 12/02/2016 with right sided abdominal pain. She had 10/10, constant, sharp, that started early in the AM. Pain was associated with nausea and few episodes of non bloody emesis. She denies fevers, but endorses chills. She was seen at [facility] ER, diagnosed with food poisoning , and discharged, but the pain persisted. On exam denies CP, has chronic SOB on exertion but not at rest. Chest CT: (1) distal gallblader with wall thickening (2) Multiple non specific non calcified irregular nodular opacities in both lungs. GI: Acute Cholecystitis - Lap salomón with Dr. Fontenot, POD #1 A/P: On Zosyn as per ID Dressing c/d/i, patient tolerated procedure well Having minimal pain at the surgical website admin for pain, Monitor liver function, monitor labs and vitals Will need surgical follow up with Dr. Fontenot on discharge Cardiology: A/P: Palpitations/Prolonged QTC No prior echos available, prolonged QT on EKG Echo reviewed Hypertension A/P: On Norvasc Monitor BP Subtherapeutic INR A/P: Hx of DVT/PE, she was on a heparin drip which was stopped yesterday prior to surgery INR 1.6, will start Coumadin 4mg today Monitor INR in a.m. Renal: A/P: Sightly elevated creat on admission Monitor renal functions Oncology: Colon cancer hx/Breast pathology concerning for cancer On Tamoxifen for breast pathology completed full course of tamoxifen She is a patient of Dr. Freedman, Oncology following and aware of CT chest findings Patient to follow up with Dr. Freedman upon discharge for further workup Endocrine: Diabetes Mellitus A/P: BGMs, sliding scale Hypothyroidism A/P: On Synthoroid TSH wnl Pulmonary Pulmonary Nodule - acute vs. chronic A/P: Irregular 7 x 6 mm nodular opacity in the left upper lobe seen on CT scan, Monitor respiratory status, unclear if this nodule is a new finding Oncology aware, and will follow patient on discharge Pulm following FEN Fluids: tolerating PO Electrolytes: monitor Nutrition: diabetic diet Prophylaxis DVT: Coumadin, will not bridge as INR is 1.6, will give Coumadin 4mg tonight GI: Protonix Full code. Visit type - Emergency Visit Emergency Visit: Yes ED Registration Date: 12/02/16 Care time: The patient presented to the Emergency Department on the above date and was hospitalized for further evaluation of their emergent condition. - New Patient This patient is new to me today: No - Critical Care Critical Care patient: No - Discharge Referral Referred to [facility] Med P.C.: No
[2016-12-06] MEDS ORDERED: WARFARIN NA 2 MG TABLET (UD) PO SCH (18:00)
--- NOTE | 2016-12-06 22:54 | PN ---
Progress Note (short form) - Note Progress Note: Patiene seen and examined AFVSS Cor: RSR, No murmurs, No gallops Lungs: Clear to P&A Abd: Soft, Normal bowel sounds, No organomegaly Ext:No significant edema Labs reviewed A/P 71 y/o patient with -personal hx of colon ca, s/p Rx in 2004 -LCIS on tamoxifen for 5 years ( completed 10/2016) -hx of DVT/PE on coumadin -Admitted with acute cholecystitis -CT chest with non specific lung nodules--to f/u s/o cholecystectomy POD no.1 On zosyn Restarted coumadin INR 1.6 to consider bridging based on INR---suspect it will increase due to interaction with antibiotics
[2016-12-07] MEDS: oxyCODONE HCL 5 MG TABLET PO PRN ×4 (00:12→23:38)
[2016-12-07] MEDS ORDERED: DEXTROSE 5%-WATER 100 ML IVPB ONE ×2 (01:10→09:33)
[2016-12-07] MEDS ORDERED: PIPERACILLIN/TAZOBACTAM 4.5 GM VIAL IVPB ONE ×2 (01:10→09:33)
[2016-12-07] MEDS: PIPERACILLIN/TAZOB 4.5 GM 4.5 GM in DEXTROSE 5%-WATER 100 ML IVPB SCH ×2 (01:18→10:05)
[2016-12-07] MEDS: LEVOTHYROXINE NA 75 MCG TABLET (FP) PO SCH (06:15)
[2016-12-07] MEDS: INSULIN SLIDING SCALE (NOVOLOG) 1 VIAL SQ SCH ×2 (06:51→11:59)
[2016-12-07] MEDS ORDERED: BISACODYL 5 MG TABLET.DR (FP) PO ONE (06:55)
--- NOTE | 2016-12-07 07:02 | PN ---
Progress Note (short form) - Note Progress Note: Pt seen and examined in bed. No overnight events. Having some pain/burning at subxiphoid incision site. Resumed Coumadin last night. Had oxycodone for pain this am; ok with oral pain meds. Tolerating diet, but not much appetite yet. Using bedside commode and ambulating some. No BM yet. Vital Signs Period Temp Pulse Resp BP Sys/Brandt Pulse Ox Last 24 Hr 98.5 F-99.7 F 69-73 18-20 103-169/58-66 97-97 PE: abdomen soft, obese, less tender RUQ and mild incisional tenderness dressings C/D/I RRR + soft murmur lungs clear A&O labs pending today A/P: POD2 s/p lap salomón and adhesiolysis doing well will remove dressings today ok to shower after instructions with lifting restrictions in d/c plan pt requests laxative - dulcolax x1 ordered continue stool softeners at home if Rx Percocet pt to f/u in 2 weeks - has my card ok for d/c from surgical standpoint INR/labs pending this am Problem List - Problems (1) Calculus of gallbladder with acute cholecystitis Code(s): K80.00 - CALCULUS OF GALLBLADDER W ACUTE CHOLECYST W/O OBSTRUCTION Qualifiers: Qualified Code(s): K80.00 - Calculus of gallbladder with acute cholecystitis without obstruction (2) History of pulmonary embolus (PE) Code(s): Z86.711 - PERSONAL HISTORY OF PULMONARY EMBOLISM (3) Hypertension Code(s): I10 - ESSENTIAL (PRIMARY) HYPERTENSION Qualifiers: Qualified Code(s): I10 - Essential (primary) hypertension (4) Diabetes mellitus type 2, noninsulin dependent Code(s): E11.9 - TYPE 2 DIABETES MELLITUS WITHOUT COMPLICATIONS (5) Hypothyroidism Code(s): E03.9 - HYPOTHYROIDISM, UNSPECIFIED Qualifiers: Qualified Code(s): E03.9 - Hypothyroidism, unspecified (6) Obesity (BMI 30-39.9) Code(s): E66.9 - OBESITY, UNSPECIFIED
[2016-12-07] MEDS ORDERED: PT OWN MED DRAWER 7, Y5N ONE (08:47)
[2016-12-07] MEDS: amLODIPine BESYLATE 5 MG TABLET (FP) PO SCH (09:07)
[2016-12-07] MEDS: DOCUSATE SODIUM 100 MG CAPSULE (FP) PO SCH ×2 (09:08→21:51)
[2016-12-07 09:33] LABS: BASOPHIL 0.9 % (0-2.0); EOSINOPHIL 2.1 % (0-4.5); MCH 31.9 pg (25.7-33.7); MEAN CELL VOLUME 96.6 fl (80-96); MEAN PLT VOLUME 7.9 fl (7.5-11.1); PLATELET COUNT 188 K/MM3 (134-434); RDW 14.4 % (11.6-15.6); WHITE BLOOD COUNT 5.3 K/mm3 (4.0-10.0)
[2016-12-07 10:00] LABS: ANION GAP 9 (8-16); CALCIUM 8.4 mg/dL (8.5-10.1); CO2 27 mmol/L (21-32); GLUCOSE,RANDOM 79 mg/dL (74-106)
[2016-12-07 10:04] LABS: ALK PHOS 47 U/L (45-117); BILIRUBIN,TOTAL 0.7 mg/dL (0.2-1.0); CREATININE 0.9 mg/dL (0.55-1.02); SGPT/ALT 44 U/L (12-78); TOT PROT 6.5 g/dl (6.4-8.2)
[2016-12-07 10:26] LABS: SGOT/AST 38 U/L (15-37)
[2016-12-07 10:39] LABS: INR 1.67 (0.82-1.09); PROTHROMBIN TIME (PATIENT) 18.6 SEC (9.98-11.88)
--- NOTE | 2016-12-07 11:29 | PN ---
Progress Note (short form) - Note Progress Note: pod #2 s/plap choly doing well some RUQ discomfort tolerating diet Vital Signs Period Temp Pulse Resp BP Sys/Brandt Pulse Ox Last 24 Hr 98.5 F-99.7 F 68-73 18-20 103-169/58-66 97 cor-rrr lungs clear abd soft, dressing intact ext no edema CBC, BMP 12/07/16 08:30 12/07/16 08:30 Microbiology 12/03/16 14:45 Urine - Urine Clean Catch Urine Culture - Final 12/02/16 13:55 Urine - Urine Clean Catch Urine Culture - Final Contaminated: Please Repeat a/p s/p lap choly pod#2 d/w Dr Po glover d/c adamaris please call back if needed
[2016-12-07] MEDS ORDERED: INSULIN (NOVOLOG) ASPART 100 UNITS/ML 10ML VIAL ONE ×2 (11:48→15:12)
[2016-12-07] MEDS: ACETAMINOPHEN 325 MG TABLET (FP) PO PRN ×2 (11:53→21:55)
[2016-12-07] MEDS: ENOXAPARIN NA (PORCINE) 100 MG/1 ML DISP.SYRIN SQ SCH ×2 (11:56→21:51)
--- NOTE | 2016-12-07 13:14 | PN ---
Teaching Attending Note Name of Resident: Agustin Horta ATTENDING PHYSICIAN STATEMENT I saw and evaluated the patient. I reviewed the resident's note and discussed the case with the resident. I agree with the resident's findings and plan as documented. PULMONARY ALERT,NAD,-SOB,-CP. IMP ACUTE CHOLECYSTITIS S/P LAP ZORAN RLL ATELECTASIS BILATERAL PULMONARY NODULES ? ETIOLOGY ?INFLAMMATORY,? MALIGNANT HTN DM H/O COLON CA S/P RESECTION,CHEMO H/O PE/DVT BREAST LESION PLAN NO PULMONARY CONTRAINDICATION TO SURGERY AT THIS TIME F/U CHEST CT 3 MONTHS PET SCAN OUTPATIENT IF NO CHANGE DVT PROPHYLAXIS INCENTIVE SPIROMETER POST-OP PFTS OUTPATIENT DR AVILEZ
--- NOTE | 2016-12-07 13:22 | PATH ---
Surgical Pathology Report Patient Name: HERMILA WEST [facility]. Rec. #: [id number] /Age/Gender: 1945 (Age: 71) / F Account: [id number] Location: [address] [place] [address]/[facility] Taken: 12/05/2016 Received: 12/06/2016 Reported: 12/07/2016 Physicians: Hanna Rendon F.N.P. Specimen(s) Received GALLBLADDER Clinical History Cholecystitis Final Diagnosis GALLBLADDER, CHOLECYSTECTOMY: MARKED ACUTE HEMORRHAGIC CHOLECYSTITIS, CHOLELITHIASIS. Electronically Signed Chan Rodriguez M.D. Gross Description Received in formalin, labeled "gallbladder" is a 12.2 x 5 x 2.7 cm gallbladder with a 0.2 cm in length portion of cystic duct attached. The outer surface is guillaume and yellow and varies from smooth to shaggy. The lumen contains dark brown bile, along with innumerable yellow calculi each of which is between 0.1 and 0.8 cm in greatest dimension. The mucosa is velvety, and guillaume to red in color. The wall of the gallbladder measures up to 0.8 cm. in thickness. A pericystic lymph node is not identified. [employer] sections are submitted in one cassette. [facility]/12/06/2016 [facility]/12/06/2016
--- NOTE | 2016-12-07 13:52 | PN ---
Physical Exam: PULMONARY CONSULT SUBJECTIVE: Patient seen and examined. No complaints. No CP, no SOB, no cough OBJECTIVE: Vital Signs Period Temp Pulse Resp BP Sys/Brandt Pulse Ox Last 24 Hr 98.5 F-99.7 F 68-73 20-20 113-169/58-66 97 GEN: AAOx3, NAD, Lying comfortably in bed HEENT: PERRLA, EOMi CV: S1, S2, RRR LUNG: CTABL ABD: Soft, has four incisions MSK: No edema, no erythema Laboratory Last Values WBC 5.3 K/mm3 (4.0-10.0) 12/07/16 08:30 RBC 3.30 M/mm3 (3.60-5.2) L 12/07/16 08:30 Hgb 10.5 GM/dL (10.7-15.3) L D 12/07/16 08:30 Hct 31.9 % (32.4-45.2) L 12/07/16 08:30 MCV 96.6 fl (80-96) H 12/07/16 08:30 MCH 31.9 pg (25.7-33.7) 12/07/16 08:30 MCHC 33.0 g/dl (32.0-36.0) 12/07/16 08:30 RDW 14.4 % (11.6-15.6) 12/07/16 08:30 Plt Count 188 K/MM3 (134-434) 12/07/16 08:30 MPV 7.9 fl (7.5-11.1) 12/07/16 08:30 Neutrophils % 61.0 % (42.8-82.8) 12/07/16 08:30 Lymphocytes % 28.9 % (8-40) 12/07/16 08:30 Monocytes % 7.1 % (3.8-10.2) 12/07/16 08:30 Eosinophils % 2.1 % (0-4.5) D 12/07/16 08:30 Basophils % 0.9 % (0-2.0) 12/07/16 08:30 PT with INR 18.60 SEC (9.98-11.88) H 12/07/16 07:30 INR 1.67 (0.82-1.09) H 12/07/16 07:30 PTT (Actin FS) 28.1 SECONDS (26.9-34.4) 12/07/16 08:30 Sodium 141 mmol/L (136-145) 12/07/16 08:30 Potassium 4.4 mmol/L (3.5-5.1) D 12/07/16 08:30 Chloride 105 mmol/L (98-107) 12/07/16 08:30 Carbon Dioxide 27 mmol/L (21-32) 12/07/16 08:30 Anion Gap 9 (8-16) 12/07/16 08:30 BUN 5 mg/dL (7-18) L 12/07/16 08:30 Creatinine 0.9 mg/dL (0.55-1.02) 12/07/16 08:30 Creat Clearance w eGFR > 60 (>60) 12/07/16 08:30 POC Glucometer 96 UNITS (()) 12/07/16 11:58 Random Glucose 79 mg/dL (74-106) D 12/07/16 08:30 Hemoglobin A1c % 5.2 % (4.8-6.0) 12/03/16 10:00 Lactic Acid 1.8 mmol/L (0.4-2.0) 12/02/16 21:56 Calcium 8.4 mg/dL (8.5-10.1) L 12/07/16 08:30 Phosphorus 2.6 mg/dL (2.5-4.9) 12/06/16 07:55 Magnesium 1.7 mg/dL (1.8-2.4) L 12/06/16 07:55 Total Bilirubin 0.7 mg/dL (0.2-1.0) 12/07/16 08:30 AST 38 U/L (15-37) H 12/07/16 08:30 ALT 44 U/L (12-78) 12/07/16 08:30 Alkaline Phosphatase 47 U/L (45-117) 12/07/16 08:30 Creatine Kinase 37 IU/L (26-192) 12/02/16 14:15 Troponin I < 0.02 ng/ml (0.00-0.05) 12/02/16 14:15 Total Protein 6.5 g/dl (6.4-8.2) 12/07/16 08:30 Albumin 3.0 g/dl (3.4-5.0) L 12/07/16 08:30 Triglycerides 98 mg/dL (35-160) 12/03/16 10:00 Cholesterol 203 mg/dL (50-200) H 12/03/16 10:00 Total LDL Cholesterol 99 mg/dL (5-100) 12/03/16 10:00 HDL Cholesterol 80 mg/dL (40-60) H 12/03/16 10:00 Total Amylase 61 U/L (25-115) D 12/04/16 06:10 Lipase 101 U/L (73-393) 12/04/16 06:10 TSH 2.57 uIU/ml (0.358-3.74) 12/03/16 10:00 Urine Color Yellow 12/02/16 13:55 Urine Appearance Slcloudy 12/02/16 13:55 Urine pH 5.0 (5.0-8.0) 12/02/16 13:55 Ur Specific [place] >= 1.030 (1.005-1.025) H 12/02/16 13:55 Urine Protein 2+ (NEGATIVE) H 12/02/16 13:55 Urine Glucose (UA) Negative (NEGATIVE) 12/02/16 13:55 Urine Ketones Negative (NEGATIVE) 12/02/16 13:55 Urine Blood Negative (NEGATIVE) 12/02/16 13:55 Urine Nitrite Negative (NEGATIVE) 12/02/16 13:55 Urine Bilirubin Negative (NEGATIVE) 12/02/16 13:55 Urine Urobilinogen Negative mg/dL (0.2-1.0) 12/02/16 13:55 Urine RBC 1 /hpf (0-3) 12/02/16 13:55 Urine WBC 13 /hpf (3-5) 12/02/16 13:55 Ur Epithelial Cells Many /hpf (FEW) 12/02/16 13:55 Urine Bacteria Rare /hpf (NONE SEEN) 12/02/16 13:55 Urine Mucus Rare 12/02/16 13:55 Blood Type A POSITIVE 12/05/16 05:00 Antibody Screen Negative 12/05/16 05:00 Active Medications Generic Name Dose Route Start Last Admin Trade Name Freq PRN Reason Stop Dose Admin Acetaminophen 650 mg 12/06/16 02:00 12/07/16 11:53 Tylenol - PO 650 mg Q6H PRN Administration FEVER OR PAIN Amlodipine Besylate 5 mg 12/06/16 10:00 12/07/16 09:07 Norvasc - PO 5 mg DAILY GIL Administration Docusate Sodium 100 mg 12/05/16 22:00 12/07/16 09:08 Colace - PO 100 mg BID GIL Administration Enoxaparin Sodium 100 mg 12/07/16 10:00 12/07/16 11:56 Lovenox - SQ 100 mg BID GIL Administration Insulin Aspart 1 vial 12/05/16 22:00 12/07/16 11:59 Novolog Vial Sliding Scale - SQ Not Given ACHS [facility] Protocol Levothyroxine Sodium 75 mcg 12/06/16 07:00 12/07/16 06:15 Synthroid - PO 75 mcg DAILY@0700 GIL Administration Oxycodone HCl 10 mg 12/05/16 19:28 12/07/16 06:15 Roxicodone - PO 10 mg Q6H PRN Administration PAIN LEVEL 6-10 Warfarin Sodium 4 mg 12/06/16 18:00 12/06/16 18:33 Coumadin - PO 4 mg DAILY@1800 GIL Administration ASSESSMENT/PLAN: Pt is a 71yo F w/ PMHx of HTN, HLD, NIDDM, hx of DVT/PE who was admitted for acute cholecystitis. Due for OR today, receiving FFP for high INR. # RLL Atelectasis - seen on CT chest, unlikely PNA - Atelectasis could be secondary to external compression w/ respiratory splinting from abdominal pain - Crackles have improved since using incentive spirometer post-op, continue - DVT prophylaxis # Pulmonary Nodules - Multiple irregular nodules, largest about 9mm - Pt has past hx of malignancy (CRC s/p resection) + ?breast pathology - Had recent colonoscopy, but due for mammogram - With history of malignancy, there is a chance the nodules can be malignant , however could also be inflammatory, f/u CT scan as per Onc, if the nodules are persistent, get PET scan to r/o malignancy - Follows with Dr Freedman already Rest as per Primary. Discussed w/ Dr Dewitt. Will continue to follow. Thank you. Agustin Horta MD - PGY1 Visit type - Emergency Visit Emergency Visit: No - New Patient This patient is new to me today: No - Critical Care Critical Care patient: No - Discharge Referral Referred to [facility] Med P.C.: No
--- NOTE | 2016-12-07 14:29 | PN ---
Progress Note (short form) - Note Progress Note: Patient seen and examined Last Vital Signs Temp Pulse Resp BP Pulse Ox 98.7 F 68 20 113/59 97 12/07/16 08:42 12/07/16 08:42 12/07/16 08:42 12/07/16 08:42 12/06/16 21:00 S/P laparoscopic cholecystectomy. Complains of abdominal discomfort P.E. HEENT: GÉNESIS, EOM Intact Oropharynx: No thrush, No mucositis Neck: Supple Nodes: Without adenopathy Breasts: Without masses Cor: RSR, No murmurs, No gallops Lungs: Clear to P&A Abd: dressings intact -mild diffuse tenderness Ext:No significant edema Skin: No rashes, Integument intact CBC, BMP 12/07/16 08:30 12/07/16 08:30 Current Medications Generic Name Dose Route Start Last Admin Trade Name Freq PRN Reason Stop Dose Admin Acetaminophen 650 mg 12/06/16 02:00 12/07/16 11:53 Tylenol - PO 650 mg Q6H PRN Administration FEVER OR PAIN Amlodipine Besylate 5 mg 12/06/16 10:00 12/07/16 09:07 Norvasc - PO 5 mg DAILY GIL Administration Docusate Sodium 100 mg 12/05/16 22:00 12/07/16 09:08 Colace - PO 100 mg BID GIL Administration Enoxaparin Sodium 100 mg 12/07/16 10:00 12/07/16 11:56 Lovenox - SQ 100 mg BID GIL Administration Insulin Aspart 1 vial 12/05/16 22:00 12/07/16 11:59 Novolog Vial Sliding Scale - SQ Not Given ACHS [facility] Protocol Levothyroxine Sodium 75 mcg 12/06/16 07:00 12/07/16 06:15 Synthroid - PO 75 mcg DAILY@0700 GIL Administration Oxycodone HCl 10 mg 12/05/16 19:28 12/07/16 06:15 Roxicodone - PO 10 mg Q6H PRN Administration PAIN LEVEL 6-10 Warfarin Sodium 4 mg 12/06/16 18:00 12/06/16 18:33 Coumadin - PO 4 mg DAILY@1800 GIL Administration Impression: S/P cholecystectomy - performed laparoscopically Sub cm pulmonary nodules Plan: Post -op care F/U out patient CT in 3 months.
--- NOTE | 2016-12-07 14:46 | PN ---
Physical Exam: SUBJECTIVE: Patient seen and examined. She feels well, she has not passed gas but feels her stomach moving. OBJECTIVE: Vital Signs Period Temp Pulse Resp BP Sys/Brandt Pulse Ox Last 24 Hr 98.5 F-99.7 F 68-73 20-20 113-169/58-66 97 PE Neuro: alert, awake, cn 2-12intact Breast: L appreciable mass 9oclock Pulm: b/l mild crackles CV: s1 s2 rrr no mrg Abd: incisions CDI, mild tenderness to palpation abd soft Ext: warm, no le edema Laboratory Results - last 24 hr 12/07/16 12/07/16 12/07/16 07:30 08:30 08:30 WBC 5.3 RBC 3.30 L Hgb 10.5 L D Hct 31.9 L MCV 96.6 H MCH 31.9 MCHC 33.0 RDW 14.4 Plt Count 188 MPV 7.9 Neutrophils % 61.0 Lymphocytes % 28.9 Monocytes % 7.1 Eosinophils % 2.1 D Basophils % 0.9 PT with INR 18.60 H INR 1.67 H PTT (Actin FS) 28.1 Sodium Potassium Chloride Carbon Dioxide Anion Gap BUN Creatinine Creat Clearance w eGFR POC Glucometer Random Glucose Calcium Total Bilirubin AST ALT Alkaline Phosphatase Total Protein Albumin 12/07/16 12/07/16 08:30 11:58 WBC RBC Hgb Hct MCV MCH MCHC RDW Plt Count MPV Neutrophils % Lymphocytes % Monocytes % Eosinophils % Basophils % PT with INR INR PTT (Actin FS) Sodium 141 Potassium 4.4 D Chloride 105 Carbon Dioxide 27 Anion Gap 9 BUN 5 L Creatinine 0.9 Creat Clearance w eGFR > 60 POC Glucometer 96 Random Glucose 79 D Calcium 8.4 L Total Bilirubin 0.7 AST 38 H ALT 44 Alkaline Phosphatase 47 Total Protein 6.5 Albumin 3.0 L Active Medications Generic Name Dose Route Start Last Admin Trade Name Freq PRN Reason Stop Dose Admin Acetaminophen 650 mg 12/06/16 02:00 12/07/16 11:53 Tylenol - PO 650 mg Q6H PRN Administration FEVER OR PAIN Amlodipine Besylate 5 mg 12/06/16 10:00 12/07/16 09:07 Norvasc - PO 5 mg DAILY [facility] Administration Docusate Sodium 100 mg 12/05/16 22:00 12/07/16 09:08 Colace - PO 100 mg BID GIL Administration Enoxaparin Sodium 100 mg 12/07/16 10:00 12/07/16 11:56 Lovenox - SQ 100 mg BID GIL Administration Insulin Aspart 1 vial 12/05/16 22:00 12/07/16 11:59 Novolog Vial Sliding Scale - SQ Not Given ACHS [facility] Protocol Levothyroxine Sodium 75 mcg 12/06/16 07:00 12/07/16 06:15 Synthroid - PO 75 mcg DAILY@0700 GIL Administration Oxycodone HCl 10 mg 12/05/16 19:28 12/07/16 06:15 Roxicodone - PO 10 mg Q6H PRN Administration PAIN LEVEL 6-10 Warfarin Sodium 4 mg 12/06/16 18:00 12/06/16 18:33 Coumadin - PO 4 mg DAILY@1800 GIL Administration Imaging: -Chest CT: (1) distal gallbladder with wall thickening (2) Multiple non specific non calcified irregular nodular opacities in both lungs. - ECHO: nml lvef, size Trace MR/TR Assessment: 71 year old female with pmhx HTN, HLD, DM II, colon cancer (s/p ex- lap and resection, chemo in 2004) and breast ca LCIS on 2011 (on tamoxifen) current admitted with RUQ pain, nausea, vomiting. Plan: 1. Acute Cholecystitis - s/p lab cholecystectomy 12/05 - Zosyn discontinued today - Outpt surgical follow up 2. hx of DVT/PE - INR sub therapeutic - Bridge lovenox - Increase coumadin 7.5mg HS - Daily INR 3. Breast LCIS/colon ca - Completed tamoxifen - CT scan with sub cm pulmonary nodules in 3 months - D/w above w/ Oncology and pulmonary 4. HTN - Controlled at present - Continue Norvasc 5mg 5. DM II - Sugars stable - Stop ISS, BGM - Diabetic diet 6. Hypothyroidism - Synthroid 75mcg daily Visit type - Emergency Visit Emergency Visit: Yes ED Registration Date: 12/02/16 Care time: The patient presented to the Emergency Department on the above date and was hospitalized for further evaluation of their emergent condition. - New Patient This patient is new to me today: Yes Date on this admission: 12/07/16 - Critical Care Critical Care patient: No
--- NOTE | 2016-12-07 17:22 | PN ---
Progress Note, Physician Chief Complaint: Pt A&Ox3; pain at surgical site; no chest pain or dyspnea. History of Present Illness: 71 year old black female with PMH of HTN, HLD, Hypothyroidism, diabetes (non- insulin dependent), history of DVT/ PE (most recently 5 years prior on Coumadin) , colon cancer (s/p ex-lap and resection, and current breast pathology concerning for cancer (on tamoxifen) presenting with nausea, vomiting, diarrhea , and abdominal pain for approximately 24 hours. She seems to attribute the paitn to the ingestion of some [place] burgers as it began a few hours after eating them. She describes the pain as a sharp/ tight pain 8/10 in her right lower quadrant that is occasionally positional and occasionally co- presents in her back. The pain did not allow her to sleep last night and she went to [facility] ED at which point she was diagnosed with food poisoning without imaging. She describes non-bilious/ non-bloody emesis and non-bloody, brown diarrhea. Denies fevers, chills, chest pain, cough, urinary changes, or palpitations. - Current Medication List Current Medications: Active Medications Acetaminophen (Tylenol -) 650 mg PO Q6H PRN PRN Reason: FEVER OR PAIN Last Admin: 12/07/16 11:53 Dose: 650 mg Amlodipine Besylate (Norvasc -) 5 mg PO DAILY [facility] Last Admin: 12/07/16 09:07 Dose: 5 mg Docusate Sodium (Colace -) 100 mg PO BID [facility] Last Admin: 12/07/16 09:08 Dose: 100 mg Enoxaparin Sodium (Lovenox -) 100 mg SQ BID [facility] Last Admin: 12/07/16 11:56 Dose: 100 mg Levothyroxine Sodium (Synthroid -) 75 mcg PO DAILY@0700 [facility] Last Admin: 12/07/16 06:15 Dose: 75 mcg Oxycodone HCl (Roxicodone -) 5 mg PO Q6H PRN PRN Reason: PAIN LEVEL 6-10 Last Admin: 12/07/16 17:12 Dose: 5 mg Warfarin Sodium (Coumadin -) 7.5 mg PO DAILY@1800 [facility] - Objective Vital Signs: Vital Signs Temperature 98.6 F 12/07/16 15:01 Pulse Rate 77 12/07/16 15:01 Respiratory Rate 20 12/07/16 15:01 Blood Pressure 127/57 12/07/16 15:01 O2 Sat by Pulse Oximetry (%) 93 L 12/07/16 09:00 Constitutional: Yes: No Distress Eyes: Yes: WNL HENT: Yes: WNL Neck: Yes: WNL Cardiovascular: Yes: Regular Rate and Rhythm, S1, S2 Respiratory: Yes: Regular Gastrointestinal: Yes: Tenderness (at sites of lap-salom[place]) ...Rectal Exam: Yes: Deferred Genitourinary: No: Anuria Musculoskeletal: Yes: Joint Stiffness Edema: Yes Edema: LLE: Trace, RLE: Trace Peripheral Pulses WNL: Yes Wound/Incision: Yes: Clean/Dry Neurological: Yes: WNL Psychiatric: Yes: WNL Labs: CBC, BMP 12/07/16 08:30 12/07/16 08:30 INR, PTT INR 1.67 (0.82-1.09) H 12/07/16 07:30 Problem List - Problems (1) Calculus of gallbladder with acute cholecystitis Assessment/Plan: s/p lap cholecystectomy. Pain management. Hydration. Physical therapy per surgeon. Code(s): K80.00 - CALCULUS OF GALLBLADDER W ACUTE CHOLECYST W/O OBSTRUCTION Qualifiers: Biliary obstruction: without biliary obstruction Qualified Code(s): K80.00 - Calculus of gallbladder with acute cholecystitis without obstruction (2) Diabetes mellitus type 2, noninsulin dependent Assessment/Plan: Recommend starting lisinopril 2.5 mg daily (HTN; DM). Code(s): E11.9 - TYPE 2 DIABETES MELLITUS WITHOUT COMPLICATIONS (3) History of pulmonary embolus (PE) Assessment/Plan: Restarted warfarin; likely will require IV heparin until INR is 2-3. Code(s): Z86.711 - PERSONAL HISTORY OF PULMONARY EMBOLISM (4) Hypertension Code(s): I10 - ESSENTIAL (PRIMARY) HYPERTENSION Qualifiers: Hypertension type: essential hypertension Qualified Code(s): I10 - Essential (primary) hypertension (5) Hypothyroidism Assessment/Plan: TSH 2.57; on Synthroid 75 ucg/day. Code(s): E03.9 - HYPOTHYROIDISM, UNSPECIFIED Qualifiers: Hypothyroidism type: acquired Qualified Code(s): E03.9 - Hypothyroidism, unspecified (6) Obesity (BMI 30-39.9) Assessment/Plan: Pt has lost a significant amount of weight in the past few months. She plans on following a healthier diet at home, and will try to exercise more ( denies history of heart disease; sedentary, and easily fatigued and short of breath on exertion; consider stress test as outpatient, if not done recently). Code(s): E66.9 - OBESITY, UNSPECIFIED (7) Hypomagnesemia Assessment/Plan: replete; f/u all electrolytes. (K+ 3.5; receiving K+ in IVF). Code(s): E83.42 - HYPOMAGNESEMIA (8) Colon cancer Code(s): C18.9 - MALIGNANT NEOPLASM OF COLON, UNSPECIFIED
--- NOTE | 2016-12-07 17:22 | PN ---
Progress Note, Physician Chief Complaint: Pt A&Ox3; mild pain at surgical site; no chest pain or dyspnea.Able to eat. History of Present Illness: 71 year old black female with PMH of HTN, HLD, Hypothyroidism, diabetes (non- insulin dependent), history of DVT/ PE (most recently 5 years prior on Coumadin) , colon cancer (s/p ex-lap and resection, and current breast pathology concerning for cancer (on tamoxifen) presenting with nausea, vomiting, diarrhea , and abdominal pain for approximately 24 hours. She seems to attribute the paitn to the ingestion of some [place] burgers as it began a few hours after eating them. She describes the pain as a sharp/ tight pain 8/10 in her right lower quadrant that is occasionally positional and occasionally co- presents in her back. The pain did not allow her to sleep last night and she went to [facility] ED at which point she was diagnosed with food poisoning without imaging. She describes non-bilious/ non-bloody emesis and non-bloody, brown diarrhea. Denies fevers, chills, chest pain, cough, urinary changes, or palpitations. - Current Medication List Current Medications: Active Medications Acetaminophen (Tylenol -) 650 mg PO Q6H PRN PRN Reason: FEVER OR PAIN Last Admin: 12/07/16 11:53 Dose: 650 mg Amlodipine Besylate (Norvasc -) 5 mg PO DAILY [facility] Last Admin: 12/07/16 09:07 Dose: 5 mg Docusate Sodium (Colace -) 100 mg PO BID [facility] Last Admin: 12/07/16 09:08 Dose: 100 mg Enoxaparin Sodium (Lovenox -) 100 mg SQ BID [facility] Last Admin: 12/07/16 11:56 Dose: 100 mg Levothyroxine Sodium (Synthroid -) 75 mcg PO DAILY@0700 [facility] Last Admin: 12/07/16 06:15 Dose: 75 mcg Oxycodone HCl (Roxicodone -) 5 mg PO Q6H PRN PRN Reason: PAIN LEVEL 6-10 Last Admin: 12/07/16 17:12 Dose: 5 mg Warfarin Sodium (Coumadin -) 7.5 mg PO DAILY@1800 [facility] - Objective Vital Signs: Vital Signs Temperature 98.6 F 12/07/16 15:01 Pulse Rate 77 12/07/16 15:01 Respiratory Rate 20 09/29/17 15:01 Blood Pressure 127/57 12/07/16 15:01 O2 Sat by Pulse Oximetry (%) 93 L 12/07/16 09:00 Constitutional: Yes: Calm Eyes: Yes: WNL, Conjunctiva Clear HENT: Yes: WNL, Atraumatic, Normocephalic Neck: Yes: WNL, Supple, Trachea Midline Cardiovascular: Yes: WNL, Regular Rate and Rhythm Respiratory: Yes: WNL, Regular, CTA Bilaterally Gastrointestinal: Yes: WNL, Normal Bowel Sounds ...Rectal Exam: Yes: Deferred Genitourinary: No: Anuria Musculoskeletal: Yes: WNL Extremities: Yes: WNL Edema: No Peripheral Pulses WNL: Yes Neurological: Yes: WNL, Alert, Oriented ...Motor Strength: WNL Psychiatric: Yes: WNL Labs: CBC, BMP 12/07/16 08:30 12/07/16 08:30 INR, PTT INR 1.67 (0.82-1.09) H 12/07/16 07:30 Abnormal Lab Results 12/07/16 12/07/16 12/07/16 07:30 08:30 08:30 RBC 3.30 L Hgb 10.5 L D Hct 31.9 L MCV 96.6 H PT with INR 18.60 H INR 1.67 H BUN 5 L Calcium 8.4 L AST 38 H Albumin 3.0 L Problem List - Problems (1) Calculus of gallbladder with acute cholecystitis Assessment/Plan: s/p lap cholecystectomy. Pain management. Hydration. Physical therapy per surgeon. Code(s): K80.00 - CALCULUS OF GALLBLADDER W ACUTE CHOLECYST W/O OBSTRUCTION Qualifiers: Biliary obstruction: without biliary obstruction Qualified Code(s): K80.00 - Calculus of gallbladder with acute cholecystitis without obstruction (2) Diabetes mellitus type 2, noninsulin dependent Assessment/Plan: Recommend starting lisinopril 2.5 mg daily (HTN; DM). Code(s): E11.9 - TYPE 2 DIABETES MELLITUS WITHOUT COMPLICATIONS (3) History of pulmonary embolus (PE) Assessment/Plan: Restarted warfarin; continue Lovenox 100 mg bid until INR is 2-3 (presently 1.67 ). Code(s): Z86.711 - PERSONAL HISTORY OF PULMONARY EMBOLISM (4) Hypertension Code(s): I10 - ESSENTIAL (PRIMARY) HYPERTENSION Qualifiers: Hypertension type: essential hypertension Qualified Code(s): I10 - Essential (primary) hypertension (5) Hypothyroidism Assessment/Plan: TSH 2.57; on Synthroid 75 ucg/day. Code(s): E03.9 - HYPOTHYROIDISM, UNSPECIFIED Qualifiers: Hypothyroidism type: acquired Qualified Code(s): E03.9 - Hypothyroidism, unspecified (6) Obesity (BMI 30-39.9) Assessment/Plan: Pt has lost a significant amount of weight in the past few months. She plans on following a healthier diet at home, and will try to exercise more ( denies history of heart disease; sedentary, and easily fatigued and short of breath on exertion; consider stress test as outpatient, if not done recently). Nonspecific pulmonary nodules and mediastinal lymph node on CT chest. F/u with oncologist noted. Code(s): E66.9 - OBESITY, UNSPECIFIED (7) Hypomagnesemia Assessment/Plan: dose given; f/u all electrolytes. (K+ 3.5; receiving K+ in IVF). Code(s): E83.42 - HYPOMAGNESEMIA (8) Colon cancer Assessment/Plan: f/u with oncologist noted. Code(s): C18.9 - MALIGNANT NEOPLASM OF COLON, UNSPECIFIED
[2016-12-07] MEDS: WARFARIN NA 7.5 MG TABLET (FP) PO SCH (18:04)
[2016-12-08] MEDS: oxyCODONE HCL 5 MG TABLET PO PRN ×2 (05:21→11:02)
[2016-12-08] MEDS: LEVOTHYROXINE NA 75 MCG TABLET (FP) PO SCH (06:05)
[2016-12-08 07:14] LABS: MCHC 33.8 g/dl (32.0-36.0); MEAN CELL VOLUME 94.7 fl (80-96); MEAN PLT VOLUME 7.7 fl (7.5-11.1); PLATELET COUNT 177 K/MM3 (134-434); RDW 14.4 % (11.6-15.6); WHITE BLOOD COUNT 4.7 K/mm3 (4.0-10.0)
[2016-12-08 07:29] LABS: INR 1.9 (0.82-1.09); PROTHROMBIN TIME (PATIENT) 21.2 SEC (9.98-11.88)
[2016-12-08 08:05] LABS: ANION GAP 6 (8-16); CALCIUM 7.8 mg/dL (8.5-10.1); CO2 27 mmol/L (21-32); CREATININE 0.8 mg/dL (0.55-1.02); GLUCOSE,RANDOM 89 mg/dL (74-106)
[2016-12-08] MEDS: amLODIPine BESYLATE 5 MG TABLET (FP) PO SCH (09:02)
[2016-12-08] MEDS: ENOXAPARIN NA (PORCINE) 100 MG/1 ML DISP.SYRIN SQ SCH ×2 (09:02→21:21)
[2016-12-08] MEDS: DOCUSATE SODIUM 100 MG CAPSULE (FP) PO SCH ×2 (09:02→21:21)
[2016-12-08] MEDS ORDERED: POTASSIUM CHLORIDE ORAL LIQUID 20 MEQ/15 ML PO ONE (12:30)
--- NOTE | 2016-12-08 12:46 | PN ---
Physical Exam: SUBJECTIVE: Patient seen and examined. She has some referred R back pain and R shoulder pain, but tolerable. She is tolerating meals. afebrile OBJECTIVE: Vital Signs Period Temp Pulse Resp BP Sys/Brandt Pulse Ox Last 24 Hr 98.4 F-98.8 F 76-81 18-20 127-138/57-68 PE Neuro: alert, awake, cn 2-12intact Pulm: CTAB CV: s1 s2 rrr no mrg Abd: incisions CDI, mild tenderness to palpation- improved abd soft Ext: warm, no le edema Laboratory Results - last 24 hr 12/05/16 12/08/16 12/08/16 05:00 06:15 06:15 WBC 4.7 RBC 2.71 L Hgb 8.7 L D Hct 25.6 L D MCV 94.7 MCH 32.0 MCHC 33.8 RDW 14.4 Plt Count 177 MPV 7.7 PT with INR INR PTT (Actin FS) 38.9 H D Sodium Potassium Chloride Carbon Dioxide Anion Gap BUN Creatinine Random Glucose Calcium Blood Type A POSITIVE Antibody Screen Negative 12/08/16 12/08/16 06:15 06:15 WBC RBC Hgb Hct MCV MCH MCHC RDW Plt Count MPV PT with INR 21.20 H INR 1.90 H PTT (Actin FS) Sodium 142 Potassium 3.0 L D Chloride 109 H Carbon Dioxide 27 Anion Gap 6 L BUN 5 L Creatinine 0.8 Random Glucose 89 Calcium 7.8 L Blood Type Antibody Screen Active Medications Generic Name Dose Route Start Last Admin Trade Name Freq PRN Reason Stop Dose Admin Acetaminophen 650 mg 12/06/16 02:00 12/07/16 21:55 Tylenol - PO 650 mg Q6H PRN Administration FEVER OR PAIN Amlodipine Besylate 5 mg 12/06/16 10:00 12/08/16 09:02 Norvasc - PO 5 mg DAILY [facility] Administration Docusate Sodium 100 mg 12/05/16 22:00 12/08/16 09:02 Colace - PO 100 mg BID GIL Administration Enoxaparin Sodium 100 mg 12/07/16 10:00 12/08/16 09:02 Lovenox - SQ 100 mg BID GIL Administration Levothyroxine Sodium 75 mcg 12/06/16 07:00 12/08/16 06:05 Synthroid - PO 75 mcg DAILY@0700 GIL Administration Lisinopril 2.5 mg 12/08/16 12:45 Prinivil PO DAILY GIL Oxycodone HCl 5 mg 12/07/16 14:58 12/08/16 11:02 Roxicodone - PO 5 mg Q6H PRN Administration PAIN LEVEL 6-10 Warfarin Sodium 7.5 mg 12/07/16 18:00 12/07/16 18:04 Coumadin - PO 7.5 mg DAILY@1800 [facility]IL Administration Imaging: - Chest CT: (1) distal gallbladder with wall thickening (2) Multiple non specific non calcified irregular nodular opacities in both lungs. - ECHO: nml lvef, size Trace MR/TR Assessment: 71 year old female with pmhx HTN, HLD, DM II, colon cancer (s/p ex- lap and resection, chemo in 2004) and breast ca LCIS on 2011 (on tamoxifen) current admitted with RUQ pain, nausea, vomiting. Plan: 1. Acute Cholecystitis - s/p lab cholecystectomy 12/05 - Zosyn stopped 12/07 - Outpt surgical follow up 2. hx of DVT/PE - INR sub therapeutic - Bridge lovenox - Coumadin 7.5mg HS - Daily INR 3. Breast LCIS/colon ca - Completed tamoxifen - CT scan with sub cm pulmonary nodules in 3 months - D/w above w/ Oncology and pulmonary 4. HTN - Controlled at present - Continue Norvasc 5mg - Start low dose lisinopril 2.5mg daily 5. DM II - Sugars stable - Diabetic diet 6. Hypothyroidism - Synthroid 75mcg daily Dispo: - DC home tomorrow pending INR Visit type - Emergency Visit Emergency Visit: Yes ED Registration Date: 12/02/16 Care time: The patient presented to the Emergency Department on the above date and was hospitalized for further evaluation of their emergent condition. - New Patient This patient is new to me today: No - Critical Care Critical Care patient: No
[2016-12-08] MEDS: LISINOPRIL 5 MG TABLET (FP) PO SCH (14:11)
[2016-12-08] MEDS: WARFARIN NA 7.5 MG TABLET (FP) PO SCH (17:49)
[2016-12-08] MEDS: ACETAMINOPHEN 325 MG TABLET (FP) PO PRN (19:21)
[2016-12-09] MEDS: oxyCODONE HCL 5 MG TABLET PO PRN (03:09)
[2016-12-09] MEDS: LEVOTHYROXINE NA 75 MCG TABLET (FP) PO SCH (06:16)
[2016-12-09 06:33] LABS: INR 2.28 (0.82-1.09); PROTHROMBIN TIME (PATIENT) 25.5 SEC (9.98-11.88)
[2016-12-09 07:20] LABS: ANION GAP 5 (8-16); CALCIUM 7.9 mg/dL (8.5-10.1); CO2 29 mmol/L (21-32); CREATININE 0.8 mg/dL (0.55-1.02); GLUCOSE,RANDOM 89 mg/dL (74-106)
[2016-12-09 09:23] VITALS: BP 126/68; PULSE 79; TEMP 98.7
[2016-12-09] MEDS: amLODIPine BESYLATE 5 MG TABLET (FP) PO SCH (09:27)
[2016-12-09] MEDS: LISINOPRIL 5 MG TABLET (FP) PO SCH (09:27)
[2016-12-09] MEDS: ACETAMINOPHEN 325 MG TABLET (FP) PO PRN (09:28)
[2016-12-09] MEDS: DOCUSATE SODIUM 100 MG CAPSULE (FP) PO SCH (09:28)
--- NOTE | 2016-12-09 09:31 | DS ---
Physical Exam: SUBJECTIVE: Patient seen and examined. Referred pain has improved, no acute issues. Ready to go home OBJECTIVE: Vital Signs Period Temp Pulse Resp BP Sys/Brandt Pulse Ox Last 24 Hr 98.4 F-98.7 F 79-82 18-20 112-130/62-80 PE Neuro: alert, awake, cn 2-12intact Pulm: CTAB CV: s1 s2 rrr no mrg Abd: incisions CDI, mild tenderness to palpation- improved abd soft Ext: warm, no le edema Laboratory Results - last 24 hr 12/09/16 12/09/16 05:35 05:35 PT with INR 25.50 H INR 2.28 H Sodium 143 Potassium 3.5 Chloride 109 H Carbon Dioxide 29 Anion Gap 5 L BUN 6 L Creatinine 0.8 Random Glucose 89 Calcium 7.9 L HOSPITAL COURSE: Date of Admission:12/02/16 Date of Discharge: 12/09/16 Minutes to complete discharge: 37 Discharge Summary Reason For Visit: CHOLECYSTITIS Current Active Problems Calculus of gallbladder with acute cholecystitis (Acute) Cholecystitis (Acute) Colon cancer (Acute) Diabetes mellitus type 2, noninsulin dependent (Acute) History of pulmonary embolus (PE) (Acute) Hypertension (Acute) Hypomagnesemia (Acute) Hypothyroidism (Acute) Lobular carcinoma in situ (LCIS) of right breast (Acute) Obesity (BMI 30-39.9) (Acute) Personal history of colon cancer (Acute) Hospital Course: Initial Hospital Course: Briefly, this 71 F with pmhx of HTN, HLD, Hypothyriodism, NIDDM, DVT/PE ( unprovoked IVC filter/Coumadin), hx of colon ca, s/p Rx in 2004 L sided breast LCIS on tamoxifen for 5 years ( completed 10/2016), admitted with right lower quadrant abdominal pain with associated nausea and vomiting X1 day, Non- bilous , non-bloody emesis. No chest pain or pressure, but stated she has palpitations which is related to a "valvular problem," but does not know what it is and has not followed with a spool cleaner hand. Imaging: - Chest CT: (1) distal gallbladder with wall thickening (2) Multiple non specific non calcified irregular nodular opacities in both lungs. - ECHO: nml lvef, size Trace MR/TR Subsequent Hospital Course/Progress Note/Discharge Summary: Assessment: 71 year old female with pmhx HTN, HLD, DM II, colon cancer (s/p ex- lap and resection, chemo in 2004) and breast ca LCIS on 2011 (on tamoxifen) current admitted with RUQ pain, nausea, vomiting. Plan: 1. Acute Cholecystitis - s/p lab cholecystectomy 12/05 - Zosyn stopped 12/07 - Outpt surgical follow up in 2 weeks 2. hx of DVT/PE - INR therapeutic, discontinue lovenox bridge - Resume home dose of coumadin 4mg - Weekly INR checks 3. Breast LCIS/colon ca - Completed tamoxifen - CT scan with sub cm pulmonary nodules in 3 months 4. HTN - Continue Norvasc 5mg - Started lisinopril 2.5mg daily 5. DM II - Resume home po antidiabetics 6. Hypothyroidism - Synthroid 75mcg daily Dispo: - Home with above plan and meds - PCP, surgery and oncology follow up - Pt aware and agrees to above plan Condition: Stable - Instructions Diet, Activity, Other Instructions: Please return to the ED for any new, persistent, or worsening symptoms. Follow up with your PCP in 1 week Take medications as directed on home medication list, continue weekly checks of your INR Follow up with Dr. Freedman office, you will need a repeat CT scan in 3 months Postoperative instructions: You had a laparoscopic cholecystectomy on 12/05/[address] Eligio Fontenot of [facility]. Activity: Resume your usual activities gradually, but no heavy exertion or lifting more than 10-15 pounds for 1 month. Remove dressings 48 hours after surgery, if they are not already off; sticky tapes underneath will fall off by themselves. You may shower daily starting then, just pat the incision areas dry. Eat lightly at first, but advance to your usual diet as tolerated. Pain: For pain, you may use Tylenol (acetaminophen) every 6 hours each as needed. If you are prescribed a Tylenol/narcotic combination for severe pain, use it instead of plain Tylenol as needed and switch back when your pain starts decreasing. Do not take more than 4000mg of acetaminophen in a day. Take medications as prescribed or indicated on the labeling. Follow-up: Call Dr. Fontenot's office at [phone] to make your postop appointment (Saturday ~2 weeks after surgery). Clinic is held in the [facility] on the first floor of [facility]. Call the office if you have: * increasing pain not responsive to pain medication * fever of 101F or higher * vomiting * unusual or increasing bleeding or drainage from wounds * increasing redness or swelling at wound sites * inability to urinate Referrals: Eligio Fontenot MD [Staff Physician] - 2 Weeks Ana Arroyo [Primary Care Provider] - Ani Mcmillan MD [Staff Physician] - 2 Weeks Disposition: HOME - Home Medications Comprehensive Discharge Medication List: Ambulatory Orders Amlodipine Besylate [Norvasc -] 5 mg PO DAILY 01/16/12 Metformin HCl [Glucophage] 1,000 mg PO BID 01/16/12 Tamoxifen Citrate 10 mg PO DAILY 01/16/12 Ergocalciferol (Vitamin D2) [Vitamin D] 50,000 unit PO WEEKLY 02/13/12 Warfarin Sodium [Coumadin] 4 mg PO UTDICT 02/13/12 Levothyroxine [Synthroid -] 75 mcg PO DAILY #30 tablet 12/09/16 Lisinopril [Prinivil] 2.5 mg PO DAILY #30 tablet 12/09/16 This patient is new to me today: No Emergency Visit: Yes ED Registration Date: 12/02/16 Care time: The patient presented to the Emergency Department on the above date and was hospitalized for further evaluation of their emergent condition. Critical Care patient: No - Discharge Referral Referred to [facility] Med [facility].C.: No
[2016-12-09] MEDS ORDERED: POTASSIUM CHLORIDE ORAL LIQUID 20 MEQ/15 ML PO ONE (10:45)
[2016-12-09] MEDS ORDERED: WARFARIN NA 2 MG TABLET (UD) PO SCH (18:00)
--- NOTE | 2016-12-11 10:59 | OP ---
DATE OF OPERATION: 12/05/2016 PREOPERATIVE DIAGNOSIS: Acute cholecystitis. POSTOPERATIVE DIAGNOSIS: Acute cholecystitis. PROCEDURE: Laparoscopic cholecystectomy and extensive lysis of adhesions. SURGEON: Eligio Fontenot MD COTTON SAMPLER: Julien Saleh MD ANESTHESIA: General endotracheal and local, 10 mL of 1% lidocaine plus 0.5% Marcaine. ESTIMATED BLOOD LOSS: 20 mL FLUIDS: 800 mL of crystalloid. SPECIMEN: Gallbladder to Pathology. FINDINGS: Multiple adhesions of bowel and omentum to the anterior abdominal wall in the midline, as well as in the right upper quadrant including to the gallbladder and the liver. It required more than 30 minutes to take down enough adhesions from the midline and right upper quadrant to expose the right side of the abdomen and the gallbladder in order to perform the operation. The gallbladder was noted to be inflamed with adhesions of fat and peritoneum overlying it, and the duodenum was tented up to it as well. The critical view was ultimately obtained. Extra-large Weck clips were used on the cystic duct and artery. There was some bile and stone spillage which was suctioned out of the abdomen. DISPOSITION: Stable and extubated to PACU. 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 She also has scoliosis status post spinal surgery with revision. She had been admitted to the emergency room several days prior to the operation with a diagnosis of acute cholecystitis and was placed on a heparin drip for bridging anticoagulation. She had been optimized by Medicine and Cardiology and had had essentially normal LFTs and lipase, with a normal white count. Her INR remained above 1.5 off Coumadin and was corrected the morning of surgery with 2 units of FFP, decreasing from 1.7 to 1.3. She had been on treatment antibiotics in the form of Zosyn for at least 2-1/2 days prior to surgery. Risks, benefits, and alternatives of laparoscopic, possible open cholecystectomy were discussed with the patient including, but not limited to, bleeding, infection, injury to adjacent structures, bile leak or ductal injury, intraabdominal fluid collection, higher risk for open procedure, hernia, mesh infection, need for further procedures, and alternatives including percutaneous biliary drainage, delayed or no surgery , with attendant risks of recurrent cholecystitis or pancreatitis, ascending cholangitis, sepsis, need for future surgery or . The patient was optimized for surgery, understood her moderate risk level for noncardiac surgery, and desired to proceed with the operation. She had signed informed consent for the same. OPERATIVE TECHNIQUE: The patient is brought to the operating room and laid supine on the operating table. Sequential compression devices were used on bilateral lower extremities, and no additional antibiotic was given immediately preoperatively, as she had recently had her scheduled dose of Zosyn. After induction and intubation by Anesthesia, the patient's abdomen was prepped and draped in sterile fashion. She had a long midline scar with an absent umbilicus, which extended approximately two- thirds of the way up her abdomen. Given the potential high risk for adhesions underneath this scar, we elected to enter the abdominal cavity in [place] at the subxiphoid area. A small vertical subxiphoid incision was made in the midline with a scalpel and carried into subcutaneous tissues with electrocautery, until the abdominal wall fascia was identified, scored, and elevated with Yemi clamps. The peritoneum was entered bluntly with the tip of a clamp, and a fingertip used to ensure entry into the abdominal cavity and the absence of underlying adhesions in this area. The falciform ligament was palpable. The Don trocar was then introduced directly into the abdominal cavity and secured in place with the balloon, and the abdomen was insufflated with carbon dioxide. A laparoscope was inserted to inspect the abdominal cavity, and immediately we noted loops of small bowel adherent all the way up the underlying area of her midline scar, as well as adhesions on the right side of the abdomen in the right upper quadrant, precluding visualization of anything across the midline. There were adhesions noted from the liver to the anterior abdominal wall and the falciform ligament, and an area of thinner adhesions cephalad to the bowel that was underlying her scar. We were able to see a little bit over the top of the liver with the camera, but could not visualize the full right upper quadrant at all without taking down some adhesions, so a 5-mm port was placed in the left lateral abdomen under direct vision. A second 5-mm port was then also placed under direct vision adjacent to and just superior to it, along a vertical line. Through these, a grasper and EndoShears were introduced to begin sharply taking down some of the thinner adhesions in between the bowel and the falciform ligament. Ultimately, a third 5-mm port was also placed immediately below the first for a total of three in a vertical line on the left side of the abdomen, through which all instrumentation for the procedure was used. We began by taking down adhesions of the omentum to the anterior abdominal wall, above the level of the patient's abdominal scar, taking care to avoid the bowel itself. Once we were able to make a small window cephalad and take down a small portion of the falciform ligament, we were able to get visualization across to the right upper quadrant of the abdomen. We could then see dense adhesions over the gallbladder from her previous right hemicolectomy. The duodenum was also tented up in one place near the base of the gallbladder. Adhesions were taken down with a combination of blunt and sharp dissection, as well as hook cautery, in order to fully expose the gallbladder and proceed with the actual cholecystectomy. The amount and extent of adhesiolysis was significantly greater than is normally encountered in this operation, and was required to be able to perform the operation itself. This took much more effort and time than is usual, reflected in the total operative time of 90 minutes. Once we were able to get a good solid window into this area and a grasp on the gallbladder, we began undertaking division of some of the peritoneal attachments to the sides of the gallbladder with the hook cautery. The gallbladder was rather distended, and at one point, the fundal grasper did make a hole in the gallbladder and some bile spillage ensued. The suction club former was used to suction as much bile from this area as possible and from the gallbladder itself to facilitate its grasping. The peritoneum was divided up the medial and lateral sides and a small window created just behind the base of the gallbladder with the [place] dissector. The cystic duct was noted to be quite enlarged, and the [place] was then also used to isolate both the cystic duct and cystic artery at the base of the gallbladder. Once we were able to achieve the critical view, the cystic duct was seen to be the only structure directly entering the gallbladder, but it was clearly too large for clipping with the usual Endoclips. Thus, the extra-large Weck clips were introduced and used to clip the cystic duct, two proximally and one distally, which was then divided with endoscissors between. They were then also used on the cystic artery, two proximally and one distally, which was also cut with scissors. The hook cautery was used to continue taking the gallbladder off the liver bed itself, and there was some spillage of bile and tiny yellow stones. Once the gallbladder had been entirely from the liver , it was placed in an Endo Catch bag and pulled out of the subxiphoid site. In order to retrieve the gallbladder, both the skin and the fascia needed to be enlarged somewhat with the electrocautery. Once the specimen was out, it was passed off the table to go to pathology. The Don trocar and pneumoperitoneum were re-established, and the operative site inspected. The suction club former was used to suction up the bile spill and all visible stones. In fact, the tip was changed for a 10-mm size, and we were successful at retrieving all visible stones in this fashion. The area was then irrigated with saline and suctioned until the fluid was clear. Hemostasis was assured, as no active bleeding was noted in the liver bed, and once all the fluid had been suctioned out, we re-inspected the field, and there were no visible stones. We placed the camera in the subxiphoid port and removed all three 5-mm ports under direct vision. The camera and Don trocar were then removed, and the abdomen exsufflated of carbon dioxide. The fascia at that site was then closed with 3 [id number] 0 Vicryl sutures, and subcutaneous tissues were reapproximated with 3-0 Vicryl. Local anesthetic was infiltrated into all port sites. The skin at all sites was closed with 4-0 Vicryl subcuticular sutures. Benzoin and Steri-Strips were applied over all the incisions, which were then dressed with gauze and Tegaderm. Counts were correct at the end of the procedure. The patient was then awakened and extubated by Anesthesia. She was moved back to her stretcher and taken to the recovery room in stable condition, having tolerated the procedure well. Dr. Saleh was an essential imaging assistant, both with entry into the abdominal cavity, port site placement and facilitation of the adhesiolysis, as well as retraction and manipulation of the gallbladder throughout the operation. Hanna [id number] [id number]
== END 2016-12-09 12:19 | disposition home or self-care (01) | DRG 418 ==
LOC: JER 13:01 → J6S 22:34
PROVIDERS: ADMIT Internal Medicine; ATTEND Nurse Practitioner Acute Care
PROC: 0DNW0ZZ Release Peritoneum, Open Approach (ICD-10-PCS; 2016-12-05)
PROC: 0FT44ZZ Resection of Gallbladder, Percutaneous Endoscopic Approach (ICD-10-PCS; principal; 2016-12-05 13:00)
DX: K80.00 Calculus of gallbladder with acute cholecystitis without obstruction (principal); N17.9 Acute kidney failure, unspecified; R18.8 Other ascites; J98.11 Atelectasis; K66.0 Peritoneal adhesions (postprocedural) (postinfection); I10 Essential (primary) hypertension; E78.5 Hyperlipidemia, unspecified; E03.9 Hypothyroidism, unspecified; E11.9 Type 2 diabetes mellitus without complications; Z86.718 Personal history of other venous thrombosis and embolism; Z86.711 Personal history of pulmonary embolism; Z79.01 Long term (current) use of anticoagulants; Z85.038 Personal history of other malignant neoplasm of large intestine; Z87.891 Personal history of nicotine dependence; I45.81 Long QT syndrome; M54.9 Dorsalgia, unspecified; Z99.3 Dependence on wheelchair; R91.1 Solitary pulmonary nodule; E66.9 Obesity, unspecified; Z68.35 Body mass index [BMI] 35.0-35.9, adult; E83.42 Hypomagnesemia; D05.01 Lobular carcinoma in situ of right breast; E87.6 Hypokalemia; Z79.4 Long term (current) use of insulin
CPT/HCPCS: 36415; 36430; 71010-TC; 71250-TC; 74176-TC; 76705-TC; 80048; 80053; 80061; 81003; 81015; 82150; 83036; 83605; 83690; 83721; 83735; 84100; 84132; 84443; 84484; 85025; 85027; 85610; 85730; 86850; 86900; 86901; 87086; 88304-TC; 90688; 93005; 93010; 93306-TC; 94010; 94760; 97116-GP; 99283-25; G0008; J1644; P9017

== ENCOUNTER 2016-12-10 17:06 | Inpatient (IN) | payer OTHER ==
[2016-12-10 17:38] VITALS: BMI 36.6
[2016-12-10] MEDS ORDERED: SODIUM CHLORIDE 1,000 ML IV STA (18:14)
[2016-12-10] MEDS ORDERED: morphine CARPU-JECT 4 MG/1 ML DISP.SYRIN IVPUSH ONE (18:14)
[2016-12-10] MEDS ORDERED: ONDANSETRON 4 MG/2 ML VIAL IVPB ONE (18:14)
--- NOTE | 2016-12-10 18:18 | CONSULT ---
Consult Consult Specialty:: General Surgery Referred by:: Dr. Floyd Reason for Consultation:: pain s/p lap salomón 5d ago - History of Present Illness Chief Complaint: left and lower abdominal pain, bilateral flank pain History of Present Illness: 71yo morbidly obese F with multiple medical problems and surgical history, known to me, now 5 days s/p laparoscopic cholecystectomy via left-sided approach , secondary to need for adhesiolysis to expose RUQ, was d/c from hospital yesterday therapeutic on home coumadin and with pain controlled with po meds, tolerating diet. Last night she had some baked chicken, green beans and rice. She had not had any more pain medication after leaving hospital until today. Woke up this morning feeling nausea and had some vomiting, could not keep down few bites of egg. She has had 1.5 bottles of water today. Took Tylenol once this morning. After that, picked up meds from pharmacy and had one Tramadol. She has had pain in her left abdomen and both flanks "like kidney pain," which has not improved with the pain medication. She still does not have much appetite back. Still feels a little nauseated. Pain is different than what she had felt in the hospital postop. She had a soft BM yesterday, but none yet today. No fever/chills. She spoke with her PMD earlier, who recommended Tylenol , but when it didn't help, she came back to ER. She has just recently arrived here; labs are pending, including glucose. 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), HTN, Hyperlipdemia (?), Other (possible valvular stenosis?) Gastrointestinal: Yes: Cancer (R hemicolectomy), Other (diarrhea/chronic loose stool) Hepatobiliary: Yes: Cholecystitis (s/p lap salomón 5d ago) Reproductive: Yes: Postmenopausal ...: No Musculoskeletal: Yes: Other (R shoulder tendinitis) Endocrine: Yes: Hypothyroidism - Past Surgical History Past Surgical History: Yes: Appendectomy ((part of R hemicolectomy)), Breast Biopsy (?), Cholecystectomy (laparoscopic 5 days ago), Colectomy (R massiel for CA 2003), Hernia Repair (abdominal wall with mesh at time of hemicolectomy per pt) - Alcohol/Substance Use Hx Alcohol Use: No History of Substance Use: reports: None - Smoking History Smoking history: Former smoker Have you smoked in the past 12 months: No Aproximately how many cigarettes per day: 0 If you are a former smoker, when did you quit?: 1970 Home Medications - Allergies Allergies/Adverse Reactions: Allergies Allergy/AdvReac Type Severity Reaction Status Date / Time No Known Drug Allergies Allergy Verified 12/02/16 13:06 - Home Medications Home Medications: Ambulatory Orders Amlodipine Besylate [Norvasc -] 5 mg PO DAILY 01/16/12 Metformin HCl [Glucophage] 1,000 mg PO BID 01/16/12 Tamoxifen Citrate 10 mg PO DAILY 01/16/12 Ergocalciferol (Vitamin D2) [Vitamin D] 50,000 unit PO WEEKLY 02/13/12 Warfarin Sodium [Coumadin] 4 mg PO UTDICT 02/13/12 Levothyroxine [Synthroid -] 75 mcg PO DAILY #30 tablet 12/09/16 Lisinopril [Prinivil] 2.5 mg PO DAILY #30 tablet 12/09/16 Tramadol HCl [Ultram] 50 mg PO Q6H #20 tab MDD 4 12/09/16 Home Medications (free text): just picked up synthroid/lisinopril/TRAMADOL today Family Disease History - Family Disease History Family History: Unremarkable Review of Systems - Review of Systems Constitutional: reports: Loss of Appetite (not much appetite back yet). denies : Chills, Fever Eyes: denies: Blurred Vision, Recent Change in Vision HENT: denies: Difficult Swallowing, Throat Pain Neck: denies: Swollen Glands, Tenderness Cardiovascular: reports: Palpitations (gets occasionally). denies: Chest Pain Respiratory: denies: Cough, SOB Gastrointestinal: reports: Abdominal Pain (with hpi), Bloating (with hpi), Nausea (with hpi, woke up with this morning), Vomiting (with hpi, started this morning). denies: Constipation, Diarrhea Genitourinary: denies: Burning, Dysuria Musculoskeletal: reports: Back Pain Integumentary: reports: Wound (incisions x4 with steri's). denies: Rash Neurological: denies: Dizziness, Headache Physical Exam Vital Signs: Vital Signs Temperature 99.2 F 12/10/16 17:35 Pulse Rate 80 12/10/16 17:35 Respiratory Rate 20 12/10/16 17:35 Blood Pressure 135/58 12/10/16 17:35 O2 Sat by Pulse Oximetry (%) 98 12/10/16 17:35 Constitutional: Yes: No Distress, Calm, Obese Eyes: Yes: Conjunctiva Clear, EOM Intact. No: Sclera Icterus HENT: Yes: Atraumatic, Normocephalic Neck: Yes: Supple, Trachea Midline Cardiovascular: Yes: Regular Rate and Rhythm, Murmur (soft systolic) Respiratory: Yes: Regular, CTA Bilaterally Gastrointestinal: Yes: Normal Bowel Sounds, Soft, Abdomen, Obese, Tenderness ( lower abdomen bilateral and suprapubic, no rebound or guarding; no sig incisional tenderness), Other (incisions x4 with steristrips). No: Tenderness, Epigastrium ...Rectal Exam: Yes: Deferred Renal/: Yes: CVA Tenderness - Right (mild - refers to RUQ some). No: CVA Tenderness - Left Musculoskeletal: No: Joint Stiffness, Joint Swelling Extremities: No: Cool, Cyanosis Peripheral Pulses WNL: Yes Integumentary: Yes: Incision (x4). 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 will give pain med to assess response and IV fluids will check labs and glucose, UA may check abdominal XR before considering CT will f/u with ER after above Code(s): G89.18 - OTHER ACUTE POSTPROCEDURAL PAIN (2) Nausea and vomiting Assessment/Plan: antiemetic prn NPO for now IV fluids check glucose see above Code(s): R11.2 - NAUSEA WITH VOMITING, UNSPECIFIED Qualifiers: Vomiting type: unspecified Vomiting Intractability: non-intractable Qualified Code(s): R11.2 - Nausea with vomiting, unspecified; R11.2 - Nausea with vomiting, unspecified (3) S/P laparoscopic cholecystectomy Assessment/Plan: POD5 s/p difficult lap salomón, with left-sided approach secondary to need for lysis of adhesions in order to access RUQ steristrips clean and intact, no sig incisional or upper abdominal tenderness check labs Code(s): Z90.49 - ACQUIRED ABSENCE OF OTHER SPECIFIED PARTS OF DIGESTIVE TRACT (4) Diabetes mellitus type 2, noninsulin dependent Assessment/Plan: check glucose and correct if needed IV fluids Code(s): E11.9 - TYPE 2 DIABETES MELLITUS WITHOUT COMPLICATIONS (5) History of pulmonary embolus (PE) Assessment/Plan: pt had been therapeutic back on coumadin, took usual 3mg last night (alternates 3 and 4 mg nightly) check INR and H/H Code(s): Z86.711 - PERSONAL HISTORY OF PULMONARY EMBOLISM (6) Personal history of colon cancer Assessment/Plan: s/p R hemicolectomy no appendix no acute issues Code(s): Z85.038 - PERSONAL HISTORY OF MALIGNANT NEOPLASM OF LARGE INTESTINE (7) Hypertension Assessment/Plan: monitor BP treat prn Code(s): I10 - ESSENTIAL (PRIMARY) HYPERTENSION Qualifiers: Hypertension type: essential hypertension Qualified Code(s): I10 - Essential (primary) hypertension; I10 - Essential (primary) hypertension; I10 - Essential (primary) hypertension (8) Hypothyroidism Assessment/Plan: on synthroid no acute issues Code(s): E03.9 - HYPOTHYROIDISM, UNSPECIFIED Qualifiers: Hypothyroidism type: acquired Qualified Code(s): E03.9 - Hypothyroidism, unspecified; E03.9 - Hypothyroidism, unspecified; E03.9 - Hypothyroidism, unspecified (9) Lobular carcinoma in situ (LCIS) of right breast Assessment/Plan: completed course of tamoxifen does not need to resume at home Code(s): D05.01 - LOBULAR CARCINOMA IN SITU OF RIGHT BREAST (10) Obesity (BMI 30-39.9) Code(s): E66.9 - OBESITY, UNSPECIFIED
[2016-12-10] MEDS ORDERED: ONDANSETRON 4 MG/2 ML VIAL ONE (18:48)
[2016-12-10] MEDS ORDERED: morphine CARPU-JECT 4 MG/1 ML DISP.SYRIN ONE (18:48)
--- NOTE | 2016-12-10 19:00 | PDOC ---
History of Present Illness - History of Present Illness Initial Comments: 12/10/16 19:04 The patient is a 71 year old female with history of multiple comorbidities, cholecystectomy s/p laparoscopic cholecystitis on 12/05, who presents to the ED complaining of RUQ that began today. 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 She took Tylenol and Tramadol this morning. This morning she experienced left abdominal pain and bilateral flank pain, nausea, and a few episodes of NBNB vomiting with solid food intolerance. She spoke with her PMD who sent her to the ED. No fever. No constipation or diarrhea. <Madalyn Betancur - Last Filed: 12/10/16 19:11> - General History Source: Patient Exam Limitations: No Limitations <Cecilio Floyd - Last Filed: 12/18/16 15:58> - General Chief Complaint: Pain, Acute Stated Complaint: ABD PAIN Time Seen by Provider: 12/10/16 17:49 Past History <Madalyn Betancur - Last Filed: 12/10/16 19:11> - Past Medical History Anemia: No Asthma: No Cancer: Yes (COLON, ? breast) Cardiac Disorders: No CVA: No COPD: No CHF: No Dementia: No Diabetes: Yes GI Disorders: No Disorders: No HTN: No Hypercholesterolemia: No Liver Disease: No Seizures: No Thyroid Disease: Yes - Surgical History Abdominal Surgery: Yes (exploratory lap for obstruction 1993) Appendectomy: No Cardiac Surgery: No Cholecystectomy: Yes (11/2016) Lung Surgery: No Neurologic Surgery: No - Reproductive History Is Patient Now?: No - Suicide/Smoking/Psychosocial Hx Smoking History: Former smoker Have you smoked in the past 12 months: No Number of Cigarettes Smoked Daily: 0 If you are a former smoker, when did you quit?: 1971 Information on smoking cessation initiated: No Hx Alcohol Use: No Drug/Substance Use Hx: No Substance Use Type: None Hx Substance Use Treatment: No <Cecilio Floyd - Last Filed: 12/18/16 15:58> - Past Medical History Allergies/Adverse Reactions: Allergies Allergy/AdvReac Type Severity Reaction Status Date / Time No Known Drug Allergies Allergy Verified 12/02/16 13:06 Home Medications: Ambulatory Orders Amlodipine Besylate 5 mg PO DAILY 12/10/16 Cholecalciferol (Vitamin D3) [Vitamin D3] 50,000 unit PO WEEKLY 12/10/16 Hydrochlorothiazide [Hctz -] 12.5 mg PO DAILY 12/10/16 Levothyroxine [Synthroid -] 75 mcg PO DAILY 12/10/16 Lisinopril [Zestril] 2.5 mg PO DAILY 12/10/16 Metformin HCl [Metformin HCl ER] 1,000 mg PO BID 12/10/16 Warfarin Na [Coumadin -] 3 mg PO ASDIR 12/10/16 Warfarin Na [Coumadin -] 4 mg PO ASDIR 12/10/16 Review of Systems - Review of Systems Able to Perform ROS?: Yes Comments:: 12/10/16 19:08 GENERAL/CONSTITUTIONAL: No fever or chills. No weakness. HEAD, EYES, EARS, NOSE AND THROAT: No change in vision. No ear pain or discharge. No sore throat. CARDIOVASCULAR: No chest pain or shortness of breath. RESPIRATORY: No cough, wheezing, or hemoptysis. GASTROINTESTINAL: +Abdominal pain, nausea, vomiting. No diarrhea or constipation. GENITOURINARY: No dysuria, frequency, or change in urination. MUSCULOSKELETAL: No joint or muscle swelling or pain. No neck or back pain. SKIN: No rash NEUROLOGIC: No headache, vertigo, loss of consciousness, or change in strength/ sensation. ENDOCRINE: No increased thirst. No abnormal weight change. HEMATOLOGIC/LYMPHATIC: No anemia, easy bleeding, or history of blood clots. ALLERGIC/IMMUNOLOGIC: No hives or skin allergy. <Madalyn Betancur - Last Filed: 12/10/16 19:11> *Physical Exam - Vital Signs Last Vital Signs Temp Pulse Resp BP Pulse Ox 99.2 F 80 20 135/58 98 12/10/16 17:35 12/10/16 17:35 12/10/16 17:35 12/10/16 17:35 12/10/16 17:35 - Physical Exam Comments: 12/10/16 19:09 GENERAL: Awake, alert, and fully oriented, in no acute distress HEAD: No signs of trauma EYES: PERRLA, EOMI, sclera anicteric, conjunctiva clear ENT: Auricles normal inspection, hearing grossly normal, nares patent, oropharynx clear without exudates. Moist mucosa NECK: Normal ROM, supple, no lymphadenopathy, JVD, or masses LUNGS: Breath sounds equal, clear to auscultation bilaterally. No wheezes, and no crackles HEART: Regular rate and rhythm, normal S1 and S2, no murmurs, rubs or gallops ABDOMEN: +R mid abdominal pain. Soft, normoactive bowel sounds. No guarding, no rebound. No masses EXTREMITIES: Normal range of motion, no edema. No clubbing or cyanosis. No cords, erythema, or tenderness NEUROLOGICAL: Cranial nerves II through XII grossly intact. Normal speech, normal gait SKIN: +Abdominal surgical incision clean, dry, and intact with no erythema or drainage. Warm, Dry, normal turgor, no rashes noted. <Madalyn Betancur - Last Filed: 12/10/16 19:11> - Vital Signs Last Vital Signs Temp Pulse Resp BP Pulse Ox 99.2 F 80 20 135/58 98 12/10/16 17:35 12/10/16 17:35 12/10/16 17:35 12/10/16 17:35 12/10/16 17:35 <Cecilio Floyd - Last Filed: 12/18/16 15:58> Heart Score/ECG Review #1 ECG reviewed & interpreted by me at: 18:50 12/10/16 19:01 NSR 76, no std/kanu, poor R wave progression, T wave flat I, aVL, V3-V6, QTC 427 msec <Cecilio Floyd - Last Filed: 12/18/16 15:58> ED Treatment Course - LABORATORY CBC & Chemistry Diagram: 12/10/16 18:45 12/10/16 18:45 - Medications Given in the ED: ED Medications Discontinued Medications Generic Name Dose Route Start Last Admin Trade Name Freq PRN Reason Stop Dose Admin Morphine Sulfate 4 mg 12/10/16 18:14 12/10/16 18:55 Morphine Injection - IVPUSH 12/10/16 18:15 4 mg ONCE ONE Administration Ondansetron HCl 4 mg 12/10/16 18:14 12/10/16 18:56 Zofran Injection IVPB 12/10/16 18:15 4 mg ONCE ONE Administration <Madalyn Betancur - Last Filed: 12/10/16 19:11> - LABORATORY CBC & Chemistry Diagram: 12/14/16 06:20 12/14/16 06:20 - RADIOLOGY Radiology Studies Ordered: Category Date Time Status ABDOMEN FLAT & UPRIGHT [RAD] Stat Radiology 12/10/16 18:14 Ordered <Cecilio Floyd - Last Filed: 12/18/16 15:58> Medical Decision Making - Medical Decision Making 12/10/16 18:59 A portion of this note was documented by scribe services under my direction. I have reviewed the details of the note, within reason, and agree with the documentation with the following case summary and management plan written by me. Patient treated in the ED. Nursing notes are reviewed and incorporated into the medical decision-making. Vital signs reviewed. Peripheral IV access obtained by the nurse, laboratory studies are drawn and sent, reviewed and interpreted by myself. Vital Signs Temp Pulse Resp BP Pulse Ox 99.2 F 80 20 135/58 98 12/10/16 17:35 12/10/16 17:35 12/10/16 17:35 12/10/16 17:35 12/10/16 17:35 71 year old female with Past medical history of hypertension, hyperlipidemia, hypothyroid isn't, diabetes, DVT status post IVC filter, on Coumadin, history of colon cancer status post right-sided hemicolectomy, left-sided breast cancer returns to the ED for abdominal pain. The patient recently had a cholecystectomy on December 05 and reports the pain is improved. The patient was discharged yesterday. However, patient had taken a dose of tramadol and Tylenol this morning but the pain and return. She is moving her bowels normally. No fevers, nausea, vomiting, diarrhea. Because of the pain, the patient return to the ED. The patient was seen here by me with Dr. Fontenot, her surgeon. Differential includes constipation, retained stone, pancreatitis, postoperative pain. We'll obtain labs, urinalysis and abdominal x-ray. We'll need to consider potential CAT scan the abdomen pelvis pending patient's symptoms and workup. Pain control reassess. Case signed out to oncoming ED attending Dr. Blanchard. <Cecilio Floyd - Last Filed: 12/18/16 15:58> *DC/Admit/Observation/Transfer - Attestations Scribe Attestion: 12/10/16 19:10 Documentation prepared by Madalyn Betancur, acting as bacteriologist medical for Cecilio Floyd MD. <Madalyn Betancur - Last Filed: 12/10/16 19:11> <Cecilio Floyd - Last Filed: 12/18/16 15:58> Diagnosis at time of Disposition: Pancreatitis - Discharge Dispostion Disposition: HOME Condition at time of disposition: Stable - Referrals
[2016-12-10 19:08] LABS: BASOPHIL 0.8 % (0-2.0); EOSINOPHIL 1.2 % (0-4.5); MCH 32.3 pg (25.7-33.7); MCHC 33.8 g/dl (32.0-36.0); MEAN CELL VOLUME 95.7 fl (80-96); MEAN PLT VOLUME 7.5 fl (7.5-11.1); NEUTROPHILS 66.1 % (42.8-82.8); PLATELET COUNT 263 K/MM3 (134-434); RDW 14.7 % (11.6-15.6)
--- NOTE | 2016-12-10 19:31 | PDOC ---
*Physical Exam - Vital Signs Last Vital Signs Temp Pulse Resp BP Pulse Ox 99.2 F 80 20 135/58 98 12/10/16 17:35 12/10/16 17:35 12/10/16 17:35 12/10/16 17:35 12/10/16 17:35 ED Treatment Course - LABORATORY CBC & Chemistry Diagram: 12/10/16 18:45 12/10/16 18:45 - ADDITIONAL ORDERS Additional order review: 12/10/16 18:45 RBC 2.96 L MCV 95.7 MCHC 33.8 RDW 14.7 MPV 7.5 Neutrophils % 66.1 Lymphocytes % 26.7 Monocytes % 5.2 Eosinophils % 1.2 Basophils % 0.8 - Medications Given in the ED: ED Medications Discontinued Medications Generic Name Dose Route Start Last Admin Trade Name Freq PRN Reason Stop Dose Admin Sodium Chloride 1,000 mls @ 1,000 mls/hr 12/10/16 18:14 12/10/16 18:55 Normal Saline - IV 12/10/16 19:13 1,000 mls/hr ASDIR STA Administration Morphine Sulfate 4 mg 12/10/16 18:14 12/10/16 18:55 Morphine Injection - IVPUSH 12/10/16 18:15 4 mg ONCE ONE Administration Ondansetron HCl 4 mg 12/10/16 18:14 12/10/16 18:56 Zofran Injection IVPB 12/10/16 18:15 4 mg ONCE ONE Administration Medical Decision Making - Medical Decision Making 12/10/16 19:29 Pt endorsed to me by Dr. Floyd at shift change. Patient presented with abd pain, she is s/p cholecystectomy on 12/05, recently discharged. Now with worsening pain. Evaluated by Dr. Fontenot. Awaiting labs, possibly imaging. 12/10/16 20:[address] Fontenot. Also d/w patient, who agrees to admission. Denies nausea at present. She has epigastric tenderness at present. 12/10/16 21:10 D/w Dr. Fontenot. No advanced imaging at present. Will trend labs in AM. NPO, IV fluids. No coumadin tonight. She will reevaluate in AM. Will admit to hospitalist service, as she was discharged yesterday. *DC/Admit/Observation/Transfer Diagnosis at time of Disposition: Pancreatitis Qualifiers: Chronicity: acute Pancreatitis type: unspecified pancreatitis type Acute pancreatitis complication: unspecified Qualified Code(s): K85.90 - Acute pancreatitis without necrosis or infection, unspecified; K85.90 - Acute pancreatitis without necrosis or infection, unspecified - Discharge Dispostion Condition at time of disposition: Stable Admit: Yes - Referrals Referrals: Ana Arroyo [Primary Care Provider] - - Patient Instructions - Post Discharge Activity
[2016-12-10 19:49] LABS: ALK PHOS 150 U/L (45-117); ANION GAP 6 (8-16); BILIRUBIN,TOTAL 0.3 mg/dL (0.2-1.0); CALCIUM 8.2 mg/dL (8.5-10.1); CO2 29 mmol/L (21-32); CREATININE 0.9 mg/dL (0.55-1.02); GLUCOSE,RANDOM 93 mg/dL (74-106); SGOT/AST 183 U/L (15-37); SGPT/ALT 134 U/L (12-78); TOT PROT 6.4 g/dl (6.4-8.2)
[2016-12-10 20:34] LABS: URINE APPEARANCE CLEAR; URINE BILIRUBIN NEGATIVE (NEGATIVE); URINE BLOOD NEGATIVE (NEGATIVE); URINE COLOR STRAW; URINE GLUCOSE (UA) NEGATIVE (NEGATIVE); URINE KETONE NEGATIVE (NEGATIVE); URINE LEUK ESTERASE NEGATIVE (NEGATIVE); URINE NITRITE NEGATIVE (NEGATIVE); URINE PROTEIN NEGATIVE (NEGATIVE); URINE UROBILINOGEN NEGATIVE mg/dL (0.2-1.0)
[2016-12-10 21:18] LABS: INR 2.3 (0.82-1.09); PROTHROMBIN TIME (PATIENT) 25.7 SEC (9.98-11.88)
[2016-12-10 21:21] LABS: ACTIVATED PTT 58.8 SECONDS (26.9-34.4)
[2016-12-10] MEDS ORDERED: DEXTROSE 5%-LACTATED RINGERS 1,000 ML IV SCH (21:45)
--- NOTE | 2016-12-10 21:47 | HP ---
CHIEF COMPLAINT: Abdominal Pain, Flank Pain, Nausea PCP: Dr. Sherri Arroyo HISTORY OF PRESENT ILLNESS: This is a 71 y/o woman s/p Cholecystectomy x 5 days. Who presents to the ED with RUQ pain, bilateral flank pain, nausea and dry heave x today. Patient reports having sharp to stabbing "gas-like pains" today. Patient reports tolerating po liquids and foods yesterday but unable today. Patient reports last BM- yesterday soft. Patient reports taking her pain medication without relief. Patient denies fever, cough, SOB, dizziness, CP, diarrhea, dysuria. ER course was notable for: (1) [id number], ALT 134, Alk Phos 150 (2) Lipase 7323 (3) Amylase 1341 Recent Travel: None PAST MEDICAL HISTORY: HTN HLD NIDDM Hypothyroid Colon Ca L- Breast Ca R- Shoulder Tendinitis PAST SURGICAL HISTORY: s/p Cholecystectomy Appendectomy R- hemicolectomy (2003) Exploratory Laparotomy (1993) Hernia Repair w/mesh Social History: Smoking: Former Smoker Alcohol: None Drugs: None Lives with family Family History: Allergies No Known Drug Allergies Allergy (Verified 12/02/16 13:06) HOME MEDICATIONS: Home Medications Medication Instructions Recorded Amlodipine Besylate 5 mg PO DAILY 12/10/16 Cholecalciferol (Vitamin D3) 50,000 unit PO WEEKLY 12/10/16 [Vitamin D3] Hydrochlorothiazide [Hctz -] 12.5 mg PO DAILY 12/10/16 Levothyroxine [Synthroid -] 75 mcg PO DAILY 12/10/16 Lisinopril [Zestril] 2.5 mg PO DAILY 12/10/16 Metformin HCl [Metformin HCl ER] 1,000 mg PO BID 12/10/16 Tamoxifen Citrate 20 mg PO DAILY 12/10/16 Tramadol HCl [Ultram -] 50 mg PO BID 12/10/16 Tramadol HCl [Ultram] 50 mg PO Q6H 12/10/16 Warfarin Na [Coumadin] 3 mg PO ASDIR 12/10/16 Warfarin Na [Coumadin] 4 mg PO ASDIR 12/10/16 REVIEW OF SYSTEMS CONSTITUTIONAL: Absent: fever, chills, diaphoresis, generalized weakness, malaise, loss of appetite, weight change HEENT: Absent: rhinorrhea, nasal congestion, throat pain, throat swelling, difficulty swallowing, mouth swelling, ear pain, eye pain, visual changes CARDIOVASCULAR: Absent: chest pain, syncope, palpitations, irregular heart rate, lightheadedness , peripheral edema RESPIRATORY: Absent: cough, shortness of breath, dyspnea with exertion, orthopnea, wheezing, stridor, hemoptysis GASTROINTESTINAL: abdominal pain, nausea, vomiting Absent: abdominal distension, diarrhea, constipation, melena, hematochezia GENITOURINARY: flank pain Absent: dysuria, frequency, urgency, hesitancy, hematuria, genital pain MUSCULOSKELETAL: Absent: myalgia, arthralgia, joint swelling, back pain, neck pain SKIN: Absent: rash, itching, pallor HEMATOLOGIC/IMMUNOLOGIC: Absent: easy bleeding, easy bruising, lymphadenopathy, frequent infections ENDOCRINE: Absent: unexplained weight gain, unexplained weight loss, heat intolerance, cold intolerance NEUROLOGIC: Absent: headache, focal weakness or paresthesias, dizziness, unsteady gait, seizure, mental status changes, bladder or bowel incontinence PSYCHIATRIC: Absent: anxiety, depression, suicidal or homicidal ideation, hallucinations. PHYSICAL EXAMINATION Vital Signs - 24 hr 12/10/16 17:35 Temperature 99.2 F Pulse Rate 80 Respiratory 20 Rate Blood Pressure 135/58 O2 Sat by Pulse 98 Oximetry (%) GENERAL: Awake, alert, and fully oriented, in mild distress. HEAD: Normal with no signs of trauma. EYES: Pupils equal, round and reactive to light, extraocular movements intact, sclera anicteric, conjunctiva clear. No lid lag. EARS, NOSE, THROAT: Ears normal, nares patent, oropharynx clear without exudates. Dry mucous membranes. NECK: Normal range of motion, supple without lymphadenopathy, JVD, or masses. LUNGS: Breath sounds equal, clear to auscultation bilaterally. No wheezes, and no crackles. No accessory muscle use. HEART: Regular rate and rhythm, normal S1 and S2 without murmur, rub or gallop. ABDOMEN: LLQ, RLQ tenderness. Soft, not distended, normoactive bowel sounds, no guarding, no rebound, no masses. No hepatomegaly or splenomegaly. Steri Strips , Surgical incisions dry and intact, no erythema MUSCULOSKELETAL: Normal range of motion at all joints. No bony deformities or tenderness. No CVA tenderness. UPPER EXTREMITIES: 2+ pulses, warm, well-perfused. No cyanosis. No clubbing. No peripheral edema. LOWER EXTREMITIES: 2+ pulses, warm, well-perfused. No calf tenderness. No peripheral edema. NEUROLOGICAL: Cranial nerves II-XII intact. Normal speech. Gait not observed. PSYCHIATRIC: Cooperative. Good eye contact. Appropriate mood and affect. SKIN: Warm, dry, normal turgor, no rashes or lesions noted, normal capillary refill. Laboratory Results - last 24 hr 12/10/16 12/10/16 12/10/16 18:45 18:45 20:15 WBC 4.0 RBC 2.96 L Hgb 9.6 L D Hct 28.4 L MCV 95.7 MCH 32.3 MCHC 33.8 RDW 14.7 Plt Count 263 D MPV 7.5 Neutrophils % 66.1 Lymphocytes % 26.7 Monocytes % 5.2 Eosinophils % 1.2 Basophils % 0.8 PT with INR INR PTT (Actin FS) Sodium 139 Potassium 3.5 Chloride 104 Carbon Dioxide 29 Anion Gap 6 L BUN 7 Creatinine 0.9 Creat Clearance w eGFR > 60 Random Glucose 93 Calcium 8.2 L Total Bilirubin 0.3 D AST 183 H D ALT 134 H D Alkaline Phosphatase 150 H D Total Protein 6.4 Albumin 3.0 L Total Amylase Lipase 7323 H Urine Color Straw Urine Appearance Clear Urine pH 7.0 D Urine Protein Negative Urine Glucose (UA) Negative Urine Ketones Negative Urine Blood Negative Urine Nitrite Negative Urine Bilirubin Negative Urine Urobilinogen Negative 12/10/16 12/10/16 20:30 20:40 WBC RBC Hgb Hct MCV MCH MCHC RDW Plt Count MPV Neutrophils % Lymphocytes % Monocytes % Eosinophils % Basophils % PT with INR 25.70 H INR 2.30 H PTT (Actin FS) 58.8 H D Sodium Potassium Chloride Carbon Dioxide Anion Gap BUN Creatinine Creat Clearance w eGFR Random Glucose Calcium Total Bilirubin AST ALT Alkaline Phosphatase Total Protein Albumin Total Amylase 1341 H D Lipase Urine Color Urine Appearance Urine pH Urine Protein Urine Glucose (UA) Urine Ketones Urine Blood Urine Nitrite Urine Bilirubin Urine Urobilinogen ASSESSMENT/PLAN: This is a 71 y/o woman with a PMHx of: HTN, HLD, NIDDM, Colon Ca (s/p R- Hemicolectomy), L- Breast Ca, Hypothyroidism. Admitted for Acute Pancreatitis for further evaluation of their emergent condition. Problem 1. Acute Pancreatitis 2. Transaminitis 3. Hypertension 4. Diabetes Mellitus 5. Hyperlipidemia 6. Hypothroidism Problem List - Problem (1) Pancreatitis Assessment/Plan: - r/o Malignancy, Stone - Given IV fluids in ED, will continue fluids~ D5LR@100cc/hr - Pain Mgmt: Morphine prn - Zofran prn - Surgical Consult placed by ED, who is aware and following patient - Will repeat LFTs, Amylase, Lipase and PT/INR in am - Hold meds - Consider CT, MRCP for r/o stone in CBD - Monitor vital signs - Monitor CBC Code(s): K85.90 - ACUTE PANCREATITIS WITHOUT NECROSIS OR INFECTION, UNSP Qualifiers: Chronicity: acute Pancreatitis type: unspecified pancreatitis type Acute pancreatitis complication: unspecified Qualified Code(s): K85.90 - Acute pancreatitis without necrosis or infection, unspecified; K85.90 - Acute pancreatitis without necrosis or infection, unspecified (2) Nausea and vomiting Assessment/Plan: - See Above Code(s): R11.2 - NAUSEA WITH VOMITING, UNSPECIFIED Qualifiers: Vomiting type: unspecified Vomiting Intractability: non-intractable Qualified Code(s): R11.2 - Nausea with vomiting, unspecified; R11.2 - Nausea with vomiting, unspecified (3) Diabetes mellitus type 2, noninsulin dependent Assessment/Plan: - BGMs - Hold Metformin - Monitor renal function Code(s): E11.9 - TYPE 2 DIABETES MELLITUS WITHOUT COMPLICATIONS (4) Hypothyroidism Code(s): E03.9 - HYPOTHYROIDISM, UNSPECIFIED Qualifiers: Hypothyroidism type: acquired Qualified Code(s): E03.9 - Hypothyroidism, unspecified; E03.9 - Hypothyroidism, unspecified; E03.9 - Hypothyroidism, unspecified (5) Obesity (BMI 30-39.9) Code(s): E66.9 - OBESITY, UNSPECIFIED (6) DVT prophylaxis Assessment/Plan: - OOB - SCDs - Hold ACs secondary to possible surgical intervention Code(s): [id number] - Visit type - Emergency Visit Emergency Visit: Yes ED Registration Date: 12/10/16 Care time: The patient presented to the Emergency Department on the above date and was hospitalized for further evaluation of their emergent condition. - New Patient This patient is new to me today: Yes Date on this admission: 12/10/16 - Critical Care Critical Care patient: No
[2016-12-10] MEDS ORDERED: ONDANSETRON 4 MG/2 ML VIAL IVPUSH PRN (22:34)
[2016-12-11] MEDS: morphine CARPU-JECT 4 MG/1 ML DISP.SYRIN IVPUSH PRN ×3 (01:24→20:27)
[2016-12-11 08:30] LABS: BASOPHIL 1.6 % (0-2.0); EOSINOPHIL 2.8 % (0-4.5); MCHC 33.7 g/dl (32.0-36.0); MEAN PLT VOLUME 7.3 fl (7.5-11.1); NEUTROPHILS 43.6 % (42.8-82.8); PLATELET COUNT 235 K/MM3 (134-434); RDW 14.9 % (11.6-15.6); WHITE BLOOD COUNT 4.8 K/mm3 (4.0-10.0)
[2016-12-11 08:32] LABS: AMYLASE 489 U/L (25-115); ANION GAP 8 (8-16); CALCIUM 7.9 mg/dL (8.5-10.1); CO2 27 mmol/L (21-32); CREATININE 0.8 mg/dL (0.55-1.02); GLUCOSE,RANDOM 91 mg/dL (74-106)
[2016-12-11 08:33] LABS: INR 2.1 (0.82-1.09); PROTHROMBIN TIME (PATIENT) 23.4 SEC (9.98-11.88)
--- NOTE | 2016-12-11 09:36 | EKG ---
Test Reason : Blood Pressure : / mmHG Vent. Rate : 076 BPM Atrial Rate : 076 BPM P-R Int : 144 ms QRS Dur : 076 ms QT Int : 380 ms P-R-T Axes : 019 -19 -09 degrees QTc Int : 427 ms NORMAL SINUS RHYTHM CANNOT RULE OUT ANTERIOR INFARCT (CITED ON OR BEFORE 03-DEC-2016) ABNORMAL ECG WHEN COMPARED WITH ECG OF 03-DEC-2016 08:48, T WAVE VARIATION Confirmed by RILEY JANG, MARIA VICTORIA ([id number]) on 12/11/2016 9:35:58 AM Referred By: Confirmed By:MARIA VICTORIA LIN MD
[2016-12-11] MEDS: DEXTROSE 5%-NORMAL SALINE 1,000 ML IV SCH ×2 (10:38→19:25)
[2016-12-11 10:49] LABS: ALBUMIN 2.5 g/dl (3.4-5.0); ALK PHOS 111 U/L (45-117); BILIRUBIN,DIRECT 0.1 mg/dL (0.0-0.2); BILIRUBIN,TOTAL 0.2 mg/dL (0.2-1.0); SGOT/AST 101 U/L (15-37); SGPT/ALT 95 U/L (12-78); TOT PROT 5.6 g/dl (6.4-8.2)
--- NOTE | 2016-12-11 11:22 | PN ---
Progress Note, Physician Chief Complaint: abdominal pain, n/v History of Present Illness: Labs in ER showed elevated LFTs and lipase 7000, amylase 1300, consistent with pancreatitis. Was admitted back to hospitalist service for same, NPO with IVF. INR therapeutic 2.3 last night, 2.1 this am. WBC still normal. LFTs and am/lip both decreased this am. Pt seen and examined in bed. Reports feeling better, no nausea, pain is less and responded well to morphine this am. Feeling thirsty/hungry some. No overnight events. - Current Medication List Current Medications: Active Medications Dextrose/Sodium Chloride (D5-Ns -) 1,000 mls @ 125 mls/hr IV ASDIR GIL Last Admin: 12/11/16 10:38 Dose: 125 mls/hr Morphine Sulfate (Morphine Injection -) 4 mg IVPUSH Q6H PRN PRN Reason: PAIN Last Admin: 12/11/16 09:05 Dose: 4 mg Ondansetron HCl (Zofran Injection) 4 mg IVPUSH Q6H PRN PRN Reason: NAUSEA AND/OR VOMITING - Objective Vital Signs: Vital Signs Temperature 99.2 F 12/11/16 08:40 Pulse Rate 68 12/11/16 08:40 Respiratory Rate 20 12/11/16 08:40 Blood Pressure 113/67 12/11/16 08:40 O2 Sat by Pulse Oximetry (%) 98 12/11/16 01:09 Constitutional: Yes: No Distress, Calm, Obese Eyes: Yes: Conjunctiva Clear, EOM Intact. No: Sclera Icterus Cardiovascular: Yes: Regular Rate and Rhythm, Murmur (faint systolic) Respiratory: Yes: Regular, CTA Bilaterally Gastrointestinal: Yes: Normal Bowel Sounds, Soft, Abdomen, Obese, Tenderness ( RLQ, RUQ mild - also mild epigastric but per pt, less than yesterday), Tenderness, Epigastrium (mild). No: Tenderness, Rebound (no guarding) Integumentary: Yes: Incision (x4 with steris). No: Jaundice Wound/Incision: Yes: Clean/Dry, Well Approximated, Steri Strips (x4), Open to air Neurological: Yes: Alert, Oriented Labs: CBC, BMP 12/11/16 08:21 12/11/16 06:45 INR, PTT INR 2.10 (0.82-1.09) H 10/03/17 06:45 CMP Sodium 142 mmol/L (136-145) 12/11/16 06:45 Potassium 3.7 mmol/L (3.5-5.1) 12/11/16 06:45 Chloride 107 mmol/L (98-107) 12/11/16 06:45 Carbon Dioxide 27 mmol/L (21-32) 12/11/16 06:45 Anion Gap 8 (8-16) 12/11/16 06:45 BUN 7 mg/dL (7-18) 12/11/16 06:45 Creatinine 0.8 mg/dL (0.55-1.02) 12/11/16 06:45 Creat Clearance w eGFR > 60 (>60) 12/10/16 18:45 POC Glucometer 100 UNITS (()) 12/11/16 05:30 Random Glucose 91 mg/dL (74-106) 12/11/16 06:45 Calcium 7.9 mg/dL (8.5-10.1) L 12/11/16 06:45 Total Bilirubin 0.2 mg/dL (0.2-1.0) D 12/11/16 06:45 Direct Bilirubin Cancelled 12/11/16 10:20 AST 101 U/L (15-37) H D 12/11/16 06:45 ALT 95 U/L (12-78) H D 12/11/16 06:45 Alkaline Phosphatase 111 U/L (45-117) D 12/11/16 06:45 Total Protein 5.6 g/dl (6.4-8.2) L 12/11/16 06:45 Albumin 2.5 g/dl (3.4-5.0) L 12/11/16 06:45 Total Amylase 489 U/L (25-115) H D 12/11/16 06:45 Lipase 1181 U/L (73-393) H 12/11/16 06:45 am/lip and LFTs decreased bili remains normal Problem List - Problems (1) Acute biliary pancreatitis without infection or necrosis Assessment/Plan: POD6 s/p lap salomón with postop pancreatitis, likely from residual tiny gallstones labs and clinical exam improved - most likely has passed stone(s) no nausea or vomiting last BM Saturday ok for trial of clears - ordered if nausea or worsening pain, back to NPO if continued improvement through breakfast, may consider advancing diet slowly tomorrow continue IVF for now given pancreatitis ok for po meds, hold coumadin therapeutic on INR - no need for DVT prophylaxis trend labs - repeat cbc, cmp, am/lip, INR in am pt most likely cannot have MRI - she has fragments of metal merry in back from late 1960s will follow with you Code(s): K85.10 - BILIARY ACUTE PANCREATITIS WITHOUT NECROSIS OR INFECTION (2) Retained cholelithiasis following cholecystectomy Code(s): K91.86 - RETAINED CHOLELITHIASIS FOLLOWING CHOLECYSTECTOMY (3) Pain, acute postoperative Assessment/Plan: improving, see above Code(s): G89.18 - OTHER ACUTE POSTPROCEDURAL PAIN (4) Nausea and vomiting Assessment/Plan: resolved - monitor with po intake Code(s): R11.2 - NAUSEA WITH VOMITING, UNSPECIFIED Qualifiers: Vomiting type: unspecified Vomiting Intractability: non-intractable Qualified Code(s): R11.2 - Nausea with vomiting, unspecified; R11.2 - Nausea with vomiting, unspecified (5) S/P laparoscopic cholecystectomy Assessment/Plan: POD6 s/p difficult lap salomón, with left-sided approach secondary to need for lysis of adhesions in order to access RUQ steristrips clean and intact, no sig incisional tenderness likely retained/residual tiny stones causing biliary pancreatitis postop see above Code(s): Z90.49 - ACQUIRED ABSENCE OF OTHER SPECIFIED PARTS OF DIGESTIVE TRACT (6) Diabetes mellitus type 2, noninsulin dependent Assessment/Plan: FS with SSI prn Code(s): E11.9 - TYPE 2 DIABETES MELLITUS WITHOUT COMPLICATIONS (7) History of pulmonary embolus (PE) Assessment/Plan: therapeutic from coumadin hold coumadin for now, but will likely be able to resume home dosing within few days no prophylaxis indicated while INR >2 Code(s): Z86.711 - PERSONAL HISTORY OF PULMONARY EMBOLISM (8) Personal history of colon cancer Assessment/Plan: s/p R hemicolectomy no appendix no acute issues Code(s): Z85.038 - PERSONAL HISTORY OF MALIGNANT NEOPLASM OF LARGE INTESTINE (9) Hypertension Assessment/Plan: normotensive to relatively low this am home meds ok with hold parameters ensure adequate hydration given pancreatitis Code(s): I10 - ESSENTIAL (PRIMARY) HYPERTENSION Qualifiers: Hypertension type: essential hypertension Qualified Code(s): I10 - Essential (primary) hypertension; I10 - Essential (primary) hypertension; I10 - Essential (primary) hypertension (10) Hypothyroidism Assessment/Plan: continue synthroid no acute issues Code(s): E03.9 - HYPOTHYROIDISM, UNSPECIFIED Qualifiers: Hypothyroidism type: acquired Qualified Code(s): E03.9 - Hypothyroidism, unspecified; E03.9 - Hypothyroidism, unspecified; E03.9 - Hypothyroidism, unspecified (11) Lobular carcinoma in situ (LCIS) of right breast Assessment/Plan: never had cancer diagnosis completed course of tamoxifen does not need to resume at home Code(s): D05.01 - LOBULAR CARCINOMA IN SITU OF RIGHT BREAST (12) Obesity (BMI 30-39.9) Code(s): E66.9 - OBESITY, UNSPECIFIED
--- NOTE | 2016-12-11 12:59 | PN ---
Physical Exam: SUBJECTIVE: Patient seen and examined at bedside. States abdominal pain has resolved. Eating first clears meal now. Had BM earlier today. OBJECTIVE: Vital Signs Period Temp Pulse Resp BP Sys/Brandt Pulse Ox Last 24 Hr 98.4 F-99.7 F 68-89 19-20 113-146/59-79 98-98 GENERAL: The patient is awake, alert, and fully oriented, in no acute distress. LUNGS: Breath sounds equal, clear to auscultation bilaterally, no wheezes, no crackles, no accessory muscle use. HEART: Regular rate and rhythm, S1, S2 without murmur, rub or gallop. ABDOMEN: Soft, nontender, nondistended, normoactive bowel sounds, no guarding, no rebound EXTREMITIES: 2+ pulses, warm, well-perfused, no edema. NEUROLOGICAL: Cranial nerves II through XII grossly intact. Normal speech, gait not observed. SKIN: 4 ports with steri strips, c/d/i Laboratory Results - last 24 hr 12/11/16 12/11/16 12/11/16 05:30 06:45 06:45 WBC RBC Hgb Hct MCV MCH MCHC RDW Plt Count MPV Neutrophils % Lymphocytes % Monocytes % Eosinophils % Basophils % PT with INR 23.40 H INR 2.10 H PTT (Actin FS) Sodium 142 Potassium 3.7 Chloride 107 Carbon Dioxide 27 Anion Gap 8 BUN 7 Creatinine 0.8 POC Glucometer 100 Random Glucose 91 Calcium 7.9 L Total Bilirubin 0.2 D Direct Bilirubin 0.1 AST 101 H D ALT 95 H D Alkaline Phosphatase 111 D Total Protein 5.6 L Albumin 2.5 L Total Amylase 489 H D Lipase 1181 H 12/11/16 12/11/16 12/11/16 08:21 09:45 10:20 WBC 4.8 RBC 2.70 L Hgb 8.6 L D Hct 25.6 L MCV 95.0 MCH 32.0 MCHC 33.7 RDW 14.9 Plt Count 235 MPV 7.3 L Neutrophils % 43.6 D Lymphocytes % 44.1 H D Monocytes % 7.9 Eosinophils % 2.8 D Basophils % 1.6 PT with INR INR PTT (Actin FS) 33.1 D Sodium Potassium Chloride Carbon Dioxide Anion Gap BUN Creatinine POC Glucometer Random Glucose Calcium Total Bilirubin Cancelled Direct Bilirubin Cancelled AST Cancelled ALT Cancelled Alkaline Phosphatase Cancelled Total Protein Cancelled Albumin Cancelled Total Amylase Lipase 12/11/16 12:09 WBC RBC Hgb Hct MCV MCH MCHC RDW Plt Count MPV Neutrophils % Lymphocytes % Monocytes % Eosinophils % Basophils % PT with INR INR PTT (Actin FS) Sodium Potassium Chloride Carbon Dioxide Anion Gap BUN Creatinine POC Glucometer 104 Random Glucose Calcium Total Bilirubin Direct Bilirubin AST ALT Alkaline Phosphatase Total Protein Albumin Total Amylase Lipase Active Medications Generic Name Dose Route Start Last Admin Trade Name Freq PRN Reason Stop Dose Admin Dextrose/Sodium Chloride 1,000 mls @ 125 mls/hr 12/11/16 10:00 12/11/16 10:38 D5-Ns - IV 125 mls/hr ASDIR GIL Administration Morphine Sulfate 4 mg 12/11/16 01:10 12/11/16 09:05 Morphine Injection - IVPUSH 4 mg Q6H PRN Administration PAIN Ondansetron HCl 4 mg 12/10/16 22:34 Zofran Injection IVPUSH Q6H PRN NAUSEA AND/OR VOMITING ASSESSMENT/PLAN: 71 year-old female with a PMH significant for HTN, HLD, NIDDM, hypothyroidism, colon cancer, left breast cancer, h/o DVT/PE (IVC filter/on coumadin), and s/p lap cholecystectomy and adhesiolysis on 12/05 ([facility], Dr. Fontenot). Patient was discharged on 12/09 and readmitted on 12/10 for pancreatitis. Acute biliary pancreatitis s/p lap cholecystectomy 12/05/16 --lipase peaked 7323, today 1181 --mild elevations AST, ALT trending down --no nausea/vomiting --continue IV fluids, start clears Hypertension --restart home lisinopril, HCTZ, amlodipine Hyperlipidemia --not on statin NIDDM --Novolog sliding scale coverage Hypothyroidism --resume home synthroid Colon cancer s/p right hemicolectomy Breast cancer --no acute issues h/o DVT/PE --INR therapeutic at 2.1 --dose warfarin 4mg tonight; patient alternates 3mg and 4mg FEN Fluids: D5NS @125mL/hr Electrolytes: replete as indicated Nutrition: clears DVT prophylaxis: subq heparin, oob, ambulation Dispo: continues to require inpatient care. Full code. Visit type - Emergency Visit Emergency Visit: Yes ED Registration Date: 12/10/16 Care time: The patient presented to the Emergency Department on the above date and was hospitalized for further evaluation of their emergent condition. - New Patient This patient is new to me today: Yes Date on this admission: 12/11/16 - Critical Care Critical Care patient: No
[2016-12-11] MEDS ORDERED: HEPARIN NA (PORCINE) 5,000 UNITS/ML 1ML VIAL SQ SCH (14:15)
[2016-12-11] MEDS ORDERED: oxyCODONE HCL 5 MG TABLET PO PRN (16:36)
--- NOTE | 2016-12-11 16:55 | PN ---
Progress Note (short form) - Note Progress Note: GI CONSULTATION: SEE COMPLETE DICTATION IN BRIEF: 71F WELL KNOWN TO OUR GROUP OVER THE YEARS MULTIPLE MEDICAL PROBLEMS S/P LAP CHOLECYSTECTOMY 5 DAYS AGO FROM LEFT SIDED APPROACH NOW ADMIT WITH POST-ZORAN PAIN, TRANSIENT VOMITING, TENDERNESS ON EXAM WITH SOFT ABDOMEN AND NEW ABNORMAL LFT'S , AMYLASE, LIPASE RAISING CONCERN OF BILE LEAK, COLLECTION, ABSCESS, SLIPPED STONE WITH CHOLEDOCHOLITHIASIS VS POSSIBLE GALLSTONE PANCREATITIS RECC: OBTAIN A HIDA SCAN AND A CT SCAN OF ABD/PELVIS WTIH CONTRAST TO ASSESS FOR BILE LEAK, BILE FLOW, COLLECTION, PANCREATITIS, CBD STONE F/U ALL LFT'S, CBC,AMYLASE, LIPASE KEEP NPO TILL STUDIES COMPLETED PAIN MEDS NEEDED IF RISE IN WBC OR FEVER -----THEN WOULD BEGIN BROAD ABX AND OBTAIN BLOOD CULTURES IVF TILL PANCREATITIS R/OD OUT SURGICAL F/U BASED UPON ABOVE RESULTS, MAY NEED ERCP WITH STENTING/CBD REMOVAL/ SPHINCTEROTOMY/ PERCUATENOUS DRAIN---ANY OR ALL OF THE ABOVE IF A BILE DUCT INJURY IS NOTED, THEN WOULD STRONGLY ADVISE CONSULTATION WITH A HEPATOBILIARY SURGEON D/W MANUEL GUTIERRES AT 4:45PM THANK YOU, MD DR JAYNE GOMEZ T/F PT TILL 12/13
[2016-12-11 17:20] LABS: EOSINOPHIL 2.2 % (0-4.5); MCH 32.1 pg (25.7-33.7); MCHC 33.3 g/dl (32.0-36.0); MEAN CELL VOLUME 96.6 fl (80-96); MEAN PLT VOLUME 7.1 fl (7.5-11.1); NEUTROPHILS 43.8 % (42.8-82.8); PLATELET COUNT 252 K/MM3 (134-434); WHITE BLOOD COUNT 5.5 K/mm3 (4.0-10.0)
[2016-12-11] MEDS: INSULIN SLIDING SCALE (NOVOLOG) 1 VIAL SQ SCH ×2 (17:44→22:12)
[2016-12-11] MEDS ORDERED: WARFARIN NA 2 MG TABLET (UD) PO SCH (18:00)
[2016-12-11 19:07] LABS: ALBUMIN 2.7 g/dl (3.4-5.0); ANION GAP 5 (8-16); BILIRUBIN,DIRECT < 0.1 mg/dL (0.0-0.2); CO2 29 mmol/L (21-32); CREATININE 0.9 mg/dL (0.55-1.02); GLUCOSE,RANDOM 90 mg/dL (74-106); SGOT/AST 75 U/L (15-37); SGPT/ALT 89 U/L (12-78)
[2016-12-11 19:08] LABS: ALK PHOS 112 U/L (45-117); BILIRUBIN,TOTAL 0.5 mg/dL (0.2-1.0); TOT PROT 6.1 g/dl (6.4-8.2)
--- NOTE | 2016-12-11 19:39 | CONS ---
DATE OF CONSULTATION: 12/11/2016 GASTROENTEROLOGY CONSULTATION HISTORY OF PRESENT ILLNESS: I was asked by a hospitalist service to evaluate the patient for right upper quadrant pain status post cholecystectomy. The patient is a 71-year-old female who is known to our group. She was seen most recently in our office on May 30, 2016. She is noted to have a past medical history of diabetes, hypertension, phlebitis, hypothyroidism, arthritis, colon cancer, tendonitis, right breast precancerous cells. She is status post right hemicolectomy 2003. She had a negative colonoscopy 2007. Exploratory laparotomy in the , and a scoliosis correction. When the patient came to the office in May of 2016, she was to undergo a surveillance examination of her colon for the prior history of colon cancer. It looks like we have not seen her since then. She came to the hospital now recently with recurrent and persistent right upper quadrant pain. She apparently initially on December 02, 2016, she had a CT scan of the abdomen and pelvis without IV contrast. That was for abdominal pain. She was noted to have acute cholecystitis with no common bile duct dilatation. She had wall thickening of the first portion of the duodenum and that has been thought to be reactive duodenitis, given the proximity of the inflamed gallbladder. She also had a diverticulum in the first portion of the duodenum. She was noted to be status post right hemicolectomy, and she had no other acute GI findings. It seems that she then was seen by surgery and underwent on 12/[address] Fontenot, she had a cholecystectomy. Apparently she remained in the hospital from the November 09 to December 09, before she was discharged home. It was noted on discharge that she was afebrile and history was that she had initially come in with some nonbilious, nonbloody emesis, and she was thought to have had acute cholecystitis, and she underwent a laparoscopic cholecystectomy on December 05. She was put on antibiotics, and she was discharged home on December 09. However, she reports that she then had pain that was different from what she had in the hospital, and she came back to the hospital the next day. She came in with left upper and lower abdominal pain bilateral flank pain 5 days after having had cholecystectomy. It was from the note of the surgeon who noted that she had multiple medical problems and a complex surgical history, that he undertook a left-sided approach due to the need for lysis of adhesions to expose the right upper quadrant, indicative of a more difficult procedure. She was sent home from the hospital on therapeutic Coumadin with pain control, and she was tolerating her medications and her diet. Apparently, when she went home, she had baked chicken, green beans, rice. She had some pain. She woke up the next morning vomiting, could not keep anything down, and she came back to the hospital. She was now admitted for further observation. In speaking with the patient, she still is having abdominal pain and is requiring pain medication. She has not had any recurrent fevers, chills, sweats, or vomiting. She has not moved her bowels since she has gone home from the surgery. Other than that, she feels a tiny bit better, but not a lot. She is able to get out of bed and go to the chair and get up for a little bit. The patient denies any bloody stools and does not have an appetite at this time. Her home medications include Norvasc, Glucophage, tamoxifen, vitamin D, Coumadin, Synthroid, Prinivil, and Ultram. She has no known drug allergies. The patient is a former smoker and she does not drink alcohol or use any substances. Currently in the hospital her medications include Zofran, Prinivil, Coumadin, IV fluid, Norvasc, Novolog, and Synthroid. It looks like in the hospital she had been getting heparin subcutaneous normal saline and morphine. She got morphine injections on December 10, and December 11. Currently her vital signs, she had a temperature of 99, now is 98. Vital signs are stable. Her pulse is less than 70, her blood pressure is 100/49. PHYSICAL EXAMINATION: General: She is lying in the bed, and she is out of bed to the chair sitting up, but she is moving cautiously. She does have a little bit of discomfort upon changing position. Skin: Cool. HEENT: Sclerae anicteric. Neck: Supple. Abdomen: Obese. It is very soft, and bowel sounds are very active. However, there is tenderness to palpation in the left upper quadrant to midepigastric region. The right upper quadrant and umbilical region, there is no rebound or guarding. LABORATORY: Notable in that her white count is currently 4.8, her hemoglobin and hematocrit is 8.6/25. She has a platelet count of 235,000 and INR of 2. A pro time 23. Sodium 142, potassium 3.7, chloride 107, bicarbonate 28, BUN 7, creatinine 0.8. She has a calcium 7.9, phosphorus 2.6, magnesium 1.7, total bilirubin of 0.2, AST 101, ALT 95, alkaline phosphatase 111, albumin of 2.5. Her lipase is 1100, and her amylase is 489. Other than that, there is no other significant lab data, and the only radiographic imaging to report at this time is an that was done that reveals no signs of pneumoperitoneum with a little bit of abdominal distention. IMPRESSION: So it is my impression that the patient is a 71-year-old woman who is obese, has multiple medical problems stemming from hypertension, diabetes, hypothyroidism, history of colon cancer, right breast precancerous cells. She has had exploratory laparotomy, right hemicolectomy in the past. She had a recent cholecystectomy 5 days ago and she now presents with generalized abdominal pain, tenderness to palpation on exam, anorexia, and overall discomfort with new elevated liver enzymes. At this time, my concern would be that she has a postoperative collection, ongoing bile leak, or abscess in the abdomen. Other possibilities in the differential diagnosis would include a gallstone pancreatitis due to a past sludge or stone as a result of the surgical procedure which is common to happen, or simply choledocholithiasis. At the present time, she does not appear to have ascending cholangitis, but my main concern would be that she has a bile leak due to the technical findings of the underlying surgery. This needs to be assessed. We need to rule out a bile leak and a possible bile injury, so I have spoken with Antonieta Thurman, and the approach would be to undergo a CT scan of the abdomen and pelvis with oral and IV contrast as well as a HIDA scan to effectively rule out a collection and a bile leak. At that time we will assess also the pancreas and see if it is inflamed, and then we can pursue further the concern of possible choledocholithiasis. If that is the case, if she should have findings consistent with a collection or bile leak or retained bile duct stone, then clearly she will need to undergo an ERCP with possible stent placement with or without sphincterotomy. Based on the initial studies, followup blood work, further recommendations will follow. If she develops a rise in the white count or a fever, then clearly she needs to be started on broad spectrum antibiotics. Our team will continue to be available to aid in the management of this patient. If there is evidence of a bile duct injury, then we will make strong recommendation that the patient be transferred to a hepatobiliary surgeon. ARIEL GOMEZ M.D. MILKA/[id number]
--- NOTE | 2016-12-11 20:11 | PN ---
Progress Note (short form) - Note Progress Note: GI ADDENDUM: UNTIL IMAGING RESULTS ARE NOTED, WOULD ADVISE HOLDING COUMADIN PT MAY NEED AN ENDOSCOPIC PROCEDURE AND HER HGB HAS DROPPED FROM 11 TO 8.7 MD JASON
[2016-12-12] MEDS: morphine CARPU-JECT 4 MG/1 ML DISP.SYRIN IVPUSH PRN ×2 (03:49→09:50)
[2016-12-12] MEDS ORDERED: INSULIN (NOVOLOG) ASPART 100 UNITS/ML 10ML VIAL ONE ×2 (06:21→20:53)
[2016-12-12] MEDS: LEVOTHYROXINE NA 75 MCG TABLET (FP) PO SCH (06:32)
[2016-12-12] MEDS: INSULIN SLIDING SCALE (NOVOLOG) 1 VIAL SQ SCH ×4 (06:33→21:40)
[2016-12-12 08:13] LABS: BASOPHIL 0.5 % (0-2.0); EOSINOPHIL 2.2 % (0-4.5); MCHC 33.1 g/dl (32.0-36.0); MEAN CELL VOLUME 96.7 fl (80-96); MEAN PLT VOLUME 7.2 fl (7.5-11.1); NEUTROPHILS 52.2 % (42.8-82.8); PLATELET COUNT 266 K/MM3 (134-434); RDW 15.1 % (11.6-15.6)
[2016-12-12 08:42] LABS: AMYLASE 113 U/L (25-115)
[2016-12-12 08:45] LABS: INR 2.06 (0.82-1.09)
[2016-12-12 08:53] LABS: ALBUMIN 2.8 g/dl (3.4-5.0); ANION GAP 7 (8-16); BILIRUBIN,DIRECT < 0.1 mg/dL (0.0-0.2); BILIRUBIN,TOTAL 0.7 mg/dL (0.2-1.0); CALCIUM 8.1 mg/dL (8.5-10.1); CO2 29 mmol/L (21-32); CREATININE 0.8 mg/dL (0.55-1.02); GLUCOSE,RANDOM 100 mg/dL (74-106); MAGNESIUM 1.6 mg/dL (1.8-2.4); PHOSPHOROUS 2.4 mg/dL (2.5-4.9); SGOT/AST 51 U/L (15-37); SGPT/ALT 76 U/L (12-78); TOT PROT 6.2 g/dl (6.4-8.2)
[2016-12-12 09:00] LABS: ALK PHOS 107 U/L (45-117)
[2016-12-12] MEDS: LISINOPRIL 5 MG TABLET (FP) PO SCH (09:50)
[2016-12-12] MEDS: amLODIPine BESYLATE 5 MG TABLET (FP) PO SCH (09:50)
[2016-12-12] MEDS ORDERED: PATIENT'S OWN MEDICATION (NON-FORMULARY) (Lisinopril [Zestril] 2.5 MG) PO SCH (10:00)
[2016-12-12] MEDS ORDERED: HYDROCHLOROTHIAZIDE 12.5 MG CAPSULE (FP) PO SCH (10:00)
--- NOTE | 2016-12-12 10:37 | PN ---
Progress Note, Physician Chief Complaint: abdominal pain, n/v History of Present Illness: Pt seen and examined in bed. Reports feeling better, no nausea, abdominal pain is less and manageable. She states some of her "usual pains" - back, right shoulder, neuropathy in feet - likely contribute to her overall discomfort. Tolerated clears yesterday. Small BM but nothing large yet. Had CT with contrast yesterday showing small fluid in gallbladder fossa, postop changes, contrast through to colon. GI consult noted. - Current Medication List Current Medications: Active Medications Amlodipine Besylate (Norvasc -) 5 mg PO DAILY [facility] Last Admin: 12/12/16 09:50 Dose: 5 mg Dextrose/Sodium Chloride (D5-Ns -) 1,000 mls @ 125 mls/hr IV ASDIR [facility] Last Admin: 12/11/16 19:25 Dose: 125 mls/hr Insulin Aspart (Novolog Vial Sliding Scale -) 1 vial SQ ACHS [facility] PRN Reason: Protocol Last Admin: 12/12/16 06:33 Dose: Not Given Levothyroxine Sodium (Synthroid -) 75 mcg PO ACBK [facility] Last Admin: 12/12/16 06:32 Dose: 75 mcg Lisinopril (Prinivil) 2.5 mg PO DAILY [facility] Last Admin: 12/12/16 09:50 Dose: 2.5 mg Morphine Sulfate (Morphine Injection -) 4 mg IVPUSH Q6H PRN PRN Reason: PAIN Last Admin: 12/12/16 09:50 Dose: 4 mg Ondansetron HCl (Zofran Injection) 4 mg IVPUSH Q6H PRN PRN Reason: NAUSEA AND/OR VOMITING Oxycodone HCl (Roxicodone -) 5 mg PO Q6H PRN PRN Reason: PAIN Last Admin: 12/11/16 17:00 Dose: 5 mg - Objective Vital Signs: Vital Signs Temperature 99 F 12/12/16 09:46 Pulse Rate 70 12/12/16 09:46 Respiratory Rate 20 12/12/16 09:46 Blood Pressure 128/73 12/12/16 09:46 O2 Sat by Pulse Oximetry (%) 97 12/11/16 21:00 Vital Signs Period Temp Pulse Resp BP Sys/Brandt Pulse Ox Last 24 Hr 98.1 F-99.2 F 69-77 18-20 100-134/49-74 97-97 Constitutional: Yes: No Distress, Calm, Obese Eyes: Yes: Conjunctiva Clear. No: Sclera Icterus Gastrointestinal: Yes: Soft, Abdomen, Obese, Tenderness (RUQ mild, no R/G, also incisional at subxiphoid but no sig epigastric tenderness) Wound/Incision: Yes: Clean/Dry, Well Approximated, Steri Strips (x4), Open to air Neurological: Yes: Alert, Oriented Labs: CBC, BMP 12/12/16 06:45 12/12/16 06:45 INR, PTT INR 2.06 (0.82-1.09) H 12/12/16 06:45 CMP Sodium 142 mmol/L (136-145) 12/12/16 06:45 Potassium 4.0 mmol/L (3.5-5.1) 12/12/16 06:45 Chloride 106 mmol/L (98-107) 12/12/16 06:45 Carbon Dioxide 29 mmol/L (21-32) 12/12/16 06:45 Anion Gap 7 (8-16) L 12/12/16 06:45 BUN 5 mg/dL (7-18) L D 12/12/16 06:45 Creatinine 0.8 mg/dL (0.55-1.02) 12/12/16 06:45 Creat Clearance w eGFR > 60 (>60) 12/10/16 18:45 POC Glucometer 102 UNITS (()) 12/12/16 06:30 Random Glucose 100 mg/dL (74-106) 12/12/16 06:45 Calcium 8.1 mg/dL (8.5-10.1) L 12/12/16 06:45 Phosphorus 2.4 mg/dL (2.5-4.9) L 12/12/16 06:45 Magnesium 1.6 mg/dL (1.8-2.4) L 12/12/16 06:45 Total Bilirubin 0.7 mg/dL (0.2-1.0) D 12/12/16 06:45 Direct Bilirubin < 0.1 mg/dL (0.0-0.2) 12/12/16 06:45 AST 51 U/L (15-37) H D 12/12/16 06:45 ALT 76 U/L (12-78) 12/12/16 06:45 Alkaline Phosphatase 107 U/L (45-117) 12/12/16 06:45 Total Protein 6.2 g/dl (6.4-8.2) L 12/12/16 06:45 Albumin 2.8 g/dl (3.4-5.0) L 12/12/16 06:45 Total Amylase 113 U/L (25-115) D 12/12/16 06:45 Lipase 215 U/L (73-393) 12/12/16 06:45 am/lip now normal LFTs almost all normal INR still therapeutic - ....Imaging Cat Scan: Report Reviewed, Image Reviewed Problem List - Problems (1) Acute biliary pancreatitis without infection or necrosis Assessment/Plan: POD7 s/p lap salomón with postop pancreatitis, likely from residual tiny gallstones labs and clinical exam much improved - most likely passed stone(s) no nausea or vomiting small BM, anticipate more after CT contrast CT with expected postop findings, no evidence of leak or large collection HIDA not indicated could consider ERCP as outpatient to ensure CBD with no further stones, but pt cannot have MRI/MRCP (metal in back) ok for diabetic low-fat diet stop IVF when taking good po on home meds change to PO pain meds prn, encourage nonnarcotics therapeutic on INR - no need for DVT prophylaxis Code(s): K85.10 - BILIARY ACUTE PANCREATITIS WITHOUT NECROSIS OR INFECTION (2) Retained cholelithiasis following cholecystectomy Code(s): K91.86 - RETAINED CHOLELITHIASIS FOLLOWING CHOLECYSTECTOMY (3) Pain, acute postoperative Assessment/Plan: acute pain resolved, now with anticipated postop/incisional pain Code(s): G89.18 - OTHER ACUTE POSTPROCEDURAL PAIN (4) S/P laparoscopic cholecystectomy Assessment/Plan: POD7 s/p difficult lap salomón, with left-sided approach secondary to need for lysis of adhesions in order to access RUQ steristrips clean and intact, mild incisional tenderness likely retained/residual tiny stones causing biliary pancreatitis postop see above Code(s): Z90.49 - ACQUIRED ABSENCE OF OTHER SPECIFIED PARTS OF DIGESTIVE TRACT (5) Diabetes mellitus type 2, noninsulin dependent Assessment/Plan: not to resume metformin for at least [address] yesterday Code(s): E11.9 - TYPE 2 DIABETES MELLITUS WITHOUT COMPLICATIONS (6) History of pulmonary embolus (PE) Code(s): Z86.711 - PERSONAL HISTORY OF PULMONARY EMBOLISM (7) Personal history of colon cancer Assessment/Plan: s/p R hemicolectomy no appendix no acute issues Code(s): Z85.038 - PERSONAL HISTORY OF MALIGNANT NEOPLASM OF LARGE INTESTINE (8) Hypertension Assessment/Plan: on home meds Code(s): I10 - ESSENTIAL (PRIMARY) HYPERTENSION Qualifiers: Hypertension type: essential hypertension Qualified Code(s): I10 - Essential (primary) hypertension; I10 - Essential (primary) hypertension; I10 - Essential (primary) hypertension (9) Hypothyroidism Assessment/Plan: continue synthroid no acute issues Code(s): E03.9 - HYPOTHYROIDISM, UNSPECIFIED Qualifiers: Hypothyroidism type: acquired Qualified Code(s): E03.9 - Hypothyroidism, unspecified; E03.9 - Hypothyroidism, unspecified; E03.9 - Hypothyroidism, unspecified (10) Lobular carcinoma in situ (LCIS) of right breast Assessment/Plan: never had cancer diagnosis completed course of tamoxifen does not need to resume at home Code(s): D05.01 - LOBULAR CARCINOMA IN SITU OF RIGHT BREAST (11) Obesity (BMI 30-39.9) Code(s): E66.9 - OBESITY, UNSPECIFIED
[2016-12-12] MEDS: DEXTROSE 5%-NORMAL SALINE 1,000 ML IV SCH ×2 (12:00→22:04)
--- NOTE | 2016-12-12 12:10 | PN ---
Progress Note, Physician Chief Complaint: I consulted on this patient during her last admission for acute cholecystitis. I was asked to follow her during this admission for RUQ pain. History of Present Illness: The patient was readmitted 2 days ago with RUQ pain. Initial GI evaluation and main concerns noted. The RUQ pain has improved since admission. Reji nausea, vomiting, diarrhea. No fever, chills, jaundice, leukocytosis. Normal Bili and ALP. Transaminases less than 2x normal. The patient is hungry and wants to eat. - Current Medication List Current Medications: Active Medications Acetaminophen (Tylenol -) 650 mg PO Q6H PRN PRN Reason: FEVER OR PAIN Amlodipine Besylate (Norvasc -) 5 mg PO DAILY [facility] Last Admin: 12/12/16 09:50 Dose: 5 mg Dextrose/Sodium Chloride (D5-Ns -) 1,000 mls @ 125 mls/hr IV ASDIR [facility] Last Admin: 12/11/16 19:25 Dose: 125 mls/hr Insulin Aspart (Novolog Vial Sliding Scale -) 1 vial SQ ACHS [facility] PRN Reason: Protocol Last Admin: 12/12/16 06:33 Dose: Not Given Levothyroxine Sodium (Synthroid -) 75 mcg PO ACBK [facility] Last Admin: 12/12/16 06:32 Dose: 75 mcg Lisinopril (Prinivil) 2.5 mg PO DAILY [facility] Last Admin: 12/12/16 09:50 Dose: 2.5 mg Ondansetron HCl (Zofran Injection) 4 mg IVPUSH Q6H PRN PRN Reason: NAUSEA AND/OR VOMITING Tramadol HCl (Ultram -) 50 mg PO Q6H PRN PRN Reason: PAIN LEVEL 6-10 - Objective Vital Signs: Vital Signs Temperature 99 F 12/12/16 09:46 Pulse Rate 70 12/12/16 09:46 Respiratory Rate 20 12/12/16 09:46 Blood Pressure 128/73 12/12/16 09:46 O2 Sat by Pulse Oximetry (%) 97 12/11/16 21:00 Constitutional: Yes: Well Nourished, No Distress, Calm Eyes: Yes: Conjunctiva Clear HENT: Yes: Atraumatic Neck: Yes: Supple Cardiovascular: Yes: Regular Rate and Rhythm. No: JVD Respiratory: Yes: Regular Gastrointestinal: Yes: Normal Bowel Sounds, Soft, Abdomen, Obese, Tenderness ( mild RUQ). No: Distention, Melena, Palpable Mass, Pulsatile Mass, Rectal Bleeding, Tenderness, Epigastrium, Tenderness, Rebound, Vomiting Neurological: Yes: Alert, Oriented Labs: CBC, BMP Laboratory Tests 12/10/16 12/10/16 12/10/16 18:45 18:45 20:15 WBC 4.0 RBC 2.96 L Hgb 9.6 L D Hct 28.4 L MCV 95.7 MCH 32.3 MCHC 33.8 RDW 14.7 Plt Count 263 D MPV 7.5 Neutrophils % 66.1 Lymphocytes % 26.7 Monocytes % 5.2 Eosinophils % 1.2 Basophils % 0.8 PT with INR INR PTT (Actin FS) Sodium 139 Potassium 3.5 Chloride 104 Carbon Dioxide 29 Anion Gap 6 L BUN 7 Creatinine 0.9 Creat Clearance w eGFR > 60 POC Glucometer Random Glucose 93 Calcium 8.2 L Phosphorus Magnesium Total Bilirubin 0.3 D Direct Bilirubin AST 183 H D ALT 134 H D Alkaline Phosphatase 150 H D Total Protein 6.4 Albumin 3.0 L Total Amylase Lipase 7323 H Urine Color Straw Urine Appearance Clear Urine pH 7.0 D Ur Specific [place] 1.010 Urine Protein Negative Urine Glucose (UA) Negative Urine Ketones Negative Urine Blood Negative Urine Nitrite Negative Urine Bilirubin Negative Urine Urobilinogen Negative 12/10/16 12/10/16 12/11/16 20:30 20:40 05:30 WBC RBC Hgb Hct MCV MCH MCHC RDW Plt Count MPV Neutrophils % Lymphocytes % Monocytes % Eosinophils % Basophils % PT with INR 25.70 H INR 2.30 H PTT (Actin FS) 58.8 H D Sodium Potassium Chloride Carbon Dioxide Anion Gap BUN Creatinine Creat Clearance w eGFR POC Glucometer 100 Random Glucose Calcium Phosphorus Magnesium Total Bilirubin Direct Bilirubin AST ALT Alkaline Phosphatase Total Protein Albumin Total Amylase 1341 H D Lipase Urine Color Urine Appearance Urine pH Ur Specific [place] Urine Protein Urine Glucose (UA) Urine Ketones Urine Blood Urine Nitrite Urine Bilirubin Urine Urobilinogen 12/11/16 12/11/16 12/11/16 06:45 06:45 08:21 WBC 4.8 RBC 2.70 L Hgb 8.6 L D Hct 25.6 L MCV 95.0 MCH 32.0 MCHC 33.7 RDW 14.9 Plt Count 235 MPV 7.3 L Neutrophils % 43.6 D Lymphocytes % 44.1 H D Monocytes % 7.9 Eosinophils % 2.8 D Basophils % 1.6 PT with INR 23.40 H INR 2.10 H PTT (Actin FS) Sodium 142 Potassium 3.7 Chloride 107 Carbon Dioxide 27 Anion Gap 8 BUN 7 Creatinine 0.8 Creat Clearance w eGFR POC Glucometer Random Glucose 91 Calcium 7.9 L Phosphorus Magnesium Total Bilirubin 0.2 D Direct Bilirubin 0.1 AST 101 H D ALT 95 H D Alkaline Phosphatase 111 D Total Protein 5.6 L Albumin 2.5 L Total Amylase 489 H D Lipase 1181 H Urine Color Urine Appearance Urine pH Ur Specific [place] Urine Protein Urine Glucose (UA) Urine Ketones Urine Blood Urine Nitrite Urine Bilirubin Urine Urobilinogen 12/11/16 12/11/16 12/11/16 09:45 10:20 12:09 WBC RBC Hgb Hct MCV MCH MCHC RDW Plt Count MPV Neutrophils % Lymphocytes % Monocytes % Eosinophils % Basophils % PT with INR INR PTT (Actin FS) 33.1 D Sodium Potassium Chloride Carbon Dioxide Anion Gap BUN Creatinine Creat Clearance w eGFR POC Glucometer 104 Random Glucose Calcium Phosphorus Magnesium Total Bilirubin Cancelled Direct Bilirubin Cancelled AST Cancelled ALT Cancelled Alkaline Phosphatase Cancelled Total Protein Cancelled Albumin Cancelled Total Amylase Lipase Urine Color Urine Appearance Urine pH Ur Specific [place] Urine Protein Urine Glucose (UA) Urine Ketones Urine Blood Urine Nitrite Urine Bilirubin Urine Urobilinogen 12/11/16 12/11/16 12/11/16 16:38 17:00 17:43 WBC 5.5 RBC 2.72 L Hgb 8.7 L Hct 26.3 L MCV 96.6 H MCH 32.1 MCHC 33.3 RDW 15.0 Plt Count 252 MPV 7.1 L Neutrophils % 43.8 Lymphocytes % 45.7 H Monocytes % 7.3 Eosinophils % 2.2 Basophils % 1.0 PT with INR INR PTT (Actin FS) Sodium 140 Potassium 3.8 Chloride 106 Carbon Dioxide 29 Anion Gap 5 L BUN 7 Creatinine 0.9 Creat Clearance w eGFR POC Glucometer 102 Random Glucose 90 Calcium 8.0 L Phosphorus Magnesium Total Bilirubin 0.5 D Direct Bilirubin < 0.1 AST 75 H D ALT 89 H Alkaline Phosphatase 112 Total Protein 6.1 L Albumin 2.7 L Total Amylase Lipase Urine Color Urine Appearance Urine pH Ur Specific [place] Urine Protein Urine Glucose (UA) Urine Ketones Urine Blood Urine Nitrite Urine Bilirubin Urine Urobilinogen 12/11/16 12/12/16 12/12/16 22:09 06:30 06:45 WBC 6.0 RBC 2.85 L Hgb 9.1 L Hct 27.5 L MCV 96.7 H MCH 32.0 MCHC 33.1 RDW 15.1 Plt Count 266 MPV 7.2 L Neutrophils % 52.2 Lymphocytes % 37.6 Monocytes % 7.5 Eosinophils % 2.2 Basophils % 0.5 PT with INR INR PTT (Actin FS) Sodium Potassium Chloride Carbon Dioxide Anion Gap BUN Creatinine Creat Clearance w eGFR POC Glucometer 94 102 Random Glucose Calcium Phosphorus Magnesium Total Bilirubin Direct Bilirubin AST ALT Alkaline Phosphatase Total Protein Albumin Total Amylase Lipase Urine Color Urine Appearance Urine pH Ur Specific [place] Urine Protein Urine Glucose (UA) Urine Ketones Urine Blood Urine Nitrite Urine Bilirubin Urine Urobilinogen 12/12/16 12/12/16 12/12/16 06:45 06:45 06:45 WBC RBC Hgb Hct MCV MCH MCHC RDW Plt Count MPV Neutrophils % Lymphocytes % Monocytes % Eosinophils % Basophils % PT with INR 23.00 H INR 2.06 H PTT (Actin FS) Sodium 142 Potassium 4.0 Chloride 106 Carbon Dioxide 29 Anion Gap 7 L BUN 5 L D Creatinine 0.8 Creat Clearance w eGFR POC Glucometer Random Glucose 100 Calcium 8.1 L Phosphorus 2.4 L Magnesium 1.6 L Total Bilirubin 0.7 D Direct Bilirubin < 0.1 AST 51 H D ALT 76 Alkaline Phosphatase 107 Total Protein 6.2 L Albumin 2.8 L Total Amylase 113 D Lipase 215 Urine Color Urine Appearance Urine pH Ur Specific [place] Urine Protein Urine Glucose (UA) Urine Ketones Urine Blood Urine Nitrite Urine Bilirubin Urine Urobilinogen - ....Imaging Cat Scan: Report Reviewed Problem List - Problems (1) Pain, acute postoperative Assessment/Plan: Improved. Normal LAP, Bili, ALT. mild AST elevation Recommend advancing diet before discharging home Code(s): G89.18 - OTHER ACUTE POSTPROCEDURAL PAIN (2) S/P laparoscopic cholecystectomy Code(s): Z90.49 - ACQUIRED ABSENCE OF OTHER SPECIFIED PARTS OF DIGESTIVE TRACT (3) Diabetes mellitus type 2, noninsulin dependent Code(s): E11.9 - TYPE 2 DIABETES MELLITUS WITHOUT COMPLICATIONS (4) Obesity (BMI 30-39.9) Code(s): E66.9 - OBESITY, UNSPECIFIED (5) Personal history of colon cancer Assessment/Plan: Due for surveillance colonoscopy. 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 Recommend EGD at the same time Code(s): Z85.038 - PERSONAL HISTORY OF MALIGNANT NEOPLASM OF LARGE INTESTINE Visit type - Emergency Visit Emergency Visit: No - New Patient This patient is new to me today: No - Critical Care Critical Care patient: No
[2016-12-12] MEDS: ACETAMINOPHEN 325 MG TABLET (FP) PO PRN (16:40)
[2016-12-12] MEDS: traMADol HCL 50 MG TABLET PO PRN (17:48)
--- NOTE | 2016-12-12 21:01 | PN ---
Physical Exam: SUBJECTIVE: Patient seen and examined. Has mild abdominal pain. OBJECTIVE: Vital Signs Period Temp Pulse Resp BP Sys/Brandt Pulse Ox Last 24 Hr 98.4 F-99.4 F 70-88 18-20 118-132/58-73 98 GENERAL: The patient is awake, alert, and fully oriented, in no acute distress. HEAD: Normal with no signs of trauma. LUNGS: Breath sounds equal, clear to auscultation bilaterally, no wheezes, no crackles, no accessory muscle use. HEART: Regular rate and rhythm, S1, S2 without murmur, rub or gallop. ABDOMEN: Soft, nondistended, mild diffusely tender EXTREMITIES: 2+ pulses, warm, well-perfused, no edema. NEUROLOGICAL: Cranial nerves II through XII grossly intact. Normal speech, gait not observed. Laboratory Results - last 24 hr 12/11/16 12/12/16 12/12/16 22:09 06:30 06:45 WBC 6.0 RBC 2.85 L Hgb 9.1 L Hct 27.5 L MCV 96.7 H MCH 32.0 MCHC 33.1 RDW 15.1 Plt Count 266 MPV 7.2 L Neutrophils % 52.2 Lymphocytes % 37.6 Monocytes % 7.5 Eosinophils % 2.2 Basophils % 0.5 PT with INR INR Sodium Potassium Chloride Carbon Dioxide Anion Gap BUN Creatinine POC Glucometer 94 102 Random Glucose Calcium Phosphorus Magnesium Total Bilirubin Direct Bilirubin AST ALT Alkaline Phosphatase Total Protein Albumin Total Amylase Lipase 12/12/16 12/12/16 12/12/16 06:45 06:45 06:45 WBC RBC Hgb Hct MCV MCH MCHC RDW Plt Count MPV Neutrophils % Lymphocytes % Monocytes % Eosinophils % Basophils % PT with INR 23.00 H INR 2.06 H Sodium 142 Potassium 4.0 Chloride 106 Carbon Dioxide 29 Anion Gap 7 L BUN 5 L D Creatinine 0.8 POC Glucometer Random Glucose 100 Calcium 8.1 L Phosphorus 2.4 L Magnesium 1.6 L Total Bilirubin 0.7 D Direct Bilirubin < 0.1 AST 51 H D ALT 76 Alkaline Phosphatase 107 Total Protein 6.2 L Albumin 2.8 L Total Amylase 113 D Lipase 215 12/12/16 12/12/16 12:17 17:45 WBC RBC Hgb Hct MCV MCH MCHC RDW Plt Count MPV Neutrophils % Lymphocytes % Monocytes % Eosinophils % Basophils % PT with INR INR Sodium Potassium Chloride Carbon Dioxide Anion Gap BUN Creatinine POC Glucometer 93 103 Random Glucose Calcium Phosphorus Magnesium Total Bilirubin Direct Bilirubin AST ALT Alkaline Phosphatase Total Protein Albumin Total Amylase Lipase Active Medications Generic Name Dose Route Start Last Admin Trade Name Arnie PRN Reason Stop Dose Admin Acetaminophen 650 mg 12/12/16 10:47 12/12/16 16:40 Tylenol - PO 650 mg Q6H PRN Administration FEVER OR PAIN Amlodipine Besylate 5 mg 12/12/16 10:00 12/12/16 09:50 Norvasc - PO 5 mg DAILY [facility] Administration Dextrose/Sodium Chloride 1,000 mls @ 125 mls/hr 12/11/16 10:00 12/12/16 12:00 D5-Ns - IV 125 mls/hr ASDIR [facility] Administration Insulin Aspart 1 vial 12/11/16 16:30 12/12/16 17:46 Novolog Vial Sliding Scale - SQ Not Given ACHS [facility] Protocol Levothyroxine Sodium 75 mcg 12/12/16 07:00 12/12/16 06:32 Synthroid - PO 75 mcg ACBK [facility] Administration Lisinopril 2.5 mg 12/12/16 10:00 12/12/16 09:50 Prinivil PO 2.5 mg DAILY [facility] Administration Ondansetron HCl 4 mg 12/10/16 22:34 Zofran Injection IVPUSH Q6H PRN NAUSEA AND/OR VOMITING Tramadol HCl 50 mg 12/12/16 11:29 12/12/16 17:48 Ultram - PO 50 mg Q6H PRN Administration PAIN LEVEL 6-10 ASSESSMENT/PLAN: 71 year-old female with a PMH significant for HTN, HLD, NIDDM, hypothyroidism, colon cancer s/p right hemicolectomy, left breast cancer, 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 Fontenot). Patient was discharged on 12/09 and readmitted on 12/10 for pancreatitis. Acute biliary pancreatitis s/p lap cholecystectomy 12/05/16 --lipase peaked 7323 has trended to wnl --has been kept NPO, IV fluids, pain control --mild elevations AST, ALT trending down --CTAP/HIDA imaging shows 5.1 x 3.6cm air fluid collection in the gallbladder fossa and focal cannulation showed tracer uptake --discussed with surgeon Dr. Fontenot and GI Drs. Hager and Earl; patient cannot have MRCP due to instrumentation from back surgery --presently no sign of infection, afebrile and no leukocytosis --may require at some point ERCP, stenting, and percutaneous drainage requiring hepatobiliary expertise Hypertension --continue lisinopril, HCTZ, amlodipine Hyperlipidemia --not on statin NIDDM --Novolog sliding scale coverage Hypothyroidism --continue synthroid Colon cancer s/p right hemicolectomy Breast cancer --no acute issues h/o DVT/PE --INR therapeutic at 2.06 today --will hold warfarin tonight and reassess anti-coagulation in am, depending on timing of prospective GI intervention, if any; will consider heparin drip until plan is more defined FEN Fluids: D5NS @125mL/hr Electrolytes: replete as indicated Nutrition: NPO DVT prophylaxis: INR therapeutic on warfarin, oob, ambulation Dispo: continues to require inpatient care. Full code. Visit type - Emergency Visit Emergency Visit: Yes ED Registration Date: 12/10/16 Care time: The patient presented to the Emergency Department on the above date and was hospitalized for further evaluation of their emergent condition. - New Patient This patient is new to me today: No - Critical Care Critical Care patient: No
[2016-12-13] MEDS: traMADol HCL 50 MG TABLET PO PRN ×4 (02:37→23:31)
[2016-12-13] MEDS: INSULIN SLIDING SCALE (NOVOLOG) 1 VIAL SQ SCH ×4 (06:35→21:31)
[2016-12-13] MEDS: LEVOTHYROXINE NA 75 MCG TABLET (FP) PO SCH (06:35)
[2016-12-13] MEDS: DEXTROSE 5%-NORMAL SALINE 1,000 ML IV SCH ×4 (06:35→23:28)
--- NOTE | 2016-12-13 08:31 | PN ---
Progress Note, Physician History of Present Illness: NO events overnight. Comfortable. Afebrile, unicteric, normal WBC, HIDA suggestive of possible bile leak/biloma in GB fossa. MRCP cannot be done. - Current Medication List Current Medications: Active Medications Acetaminophen (Tylenol -) 650 mg PO Q6H PRN PRN Reason: FEVER OR PAIN Last Admin: 12/12/16 16:40 Dose: 650 mg Amlodipine Besylate (Norvasc -) 5 mg PO DAILY [facility] Last Admin: 12/12/16 09:50 Dose: 5 mg Dextrose/Sodium Chloride (D5-Ns -) 1,000 mls @ 125 mls/hr IV ASDIR [facility] Last Admin: 12/13/16 06:35 Dose: 125 mls/hr Insulin Aspart (Novolog Vial Sliding Scale -) 1 vial SQ ACHS [facility] PRN Reason: Protocol Last Admin: 12/13/16 06:35 Dose: Not Given Levothyroxine Sodium (Synthroid -) 75 mcg PO ACBK [facility] Last Admin: 12/13/16 06:35 Dose: 75 mcg Lisinopril (Prinivil) 2.5 mg PO DAILY [facility] Last Admin: 12/12/16 09:50 Dose: 2.5 mg Ondansetron HCl (Zofran Injection) 4 mg IVPUSH Q6H PRN PRN Reason: NAUSEA AND/OR VOMITING Tramadol HCl (Ultram -) 50 mg PO Q6H PRN PRN Reason: PAIN LEVEL 6-10 Last Admin: 12/13/16 02:37 Dose: 50 mg - Objective Vital Signs: Vital Signs Temperature 98.8 F 12/13/16 06:00 Pulse Rate 78 12/13/16 06:00 Respiratory Rate 20 12/13/16 06:00 Blood Pressure 118/63 12/13/16 06:00 O2 Sat by Pulse Oximetry (%) 98 12/12/16 21:00 Constitutional: Yes: No Distress, Calm Eyes: Yes: Conjunctiva Clear Neck: Yes: Supple Cardiovascular: Yes: Regular Rate and Rhythm Respiratory: Yes: Regular, CTA Bilaterally Gastrointestinal: Yes: Normal Bowel Sounds, Soft, Abdomen, Obese, Tenderness ( focal RUQ,). No: Ascites, Distention, Hematemesis, Melena, Palpable Mass, Pulsatile Mass, Rectal Bleeding, Tenderness, Rebound, Vomiting Neurological: Yes: Alert, Oriented Labs: CBC, BMP 12/12/16 06:45 12/12/16 06:45 INR, PTT INR 2.06 (0.82-1.09) H 12/12/16 06:45 Abnormal Lab Results 12/12/16 12/12/16 06:45 06:45 PT with INR 23.00 H INR 2.06 H Anion Gap 7 L BUN 5 L D Calcium 8.1 L Phosphorus 2.4 L Magnesium 1.6 L AST 51 H D Total Protein 6.2 L Albumin 2.8 L Vital Signs - 24 hr 12/12/16 12/12/16 12/12/16 09:46 11:00 15:58 Temperature 99 F 98.4 F Pulse Rate 70 88 Respiratory 20 20 Rate Blood Pressure 128/73 132/58 O2 Sat by Pulse 98 Oximetry (%) 12/12/16 12/12/16 12/12/16 18:00 21:00 22:00 Temperature 99.4 F 98.7 F Pulse Rate 73 78 Respiratory 20 20 20 Rate Blood Pressure 118/60 119/64 O2 Sat by Pulse 98 Oximetry (%) 12/13/16 12/13/16 02:00 06:00 Temperature 98.5 F 98.8 F Pulse Rate 69 78 Respiratory 20 20 Rate Blood Pressure 105/54 118/63 O2 Sat by Pulse Oximetry (%) - ....Imaging Other: Report Reviewed (HIDA) Problem List - Problems (1) Abnormal finding on radiology exam Assessment/Plan: HIDA read questions possible bile leak/biloma in the GB fossa. The patient is afebrial, unicteric, has normal WBC and doesn't have significant abdominal findings on the exam. Liver chemistry, ALP, bili pending this AM. If come back abnormal, especially ALP and Bili, we will need to schedule her for ERCP with stenting of CBD. Keep NPO, IVF Close observation Labs ordered Start ABx (Zosyn) if fever, or increase in WBC Code(s): R93.8 - ABNORMAL FINDINGS ON DIAGNOSTIC IMAGING OF BODY STRUCTURES (2) Diabetes mellitus type 2, noninsulin dependent Code(s): E11.9 - TYPE 2 DIABETES MELLITUS WITHOUT COMPLICATIONS (3) Obesity (BMI 30-39.9) Code(s): E66.9 - OBESITY, UNSPECIFIED (4) Personal history of colon cancer Assessment/Plan: HIDA suggests possible bile leak/biloma in the GB fossa. The patient is afebrial , unicteric, has normal WB count and doesn't have significant abdominal findings on the exam. Liver chemistry, ALP, bili pending this AM Code(s): Z85.038 - PERSONAL HISTORY OF MALIGNANT NEOPLASM OF LARGE INTESTINE (5) Pain, acute postoperative Code(s): G89.18 - OTHER ACUTE POSTPROCEDURAL PAIN (6) S/P laparoscopic cholecystectomy Code(s): Z90.49 - ACQUIRED ABSENCE OF OTHER SPECIFIED PARTS OF DIGESTIVE TRACT Visit type - Emergency Visit Emergency Visit: No - New Patient This patient is new to me today: No - Critical Care Critical Care patient: No
[2016-12-13] MEDS: amLODIPine BESYLATE 5 MG TABLET (FP) PO SCH (10:17)
[2016-12-13] MEDS: LISINOPRIL 5 MG TABLET (FP) PO SCH (10:19)
[2016-12-13 10:24] LABS: INR 2.39 (0.82-1.09); PROTHROMBIN TIME (PATIENT) 26.8 SEC (9.98-11.88)
[2016-12-13 10:30] LABS: ALBUMIN 2.4 g/dl (3.4-5.0); BILIRUBIN,DIRECT < 0.1 mg/dL (0.0-0.2); SGOT/AST 27 U/L (15-37); SGPT/ALT 51 U/L (12-78)
[2016-12-13 10:31] LABS: ALK PHOS 81 U/L (45-117); BILIRUBIN,TOTAL 0.3 mg/dL (0.2-1.0); TOT PROT 5.5 g/dl (6.4-8.2)
--- NOTE | 2016-12-13 10:56 | PN ---
Progress Note (short form) - Note Progress Note: Hepatic Panel Total Bilirubin 0.3 mg/dL (0.2-1.0) D 12/13/16 09:30 Direct Bilirubin < 0.1 mg/dL (0.0-0.2) 12/13/16 09:30 AST 27 U/L (15-37) D 12/13/16 09:30 ALT 51 U/L (12-78) D 12/13/16 09:30 Alkaline Phosphatase 81 U/L (45-117) D 12/13/16 09:30 Albumin 2.4 g/dl (3.4-5.0) L 12/13/16 09:30 Continue to monitor Problem List - Problems (1) Abnormal finding on radiology exam Code(s): R93.8 - ABNORMAL FINDINGS ON DIAGNOSTIC IMAGING OF BODY STRUCTURES (2) Diabetes mellitus type 2, noninsulin dependent Code(s): E11.9 - TYPE 2 DIABETES MELLITUS WITHOUT COMPLICATIONS (3) Obesity (BMI 30-39.9) Code(s): E66.9 - OBESITY, UNSPECIFIED (4) Personal history of colon cancer Code(s): Z85.038 - PERSONAL HISTORY OF MALIGNANT NEOPLASM OF LARGE INTESTINE (5) Pain, acute postoperative Code(s): G89.18 - OTHER ACUTE POSTPROCEDURAL PAIN (6) S/P laparoscopic cholecystectomy Code(s): Z90.49 - ACQUIRED ABSENCE OF OTHER SPECIFIED PARTS OF DIGESTIVE TRACT Visit type - Emergency Visit Emergency Visit: No - New Patient This patient is new to me today: No - Critical Care Critical Care patient: No
[2016-12-13] MEDS: ACETAMINOPHEN 325 MG TABLET (FP) PO PRN (11:50)
--- NOTE | 2016-12-13 14:30 | DS ---
Physical Exam: SUBJECTIVE: Patient seen and examined OBJECTIVE: Vital Signs Period Temp Pulse Resp BP Sys/Brandt Pulse Ox Last 24 Hr 98.4 F-99.4 F 69-88 16-20 105-132/54-64 96-98 PHYSICAL EXAM GENERAL: The patient is awake, alert, and fully oriented, in no acute distress. HEAD: Normal with no signs of trauma. EYES: PERRL, extraocular movements intact, sclera anicteric, conjunctiva clear. ENT: Ears normal, nares patent, oropharynx clear without exudates, moist mucous membranes. NECK: Trachea midline, full range of motion, supple. LUNGS: Breath sounds equal, clear to auscultation bilaterally, no wheezes, no crackles, no accessory muscle use. HEART: Regular rate and rhythm, S1, S2 without murmur, rub or gallop. ABDOMEN: Soft, nontender, nondistended, normoactive bowel sounds, no guarding, no rebound, no hepatosplenomegaly, no masses. EXTREMITIES: 2+ pulses, warm, well-perfused, no edema. NEUROLOGICAL: Cranial nerves II through XII grossly intact. Normal speech, gait not observed. PSYCH: Normal mood, normal affect. SKIN: Warm, dry, normal turgor, no rashes or lesions noted. LABS Laboratory Results - last 24 hr 12/12/16 12/12/16 12/13/16 17:45 21:39 06:21 PT with INR INR POC Glucometer 103 112 115 Total Bilirubin Direct Bilirubin AST ALT Alkaline Phosphatase Total Protein Albumin 12/13/16 12/13/16 12/13/16 09:30 09:30 11:33 PT with INR 26.80 H INR 2.39 H POC Glucometer 99 Total Bilirubin 0.3 D Direct Bilirubin < 0.1 AST 27 D ALT 51 D Alkaline Phosphatase 81 D Total Protein 5.5 L Albumin 2.4 L HOSPITAL COURSE: Date of Admission:12/10/16 Date of Discharge: 12/13/16 Pre hospital course 71 year-old female with a complicated medical and surgical history: Prior medical history Hyptertenion Hyperlipidemia NIDDM Hypothyroidism h/o DVT/PE on coumadin h/o SBO Colon cancer Abdominal hernia Scoliosis LCIS (completed tamoxifen 10/2011-10/2016)) Prior surgical history Right hemicolectomy 2003 Mesh repair of abdominal hernia 2003 IVC filter Multiple back surgries (scoliosis with merry implantation; laminectom(ies) PMH of HTN, HLD, NIDDM, hypothyriodism, h/o DVT/PE (IVC filter, on coumadin), h /o SBO, h/o colon cancer s/p right hemicolectomy and mesh repair of abdominal hernia (2003), magnolia/o mesh repair of abdleft-sided breast L sided breast LCIS on tamoxifen for 5 years ( completed 10/2016), admitted with right lower quadrant abdominal pain with associated nausea and vomiting X1 day, Non- bilous , non-bloody emesis. No chest pain or pressure, but stated she has palpitations which is related to a "valvular problem," but does not know what it is and has not followed with a portable machine sander. Imaging: - Chest CT: (1) distal gallbladder with wall thickening (2) Multiple non specific non calcified irregular nodular opacities in both lungs. - ECHO: nml lvef, size Trace MR/TR Subsequent Hospital Course/Progress Note/Discharge Summary: Assessment: 71 year old female with pmhx HTN, HLD, DM II, colon cancer (s/p ex- lap and resection, chemo in 2004) and breast ca LCIS on 2011 (on tamoxifen) current admitted with RUQ pain, nausea, vomiting. Plan: 1. Acute Cholecystitis - s/p lab cholecystectomy 12/05 - Zosyn stopped 12/07 - Outpt surgical follow up in 2 weeks 2. hx of DVT/PE - INR therapeutic, discontinue lovenox bridge - Resume home dose of coumadin 4mg - Weekly INR checks 3. Breast LCIS/colon ca - Completed tamoxifen - CT scan with sub cm pulmonary nodules in 3 months 4. HTN - Continue Norvasc 5mg - Started lisinopril 2.5mg daily 5. DM II - Resume home po antidiabetics 6. Hypothyroidism - Synthroid 75mcg daily Minutes to complete discharge: 35 Discharge Summary Reason For Visit: PANCREATITIS Current Active Problems Abnormal finding on radiology exam (Acute) Acute biliary pancreatitis without infection or necrosis (Acute) DVT prophylaxis (Acute) Nausea and vomiting (Acute) Pain, acute postoperative (Acute) Pancreatitis (Acute) Retained cholelithiasis following cholecystectomy (Acute) S/P laparoscopic cholecystectomy (Acute) Condition: Stable - Instructions Diet, Activity, Other Instructions: It is important for you to follow up with Dr. Fontenot in one week. You should also follow up with Dr. Hager, the digital marketing strategist who saw you in the hospital, in one month. Resume taking your warfarin as your doctor prescribed. Advance your diet slowly. Only eat foods that agree with you. Stay well- hyrdated. Avoid alcohol. Return to the emergency department for any new or worsening symptoms. Referrals: Eligio Fontenot MD [Staff Physician] - 1 Week Kd Hager MD [Staff Physician] - 1 Month Ana Arroyo [Primary Care Provider] - Disposition: HOME - Home Medications Comprehensive Discharge Medication List: Ambulatory Orders Amlodipine Besylate 5 mg PO DAILY 12/10/16 Cholecalciferol (Vitamin D3) [Vitamin D3] 50,000 unit PO WEEKLY 12/10/16 Hydrochlorothiazide [Hctz -] 12.5 mg PO DAILY 12/10/16 Levothyroxine [Synthroid -] 75 mcg PO DAILY 12/10/16 Lisinopril [Zestril] 2.5 mg PO DAILY 12/10/16 Metformin HCl [Metformin HCl ER] 1,000 mg PO BID 12/10/16 Tamoxifen Citrate 20 mg PO DAILY 12/10/16 Warfarin Na [Coumadin -] 3 mg PO ASDIR 12/10/16 Warfarin Na [Coumadin -] 4 mg PO ASDIR 12/10/16 Dextrose 5%-Normal Saline [D5-Ns -] 1,000 ml IV ASDIR #1000 ml 12/13/16 Tramadol HCl [Ultram -] 50 mg PO Q6H #30 tab MDD 4 12/13/16 This patient is new to me today: No Emergency Visit: Yes ED Registration Date: 12/10/16 Care time: The patient presented to the Emergency Department on the above date and was hospitalized for further evaluation of their emergent condition. Critical Care patient: No - Discharge Referral Referred to [facility] Med P.C.: No
--- NOTE | 2016-12-13 16:26 | PN ---
Progress Note, Physician Chief Complaint: abdominal pain, n/v History of Present Illness: Pt seen and examined in bed. Reports feeling better, no nausea, abdominal pain that she came in with is gone; she still has some postop discomfort in RUQ, and she is hungry. Has had BMs. Had CT with contrast 2d ago showing small fluid in gallbladder fossa, postop changes, contrast through to colon. Had HIDA yesterday which showed no gross bile leak but an air-fluid level in medial aspect of gallbladder fossa, likely duodenum. Pt has been NPO since just prior to CT scan. Liver and pancreatic labs have normalized. - Current Medication List Current Medications: Active Medications Acetaminophen (Tylenol -) 650 mg PO Q6H PRN PRN Reason: FEVER OR PAIN Last Admin: 12/13/16 11:50 Dose: 650 mg Amlodipine Besylate (Norvasc -) 5 mg PO DAILY [facility] Last Admin: 12/13/16 10:17 Dose: 5 mg Dextrose/Sodium Chloride (D5-Ns -) 1,000 mls @ 125 mls/hr IV ASDIR [facility] Last Admin: 12/13/16 15:14 Dose: 125 mls/hr Insulin Aspart (Novolog Vial Sliding Scale -) 1 vial SQ ACHS [facility] PRN Reason: Protocol Last Admin: 12/13/16 11:45 Dose: Not Given Levothyroxine Sodium (Synthroid -) 75 mcg PO ACBK [facility] Last Admin: 12/13/16 06:35 Dose: 75 mcg Lisinopril (Prinivil) 2.5 mg PO DAILY [facility] Last Admin: 12/13/16 10:19 Dose: 2.5 mg Ondansetron HCl (Zofran Injection) 4 mg IVPUSH Q6H PRN PRN Reason: NAUSEA AND/OR VOMITING Tramadol HCl (Ultram -) 50 mg PO Q6H PRN PRN Reason: PAIN LEVEL 6-10 Last Admin: 12/13/16 10:17 Dose: 50 mg - Objective Vital Signs: Vital Signs Temperature 98.8 F 12/13/16 14:11 Pulse Rate 69 12/13/16 14:11 Respiratory Rate 22 12/13/16 14:11 Blood Pressure 133/58 12/13/16 14:11 O2 Sat by Pulse Oximetry (%) 96 12/13/16 09:00 Constitutional: Yes: No Distress, Calm, Obese Eyes: Yes: Conjunctiva Clear, EOM Intact. No: Sclera Icterus Cardiovascular: Yes: Regular Rate and Rhythm, Murmur (soft systolic) Respiratory: Yes: Regular, CTA Bilaterally Gastrointestinal: Yes: Normal Bowel Sounds, Soft, Abdomen, Obese, Tenderness ( mild RUQ, no R/G). No: Distention, Tenderness, Epigastrium, Tenderness, Rebound Wound/Incision: Yes: Clean/Dry, Well Approximated, Steri Strips (x4), Open to air Neurological: Yes: Alert, Oriented Labs: CBC, BMP 12/12/16 06:45 12/12/16 06:45 INR, PTT INR 2.39 (0.82-1.09) H 12/13/16 09:30 CMP Sodium 142 mmol/L (136-145) 12/12/16 06:45 Potassium 4.0 mmol/L (3.5-5.1) 12/12/16 06:45 Chloride 106 mmol/L (98-107) 12/12/16 06:45 Carbon Dioxide 29 mmol/L (21-32) 12/12/16 06:45 Anion Gap 7 (8-16) L 12/12/16 06:45 BUN 5 mg/dL (7-18) L D 12/12/16 06:45 Creatinine 0.8 mg/dL (0.55-1.02) 12/12/16 06:45 Creat Clearance w eGFR > 60 (>60) 12/10/16 18:45 POC Glucometer 99 UNITS (()) 12/13/16 11:33 Random Glucose 100 mg/dL (74-106) 12/12/16 06:45 Calcium 8.1 mg/dL (8.5-10.1) L 12/12/16 06:45 Phosphorus 2.4 mg/dL (2.5-4.9) L 12/12/16 06:45 Magnesium 1.6 mg/dL (1.8-2.4) L 12/12/16 06:45 Total Bilirubin 0.3 mg/dL (0.2-1.0) D 12/13/16 09:30 Direct Bilirubin < 0.1 mg/dL (0.0-0.2) 12/13/16 09:30 AST 27 U/L (15-37) D 12/13/16 09:30 ALT 51 U/L (12-78) D 12/13/16 09:30 Alkaline Phosphatase 81 U/L (45-117) D 12/13/16 09:30 Total Protein 5.5 g/dl (6.4-8.2) L 12/13/16 09:30 Albumin 2.4 g/dl (3.4-5.0) L 12/13/16 09:30 Total Amylase 113 U/L (25-115) D 12/12/16 06:45 Lipase 215 U/L (73-393) 12/12/16 06:45 am/lip were normal, not repeated LFTs normal wbc normal INR therapeutic - ....Imaging Other: Report Reviewed (HIDA report noted; spoke with Dr. Kumar - air-fluid most likely represents duodenum) Problem List - Problems (1) Acute biliary pancreatitis without infection or necrosis Assessment/Plan: POD8 s/p lap salomón with postop pancreatitis, likely from residual tiny gallstones - now resolved labs and clinical exam normalized to postop discomfort only - most likely passed stone(s) no nausea or vomiting + bowel function CT with expected postop findings, no evidence of leak or large collection HIDA with no gross bile leak could consider ERCP as outpatient to ensure CBD with no further stones, but pt cannot have MRI/MRCP (metal in back) ok for diabetic low-fat diet - need to trial PO and follow clinically stop IVF when taking good po on home meds on PO pain meds prn, encourage nonnarcotics therapeutic on INR - no need for DVT prophylaxis discussed with Dr. Hager, GI left message for Thai Thurman NP Code(s): K85.10 - BILIARY ACUTE PANCREATITIS WITHOUT NECROSIS OR INFECTION (2) Retained cholelithiasis following cholecystectomy Code(s): K91.86 - RETAINED CHOLELITHIASIS FOLLOWING CHOLECYSTECTOMY (3) S/P laparoscopic cholecystectomy Assessment/Plan: POD8 s/p difficult lap salomón, with left-sided approach secondary to need for lysis of adhesions in order to access RUQ steristrips clean and intact, no incisional tenderness likely retained/residual tiny stones causing biliary pancreatitis postop, now resolved see above Code(s): Z90.49 - ACQUIRED ABSENCE OF OTHER SPECIFIED PARTS OF DIGESTIVE TRACT (4) Diabetes mellitus type 2, noninsulin dependent Assessment/Plan: not to resume metformin for at least [address] Code(s): E11.9 - TYPE 2 DIABETES MELLITUS WITHOUT COMPLICATIONS (5) History of pulmonary embolus (PE) Assessment/Plan: therapeutic from coumadin no prophylaxis indicated while INR >2 Code(s): Z86.711 - PERSONAL HISTORY OF PULMONARY EMBOLISM (6) Personal history of colon cancer Assessment/Plan: s/p R hemicolectomy no appendix no acute issues Code(s): Z85.038 - PERSONAL HISTORY OF MALIGNANT NEOPLASM OF LARGE INTESTINE (7) Hypertension Assessment/Plan: on home meds Code(s): I10 - ESSENTIAL (PRIMARY) HYPERTENSION Qualifiers: Hypertension type: essential hypertension Qualified Code(s): I10 - Essential (primary) hypertension; I10 - Essential (primary) hypertension; I10 - Essential (primary) hypertension (8) Hypothyroidism Assessment/Plan: continue synthroid no acute issues Code(s): E03.9 - HYPOTHYROIDISM, UNSPECIFIED Qualifiers: Hypothyroidism type: acquired Qualified Code(s): E03.9 - Hypothyroidism, unspecified; E03.9 - Hypothyroidism, unspecified; E03.9 - Hypothyroidism, unspecified (9) Lobular carcinoma in situ (LCIS) of right breast Assessment/Plan: never had cancer diagnosis completed course of tamoxifen does not need to resume at home Code(s): D05.01 - LOBULAR CARCINOMA IN SITU OF RIGHT BREAST (10) Obesity (BMI 30-39.9) Code(s): E66.9 - OBESITY, UNSPECIFIED
[2016-12-13] MEDS ORDERED: INSULIN (NOVOLOG) ASPART 100 UNITS/ML 10ML VIAL ONE (20:36)
[2016-12-14] MEDS: traMADol HCL 50 MG TABLET PO PRN ×2 (06:19→14:05)
[2016-12-14] MEDS: LEVOTHYROXINE NA 75 MCG TABLET (FP) PO SCH (06:19)
[2016-12-14] MEDS: INSULIN SLIDING SCALE (NOVOLOG) 1 VIAL SQ SCH ×2 (06:26→11:32)
[2016-12-14 07:35] LABS: BASOPHIL 0.7 % (0-2.0); EOSINOPHIL 2.8 % (0-4.5); MCH 31.9 pg (25.7-33.7); MEAN CELL VOLUME 96.7 fl (80-96); MEAN PLT VOLUME 7.1 fl (7.5-11.1); NEUTROPHILS 44.6 % (42.8-82.8); PLATELET COUNT 279 K/MM3 (134-434); RDW 15.1 % (11.6-15.6); WHITE BLOOD COUNT 4.3 K/mm3 (4.0-10.0)
--- NOTE | 2016-12-14 07:44 | PN ---
Progress Note, Physician History of Present Illness: No events overnight. Comfortable. Night nurse's records reviewed. - Current Medication List Current Medications: Active Medications Acetaminophen (Tylenol -) 650 mg PO Q6H PRN PRN Reason: FEVER OR PAIN Last Admin: 12/13/16 11:50 Dose: 650 mg Amlodipine Besylate (Norvasc -) 5 mg PO DAILY [facility] Last Admin: 12/13/16 10:17 Dose: 5 mg Dextrose/Sodium Chloride (D5-Ns -) 1,000 mls @ 125 mls/hr IV ASDIR [facility] Last Admin: 12/13/16 23:28 Dose: 125 mls/hr Insulin Aspart (Novolog Vial Sliding Scale -) 1 vial SQ ACHS [facility] PRN Reason: Protocol Last Admin: 12/14/16 06:26 Dose: Not Given Levothyroxine Sodium (Synthroid -) 75 mcg PO ACBK [facility] Last Admin: 12/14/16 06:19 Dose: 75 mcg Lisinopril (Prinivil) 2.5 mg PO DAILY [facility] Last Admin: 12/13/16 10:19 Dose: 2.5 mg Ondansetron HCl (Zofran Injection) 4 mg IVPUSH Q6H PRN PRN Reason: NAUSEA AND/OR VOMITING Tramadol HCl (Ultram -) 50 mg PO Q6H PRN PRN Reason: PAIN LEVEL 6-10 Last Admin: 12/14/16 06:19 Dose: 50 mg - Objective Vital Signs: Vital Signs Temperature 99.1 F 12/14/16 06:00 Pulse Rate 92 H 12/14/16 06:00 Respiratory Rate 20 12/14/16 06:00 Blood Pressure 153/64 12/14/16 06:00 O2 Sat by Pulse Oximetry (%) 98 12/13/16 21:00 Constitutional: Yes: No Distress, Calm Eyes: Yes: Conjunctiva Clear Cardiovascular: Yes: Regular Rate and Rhythm Respiratory: Yes: Regular, CTA Bilaterally Gastrointestinal: Yes: Normal Bowel Sounds, Soft, Abdomen, Obese. No: Ascites, Distention, Melena, Palpable Mass, Pulsatile Mass, Rectal Bleeding, Tenderness Integumentary: No: Jaundice Neurological: Yes: Alert, Oriented Labs: INR, PTT INR 2.39 (0.82-1.09) H 12/13/16 09:30 Laboratory Results - last 24 hr 1012/13/16 12/13/16 09:30 09:30 11:33 PT with INR 26.80 H INR 2.39 H POC Glucometer 99 Total Bilirubin 0.3 D Direct Bilirubin < 0.1 AST 27 D ALT 51 D Alkaline Phosphatase 81 D Total Protein 5.5 L Albumin 2.4 L 12/13/16 12/13/16 12/14/16 16:36 21:00 05:46 PT with INR INR POC Glucometer 110 104 90 Total Bilirubin Direct Bilirubin AST ALT Alkaline Phosphatase Total Protein Albumin Problem List - Problems (1) Abnormal finding on radiology exam Assessment/Plan: Asymptomatic. Afebrile. Normal liver chem, ALP, Bili 12/13. Advance diet Follow today's (pending results) liver labs OK to d/c home from GI perspective if tolerating PO and the above labs normal Code(s): R93.8 - ABNORMAL FINDINGS ON DIAGNOSTIC IMAGING OF BODY STRUCTURES (2) Diabetes mellitus type 2, noninsulin dependent Code(s): E11.9 - TYPE 2 DIABETES MELLITUS WITHOUT COMPLICATIONS (3) Obesity (BMI 30-39.9) Code(s): E66.9 - OBESITY, UNSPECIFIED (4) Personal history of colon cancer Code(s): Z85.038 - PERSONAL HISTORY OF MALIGNANT NEOPLASM OF LARGE INTESTINE (5) Pain, acute postoperative Code(s): G89.18 - OTHER ACUTE POSTPROCEDURAL PAIN (6) S/P laparoscopic cholecystectomy Code(s): Z90.49 - ACQUIRED ABSENCE OF OTHER SPECIFIED PARTS OF DIGESTIVE TRACT
[2016-12-14] MEDS: DEXTROSE 5%-NORMAL SALINE 1,000 ML IV SCH ×2 (07:54→14:02)
[2016-12-14 07:58] LABS: ALBUMIN 2.5 g/dl (3.4-5.0); ALK PHOS 81 U/L (45-117); ANION GAP 10 (8-16); BILIRUBIN,TOTAL 0.3 mg/dL (0.2-1.0); CALCIUM 7.7 mg/dL (8.5-10.1); CO2 24 mmol/L (21-32); CREATININE 0.8 mg/dL (0.55-1.02); GLUCOSE,RANDOM 85 mg/dL (74-106); SGOT/AST 22 U/L (15-37); SGPT/ALT 44 U/L (12-78); TOT PROT 5.7 g/dl (6.4-8.2)
[2016-12-14 08:02] LABS: INR 2.2 (0.82-1.09); PROTHROMBIN TIME (PATIENT) 24.6 SEC (9.98-11.88)
--- NOTE | 2016-12-14 08:46 | PN ---
Progress Note (short form) - Note Progress Note: Hepatic Panel Total Bilirubin 0.3 mg/dL (0.2-1.0) D 12/13/16 09:30 Direct Bilirubin < 0.1 mg/dL (0.0-0.2) 12/13/16 09:30 AST 27 U/L (15-37) D 12/13/16 09:30 ALT 51 U/L (12-78) D 12/13/16 09:30 Alkaline Phosphatase 81 U/L (45-117) D 12/13/16 09:30 Albumin 2.4 g/dl (3.4-5.0) L 12/13/16 09:30 Continue to monitor Hepatic Panel Total Bilirubin 0.3 mg/dL (0.2-1.0) 12/14/16 06:20 Direct Bilirubin < 0.1 mg/dL (0.0-0.2) 12/13/16 09:30 AST 22 U/L (15-37) 12/14/16 06:20 ALT 44 U/L (12-78) 12/14/16 06:20 Alkaline Phosphatase 81 U/L (45-117) 12/14/16 06:20 Albumin 2.5 g/dl (3.4-5.0) L 12/14/16 06:20 Problem List - Problems (1) Abnormal finding on radiology exam Code(s): R93.8 - ABNORMAL FINDINGS ON DIAGNOSTIC IMAGING OF BODY STRUCTURES (2) Diabetes mellitus type 2, noninsulin dependent Code(s): E11.9 - TYPE 2 DIABETES MELLITUS WITHOUT COMPLICATIONS (3) Obesity (BMI 30-39.9) Code(s): E66.9 - OBESITY, UNSPECIFIED (4) Personal history of colon cancer Code(s): Z85.038 - PERSONAL HISTORY OF MALIGNANT NEOPLASM OF LARGE INTESTINE (5) Pain, acute postoperative Code(s): G89.18 - OTHER ACUTE POSTPROCEDURAL PAIN (6) S/P laparoscopic cholecystectomy Code(s): Z90.49 - ACQUIRED ABSENCE OF OTHER SPECIFIED PARTS OF DIGESTIVE TRACT
--- NOTE | 2016-12-14 08:59 | PN ---
Progress Note, Physician Chief Complaint: abdominal pain, n/v History of Present Illness: Pt seen and examined in bed. Feeling well, mild postop pain but pain from admission completely resolved. Has had BMs. Tolerating clears. Hungry. No overnight events. - Current Medication List Current Medications: Active Medications Acetaminophen (Tylenol -) 650 mg PO Q6H PRN PRN Reason: FEVER OR PAIN Last Admin: 12/13/16 11:50 Dose: 650 mg Amlodipine Besylate (Norvasc -) [address] [facility] Last Admin: 12/13/16 10:17 Dose: 5 mg Dextrose/Sodium Chloride (D5-Ns -) 1,000 mls @ 125 mls/hr IV ASDIR [facility] Last Admin: 12/14/16 07:54 Dose: 125 mls/hr Insulin Aspart (Novolog Vial Sliding Scale -) [address] [facility] PRN Reason: Protocol Last Admin: 12/14/16 06:26 Dose: Not Given Levothyroxine Sodium (Synthroid -) [address] [facility] Last Admin: 12/14/16 06:19 Dose: 75 mcg Lisinopril (Prinivil) 2.[address] [facility] Last Admin: 12/13/16 10:19 Dose: 2.5 mg Ondansetron HCl (Zofran Injection) 4 mg IVPUSH Q6H PRN PRN Reason: NAUSEA AND/OR VOMITING Tramadol HCl (Ultram -) 50 mg PO Q6H PRN PRN Reason: PAIN LEVEL 6-10 Last Admin: 12/14/16 06:19 Dose: 50 mg - Objective Vital Signs: Vital Signs Temperature 99.1 F 12/14/16 06:00 Pulse Rate 92 H 12/14/16 06:00 Respiratory Rate 20 12/14/16 06:00 Blood Pressure 153/64 12/14/16 06:00 O2 Sat by Pulse Oximetry (%) 98 12/13/16 21:00 Vital Signs Period Temp Pulse Resp BP Sys/Brandt Pulse Ox Last 24 Hr 98.8 F-99.3 F 68-92 16-22 111-153/55-64 96-98 Constitutional: Yes: No Distress, Calm, Obese Eyes: Yes: Conjunctiva Clear, EOM Intact. No: Sclera Icterus Cardiovascular: Yes: Regular Rate and Rhythm, Murmur (soft systolic) Respiratory: Yes: Regular, CTA Bilaterally Gastrointestinal: Yes: Normal Bowel Sounds, Soft, Abdomen, Obese, Tenderness ( RUQ mild, no R/G, less RLQ (referred to upper); mild subxiphoid incisional tenderness, no epigastric). No: Tenderness, Epigastrium, Tenderness, Rebound Extremities: No: Cool, Cyanosis Wound/Incision: Yes: Clean/Dry, Well Approximated, Steri Strips (x4), Open to air Neurological: Yes: Alert, Oriented Labs: CBC, BMP 12/14/16 06:20 12/14/16 06:20 INR, PTT INR 2.20 (0.82-1.09) H 12/14/16 06:20 CMP Sodium 143 mmol/L (136-145) 12/14/16 06:20 Potassium 3.5 mmol/L (3.5-5.1) 12/14/16 06:20 Chloride 109 mmol/L (98-107) H 12/14/16 06:20 Carbon Dioxide 24 mmol/L (21-32) 12/14/16 06:20 Anion Gap 10 (8-16) 12/14/16 06:20 BUN 2 mg/dL (7-18) L* D 12/14/16 06:20 Creatinine 0.8 mg/dL (0.55-1.02) 12/14/16 06:20 Creat Clearance w eGFR > 60 (>60) 12/14/16 06:20 POC Glucometer 90 UNITS (()) 12/14/16 05:46 Random Glucose 85 mg/dL (74-106) 12/14/16 06:20 Calcium 7.7 mg/dL (8.5-10.1) L 12/14/16 06:20 Phosphorus 2.0 mg/dL (2.5-4.9) L 12/14/16 06:20 Total Bilirubin 0.3 mg/dL (0.2-1.0) 12/14/16 06:20 Direct Bilirubin < 0.1 mg/dL (0.0-0.2) 12/13/16 09:30 AST 22 U/L (15-37) 12/14/16 06:20 ALT 44 U/L (12-78) 12/14/16 06:20 Alkaline Phosphatase 81 U/L (45-117) 12/14/16 06:20 Total Protein 5.7 g/dl (6.4-8.2) L 12/14/16 06:20 Albumin 2.5 g/dl (3.4-5.0) L 12/14/16 06:20 Problem List - Problems (1) Acute biliary pancreatitis without infection or necrosis Assessment/Plan: POD9 s/p lap salomón with resolved postop pancreatitis, likely from residual tiny gallstones which passed tolerating clears, no nausea or vomiting + bowel function ok for diabetic low-fat diet can stop IVF on home meds on PO pain meds prn, encourage nonnarcotics therapeutic on INR - no need for DVT prophylaxis OOB/amb with assist d/c home when tolerating diet pt to follow up with me next week in clinic - she will call for appt Code(s): K85.10 - BILIARY ACUTE PANCREATITIS WITHOUT NECROSIS OR INFECTION (2) Retained cholelithiasis following cholecystectomy Code(s): K91.86 - RETAINED CHOLELITHIASIS FOLLOWING CHOLECYSTECTOMY (3) S/P laparoscopic cholecystectomy Assessment/Plan: POD9 s/p difficult lap salomón, with left-sided approach secondary to need for lysis of adhesions in order to access RUQ steristrips clean and intact, mild incisional tenderness likely retained/residual tiny stones causing biliary pancreatitis postop, now resolved see above Code(s): Z90.49 - ACQUIRED ABSENCE OF OTHER SPECIFIED PARTS OF DIGESTIVE TRACT (4) Diabetes mellitus type 2, noninsulin dependent Assessment/Plan: may resume metformin at home Code(s): E11.9 - TYPE 2 DIABETES MELLITUS WITHOUT COMPLICATIONS (5) History of pulmonary embolus (PE) Assessment/Plan: therapeutic from coumadin resume home dosing no prophylaxis indicated while INR >2 Code(s): Z86.711 - PERSONAL HISTORY OF PULMONARY EMBOLISM (6) Personal history of colon cancer Assessment/Plan: s/p R hemicolectomy no appendix no acute issues Code(s): Z85.038 - PERSONAL HISTORY OF MALIGNANT NEOPLASM OF LARGE INTESTINE (7) Hypertension Assessment/Plan: on home meds Code(s): I10 - ESSENTIAL (PRIMARY) HYPERTENSION Qualifiers: Hypertension type: essential hypertension Qualified Code(s): I10 - Essential (primary) hypertension; I10 - Essential (primary) hypertension; I10 - Essential (primary) hypertension (8) Hypothyroidism Assessment/Plan: continue synthroid no acute issues Code(s): E03.9 - HYPOTHYROIDISM, UNSPECIFIED Qualifiers: Hypothyroidism type: acquired Qualified Code(s): E03.9 - Hypothyroidism, unspecified; E03.9 - Hypothyroidism, unspecified; E03.9 - Hypothyroidism, unspecified (9) Lobular carcinoma in situ (LCIS) of right breast Assessment/Plan: never had cancer diagnosis completed course of tamoxifen does not need to resume at home Code(s): D05.01 - LOBULAR CARCINOMA IN SITU OF RIGHT BREAST (10) Obesity (BMI 30-39.9) Code(s): E66.9 - OBESITY, UNSPECIFIED
[2016-12-14] MEDS: LISINOPRIL 5 MG TABLET (FP) PO SCH (11:23)
[2016-12-14] MEDS: amLODIPine BESYLATE 5 MG TABLET (FP) PO SCH (11:23)
[2016-12-14] MEDS: ACETAMINOPHEN 325 MG TABLET (FP) PO PRN (11:38)
[2016-12-14 15:39] VITALS: BP 131/78; PULSE 70; TEMP 98.7
== END 2016-12-14 17:10 | disposition home or self-care (01) | DRG 439 ==
LOC: JER 17:06 → JERBED 21:14 → J5S 12-11 00:07
PROVIDERS: ADMIT Internal Medicine; ATTEND Nurse Practitioner Acute Care
DX: K85.10 Biliary acute pancreatitis without necrosis or infection (principal); K91.86 Retained cholelithiasis following cholecystectomy; R71.0 Precipitous drop in hematocrit; Y84.8 Other medical procedures as the cause of abnormal reaction of the patient, or of later complication, without mention of misadventure at the time of the procedure; Y92.032 Bedroom in apartment as the place of occurrence of the external cause; Z68.36 Body mass index [BMI] 36.0-36.9, adult; E66.9 Obesity, unspecified; E03.9 Hypothyroidism, unspecified; E11.9 Type 2 diabetes mellitus without complications; I10 Essential (primary) hypertension; Z79.84 Long term (current) use of oral hypoglycemic drugs; E78.5 Hyperlipidemia, unspecified; Z85.3 Personal history of malignant neoplasm of breast; Z85.038 Personal history of other malignant neoplasm of large intestine; Z90.49 Acquired absence of other specified parts of digestive tract; Z86.73 Personal history of transient ischemic attack (TIA), and cerebral infarction without residual deficits; Z86.718 Personal history of other venous thrombosis and embolism; Z86.711 Personal history of pulmonary embolism; Z79.01 Long term (current) use of anticoagulants; Z87.891 Personal history of nicotine dependence
CPT/HCPCS: 36415; 74020-TC; 74178-TC; 78226-TC; 80048; 80053; 80076; 81003; 82150; 83690; 83735; 84100; 85025; 85610; 85730; 87086; 93005; 93010; 99283-25; A9537; J1644; Q9967

== ENCOUNTER 2018-03-21 11:03 | Inpatient (IN) | payer OTHER ==
[2018-03-21 11:32] VITALS: BMI 43.6
--- NOTE | 2018-03-21 12:29 | PDOC ---
History of Present Illness - General Chief Complaint: Pain, Acute Stated Complaint: LEG PAIN Time Seen by Provider: 03/21/18 12:22 History Source: Patient Exam Limitations: No Limitations - History of Present Illness Initial Comments: 03/21/18 16:58 Patient is a 72-year-old female with past medical history of hypertension, NIDDM , DVT/PE, pancreatitis, chronic kidney disease, colon cancer, and breast cancer , who presents to the emergency department today with left leg pain and swelling for one week. Patient states that she has history of DVT/PE and until recently been on blood thinners for prevention. She also admits to associated shortness of breath with walking. She states that this has been worse than usual. She states that her left leg is very swollen. Denies recent travel, smoking history. Denies fevers, chills, chest pain, palpitations, shortness of breath at rest, nausea, vomiting, numbness and tingling to the extremity, weakness to the extremity, lightheadedness and dizziness Past History - Travel Traveled outside of the country in the last 30 days: No Close contact w/someone who was outside of country & ill: No - Past Medical History Allergies/Adverse Reactions: Allergies Allergy/AdvReac Type Severity Reaction Status Date / Time No Known Drug Allergies Allergy Verified 12/02/16 13:06 Home Medications: Ambulatory Orders Amlodipine Besylate 2.5 mg PO DAILY 12/10/16 Cholecalciferol (Vitamin D3) [Vitamin D3] 50,000 unit PO WEEKLY 12/10/16 Hydrochlorothiazide [Hctz -] 12.5 mg PO DAILY 12/10/16 Levothyroxine [Synthroid -] 100 mcg PO DAILY 12/10/16 Metformin HCl [Metformin HCl ER] 500 mg PO DAILY 12/10/16 Atorvastatin Calcium [Lipitor] 20 mg PO HS 03/21/18 Omeprazole 40 mg PO DAILY 03/21/18 Pramipexole Di-HCl [Mirapex] 0.25 mg PO AM 03/21/18 Pramipexole Di-HCl [Mirapex] 0.5 mg PO DAILY 03/21/18 Anemia: No Asthma: No Cancer: Yes (COLON, ? breast) Cardiac Disorders: No CVA: No COPD: No CHF: No Dementia: No Diabetes: Yes GI Disorders: No Disorders: No HTN: No Hypercholesterolemia: No Liver Disease: No Seizures: No Thyroid Disease: Yes - Surgical History Abdominal Surgery: Yes (exploratory lap for obstruction 1993) Appendectomy: No Cardiac Surgery: No Cholecystectomy: Yes (11/2016) Lung Surgery: No Neurologic Surgery: No - Suicide/Smoking/Psychosocial Hx Smoking History: Never smoked Have you smoked in the past 12 months: No Number of Cigarettes Smoked Daily: 0 If you are a former smoker, when did you quit?: 1971 Hx Alcohol Use: No Drug/Substance Use Hx: No Substance Use Type: None Hx Substance Use Treatment: No Review of Systems - Review of Systems Able to Perform ROS?: Yes Comments:: 03/21/18 16:52 CONSTITUTIONAL: Absent: fever, chills, diaphoresis, generalized weakness, malaise, loss of appetite HEENT: Absent: rhinorrhea, nasal congestion, throat pain, throat swelling, difficulty swallowing, mouth swelling, ear pain, eye pain, visual Changes CARDIOVASCULAR: Absent: chest pain, loss of consciousness, palpitations, irregular heart rate, peripheral edema RESPIRATORY: Present: shortness of breath with exertion Absent: cough, shortness of breath, dyspnea with exertion, orthopnea, wheezing, stridor, hemoptysis GASTROINTESTINAL: Absent: abdominal pain, abdominal distension, nausea, vomiting, diarrhea, constipation, melena, hematochezia GENITOURINARY: Absent: dysuria, frequency, urgency, hesitancy, hematuria, flank pain, genital pain MUSCULOSKELETAL: Present: L calf pain and swelling Absent: myalgia, arthralgia, joint swelling SKIN: Absent: rash, itching, pallor HEMATOLOGIC/IMMUNOLOGIC: Absent: easy bleeding, easy bruising, lymphadenopathy, frequent infections ENDOCRINE: Absent: unexplained weight gain, unexplained weight loss, heat intolerance, cold intolerance NEUROLOGIC: Absent: headache, focal weakness or paresthesias, dizziness, unsteady gait, seizure, mental status changes, bladder or bowel incontinence PSYCHIATRIC: Absent: anxiety, depression, suicidal or homicidal ideation, hallucinations. Is the patient limited Tajik proficient: No *Physical Exam - Vital Signs Last Vital Signs Temp Pulse Resp BP Pulse Ox 98.4 F 83 20 144/61 99 03/21/18 11:30 03/21/18 11:30 03/21/18 11:30 03/21/18 11:30 03/21/18 11:30 - Physical Exam Comments: 03/21/18 16:53 GENERAL: Well developed, well nourished. Awake and alert. No acute distress. HEENT: Normocephalic, atraumatic. PERRLA, EOMI. No conjunctival pallor. Sclera are non- icteric. Moist mucous membranes. Oropharynx is clear. NECK: Supple. Full ROM. No JVD. Carotid pulses 2+ and symmetric, without bruits. No thyromegaly. No lymphadenopathy. CARDIOVASCULAR: Regular rate and rhythm. No murmurs, rubs, or gallops. Distal pulses are 2+ and symmetric. PULMONARY: No evidence of respiratory distress. Lungs clear to auscultation bilaterally. No wheezing, rales or rhonchi. ABDOMINAL: Soft. Non-tender. Non-distended. No rebound or guarding. No organomegaly. Normoactive bowel sounds. MUSCULOSKELETAL Normal range of motion at all joints. No bony deformities or tenderness. No CVA tenderness. EXTREMITIES: TTP of the L calf with associated swelling. No cyanosis. No clubbing. SKIN: Warm and dry. Normal capillary refill. No rashes. No jaundice. NEUROLOGICAL: Alert, awake, appropriate. Cranial nerves 2-12 intact. No deficits to light touch and temperature in face, upper extremities and lower extremities. No motor deficits in the in face, upper extremities and lower extremities. Normoreflexic in the upper and lower extremities. Normal speech. Toes are down- going bilaterally. Gait is normal without ataxia. PSYCHIATRIC: Cooperative. Good eye contact. Appropriate mood and affect. Moderate Sedation - Procedure Monitoring Vital Signs: Procedure Monitoring Vital Signs Temperature 98.4 F 03/21/18 11:30 Pulse Rate 83 03/21/18 11:30 Respiratory Rate 20 03/21/18 11:30 Blood Pressure 144/61 03/21/18 11:30 O2 Sat by Pulse Oximetry (%) 99 03/21/18 11:30 ED Treatment Course - LABORATORY CBC & Chemistry Diagram: 03/21/18 12:34 03/21/18 12:34 Medical Decision Making - Medical Decision Making 03/21/18 17:00 Patient is a 72-year-old female with multiple comorbidities including past DVT/ PE not on anticoagulation, chronic kidney disease, and IDDM, who presents to the ER for left leg swelling and pain for one week. On exam patient with exquisite tenderness to the left calf. Ultrasound shows a DVT of the left common femoral. Creatinine clearance is 31. Creatinine is 1.6, BUN 32. Given associated shortness of breath patient requires scanning of her chest for PE. However the cannot scan with a CT with contrast of the chest due to her renal function. We will order a VQ scan. Unfractionated heparin started at this time. Admit to hospitalists. EKbpm, NSR. Qtc 405. Normal axis and intervals. Flattened T-waves in V4-V6 , V2. *DC/Admit/Observation/Transfer Diagnosis at time of Disposition: Diabetes mellitus type 2, noninsulin dependent, History of pulmonary embolus ( PE), Shortness of breath on exertion DVT (deep venous thrombosis) Qualifiers: DVT location: lower extremity Affected thrombotic vein of extremity: femoral Chronicity: acute Laterality: left Qualified Code(s): I82.412 - Acute embolism and thrombosis of left femoral vein Hypertension Qualifiers: Hypertension type: unspecified Qualified Code(s): I10 - Essential (primary) hypertension - Discharge Dispostion Condition at time of disposition: Guarded Decision to Admit order: Yes - Referrals Referrals: Ana Arroyo [Primary Care Provider] - - Patient Instructions - Post Discharge Activity
[2018-03-21 14:41] LABS: BASO % 0.9 % (0-2.0); EOS % 1.6 % (0-4.5); HEMATOCRIT 28.6 % (32.4-45.2); HEMOGLOBIN 9.9 GM/dL (10.7-15.3); MCHC 34.5 g/dl (32.0-36.0); MEAN CELL VOLUME 92.8 fl (80-96); MEAN PLT VOLUME 7.1 fl (7.5-11.1); MONO % 7.9 % (3.8-10.2); NEUT % 61.6 % (42.8-82.8); PLATELET COUNT 189 K/MM3 (134-434); RBC 3.08 M/mm3 (3.60-5.2); WHITE BLOOD COUNT 5.2 K/mm3 (4.0-10.0)
[2018-03-21 14:51] LABS: INR 1.07 (0.83-1.09); PROTHROMBIN TIME (PATIENT) 12.6 SEC (9.7-13.0)
[2018-03-21 15:04] LABS: ALBUMIN 3.6 g/dl (3.4-5.0); ALK PHOS 91 U/L (45-117); ANION GAP 6 MMOL/L (8-16); BILIRUBIN,TOTAL 0.2 mg/dL (0.2-1); BLOOD UREA NITROGEN 32 mg/dL (7-18); CALCIUM 8.8 mg/dL (8.5-10.1); CHLORIDE 109 mmol/L (98-107); CO2 25 mmol/L (21-32); CREATININE 1.6 mg/dL (0.55-1.3); GLUCOSE,RANDOM 91 mg/dL (74-106); POTASSIUM 4.4 mmol/L (3.5-5.1); SGOT/AST 14 U/L (15-37); SGPT/ALT 20 U/L (13-61); SODIUM 140 mmol/L (136-145); TOT PROT 7.5 g/dl (6.4-8.2)
[2018-03-21 15:48] LABS: N-TERMINAL BNP 78.2 pg/ml (5-125)
[2018-03-21] MEDS ORDERED: HEPARIN NA (PORCINE) 5,000 UNITS/ML 1ML VIAL IVPUSH PRN ×2 (16:24)
[2018-03-21] MEDS ORDERED: HEPARIN NA (PORCINE) 5,000 UNITS/ML 1ML VIAL IVPUSH ONE (16:49)
[2018-03-21] MEDS ORDERED: HEPARIN NA (PORCINE) 5,000 UNITS/ML 1ML VIAL ONE (17:02)
[2018-03-21] MEDS ORDERED: HEPARIN INFUSION - 25,000 UNITS/500 ML INFUS.BAG IVPB ONE (17:02)
[2018-03-21] MEDS: HEPARIN - 25,000 UNIT in SODIUM CHLORIDE 495 ML IV SCH (17:22)
--- NOTE | 2018-03-21 19:03 | HP ---
CHIEF COMPLAINT: SOB, leg pain PCP: Dr Arroyo HISTORY OF PRESENT ILLNESS: The patient is a 72 year old female with a PMH of DVT in RLE, PE, (on anticoagulation in the past after first DVT 10 years ago, stopped in May 2017 by her PCP), CKD, colon Ca, (s/p ex lap resection, chemotherapy in 2004), Left breast Ca (LCIS in 2012, was on Tamoxifen in the past), DMII, HTN, thyroid disease, pancreatitis, that presented to the hospital complaining of left leg swelling, pain and SOB for 3-4 days. The pain is constant, located on medial side of her leg, behind the knee and radiating to her thigh. She also reports chronic SOB that she believes is due to her weight that worsened in the past 3- 4 days. She follows Hem/Onc Dr Freedman and is compliant with her home medications. She ambulates with walker, cane and wheelchair when needed. No history of flight, prolonged immobilization. She denies chest pain, palpitations , dizziness, weakness, vision problems. She denies ysuria, diarrhea, constipation, N/V. ER course was notable for: (1)Dupplex LLE (2)CXR (3)Heparin drip PAST MEDICAL HISTORY: as above PAST SURGICAL HISTORY: ex lap for obstruction in , lap cholecystectomy complicated with pancreatitis in 2016, breast biopsy b/l, appendectomy, hernia repair with mesh Social History: Smoking:former smoker, Alcohol:no Drugs: no Lives with grandchildren Family History: Mother: heart disease, pacemaker 7 healthy children Allergies No Known Drug Allergies Allergy (Verified 12/02/16 13:06) HOME MEDICATIONS: Home Medications Medication Instructions Recorded Amlodipine Besylate 2.5 mg PO DAILY 12/10/16 Cholecalciferol (Vitamin D3) 50,000 unit PO WEEKLY 12/10/16 [Vitamin D3] Hydrochlorothiazide [Hctz -] 12.5 mg PO DAILY 12/10/16 Levothyroxine [Synthroid -] 100 mcg PO DAILY 12/10/16 metFORMIN HCL [Metformin ER 500 mg PO DAILY 12/10/16 Osmotic] Atorvastatin Calcium [Lipitor] 20 mg PO HS 03/21/18 Omeprazole 40 mg PO DAILY 03/21/18 Pramipexole Di-HCl [Mirapex] 0.25 mg PO AM 03/21/18 REVIEW OF SYSTEMS CONSTITUTIONAL: Absent: fever, chills, diaphoresis, generalized weakness, malaise, loss of appetite, weight change HEENT: Absent: rhinorrhea, nasal congestion, throat pain, visual changes CARDIOVASCULAR: Absent: chest pain, syncope, palpitations, irregular heart rate, lightheadedness , peripheral edema RESPIRATORY: shortness of breath, dyspnea with exertion Absent: cough, orthopnea, wheezing, stridor, hemoptysis GASTROINTESTINAL: Absent: abdominal pain, abdominal distension, nausea, vomiting, diarrhea, constipation GENITOURINARY: Absent: dysuria, frequency, urgency, hematuria, flank pain MUSCULOSKELETAL: left leg pain Absent: myalgia, arthralgia, joint swelling, back pain, neck pain HEMATOLOGIC/IMMUNOLOGIC: Absent: easy bleeding, easy bruising, lymphadenopathy ENDOCRINE: Absent: unexplained weight gain, unexplained weight loss NEUROLOGIC: Absent: headache, focal weakness or paresthesias, dizziness, unsteady gait, seizure, mental status changes PSYCHIATRIC: Absent: anxiety, depression PHYSICAL EXAMINATION Vital Signs - 24 hr 03/21/18 03/21/18 11:30 16:26 Temperature 98.4 F 98.3 F Pulse Rate 83 Pulse Rate [ 72 Left Radial] Respiratory 20 Rate Blood Pressure 144/61 Blood Pressure 121/55 L [Left Arm] O2 Sat by Pulse 99 99 Oximetry (%) GENERAL: Awake, alert, and fully oriented, in no acute distress. HEAD: Normal with no signs of trauma. EYES: Pupils equal, round and reactive to light, extraocular movements intact, sclera anicteric, conjunctiva clear. No lid lag. EARS, NOSE, THROAT: Ears normal, nares patent, oropharynx clear without exudates. Moist mucous membranes. NECK: Normal range of motion, supple without lymphadenopathy, JVD, or masses. LUNGS: Breath sounds equal, clear to auscultation bilaterally. No wheezes, and no crackles. No accessory muscle use. HEART: Regular rate and rhythm, normal S1 and S2 without murmur, rub or gallop. ABDOMEN: Soft, nontender, not distended, normoactive bowel sounds, no guarding, no rebound, no masses. No hepatomegaly or splenomegaly. MUSCULOSKELETAL: Normal range of motion at all joints. No bony deformities or tenderness. No CVA tenderness. UPPER EXTREMITIES: 2+ pulses, warm, well-perfused. No cyanosis. No clubbing. No peripheral edema. LOWER EXTREMITIES: 2+ pulses, warm, well-perfused. No calf tenderness. No peripheral edema. NEUROLOGICAL: Cranial nerves II-XII intact. Normal speech. Normal gait. PSYCHIATRIC: Cooperative. Good eye contact. Appropriate mood and affect. SKIN: Warm, dry, normal turgor, no rashes or lesions noted, normal capillary refill. Laboratory Results - last 24 hr 03/21/18 03/21/18 03/21/18 12:34 12:34 12:34 WBC 5.2 RBC 3.08 L Hgb 9.9 L Hct 28.6 L MCV 92.8 MCH 32.0 MCHC 34.5 RDW 15.0 Plt Count 189 D MPV 7.1 L Absolute Neuts (auto) 3.2 Neutrophils % 61.6 D Lymphocytes % 28.0 D Monocytes % 7.9 Eosinophils % 1.6 Basophils % 0.9 Nucleated RBC % 0 PT with INR 12.60 INR 1.07 PTT (Actin FS) Sodium 140 Potassium 4.4 Chloride 109 H Carbon Dioxide 25 Anion Gap 6 L BUN 32 H Creatinine 1.6 H Creat Clearance w eGFR 31.60 Random Glucose 91 Calcium 8.8 Total Bilirubin 0.2 AST 14 L ALT 20 Alkaline Phosphatase 91 Creatine Kinase Troponin I B-Natriuretic Peptide 78.2 Total Protein 7.5 Albumin 3.6 03/21/18 03/21/18 03/21/18 12:34 14:26 16:59 WBC RBC Hgb Hct MCV MCH MCHC RDW Plt Count MPV Absolute Neuts (auto) Neutrophils % Lymphocytes % Monocytes % Eosinophils % Basophils % Nucleated RBC % PT with INR INR PTT (Actin FS) 28.9 Sodium Potassium Chloride Carbon Dioxide Anion Gap BUN Creatinine Creat Clearance w eGFR Random Glucose Calcium Total Bilirubin AST ALT Alkaline Phosphatase Creatine Kinase 46 Troponin I < 0.02 B-Natriuretic Peptide Cancelled Total Protein Albumin ASSESSMENT/PLAN: he patient is a 72 year old female with a PMH of DVT in RLE, PE, not on AC, CKD , colon Ca, DMII, HTN, thyroid disease, pancreatitis, that presented to the hospital complaining of left leg swelling, pain and SOB for 3-4 days, admitted for DVT, r/o PE. LLE DVT, R/O PE: -the patient presented with complaints of SOB as well as pain in LLE for 3-4 days, -Dupplex positive for DVT in left femoral vein, high suspicion for PE -hemodynamically stable, BP 121/55 HR 72, 99 RA, no new ekg changes -started on Heparin drip in ED -will obtain V/Q scan, Pulmonary consulted -ordered ECHO, EKG in AM -vital signs monitoring -cardiac monitoring -f/u Hem/Onc recommendations -pain control with Tylenol 500 mg Q6H SOB: -likely related to possible PE but also the patient reports dyspnea on exertion before -she was seen by [facility], had ECHO and was told that it was stable -last ECHO in [facility] 11/25 normal LV funtion, trace MR, TR, mild aortic stenosis -will monitor on telemetry -no Oxygen supplementation required HTN: -continue Hctz, Norvasc, Enalapril Thyroid disease: -cont Synthroid 100 mcg -will check TSH DMII: ISS ACHS -BGM ACHS -HGA1C -hold metformin NEGRA on CKD: -Cr 1.6, BUN 32, above baseline -UA urine studies ordered -renal US ordered to r/o obstruction -hold Hctz -NS at 75 cc/hr Morbid obesity: -counseling provided H/o of brease and colon Ca: -stable, not on any medications GERD: -continue Omeprazole 40 mg qd DVT PPX: Heparin drip F/E/N: NS/no changes/Diabetic diet, low calorie Disposition: telemetry Visit type - Emergency Visit Emergency Visit: Yes ED Registration Date: 03/21/18 Care time: The patient presented to the Emergency Department on the above date and was hospitalized for further evaluation of their emergent condition. - New Patient This patient is new to me today: Yes Date on this admission: 03/21/18 - Critical Care Critical Care patient: No
--- NOTE | 2018-03-21 19:41 | PN ---
Teaching Attending Note Name of Resident: Ronit Rizo ATTENDING PHYSICIAN STATEMENT I saw and evaluated the patient. I reviewed the resident's note and discussed the case with the resident. I agree with the resident's findings and plan as documented. SUBJECTIVE: This is a 72 year old woman with a history of RLE DVT, PE, CKD, colon cancer, breast cancer, type 2 DM, HTN, hypothyroidism who comes to the ED complaining of left leg swelling, pain and SOB x 3 days. She does have SOB at baseline, but it has been worse for the last 3 days. She denies chest pain, palpitations, fever, chills, cough. She had been on anticoagulation for previous DVT/PE until May 2017. OBJECTIVE: Vital Signs Period Temp Pulse Resp BP Sys/Brandt Pulse Ox Last 24 Hr 98.3 F-98.4 F 72-83 20 121-144/55-61 99-99 HEART: S1S2, RRR LUNGS: Clear ABDOMEN: Obese, soft, non-tender, non-distended, normal BS EXTREMITIES: Left calf tenderness with swelling Laboratory Results - last 24 hr 03/21/18 03/21/18 03/21/18 12:34 12:34 12:34 WBC 5.2 RBC 3.08 L Hgb 9.9 L Hct 28.6 L MCV 92.8 MCH 32.0 MCHC 34.5 RDW 15.0 Plt Count 189 D MPV 7.1 L Absolute Neuts (auto) 3.2 Neutrophils % 61.6 D Lymphocytes % 28.0 D Monocytes % 7.9 Eosinophils % 1.6 Basophils % 0.9 Nucleated RBC % 0 PT with INR 12.60 INR 1.07 PTT (Actin FS) Sodium 140 Potassium 4.4 Chloride 109 H Carbon Dioxide 25 Anion Gap 6 L BUN 32 H Creatinine 1.6 H Creat Clearance w eGFR 31.60 Random Glucose 91 Calcium 8.8 Total Bilirubin 0.2 AST 14 L ALT 20 Alkaline Phosphatase 91 Creatine Kinase Troponin I B-Natriuretic Peptide 78.2 Total Protein 7.5 Albumin 3.6 03/21/18 03/21/18 03/21/18 12:34 14:26 16:59 WBC RBC Hgb Hct MCV MCH MCHC RDW Plt Count MPV Absolute Neuts (auto) Neutrophils % Lymphocytes % Monocytes % Eosinophils % Basophils % Nucleated RBC % PT with INR INR PTT (Actin FS) 28.9 Sodium Potassium Chloride Carbon Dioxide Anion Gap BUN Creatinine Creat Clearance w eGFR Random Glucose Calcium Total Bilirubin AST ALT Alkaline Phosphatase Creatine Kinase 46 Troponin I < 0.02 B-Natriuretic Peptide Cancelled Total Protein Albumin Home Medications Medication Instructions Recorded Amlodipine Besylate 2.5 mg PO DAILY 12/10/16 Cholecalciferol (Vitamin D3) 50,000 unit PO WEEKLY 12/10/16 [Vitamin D3] Hydrochlorothiazide [Hctz -] 12.5 mg PO DAILY 12/10/16 Levothyroxine [Synthroid -] 100 mcg PO DAILY 12/10/16 metFORMIN HCL [Metformin ER 500 mg PO DAILY 12/10/16 Osmotic] Atorvastatin Calcium [Lipitor] 20 mg PO HS 03/21/18 Omeprazole 40 mg PO DAILY 03/21/18 Pramipexole Di-HCl [Mirapex] 0.25 mg PO AM 03/21/18 ASSESSMENT AND PLAN: This is a 72 year old woman with a history of RLE DVT, PE, CKD, colon cancer, breast cancer, type 2 DM, HTN, hyperlipidemia, hypothyroidism who presented to the ED with left leg swelling, pain and increased SOB. 1. DVT of left common femoral and greater saphenous veins - Has history of RLE DVT and PE - Heparin IV drip started in ED - Will evaluate for PE - Unable to do CTA secondary to NEGRA - Echocardiogram - Pulmonary consult for possible V/Q scan - Hematology/oncology consult 2. Acute kidney injury - Hold HCTZ - IV fluid - Renal US - Urine studies 3. Stage 3 CKD 4. HTN - Continue Norvasc - Hold HCTZ secondary to NEGRA 5. Hyperlipidemia - Continue Lipitor 6. Hypothyroidism - Continue Synthroid 7. Type 2 DM - Hold metformin - Fingersticks with Novolog sliding scale 8. GERD - Continue Protonix 9. Anemia, likely secondary to chronic illness - Hemoglobin stable - Check stool occult blood, iron studies 10. Breast cancer 11. Colon cancer 12. Morbid obesity
[2018-03-21] MEDS ORDERED: SODIUM CHLORIDE 1,000 ML IV SCH ×2 (20:00→20:02)
[2018-03-21] MEDS ORDERED: ATORVASTATIN CA 10 MG TABLET (FP) ONE (23:17)
[2018-03-21] MEDS: ATORVASTATIN CA 20 MG TABLET (FP) PO SCH (23:22)
[2018-03-21] MEDS: INSULIN SLIDING SCALE (NOVOLOG) 1 VIAL SQ SCH (23:23)
[2018-03-22] MEDS ORDERED: ACETAMINOPHEN 325 MG TABLET (FP) ONE (05:10)
[2018-03-22] MEDS: ACETAMINOPHEN 500 MG TABLET (FP) PO PRN ×2 (05:13→14:55)
[2018-03-22 06:03] LABS: BASO % 0.9 % (0-2.0); EOS % 2.6 % (0-4.5); HEMATOCRIT 28.7 % (32.4-45.2); HEMOGLOBIN 9.1 GM/dL (10.7-15.3); MCHC 31.8 g/dl (32.0-36.0); MEAN CELL VOLUME 94.3 fl (80-96); MEAN PLT VOLUME 7.1 fl (7.5-11.1); MONO % 8.4 % (3.8-10.2); NEUT % 50.1 % (42.8-82.8); PLATELET COUNT 171 K/MM3 (134-434); RBC 3.04 M/mm3 (3.60-5.2); RDW 14.9 % (11.6-15.6)
[2018-03-22] MEDS: LEVOTHYROXINE NA 100 MCG TABLET (FP) PO SCH (06:17)
[2018-03-22 06:21] LABS: INR 1.06 (0.83-1.09); PROTHROMBIN TIME (PATIENT) 12.5 SEC (9.7-13.0)
[2018-03-22 06:24] LABS: ACTIVATED PTT 24.2 SECONDS (25.2-36.5)
[2018-03-22 06:36] LABS: ALBUMIN 3.3 g/dl (3.4-5.0); ALK PHOS 88 U/L (45-117); ANION GAP 7 MMOL/L (8-16); BILIRUBIN,TOTAL 0.4 mg/dL (0.2-1); BLOOD UREA NITROGEN 29 mg/dL (7-18); CALCIUM 8.9 mg/dL (8.5-10.1); CHLORIDE 108 mmol/L (98-107); CO2 23 mmol/L (21-32); CREATININE 1.4 mg/dL (0.55-1.3); GLUCOSE,RANDOM 88 mg/dL (74-106); MAGNESIUM 1.8 mg/dL (1.8-2.4); POTASSIUM 4.3 mmol/L (3.5-5.1); SGOT/AST 13 U/L (15-37); SGPT/ALT 20 U/L (13-61); SODIUM 139 mmol/L (136-145); TOT PROT 7.1 g/dl (6.4-8.2)
[2018-03-22] MEDS ORDERED: HEPARIN NA (PORCINE) 5,000 UNITS/ML 1ML VIAL ONE (06:40)
--- NOTE | 2018-03-22 08:42 | EKG ---
Test Reason : Blood Pressure : / mmHG Vent. Rate : 077 BPM Atrial Rate : 077 BPM P-R Int : 208 ms QRS Dur : 080 ms QT Int : 358 ms P-R-T Axes : 046 -13 069 degrees QTc Int : 405 ms NORMAL SINUS RHYTHM MINIMAL VOLTAGE CRITERIA FOR LVH, MAY BE NORMAL VARIANT NONSPECIFIC T WAVE ABNORMALITY ABNORMAL ECG WHEN COMPARED WITH ECG OF 10-DEC-2016 18:48, NONSPECIFIC T WAVE ABNORMALITY NO LONGER EVIDENT IN INFERIOR LEADS NONSPECIFIC T WAVE ABNORMALITY, IMPROVED IN ANTERIOR LEADS Confirmed by MEGHAN JANG, WILLAM ([id number]) on 03/22/2018 8:42:43 AM Referred By: Confirmed By:WILLAM CHRISTIANSON MD
[2018-03-22] MEDS: INSULIN SLIDING SCALE (NOVOLOG) 1 VIAL SQ SCH ×4 (09:40→21:33)
[2018-03-22] MEDS: PRAMIPEXOLE DIHYDROCHLORIDE 0.25 MG TABLET PO SCH ×2 (09:43→18:05)
[2018-03-22] MEDS: amLODIPine BESYLATE 2.5 MG TABLET (FP) PO SCH (09:45)
[2018-03-22] MEDS: PANTOPRAZOLE 40 MG TABLET (FP) PO SCH (09:45)
[2018-03-22] MEDS ORDERED: HYDROCHLOROTHIAZIDE 12.5 MG CAPSULE (FP) PO SCH (10:00)
--- NOTE | 2018-03-22 17:17 | PN ---
Progress Note (short form) - Note Progress Note: no new c/o still in er and has no shortness of breath no fever or chills family is sitting with her ate well still waiting for v/q scan vs Vital Signs Period Temp Pulse Resp BP Sys/Brandt Pulse Ox Last 24 Hr 98.3 F-98.8 F 73-79 18-20 114-135/48-63 97-100 Heent nad neck supple lungs clear heart normal s1 and s2 ext trace edema on left leg Laboratory Results - last 24 hr 03/21/18 03/21/18 03/21/18 16:59 23:21 23:28 WBC RBC Hgb Hct MCV MCH MCHC RDW Plt Count MPV Absolute Neuts (auto) Neutrophils % Lymphocytes % Monocytes % Eosinophils % Basophils % Nucleated RBC % PT with INR INR PTT (Actin FS) 28.9 58.3 H Sodium Potassium Chloride Carbon Dioxide Anion Gap BUN Creatinine Creat Clearance w eGFR POC Glucometer 101.57192 Random Glucose Hemoglobin A1c % Calcium Phosphorus Magnesium Total Bilirubin AST ALT Alkaline Phosphatase Total Protein Albumin TSH 03/22/18 03/22/18 03/22/18 05:30 05:30 05:30 WBC 5.0 RBC 3.04 L Hgb 9.1 L Hct 28.7 L MCV 94.3 MCH 30.0 MCHC 31.8 L RDW 14.9 Plt Count 171 MPV 7.1 L Absolute Neuts (auto) 2.5 Neutrophils % 50.1 Lymphocytes % 38.0 D Monocytes % 8.4 Eosinophils % 2.6 Basophils % 0.9 Nucleated RBC % 0 PT with INR 12.50 INR 1.06 PTT (Actin FS) 24.2 L Sodium 139 Potassium 4.3 Chloride 108 H Carbon Dioxide 23 Anion Gap 7 L BUN 29 H Creatinine 1.4 H Creat Clearance w eGFR 36.86 POC Glucometer Random Glucose 88 Hemoglobin A1c % Calcium 8.9 Phosphorus 4.0 Magnesium 1.8 Total Bilirubin 0.4 AST 13 L ALT 20 Alkaline Phosphatase 88 Total Protein 7.1 Albumin 3.3 L TSH 7.19 H 03/22/18 03/22/18 03/22/18 05:30 08:19 11:48 WBC RBC Hgb Hct MCV MCH MCHC RDW Plt Count MPV Absolute Neuts (auto) Neutrophils % Lymphocytes % Monocytes % Eosinophils % Basophils % Nucleated RBC % PT with INR INR PTT (Actin FS) Sodium Potassium Chloride Carbon Dioxide Anion Gap BUN Creatinine Creat Clearance w eGFR POC Glucometer 99.15145 109.13089 Random Glucose Hemoglobin A1c % 5.3 Calcium Phosphorus Magnesium Total Bilirubin AST ALT Alkaline Phosphatase Total Protein Albumin TSH 03/22/18 12:40 WBC RBC Hgb Hct MCV MCH MCHC RDW Plt Count MPV Absolute Neuts (auto) Neutrophils % Lymphocytes % Monocytes % Eosinophils % Basophils % Nucleated RBC % PT with INR INR PTT (Actin FS) 52.0 H Sodium Potassium Chloride Carbon Dioxide Anion Gap BUN Creatinine Creat Clearance w eGFR POC Glucometer Random Glucose Hemoglobin A1c % Calcium Phosphorus Magnesium Total Bilirubin AST ALT Alkaline Phosphatase Total Protein Albumin TSH Current Medications Acetaminophen (Tylenol -) 500 mg PO Q6H PRN PRN Reason: PAIN LEVEL 1-5 Last Admin: 03/22/18 05:13 Dose: 500 mg Amlodipine Besylate (Norvasc -) 2.5 mg PO DAILY [facility] Last Admin: 03/22/18 09:45 Dose: 2.5 mg Atorvastatin Calcium (Lipitor -) 20 mg PO HS [facility] Last Admin: 03/21/18 23:22 Dose: 20 mg Heparin Sodium (Porcine) (Heparin -) 1,000 unit IVPUSH PRN PRN PRN Reason: Heparin Heparin Sodium (Porcine) (Heparin -) 5,000 unit IVPUSH PRN PRN PRN Reason: Heparin Heparin Sodium (Porcine) 25, (000 unit/ Sodium Chloride) 500 mls @ 20 mls/hr IV TITR [facility]; Protocol Last Admin: 03/21/18 17:22 Dose: 1,000 unit/hr, 20 mls/hr Sodium Chloride (Normal Saline -) 1,000 mls @ 75 mls/hr IV ASDIR [facility] Stop: 03/22/18 20:00 Last Admin: 03/21/18 20:55 Dose: 75 mls/hr Insulin Aspart (Novolog Vial Sliding Scale -) 1 vial SQ ACHS [facility]; Protocol Last Admin: 03/22/18 12:00 Dose: Not Given Levothyroxine Sodium (Synthroid -) 100 mcg PO DAILY@0700 [facility] Last Admin: 03/22/18 06:17 Dose: 100 mcg Pantoprazole Sodium (Protonix -) 40 mg PO DAILY [facility] Last Admin: 03/22/18 09:45 Dose: 40 mg Pramipexole Dihydrochloride (Mirapex -) 0.25 mg PO DAILY@0900 [facility] Last Admin: 03/22/18 09:43 Dose: 0.25 mg Pramipexole Dihydrochloride (Mirapex -) 0.5 mg PO DAILY@1830 [facility] ASSESSMENT AND PLAN: This is a 72 year old woman with a history of RLE DVT, PE, CKD, colon cancer, breast cancer, type 2 DM, HTN, hyperlipidemia, hypothyroidism who presented to the ED with left leg swelling, pain and increased SOB. 1. DVT of left common femoral and greater saphenous veins - Has history of RLE DVT and PE warfarin was stopped by pmd bc she was clot free for many years - still on Heparin IV drip - Pulmonary consult for possible V/Q scan - Hematology/oncology consult 2. Acute kidney injury - Hold HCTZ - IV fluid - Renal US - Urine studies repeat labs am 3. Stage 3 CKD 4. HTN - Continue Norvasc - Hold HCTZ secondary to NEGRA 5. Hyperlipidemia - Continue Lipitor 6. Hypothyroidism - Continue Synthroid 7. Type 2 DM - Hold metformin - Fingersticks with Novolog sliding scale 8. GERD - Continue Protonix 9. Anemia, likely secondary to chronic illness - Hemoglobin stable - Check stool occult blood, iron studies awaiting for results yet
--- NOTE | 2018-03-22 17:29 | PN ---
Progress Note (short form) - Note Progress Note: PULMONARY CONSULTATION DICTATED 03/22/18 IMP LLE DVT RECURRENT H/O DVT/PE DYSPNEA ?PE,? CARDIAC HTN H/O COLON CA S/P RESECTION H/O BREAST CA DM HYPOTHYROID H/P PANCREATITIS LIKELY OSAS CKD PLAN AC PT WILL REQUIRE LIFELONG AC O2 NEEDED ECHO V/Q MONITOR LYTES,RENAL FUNCTION SLEEP SCREEN PFTS OUTPATIENT W/U FOR HYPERCOAGULABLE STATE OUTPATIENT DR AVILEZ Problem List - Problems (1) DVT (deep venous thrombosis) Code(s): I82.409 - ACUTE EMBOLISM AND THOMBOS UNSP DEEP VN UNSP LOWER EXTREMITY Qualifiers: DVT location: lower extremity Affected thrombotic vein of extremity: femoral Chronicity: acute Laterality: left Qualified Code(s): I82.412 - Acute embolism and thrombosis of left femoral vein (2) Diabetes mellitus type 2, noninsulin dependent Code(s): E11.9 - TYPE 2 DIABETES MELLITUS WITHOUT COMPLICATIONS (3) History of pulmonary embolus (PE) Code(s): Z86.711 - PERSONAL HISTORY OF PULMONARY EMBOLISM (4) Hypertension Code(s): I10 - ESSENTIAL (PRIMARY) HYPERTENSION Qualifiers: Hypertension type: unspecified Qualified Code(s): I10 - Essential (primary ) hypertension (5) Shortness of breath on exertion Code(s): R06.02 - SHORTNESS OF BREATH (6) Colon cancer Code(s): C18.9 - MALIGNANT NEOPLASM OF COLON, UNSPECIFIED (7) Hypothyroidism Code(s): E03.9 - HYPOTHYROIDISM, UNSPECIFIED Qualifiers: Hypothyroidism type: acquired Qualified Code(s): E03.9 - Hypothyroidism, unspecified (8) Obesity (BMI 30-39.9) Code(s): E66.9 - OBESITY, UNSPECIFIED
--- NOTE | 2018-03-22 17:58 | CONS ---
DATE OF CONSULTATION: 03/22/2018 REFERRING PHYSICIAN: Rocky Matthews MD HISTORY: The patient is a 72-year-old female with past medical history of right lower extremity DVT, PE 10 years ago, has been on Coumadin since chronic kidney disease, colon cancer status post resection, breast cancer, type 2 diabetes mellitus, hypertension, hypothyroidism, smoker, history of tobacco use approximately 1 pack a day for 10 years who quit 10 years ago admitted to [facility] with the complaint of left lower extremity swelling and pain x3 days. The patient also complains of shortness of breath with exertion increasing in severity over the past few days. The patient states that she started noticing the swelling left lower extremity getting progressively worse over the past couple of days.Pt went to for further evaluation In the ER, she underwent a duplex of the lower extremity, which revealed extensive left lower extremity DVT. She was started on anticoagulation. The patient has been on anticoagulation for approximately 10 years since her last pulmonary embolism and DVT. It was stopped in May 2017 by her primary care physician. The patient denies any history of COPD or asthma. There is no history of recent travel. There is no history of occupational exposure to chemicals or fumes. She denies any chest pain. She does have palpitations. Denies any hemoptysis. PAST MEDICAL HISTORY: Again includes DVT right lower extremity and PE, on anticoagulation for approximately 10 years stopped May 2017, chronic kidney disease, colon cancer status post laparoscopic resection, started on chemotherapy, left breast cancer maintained on Tamoxifen in the past, hypertension, type 2 diabetes mellitus, hypothyroidism, pancreatitis. REVIEW OF SYSTEMS: Positive dyspnea on exertion. No chest pain. Positive palpitations. No fever, no chills, no abdominal pain, no weight loss, no night sweats. Positive left lower extremity tenderness and swelling. CURRENT MEDICATIONS: Include Tylenol, heparin, Norvasc, Mirapex, NovoLog, pantoprazole, Synthroid. PHYSICAL EXAMINATION: General: The patient is an obese female well developed, awake, and alert in no acute distress. Vital Signs: She is afebrile. Blood pressure 114/63, respiratory rate 18, O2 saturation 98%. HEENT: Normocephalic and atraumatic. Neck: Supple. Heart: Regular with S1, S2. Chest: Bilateral crackles. Abdomen: Soft. Bowel sounds positive. Extremities: There is swelling and tenderness left calf. LABORATORIES: WBC 5, hemoglobin 9.1, hematocrit 28.7 with a platelet count of 171,000, INR 1.06, BUN 29, creatinine 1.4. Chest x-ray: Prominent mediastinum but no acute infiltrates and/or effusions. IMPRESSION: 1. Left lower extremity deep vein thrombosis, recurrent. 2. History of deep vein thrombosis and pulmonary embolism. 3. History of colon cancer status post resection status post chemotherapy. 4. History of breast cancer. 5. Hypertension. 6. Morbid obesity. 7. Likely obstructive sleep apnea. 8. History of pancreatitis. 9. Chronic kidney disease. 10. History of hypothyroidism. 11. Type 2 diabetes mellitus. PLAN: 1. Anticoagulation. Patient will require lifelong anticoagulation since this is a recurrent episode. 2. Echocardiogram. 3. VQ scan. 4. Sleep screen. 5. Troponins. 6. Monitor renal function. 7. PFTs outpatient 8. Workup hyper-coagulable state as outpatient Thank you. We will follow closely with you. JAJA AVILEZ M.D. [id number] MTDD
--- NOTE | 2018-03-22 20:42 | CONSULT ---
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 Found to have extensive thrombus in common femoral vein as well as great saphenous vein. Started on UFH. Pt denies recent immobilization, injury, surgery and travel. Not aware of past thrombophilia w/u. No family history of clots. Not on any hormonal treatment. Reports that mammo and colonoscopy are UTD. Denies any bleeding issues in the past, including 10 years on warfarin. Has chronic normocytic anemia, stable, since at least 2016. - History Source History Provided By: Patient, Medical Record - Past Medical History CLEANER FURNITURE: Yes: CVA (h/o but pt was not aware of it) Cardio/Vascular: Yes: Deep Vein Thrombosis (and PE s/p IVC filter on coumadin), HTN, Hyperlipdemia (?), Other (possible valvular stenosis?) Gastrointestinal: Yes: Cancer (R hemicolectomy), Other (diarrhea/chronic loose stool) Hepatobiliary: Yes: Cholecystitis (s/p lap [place] 5d ago) Musculoskeletal: Yes: Other (R shoulder tendinitis) Endocrine: Yes: Hypothyroidism - Past Surgical History Past Surgical History: Yes: Appendectomy ((part of R hemicolectomy)), Breast Biopsy (?), Cholecystectomy (laparoscopic 5 days ago), Colectomy (R massiel for CA 2003), Hernia Repair (abdominal wall with mesh at time of hemicolectomy per pt) - Alcohol/Substance Use Hx Alcohol Use: No History of Substance Use: reports: None - Smoking History Smoking history: Never smoked Have you smoked in the past 12 months: No Aproximately how many cigarettes per day: 0 If you are a former smoker, when did you quit?: 1971 Home Medications - Allergies Allergies/Adverse Reactions: Allergies Allergy/AdvReac Type Severity Reaction Status Date / Time No Known Drug Allergies Allergy Verified 12/02/16 13:06 - Home Medications Home Medications: Ambulatory Orders Amlodipine Besylate 2.5 mg PO DAILY 12/10/16 Cholecalciferol (Vitamin D3) [Vitamin D3] 50,000 unit PO WEEKLY 12/10/16 Hydrochlorothiazide [Hctz -] 12.5 mg PO DAILY 12/10/16 Levothyroxine [Synthroid -] 100 mcg PO DAILY 12/10/16 metFORMIN HCL [Metformin ER Osmotic] 500 mg PO DAILY 12/10/16 Atorvastatin Calcium [Lipitor] 20 mg PO HS 03/21/18 Omeprazole 40 mg PO DAILY 03/21/18 Pramipexole Di-HCl [Mirapex] 0.25 mg PO AM 03/21/18 Review of Systems - Review of Systems Constitutional: reports: No Symptoms Eyes: reports: No Symptoms Cardiovascular: reports: No Symptoms, Shortness of Breath Respiratory: reports: SOB Gastrointestinal: reports: No Symptoms Hematology/Lymphatic: reports: No Symptoms Physical Exam Vital Signs: Vital Signs Temperature 98.3 F 03/22/18 18:15 Pulse Rate 77 03/22/18 18:15 Respiratory Rate 18 03/22/18 18:15 Blood Pressure 129/72 03/22/18 18:15 O2 Sat by Pulse Oximetry (%) 98 03/22/18 09:35 Constitutional: Yes: No Distress, Calm Eyes: Yes: Conjunctiva Clear Cardiovascular: Yes: Regular Rate and Rhythm Respiratory: Yes: Regular, CTA Bilaterally Gastrointestinal: Yes: Normal Bowel Sounds, Soft, Abdomen, Obese Edema: Yes (L>R) Labs: CBC, BMP 03/22/18 05:30 03/22/18 05:30 Problem List - Problems (1) DVT (deep venous thrombosis) Assessment/Plan: 72F with hx DVT/PE 10 years ago (off AC), now with extensive LLE DVT. Given recurrent VTE, will need lifelong AC Discussed options for prison anticoagulation with patient -- warfarin vs. Eliquis. She would like to think about it but is leaning toward warfarin given her 10 year history on it without issues. Can bridge with Lovenox (may need renal dosing if creatinine does not improve, baseline unclear) to warfarin if patients chooses it. Code(s): I82.409 - ACUTE EMBOLISM AND THOMBOS UNSP DEEP VN UNSP LOWER EXTREMITY Qualifiers: DVT location: lower extremity Affected thrombotic vein of extremity: femoral Chronicity: acute Laterality: left Qualified Code(s): I82.412 - Acute embolism and thrombosis of left femoral vein (2) Anemia Assessment/Plan: Please check b12, folate, iron studies Likely a component of kidney disease Code(s): D64.9 - ANEMIA, UNSPECIFIED
[2018-03-22] MEDS: ATORVASTATIN CA 20 MG TABLET (FP) PO SCH (21:35)
[2018-03-22] MEDS: HEPARIN - 25,000 UNIT in SODIUM CHLORIDE 495 ML IV SCH (21:51)
[2018-03-23] MEDS: ACETAMINOPHEN 500 MG TABLET (FP) PO PRN ×2 (04:33→15:26)
[2018-03-23] MEDS: INSULIN SLIDING SCALE (NOVOLOG) 1 VIAL SQ SCH ×4 (06:00→21:34)
[2018-03-23] MEDS: LEVOTHYROXINE NA 100 MCG TABLET (FP) PO SCH (06:04)
[2018-03-23 07:44] LABS: HEMATOCRIT 27.5 % (32.4-45.2); HEMOGLOBIN 8.8 GM/dL (10.7-15.3); MCHC 32.1 g/dl (32.0-36.0); MEAN CELL VOLUME 93.4 fl (80-96); MEAN PLT VOLUME 7.3 fl (7.5-11.1); PLATELET COUNT 197 K/MM3 (134-434); RBC 2.95 M/mm3 (3.60-5.2); RDW 14.8 % (11.6-15.6); WHITE BLOOD COUNT 5.3 K/mm3 (4.0-10.0)
--- NOTE | 2018-03-23 08:42 | EKG ---
Test Reason : Blood Pressure : / mmHG Vent. Rate : 073 BPM Atrial Rate : 073 BPM P-R Int : 224 ms QRS Dur : 080 ms QT Int : 342 ms P-R-T Axes : 045 -16 063 degrees QTc Int : 376 ms SINUS RHYTHM WITH 1ST DEGREE A-V BLOCK MINIMAL VOLTAGE CRITERIA FOR LVH, MAY BE NORMAL VARIANT CANNOT RULE OUT ANTERIOR INFARCT , AGE UNDETERMINED ABNORMAL ECG WHEN COMPARED WITH ECG OF 21-MAR-2018 14:13, NO SIGNIFICANT CHANGE WAS FOUND Confirmed by MEGHAN JANG, WILLAM ([id number]) on 03/23/2018 8:42:18 AM Referred By: Gina CHADWICK Confirmed By:WILLAM CHRISTIANSON MD
[2018-03-23] MEDS ORDERED: FLU VACCINE QUAD 60 MCG/0.5 ML (MDV 18-19) IM ONE (10:00)
--- NOTE | 2018-03-23 10:34 | PN ---
Progress Note, Physician History of Present Illness: PULMONARY ALERT,FEELING BETTER,COMFORTABLE AT REST.SLEEP SCREEN AHI 13.7 - Current Medication List Current Medications: Active Medications Acetaminophen (Tylenol -) 500 mg PO Q6H PRN PRN Reason: PAIN LEVEL 1-5 Last Admin: 03/23/18 04:33 Dose: 500 mg Amlodipine Besylate (Norvasc -) 2.5 mg PO DAILY [facility] Last Admin: 03/22/18 09:45 Dose: 2.5 mg Atorvastatin Calcium (Lipitor -) 20 mg PO HS [facility] Last Admin: 03/22/18 21:35 Dose: 20 mg Heparin Sodium (Porcine) (Heparin -) 1,000 unit IVPUSH PRN PRN PRN Reason: Heparin Heparin Sodium (Porcine) (Heparin -) 5,000 unit IVPUSH PRN PRN PRN Reason: Heparin Heparin Sodium (Porcine) 25, (000 unit/ Sodium Chloride) 500 mls @ 20 mls/hr IV TITR [facility]; Protocol Last Admin: 03/22/18 21:51 Dose: 1,150 unit/hr, 23 mls/hr Insulin Aspart (Novolog Vial Sliding Scale -) 1 vial SQ ACHS [facility]; Protocol Last Admin: 03/23/18 06:00 Dose: Not Given Levothyroxine Sodium (Synthroid -) 100 mcg PO DAILY@0700 [facility] Last Admin: 03/23/18 06:04 Dose: 100 mcg Pantoprazole Sodium (Protonix -) 40 mg PO DAILY [facility] Last Admin: 03/22/18 09:45 Dose: 40 mg Pramipexole Dihydrochloride (Mirapex -) 0.25 mg PO DAILY@0900 [facility] Last Admin: 03/22/18 09:43 Dose: 0.25 mg Pramipexole Dihydrochloride (Mirapex -) 0.5 mg PO DAILY@1830 [facility] Last Admin: 03/22/18 18:05 Dose: 0.5 mg - Objective Vital Signs: Vital Signs Temperature 98.4 F 03/23/18 09:44 Pulse Rate 85 03/23/18 09:44 Respiratory Rate 18 03/23/18 09:44 Blood Pressure 132/68 03/23/18 09:44 O2 Sat by Pulse Oximetry (%) 97 03/22/18 21:00 Constitutional: Yes: Well Nourished, Calm, Obese Eyes: Yes: WNL HENT: Yes: WNL Neck: Yes: WNL Cardiovascular: Yes: Regular Rate and Rhythm, S1, S2 Respiratory: Yes: Rales (BIBASILAR RALES) Gastrointestinal: Yes: Normal Bowel Sounds, Soft Extremities: Yes: Other (+ SWELLING ,CALF TENDERNESS LLE) Edema: Yes Labs: CBC, BMP 03/23/18 06:30 03/22/18 05:30 INR, PTT INR 1.06 (0.83-1.09) 03/22/18 05:30 Problem List - Problems (1) DVT (deep venous thrombosis) Code(s): I82.409 - ACUTE EMBOLISM AND THOMBOS UNSP DEEP VN UNSP LOWER EXTREMITY Qualifiers: DVT location: lower extremity Affected thrombotic vein of extremity: femoral Chronicity: acute Laterality: left Qualified Code(s): I82.412 - Acute embolism and thrombosis of left femoral vein (2) Diabetes mellitus type 2, noninsulin dependent Code(s): E11.9 - TYPE 2 DIABETES MELLITUS WITHOUT COMPLICATIONS (3) History of pulmonary embolus (PE) Code(s): Z86.711 - PERSONAL HISTORY OF PULMONARY EMBOLISM (4) Hypertension Code(s): I10 - ESSENTIAL (PRIMARY) HYPERTENSION Qualifiers: Hypertension type: unspecified Qualified Code(s): I10 - Essential (primary ) hypertension (5) Shortness of breath on exertion Code(s): R06.02 - SHORTNESS OF BREATH (6) Colon cancer Code(s): C18.9 - MALIGNANT NEOPLASM OF COLON, UNSPECIFIED (7) Hypothyroidism Code(s): E03.9 - HYPOTHYROIDISM, UNSPECIFIED Qualifiers: Hypothyroidism type: acquired Qualified Code(s): E03.9 - Hypothyroidism, unspecified (8) Obesity (BMI 30-39.9) Code(s): E66.9 - OBESITY, UNSPECIFIED Assessment/Plan IMP LLE DVT RECURRENT H/O DVT/PE DYSPNEA ?PE,? CARDIAC HTN H/O COLON CA S/P RESECTION H/O BREAST CA DM HYPOTHYROID H/P PANCREATITIS OSAS AHI 13.7 ON SLEEP SCREEN CKD PLAN AC PT WILL REQUIRE LIFELONG AC O2 NEEDED ECHO V/Q MONITOR LYTES,RENAL FUNCTION SLEEP STUDIES OUTPATIENT DR AVILEZ Problem List - Problems (1) DVT (deep venous thrombosis) Code(s): I82.409 - ACUTE EMBOLISM AND THOMBOS UNSP DEEP VN UNSP LOWER EXTREMITY Qualifiers: DVT location: lower extremity Affected thrombotic vein of extremity: femoral Chronicity: acute Laterality: left Qualified Code(s): I82.412 - Acute embolism and thrombosis of left femoral vein (2) Diabetes mellitus type 2, noninsulin dependent Code(s): E11.9 - TYPE 2 DIABETES MELLITUS WITHOUT COMPLICATIONS (3) History of pulmonary embolus (PE) Code(s): Z86.711 - PERSONAL HISTORY OF PULMONARY EMBOLISM (4) Hypertension Code(s): I10 - ESSENTIAL (PRIMARY) HYPERTENSION Qualifiers: Hypertension type: unspecified Qualified Code(s): I10 - Essential (primary ) hypertension (5) Shortness of breath on exertion Code(s): R06.02 - SHORTNESS OF BREATH (6) Colon cancer Code(s): C18.9 - MALIGNANT NEOPLASM OF COLON, UNSPECIFIED (7) Hypothyroidism Code(s): E03.9 - HYPOTHYROIDISM, UNSPECIFIED Qualifiers: Hypothyroidism type: acquired Qualified Code(s): E03.9 - Hypothyroidism, unspecified (8) Obesity (BMI 30-39.9) Code(s): E66.9 - OBESITY, UNSPECIFIED
[2018-03-23] MEDS: PANTOPRAZOLE 40 MG TABLET (FP) PO SCH (10:52)
[2018-03-23] MEDS: PRAMIPEXOLE DIHYDROCHLORIDE 0.25 MG TABLET PO SCH ×2 (10:52→18:02)
[2018-03-23] MEDS: amLODIPine BESYLATE 2.5 MG TABLET (FP) PO SCH (10:52)
[2018-03-23] MEDS: HEPARIN - 25,000 UNIT in SODIUM CHLORIDE 495 ML IV SCH ×2 (10:56→17:56)
--- NOTE | 2018-03-23 12:19 | PN ---
Teaching Attending Note Name of Resident: Chelita Barillas ATTENDING PHYSICIAN STATEMENT I saw and evaluated the patient. I reviewed the resident's note and discussed the case with the resident. I agree with the resident's findings and plan as documented. SUBJECTIVE:much better no distress or sob OBJECTIVE: Vital Signs Period Temp Pulse Resp BP Sys/Brandt Pulse Ox Last 24 Hr 98.3 F-98.6 F 74-85 18-18 118-132/58-72 97 heent nad lung clear heart no change ext no edema today neuro alrer and non focal vq scan is still pending ASSESSMENT AND PLAN:This is a 72 year old woman with a history of RLE DVT, PE, CKD, colon cancer, breast cancer, type 2 DM, HTN, hyperlipidemia, hypothyroidism who presented to the ED with left leg swelling, pain and increased SOB. she to continue heparin till v q scan comes back and then will start on oral anticoagulant . repeat cr am will control her BP and dm with same meds pain control with tylenol
--- NOTE | 2018-03-23 12:51 | PN ---
Physical Exam: SUBJECTIVE: Patient seen and examined at bedside this morning. She does not endorse any new complaints today. She denies subjective fevers, chills, shortness of breath, chest pain, palpitations, abdominal pain, nausea, vomiting today. OBJECTIVE: Vital Signs Period Temp Pulse Resp BP Sys/Brandt Pulse Ox Last 24 Hr 98.3 F-98.6 F 74-85 18-18 118-132/58-72 97 GENERAL: The patient is awake, alert, and fully oriented, in no acute distress. HEAD: Normal with no signs of trauma. EYES: PERRL, extraocular movements intact, sclera anicteric, conjunctiva clear. No ptosis. ENT:Oropharynx clear without exudates, moist mucous membranes. NECK: Supple without lymphadenopathy LUNGS: Breath sounds equal, clear to auscultation bilaterally, no wheezes, no crackles, no accessory muscle use. HEART: Regular rate and rhythm, S1, S2 without murmur, rub or gallop. ABDOMEN: Soft, nontender, nondistended, normoactive bowel sounds, no guarding, no rebound, no hepatosplenomegaly, no masses. EXTREMITIES: 2+ pulses, warm, well-perfused, no edema. NEUROLOGICAL: Cranial nerves II through XII grossly intact. Normal speech. PSYCH: Normal mood, normal affect. SKIN: Warm, dry, normal turgor, no rashes or lesions noted Laboratory Results - last 24 hr 03/22/18 03/22/18 03/22/18 12:40 17:38 21:00 WBC RBC Hgb Hct MCV MCH MCHC RDW Plt Count MPV PTT (Actin FS) 52.0 H POC Glucometer 94.75416 118 Ferritin 03/23/18 03/23/18 03/23/18 05:41 06:30 06:30 WBC 5.3 RBC 2.95 L Hgb 8.8 L Hct 27.5 L MCV 93.4 MCH 30.0 MCHC 32.1 RDW 14.8 Plt Count 197 MPV 7.3 L PTT (Actin FS) 78.8 H POC Glucometer 102 Ferritin 03/23/18 03/23/18 06:30 11:18 WBC RBC Hgb Hct MCV MCH MCHC RDW Plt Count MPV PTT (Actin FS) POC Glucometer 95 Ferritin 28.0 Active Medications Generic Name Dose Route Start Last Admin Trade Name Freq PRN Reason Stop Dose Admin Acetaminophen 500 mg 03/21/18 20:00 03/23/18 04:33 Tylenol - PO 500 mg Q6H PRN Administration PAIN LEVEL 1-5 Amlodipine Besylate 2.5 mg 03/22/18 10:00 03/23/18 10:52 Norvasc - PO 2.5 mg DAILY [facility] Administration Atorvastatin Calcium 20 mg 03/21/18 22:00 03/22/18 21:35 Lipitor - PO 20 mg HS [facility] Administration Heparin Sodium (Porcine) 1,000 unit 03/21/18 16:24 Heparin - IVPUSH PRN PRN Heparin Heparin Sodium (Porcine) 5,000 unit 03/21/18 16:24 Heparin - IVPUSH PRN PRN Heparin Heparin Sodium (Porcine) 25, 500 mls @ 20 mls/hr 03/21/18 16:30 03/23/18 10: 56 000 unit/ Sodium Chloride IV 1,100 unit/hr TITR [facility]I 22 mls/hr Administration Protocol 1,000 UNIT/HR Insulin Aspart 1 vial 03/21/18 22:00 03/23/18 11:20 Novolog Vial Sliding Scale - SQ Not Given ACHS [facility] Protocol Levothyroxine Sodium 100 mcg 03/22/18 07:00 03/23/18 06:04 Synthroid - PO 100 mcg DAILY@0700 [facility] Administration Pantoprazole Sodium 40 mg 03/22/18 10:00 03/23/18 10:52 Protonix - PO 40 mg DAILY [facility] Administration Pramipexole Dihydrochloride 0.25 mg 03/22/18 09:00 03/23/18 10:52 Mirapex - PO 0.25 mg DAILY@0900 [facility] Administration Pramipexole Dihydrochloride 0.5 mg 03/22/18 18:30 03/22/18 18:05 Mirapex - PO 0.5 mg DAILY@1830 [facility] Administration ASSESSMENT/PLAN: The patient is a 72 year old female with history of DVT right lower extremity, PE (Coumadin stopped by PCP in 2018), diabetes mellitus, hypertension, hypothyroidism, colon cancer (s/p chemotherapy, resection), left breast cancer ( s/p LCIS, prior Tamoxifen therapy), CKD presented to hospital with complaint of leg pain, swelling associated with shortness of breath. DVT left lower extremity, possible pulmonary embolism -Venous duplex shows DVT within left common femoral vein. -Heparin drip. Follow Ptt, platelets. -Patient for V/Q scan -Pulmonology consult (Dr. Dewitt) appreciated Acute on chronic kidney disease -Likely prerenal in etiology. Improving with hydration. -Follow BUn/ Cr Diabetes mellitus -Fingerstick blood glucose monitoring ACHS -Insulin sliding scale ACHS Hypertension -Norvasc 2.5mg PO daily Hyperlipidemia -Atorvastatin 20mg PO HS Hypothyroidism -Synthroid 100mcg PO daily Normocytic anemia -Hb 8.8, Hct 27.5, MCV 93.4 -Hematology/ oncology consult (Dr. Roque) appreciated. Will Follow Fe studies , Folate, and B12 studies. History of breast, colon cancer -Patient will require hypercoagulable workup as outpatient. -Hematology/ oncology consult (Dr. Roque) appreciated. FEN -No IV fluids. Encourage judicious oral hydration -Follow CMP -Diabetic diet Prophylaxis -Patient is on Heparin drip for DVT, possible PE Visit type - Emergency Visit Emergency Visit: Yes ED Registration Date: 03/21/18 Care time: The patient presented to the Emergency Department on the above date and was hospitalized for further evaluation of their emergent condition. - New Patient This patient is new to me today: Yes Date on this admission: 03/23/18 - Critical Care Critical Care patient: No - Discharge Referral Referred to [facility] Med P.C.: No
[2018-03-23 16:46] LABS: CREATININE 1.5 mg/dL (0.55-1.3)
[2018-03-23] MEDS ORDERED: PT OWN MED DRAWER 7, Y5N ONE (17:58)
--- NOTE | 2018-03-23 18:56 | PN ---
Progress Note, Physician Chief Complaint: dyspnea History of Present Illness: Reports that SOB is better, now present only with ambulation. Also left lower extremity swelling is improving. - Current Medication List Current Medications: Active Medications Acetaminophen (Tylenol -) 500 mg PO Q6H PRN PRN Reason: PAIN LEVEL 1-5 Last Admin: 03/23/18 15:26 Dose: 500 mg Amlodipine Besylate (Norvasc -) 2.5 mg PO DAILY [facility] Last Admin: 03/23/18 10:52 Dose: 2.5 mg Atorvastatin Calcium (Lipitor -) 20 mg PO HS [facility] Last Admin: 03/22/18 21:35 Dose: 20 mg Heparin Sodium (Porcine) (Heparin -) 1,000 unit IVPUSH PRN PRN PRN Reason: Heparin Heparin Sodium (Porcine) (Heparin -) 5,000 unit IVPUSH PRN PRN PRN Reason: Heparin Heparin Sodium (Porcine) 25, (000 unit/ Sodium Chloride) 500 mls @ 20 mls/hr IV TITR [facility]; Protocol Last Admin: 03/23/18 17:56 Dose: 1,100 unit/hr, 22 mls/hr Insulin Aspart (Novolog Vial Sliding Scale -) 1 vial SQ ACHS [facility]; Protocol Last Admin: 03/23/18 17:56 Dose: Not Given Levothyroxine Sodium (Synthroid -) 100 mcg PO DAILY@0700 [facility] Last Admin: 03/23/18 06:04 Dose: 100 mcg Pantoprazole Sodium (Protonix -) 40 mg PO DAILY [facility] Last Admin: 03/23/18 10:52 Dose: 40 mg Pramipexole Dihydrochloride (Mirapex -) 0.25 mg PO DAILY@0900 [facility] Last Admin: 03/23/18 10:52 Dose: 0.25 mg Pramipexole Dihydrochloride (Mirapex -) 0.5 mg PO DAILY@1830 [facility] Last Admin: 03/23/18 18:02 Dose: 0.5 mg - Objective Vital Signs: Vital Signs Temperature 98.2 F 03/23/18 17:54 Pulse Rate 80 03/23/18 17:54 Respiratory Rate 20 03/23/18 17:54 Blood Pressure 130/60 03/23/18 17:54 O2 Sat by Pulse Oximetry (%) 98 03/23/18 09:00 Constitutional: Yes: No Distress, Calm Eyes: Yes: Conjunctiva Clear Cardiovascular: Yes: Regular Rate and Rhythm Respiratory: Yes: Regular, CTA Bilaterally Gastrointestinal: Yes: Normal Bowel Sounds, Soft Edema: Yes (LLE>RLE) Labs: CBC, BMP 03/23/18 06:30 03/23/18 15:40 INR, PTT INR 1.06 (0.83-1.09) 03/22/18 05:30 Problem List - Problems (1) DVT (deep venous thrombosis) Assessment/Plan: 72F with hx DVT/PE 10 years ago (off AC), now with extensive LLE DVT. Pt chooses to be on warfarin, would start bridging Given recurrent VTE, will need lifelong AC. Thrombophilia evaluation would not warp changer V/Q scan pending Code(s): I82.409 - ACUTE EMBOLISM AND THOMBOS UNSP DEEP VN UNSP LOWER EXTREMITY Qualifiers: DVT location: lower extremity Affected thrombotic vein of extremity: femoral Chronicity: acute Laterality: left Qualified Code(s): I82.412 - Acute embolism and thrombosis of left femoral vein (2) Anemia Code(s): D64.9 - ANEMIA, UNSPECIFIED
[2018-03-23] MEDS: ATORVASTATIN CA 20 MG TABLET (FP) PO SCH (21:35)
[2018-03-24] MEDS: ACETAMINOPHEN 500 MG TABLET (FP) PO PRN ×2 (03:03→20:57)
[2018-03-24] MEDS: INSULIN SLIDING SCALE (NOVOLOG) 1 VIAL SQ SCH ×4 (06:25→21:02)
[2018-03-24] MEDS: LEVOTHYROXINE NA 100 MCG TABLET (FP) PO SCH (06:30)
[2018-03-24 06:58] LABS: HEMATOCRIT 27.2 % (32.4-45.2); HEMOGLOBIN 8.8 GM/dL (10.7-15.3); MCHC 32.2 g/dl (32.0-36.0); MEAN PLT VOLUME 7.4 fl (7.5-11.1); PLATELET COUNT 208 K/MM3 (134-434); RBC 2.93 M/mm3 (3.60-5.2); RDW 14.4 % (11.6-15.6); WHITE BLOOD COUNT 5.3 K/mm3 (4.0-10.0)
[2018-03-24 08:13] LABS: ALBUMIN 3.3 g/dl (3.4-5.0); ALK PHOS 81 U/L (45-117); ANION GAP 10 MMOL/L (8-16); BILIRUBIN,TOTAL 0.3 mg/dL (0.2-1); BLOOD UREA NITROGEN 25 mg/dL (7-18); CALCIUM 9.1 mg/dL (8.5-10.1); CHLORIDE 108 mmol/L (98-107); CO2 22 mmol/L (21-32); CREATININE 1.3 mg/dL (0.55-1.3); GLUCOSE,RANDOM 84 mg/dL (74-106); MAGNESIUM 1.7 mg/dL (1.8-2.4); PHOSPHOROUS 3.3 mg/dL (2.5-4.9); POTASSIUM 4.3 mmol/L (3.5-5.1); SGOT/AST 15 U/L (15-37); SGPT/ALT 14 U/L (13-61); SODIUM 139 mmol/L (136-145); TOT PROT 6.7 g/dl (6.4-8.2)
[2018-03-24] MEDS ORDERED: MAGNESIUM OXIDE 400 MG TABLET (FP) PO ONE (09:06)
[2018-03-24] MEDS: PRAMIPEXOLE DIHYDROCHLORIDE 0.25 MG TABLET PO SCH ×2 (09:30→17:54)
[2018-03-24] MEDS: amLODIPine BESYLATE 2.5 MG TABLET (FP) PO SCH (09:31)
[2018-03-24] MEDS: PANTOPRAZOLE 40 MG TABLET (FP) PO SCH (09:31)
--- NOTE | 2018-03-24 11:00 | PN ---
Progress Note, Physician History of Present Illness: pulmonary alert,feeling better,less leg discomfort - Current Medication List Current Medications: Active Medications Acetaminophen (Tylenol -) 500 mg PO Q6H PRN PRN Reason: PAIN LEVEL 1-5 Last Admin: 03/24/18 03:03 Dose: 500 mg Amlodipine Besylate (Norvasc -) 2.5 mg PO DAILY [facility] Last Admin: 03/24/18 09:31 Dose: 2.5 mg Atorvastatin Calcium (Lipitor -) 20 mg PO HS [facility] Last Admin: 03/23/18 21:35 Dose: 20 mg Heparin Sodium (Porcine) (Heparin -) 1,000 unit IVPUSH PRN PRN PRN Reason: Heparin Heparin Sodium (Porcine) (Heparin -) 5,000 unit IVPUSH PRN PRN PRN Reason: Heparin Heparin Sodium (Porcine) 25, (000 unit/ Sodium Chloride) 500 mls @ 20 mls/hr IV TITR [facility]; Protocol Last Admin: 03/23/18 17:56 Dose: 1,100 unit/hr, 22 mls/hr Insulin Aspart (Novolog Vial Sliding Scale -) 1 vial SQ ACHS [facility]; Protocol Last Admin: 03/24/18 06:25 Dose: Not Given Levothyroxine Sodium (Synthroid -) 100 mcg PO DAILY@0700 [facility] Last Admin: 03/24/18 06:30 Dose: 100 mcg Pantoprazole Sodium (Protonix -) 40 mg PO DAILY [facility] Last Admin: 03/24/18 09:31 Dose: 40 mg Pramipexole Dihydrochloride (Mirapex -) 0.25 mg PO DAILY@0900 [facility] Last Admin: 03/24/18 09:30 Dose: 0.25 mg Pramipexole Dihydrochloride (Mirapex -) 0.5 mg PO DAILY@1830 [facility] Last Admin: 03/23/18 18:02 Dose: 0.5 mg - Objective Vital Signs: Vital Signs Temperature 98.0 F 03/24/18 10:00 Pulse Rate 82 03/24/18 10:00 Respiratory Rate 20 03/24/18 10:00 Blood Pressure 120/75 03/24/18 10:00 O2 Sat by Pulse Oximetry (%) 97 03/24/18 09:00 Constitutional: Yes: Well Nourished, Calm Eyes: Yes: WNL HENT: Yes: WNL Neck: Yes: WNL Cardiovascular: Yes: Regular Rate and Rhythm, S1, S2 Respiratory: Yes: Rales (crackles R 1/3 up) Gastrointestinal: Yes: Normal Bowel Sounds, Soft Extremities: Yes: Other (DECREASED SWELLING LLE,LESS PAIN) Edema: Yes Labs: CBC, BMP 03/24/18 05:30 03/24/18 05:30 INR, PTT INR 1.06 (0.83-1.09) 03/22/18 05:30 Problem List - Problems (1) DVT (deep venous thrombosis) Code(s): I82.409 - ACUTE EMBOLISM AND THOMBOS UNSP DEEP VN UNSP LOWER EXTREMITY Qualifiers: DVT location: lower extremity Affected thrombotic vein of extremity: femoral Chronicity: acute Laterality: left Qualified Code(s): I82.412 - Acute embolism and thrombosis of left femoral vein (2) Diabetes mellitus type 2, noninsulin dependent Code(s): E11.9 - TYPE 2 DIABETES MELLITUS WITHOUT COMPLICATIONS (3) History of pulmonary embolus (PE) Code(s): Z86.711 - PERSONAL HISTORY OF PULMONARY EMBOLISM (4) Hypertension Code(s): I10 - ESSENTIAL (PRIMARY) HYPERTENSION Qualifiers: Hypertension type: unspecified Qualified Code(s): I10 - Essential (primary ) hypertension (5) Shortness of breath on exertion Code(s): R06.02 - SHORTNESS OF BREATH (6) Colon cancer Code(s): C18.9 - MALIGNANT NEOPLASM OF COLON, UNSPECIFIED (7) Hypothyroidism Code(s): E03.9 - HYPOTHYROIDISM, UNSPECIFIED Qualifiers: Hypothyroidism type: acquired Qualified Code(s): E03.9 - Hypothyroidism, unspecified (8) Obesity (BMI 30-39.9) Code(s): E66.9 - OBESITY, UNSPECIFIED Assessment/Plan IMP LLE DVT RECURRENT H/O DVT/PE DYSPNEA ?PE,? CARDIAC HTN H/O COLON CA S/P RESECTION H/O BREAST CA DM HYPOTHYROID H/P PANCREATITIS OSAS AHI 13.7 ON SLEEP SCREEN CKD PLAN AC PT WILL REQUIRE [facility] AC O2 NEEDED ECHO V/Q MONITOR LYTES,RENAL FUNCTION SLEEP STUDIES OUTPATIENT DR AVILEZ Problem List - Problems (1) DVT (deep venous thrombosis) Code(s): I82.409 - ACUTE EMBOLISM AND THOMBOS UNSP DEEP VN UNSP LOWER EXTREMITY Qualifiers: DVT location: lower extremity Affected thrombotic vein of extremity: femoral Chronicity: acute Laterality: left Qualified Code(s): I82.412 - Acute embolism and thrombosis of left femoral vein (2) Diabetes mellitus type 2, noninsulin dependent Code(s): E11.9 - TYPE 2 DIABETES MELLITUS WITHOUT COMPLICATIONS (3) History of pulmonary embolus (PE) Code(s): Z86.711 - PERSONAL HISTORY OF PULMONARY EMBOLISM (4) Hypertension Code(s): I10 - ESSENTIAL (PRIMARY) HYPERTENSION Qualifiers: Hypertension type: unspecified Qualified Code(s): I10 - Essential (primary ) hypertension (5) Shortness of breath on exertion Code(s): R06.02 - SHORTNESS OF BREATH (6) Colon cancer Code(s): C18.9 - MALIGNANT NEOPLASM OF COLON, UNSPECIFIED (7) Hypothyroidism Code(s): E03.9 - HYPOTHYROIDISM, UNSPECIFIED Qualifiers: Hypothyroidism type: acquired Qualified Code(s): E03.9 - Hypothyroidism, unspecified (8) Obesity (BMI 30-39.9) Code(s): E66.9 - OBESITY, UNSPECIFIED
--- NOTE | 2018-03-24 11:28 | ECHO ---
Name: HERMILA WEST Exam:Adult Echocardiogram Study Date: 03/24/2018 08:35 AM Age: 72 yrs Reason For Study: DVT,POSSIBLE PE Height: 65 in Weight: 262 lb BSA: 2.2 m2 MMode/2D Measurements & Calculations IVSd: 0.86 cm Ao root diam: 3.6 cm LVIDd: 5.1 cm LA dimension: 3.9 cm LVIDs: 2.6 cm ACS: 2.1 cm LVPWd: 1.0 cm IVSs: 1.3 cm LVPWs: 1.2 cm EDV(Teich): 125.5 ml ESV(Teich): 24.3 ml Doppler Measurements & Calculations MV E max chicho: 79.7 cm/sec Ao V2 max: 129.5 cm/sec MV A max chicho: 81.9 cm/sec Ao max P.7 mmHg MV E/A: 0.97 Ao V2 mean: 98.8 cm/sec Ao mean P.2 mmHg Ao V2 VTI: 28.2 cm MR max chicho: 418.7 cm/sec TR max chicho: 267.9 cm/sec MR max P.2 mmHg TR max P.7 mmHg Med Peak E' Chicho: 9.7 cm/sec Med E/e': 8.3 Lat Peak E' Chicho: 9.2 cm/sec Lat E/e': 8.7 Procedure A complete two-dimensional transthoracic echocardiogram was performed (2D, M-mode, Doppler and color flow Doppler). Left Ventricle The left ventricle is normal in size. Left ventricular systolic function is normal. Ejection Fraction = 65- 70%. No regional wall motion abnormalities noted. Right Ventricle The right ventricle is normal size. The right ventricular systolic function is normal. Atria The left atrial size is normal. Right atrial size is normal. Mitral Valve The mitral valve is normal in structure and function. There is no mitral regurgitation noted. Tricuspid Valve The tricuspid valve is normal in structure and function. There is moderate tricuspid regurgitation. P ulmonary artery systolic pressure is at least 36 mmHg assuming RA pressure of 3 mmHg. Aortic Valve The aortic valve is normal in structure and function. No aortic regurgitation is present. Pulmonic Valve The pulmonic valve is not well visualized. Great Vessels The aortic root is normal size. Pericardium/Pleura There is no pericardial effusion. Interpretation Summary The left ventricle is normal in size. Left ventricular systolic function is normal. No regional wall motion abnormalities noted. Ejection Fraction = 65-70%. The right ventricular systolic function is normal. The left atrial size is normal. Right atrial size is normal. There is moderate tricuspid regurgitation. Pulmonary artery systolic pressure is at least 36 mmHg assuming RA pressure of 3 mmHg There is no pericardial effusion. Previous study is not available for comparison Jean Puri MD 03/24/2018 11:28 AM
[2018-03-24] MEDS ORDERED: MAGNESIUM SULF 50% (8.12 MEQ/2 ML-1 GM VIAL) IVPB ONE (15:10)
--- NOTE | 2018-03-24 15:10 | PN ---
Teaching Attending Note Name of Resident: Rikki Sebastian ATTENDING PHYSICIAN STATEMENT I saw and evaluated the patient. I reviewed the resident's note and discussed the case with the resident. I agree with the resident's findings and plan as documented. SUBJECTIVE: Feels better - less SOB. Still has some pain/tenderness LLE. No hemoptysis or chest pain. OBJECTIVE: Afebrile/Hemodynamically Stable. Last Vital Signs Temp Pulse Resp BP Pulse Ox 98.9 F 79 20 117/61 97 03/24/18 14:44 03/24/18 14:44 03/24/18 14:44 03/24/18 14:44 03/24/18 09:00 HEENT - Atraumatic, Normocephalic Heart - S1, S2, RRR Lungs - clear to auscultation Abdomen - high BMI. Soft non-tender. Bowel Sounds normal. Extremities - LLE swelling/tenderness. Laboratory Results - last 24 hr 03/23/18 03/23/18 03/23/18 15:40 17:48 21:31 WBC RBC Hgb Hct MCV MCH MCHC RDW Plt Count MPV PTT (Actin FS) Sodium Potassium Chloride Carbon Dioxide Anion Gap BUN 27 H Creatinine 1.5 H Creat Clearance w eGFR POC Glucometer 113 102 Random Glucose Calcium Phosphorus Magnesium Total Bilirubin AST ALT Alkaline Phosphatase Total Protein Albumin Vitamin B12 Serum Folate 03/24/18 03/24/18 03/24/18 05:01 05:30 05:30 WBC 5.3 RBC 2.93 L Hgb 8.8 L Hct 27.2 L MCV 93.0 MCH 30.0 MCHC 32.2 RDW 14.4 Plt Count 208 MPV 7.4 L PTT (Actin FS) 59.4 H Sodium Potassium Chloride Carbon Dioxide Anion Gap BUN Creatinine Creat Clearance w eGFR POC Glucometer 94 Random Glucose Calcium Phosphorus Magnesium Total Bilirubin AST ALT Alkaline Phosphatase Total Protein Albumin Vitamin B12 Serum Folate 03/24/18 03/24/18 05:30 11:07 WBC RBC Hgb Hct MCV MCH MCHC RDW Plt Count MPV PTT (Actin FS) Sodium 139 Potassium 4.3 Chloride 108 H Carbon Dioxide 22 Anion Gap 10 BUN 25 H Creatinine 1.3 Creat Clearance w eGFR 40.15 POC Glucometer 101 Random Glucose 84 Calcium 9.1 Phosphorus 3.3 Magnesium 1.7 L Total Bilirubin 0.3 AST 15 ALT 14 Alkaline Phosphatase 81 Total Protein 6.7 Albumin 3.3 L Vitamin B12 265 Serum Folate 17 Current Medications Generic Name Dose Route Start Last Admin Trade Name Freq PRN Reason Stop Dose Admin Acetaminophen 500 mg 03/21/18 20:00 03/24/18 03:03 Tylenol - PO 500 mg Q6H PRN Administration PAIN LEVEL 1-5 Amlodipine Besylate 2.5 mg 03/22/18 10:00 03/24/18 09:31 Norvasc - PO 2.5 mg DAILY [facility] Administration Atorvastatin Calcium 20 mg 03/21/18 22:00 03/23/18 21:35 Lipitor - PO 20 mg HS [facility] Administration Heparin Sodium (Porcine) 1,000 unit 03/21/18 16:24 Heparin - IVPUSH PRN PRN Heparin Heparin Sodium (Porcine) 5,000 unit 03/21/18 16:24 Heparin - IVPUSH PRN PRN Heparin Heparin Sodium (Porcine) 25, 500 mls @ 20 mls/hr 03/21/18 16:30 03/23/18 17: 56 000 unit/ Sodium Chloride IV 1,100 unit/hr TITR [facility] 22 mls/hr Administration Protocol 1,000 UNIT/HR Insulin Aspart 1 vial 03/21/18 22:00 03/24/18 11:13 Novolog Vial Sliding Scale - SQ Not Given ACHS [facility] Protocol Levothyroxine Sodium 100 mcg 03/22/18 07:00 03/24/18 06:30 Synthroid - PO 100 mcg DAILY@0700 [facility] Administration Pantoprazole Sodium 40 mg 03/22/18 10:00 03/24/18 09:31 Protonix - PO 40 mg DAILY [facility] Administration Pramipexole Dihydrochloride 0.25 mg 03/22/18 09:00 03/24/18 09:30 Mirapex - PO 0.25 mg DAILY@0900 [facility] Administration Pramipexole Dihydrochloride 0.5 mg 03/22/18 18:30 03/23/18 18:02 Mirapex - PO 0.5 mg DAILY@1830 [facility] Administration ASSESSMENT AND PLAN: 72 year old female with history of RLE DVT/PE, CKD, Colon Ca, Breast Ca, DM 2, HTN, HLD, Hypothyroidism, presented with LLE swelling/tenderness and increasing SOB. 1. Acute/Recurrent LLE DVT Currently on Heparin drip Previously on Coumadin - will resume with Lovenox bridging. Patient and family prefer Coumadin to novel AC options. Echo essentially normal. V/Q scan pending. 2. HTN - continue Norvasc 3. DM 2 - maintained on sliding scalr Novolog. 4. Hypothyroidism - Continue Levothyroxine 5. HLD - Continue Lipitor. 6. Anemia, normocytic - likely sec to CKD, no evidence of blood loss. Will request work-up. 7. Hypomagnesemia - will replete.
[2018-03-24] MEDS ORDERED: SODIUM CHLORIDE 0.9% 500 ML INFUS.BAG IV ONE (16:28)
--- NOTE | 2018-03-24 16:30 | PN ---
Physical Exam: SUBJECTIVE: Patient seen and examined at bedside this morning. She does not endorse any new complaints today. She denies subjective fevers, chills, shortness of breath, chest pain, palpitations, abdominal pain, nausea, vomiting today. Discussed with patient and family regarding options for anticoagulation therapy. Patient would like to continue Coumadin. OBJECTIVE: Vital Signs Period Temp Pulse Resp BP Sys/Brandt Pulse Ox Last 24 Hr 98.0 F-98.9 F 74-82 20-20 117-136/60-75 96-97 GENERAL: The patient is awake, alert, and fully oriented, in no acute distress. HEAD: Normal with no signs of trauma. EYES: PERRL, extraocular movements intact, sclera anicteric, conjunctiva clear. No ptosis. ENT: Oropharynx clear without exudates, moist mucous membranes. NECK: Supple without lymphadenopathy LUNGS: Breath sounds equal, clear to auscultation bilaterally, no wheezes, no crackles, no accessory muscle use. HEART: Regular rate and rhythm, S1, S2 without murmur, rub or gallop. ABDOMEN: Soft, nontender, nondistended, normoactive bowel sounds, no guarding, no rebound, no hepatosplenomegaly, no masses. EXTREMITIES: 2+ pulses, warm, well-perfused. Left lower extremity swollen more than right lower extremity, with soreness upon palpation. NEUROLOGICAL: Cranial nerves II through XII grossly intact. Normal speech. PSYCH: Normal mood, normal affect. SKIN: Warm, dry, normal turgor, no rashes or lesions noted Laboratory Results - last 24 hr 03/23/18 03/23/18 03/23/18 15:40 17:48 21:31 WBC RBC Hgb Hct MCV MCH MCHC RDW Plt Count MPV PTT (Actin FS) Sodium Potassium Chloride Carbon Dioxide Anion Gap BUN 27 H Creatinine 1.5 H Creat Clearance w eGFR POC Glucometer 113 102 Random Glucose Calcium Phosphorus Magnesium Total Bilirubin AST ALT Alkaline Phosphatase Total Protein Albumin Vitamin B12 Serum Folate 03/24/18 03/24/18 03/24/18 05:01 05:30 05:30 WBC 5.3 RBC 2.93 L Hgb 8.8 L Hct 27.2 L MCV 93.0 MCH 30.0 MCHC 32.2 RDW 14.4 Plt Count 208 MPV 7.4 L PTT (Actin FS) 59.4 H Sodium Potassium Chloride Carbon Dioxide Anion Gap BUN Creatinine Creat Clearance w eGFR POC Glucometer 94 Random Glucose Calcium Phosphorus Magnesium Total Bilirubin AST ALT Alkaline Phosphatase Total Protein Albumin Vitamin B12 Serum Folate 03/24/18 03/24/18 05:30 11:07 WBC RBC Hgb Hct MCV MCH MCHC RDW Plt Count MPV PTT (Actin FS) Sodium 139 Potassium 4.3 Chloride 108 H Carbon Dioxide 22 Anion Gap 10 BUN 25 H Creatinine 1.3 Creat Clearance w eGFR 40.15 POC Glucometer 101 Random Glucose 84 Calcium 9.1 Phosphorus 3.3 Magnesium 1.7 L Total Bilirubin 0.3 AST 15 ALT 14 Alkaline Phosphatase 81 Total Protein 6.7 Albumin 3.3 L Vitamin B12 265 Serum Folate 17 Active Medications Generic Name Dose Route Start Last Admin Trade Name Freq PRN Reason Stop Dose Admin Acetaminophen 500 mg 03/21/18 20:00 03/24/18 03:03 Tylenol - PO 500 mg Q6H PRN Administration PAIN LEVEL 1-5 Amlodipine Besylate 2.5 mg 03/22/18 10:00 03/24/18 09:31 Norvasc - PO 2.5 mg DAILY GIL Administration Atorvastatin Calcium 20 mg 03/21/18 22:00 03/23/18 21:35 Lipitor - PO 20 mg HS GIL Administration Ferrous Sulfate 325 mg 03/24/18 22:00 Feosol - PO BID GIL Heparin Sodium (Porcine) 1,000 unit 03/21/18 16:24 Heparin - IVPUSH PRN PRN Heparin Heparin Sodium (Porcine) 5,000 unit 03/21/18 16:24 Heparin - IVPUSH PRN PRN Heparin Heparin Sodium (Porcine) 25, 500 mls @ 20 mls/hr 03/21/18 16:30 03/23/18 17: 56 000 unit/ Sodium Chloride IV 1,100 unit/hr TITR GIL 22 mls/hr Administration Protocol 1,000 UNIT/HR Insulin Aspart 1 vial 03/21/18 22:00 03/24/18 11:13 Novolog Vial Sliding Scale - SQ Not Given ACHS [facility] Protocol Levothyroxine Sodium 100 mcg 03/22/18 07:00 03/24/18 06:30 Synthroid - PO 100 mcg DAILY@0700 GIL Administration Pantoprazole Sodium 40 mg 03/22/18 10:00 03/24/18 09:31 Protonix - PO 40 mg DAILY GIL Administration Pramipexole Dihydrochloride 0.25 mg 03/22/18 09:00 03/24/18 09:30 Mirapex - PO 0.25 mg DAILY@0900 GIL Administration Pramipexole Dihydrochloride 0.5 mg 03/22/18 18:30 03/23/18 18:02 Mirapex - PO 0.5 mg DAILY@1830 GIL Administration Sodium Chloride 500 ml 03/24/18 16:28 Normal Saline - IV 03/24/18 16:29 ONCE ONE ASSESSMENT/PLAN: The patient is a 72 year old female with history of DVT right lower extremity, PE (Coumadin stopped by PCP in 2018), diabetes mellitus, hypertension, hypothyroidism, colon cancer (s/p chemotherapy, resection), left breast cancer ( s/p LCIS, prior Tamoxifen therapy), CKD presented to hospital with complaint of leg pain, swelling associated with shortness of breath. DVT left lower extremity, possible pulmonary embolism -Venous duplex shows DVT within left common femoral vein. -Heparin drip. Follow Ptt, platelets. -Patient for CTA. Will hydrate 500cc normal saline bolus prior to CTA. -Pulmonology consult (Dr. Dewitt) appreciated -Coumadin 5mg PO tonight. After discussion with patient and family at bedside, patient prefers to remain on Coumadin. Acute on chronic kidney disease -Likely prerenal in etiology. Improving with hydration. -Follow BUn/ Cr -Hydrate 500cc normal saline bolus prior to CTA. Diabetes mellitus -Fingerstick blood glucose monitoring ACHS -Insulin sliding scale ACHS Hypertension -Norvasc 2.5mg PO daily Hyperlipidemia -Atorvastatin 20mg PO HS Hypothyroidism -Synthroid 100mcg PO daily Normocytic anemia -Hb 8.8, Hct 27.2, MCV 93.0 -Hematology/ oncology consult (Dr. Roque) appreciated. Will Follow Fe studies , Folate, and B12 studies. History of breast, colon cancer -Hematology/ oncology consult (Dr. Roque) appreciated. FEN -500cc normal saline bolus prior to CTA. -Follow CMP -Diabetic diet Prophylaxis -Coumadin 5mg PO -Patient is on Heparin drip for DVT, possible PE Disposition -Continue care in medical surgical floor. Visit type - Emergency Visit Emergency Visit: Yes ED Registration Date: 03/21/18 Care time: The patient presented to the Emergency Department on the above date and was hospitalized for further evaluation of their emergent condition. - New Patient This patient is new to me today: No - Critical Care Critical Care patient: No - Discharge Referral Referred to [facility] Med P.C.: No
[2018-03-24] MEDS: WARFARIN NA 5 MG TABLET (UD) PO SCH (17:24)
[2018-03-24] MEDS: HEPARIN - 25,000 UNIT in SODIUM CHLORIDE 495 ML IV SCH (17:24)
[2018-03-24] MEDS ORDERED: PT OWN MED DRAWER 7, Y5N ONE (17:51)
[2018-03-24] MEDS: ATORVASTATIN CA 20 MG TABLET (FP) PO SCH (21:02)
[2018-03-24] MEDS: FERROUS SO4 325 MG TABLET (FP) PO SCH (21:02)
[2018-03-25 04:16] LABS: SERUM IRON SATURATION 17 % (15-55); TOTAL IRON BINDING CAPACITY 400 ug/dL (250-450); UIBC 331 ug/dL (118-369)
[2018-03-25] MEDS: INSULIN SLIDING SCALE (NOVOLOG) 1 VIAL SQ SCH ×3 (06:12→16:35)
[2018-03-25] MEDS: LEVOTHYROXINE NA 100 MCG TABLET (FP) PO SCH (06:12)
[2018-03-25] MEDS: ACETAMINOPHEN 500 MG TABLET (FP) PO PRN (07:38)
[2018-03-25 07:50] LABS: HEMATOCRIT 25.5 % (32.4-45.2); HEMOGLOBIN 8.7 GM/dL (10.7-15.3); MCH 31.8 pg (25.7-33.7); MCHC 34.3 g/dl (32.0-36.0); MEAN CELL VOLUME 92.8 fl (80-96); MEAN PLT VOLUME 7.7 fl (7.5-11.1); PLATELET COUNT 240 K/MM3 (134-434); RBC 2.75 M/mm3 (3.60-5.2); WHITE BLOOD COUNT 4.8 K/mm3 (4.0-10.0)
[2018-03-25 08:11] LABS: ALBUMIN 3.2 g/dl (3.4-5.0); ALK PHOS 79 U/L (45-117); ANION GAP 8 MMOL/L (8-16); BILIRUBIN,TOTAL 0.3 mg/dL (0.2-1); BLOOD UREA NITROGEN 20 mg/dL (7-18); CALCIUM 8.7 mg/dL (8.5-10.1); CHLORIDE 108 mmol/L (98-107); CO2 24 mmol/L (21-32); CREATININE 1.3 mg/dL (0.55-1.3); GLUCOSE,RANDOM 82 mg/dL (74-106); POTASSIUM 4.4 mmol/L (3.5-5.1); SGOT/AST 17 U/L (15-37); SGPT/ALT 17 U/L (13-61); SODIUM 140 mmol/L (136-145); TOT PROT 6.6 g/dl (6.4-8.2)
[2018-03-25 08:12] LABS: INR 1.08 (0.83-1.09); PROTHROMBIN TIME (PATIENT) 12.8 SEC (9.7-13.0)
[2018-03-25] MEDS: amLODIPine BESYLATE 2.5 MG TABLET (FP) PO SCH (09:49)
[2018-03-25] MEDS: FERROUS SO4 325 MG TABLET (FP) PO SCH (09:49)
[2018-03-25] MEDS: PRAMIPEXOLE DIHYDROCHLORIDE 0.25 MG TABLET PO SCH ×2 (09:49→16:47)
[2018-03-25] MEDS: PANTOPRAZOLE 40 MG TABLET (FP) PO SCH (09:49)
[2018-03-25 10:18] VITALS: BP 108/44; PULSE 78; TEMP 98.1
--- NOTE | 2018-03-25 12:04 | PN ---
Teaching Attending Note Name of Resident: Rikki Sebastian ATTENDING PHYSICIAN STATEMENT I saw and evaluated the patient. I reviewed the resident's note and discussed the case with the resident. I agree with the resident's findings and plan as documented. SUBJECTIVE: SOB improved. Still has some pain/tenderness LLE. No hemoptysis or chest pain. OBJECTIVE: Afebrile/Hemodynamically Stable. Last Vital Signs Temp Pulse Resp BP Pulse Ox 98.1 F 78 20 108/44 L 97 03/25/18 09:00 03/25/18 09:00 03/25/18 09:00 03/25/18 09:00 03/25/18 09:00 HEENT - Atraumatic, Normocephalic Heart - S1, S2, RRR Lungs - clear to auscultation Abdomen - high BMI. Soft non-tender. Bowel Sounds normal. Extremities - LLE swelling/tenderness. Laboratory Results - last 24 hr 03/23/18 03/24/18 03/24/18 06:30 17:14 21:01 WBC RBC Hgb Hct MCV MCH MCHC RDW Plt Count MPV PT with INR INR PTT (Actin FS) Sodium Potassium Chloride Carbon Dioxide Anion Gap BUN Creatinine Creat Clearance w eGFR POC Glucometer 92 125 Random Glucose Calcium Iron 69 TIBC 400 Iron Saturation 17 Total Bilirubin AST ALT Alkaline Phosphatase Total Protein Albumin 03/25/18 03/25/18 03/25/18 05:30 05:30 05:30 WBC 4.8 RBC 2.75 L Hgb 8.7 L Hct 25.5 L MCV 92.8 MCH 31.8 MCHC 34.3 RDW 15.0 Plt Count 240 MPV 7.7 PT with INR 12.80 INR 1.08 PTT (Actin FS) 49.7 H Sodium Potassium Chloride Carbon Dioxide Anion Gap BUN Creatinine Creat Clearance w eGFR POC Glucometer Random Glucose Calcium Iron TIBC Iron Saturation Total Bilirubin AST ALT Alkaline Phosphatase Total Protein Albumin 03/25/18 03/25/18 03/25/18 05:30 05:53 10:43 WBC RBC Hgb Hct MCV MCH MCHC RDW Plt Count MPV PT with INR INR PTT (Actin FS) Sodium 140 Potassium 4.4 Chloride 108 H Carbon Dioxide 24 Anion Gap 8 BUN 20 H Creatinine 1.3 Creat Clearance w eGFR 40.15 POC Glucometer 102 109 Random Glucose 82 Calcium 8.7 Iron TIBC Iron Saturation Total Bilirubin 0.3 AST 17 ALT 17 Alkaline Phosphatase 79 Total Protein 6.6 Albumin 3.2 L Current Medications Generic Name Dose Route Start Last Admin Trade Name Arnie PRN Reason Stop Dose Admin Acetaminophen 500 mg 03/21/18 20:00 03/25/18 07:38 Tylenol - PO 500 mg Q6H PRN Administration PAIN LEVEL 1-5 Amlodipine Besylate 2.5 mg 03/22/18 10:00 03/25/18 09:49 Norvasc - PO 2.5 mg DAILY GIL Administration Atorvastatin Calcium 20 mg 03/21/18 22:00 03/24/18 21:02 Lipitor - PO 20 mg HS GIL Administration Ferrous Sulfate 325 mg 03/24/18 22:00 03/25/18 09:49 Feosol - PO 325 mg BID GIL Administration Heparin Sodium (Porcine) 1,000 unit 03/21/18 16:24 Heparin - IVPUSH PRN PRN Heparin Heparin Sodium (Porcine) 5,000 unit 03/21/18 16:24 Heparin - IVPUSH PRN PRN Heparin Heparin Sodium (Porcine) 25, 500 mls @ 20 mls/hr 03/21/18 16:30 03/24/18 17: 24 000 unit/ Sodium Chloride IV 1,100 unit/hr TITR GIL 22 mls/hr Administration Protocol 1,000 UNIT/HR Insulin Aspart 1 vial 03/21/18 22:00 03/25/18 11:21 Novolog Vial Sliding Scale - SQ Not Given ACHS [facility] Protocol Levothyroxine Sodium 100 mcg 03/22/18 07:00 03/25/18 06:12 Synthroid - PO 100 mcg DAILY@0700 [facility] Administration Pantoprazole Sodium 40 mg 03/22/18 10:00 03/25/18 09:49 Protonix - PO 40 mg DAILY GIL Administration Pramipexole Dihydrochloride 0.25 mg 03/22/18 09:00 03/25/18 09:49 Mirapex - PO 0.25 mg DAILY@0900 [facility] Administration Pramipexole Dihydrochloride 0.5 mg 03/22/18 18:30 03/24/18 17:54 Mirapex - PO 0.5 mg DAILY@1830 [facility] Administration Warfarin Sodium 5 mg 03/24/18 18:00 03/24/18 17:24 Coumadin - PO 5 mg DAILY@1800 GIL Administration ASSESSMENT AND PLAN: 72 year old female with history of RLE DVT/PE, CKD, Colon Ca, Breast Ca, DM 2, HTN, HLD, Hypothyroidism, presented with LLE swelling/tenderness and increasing SOB. 1. Acute/Recurrent LLE DVT Currently on Heparin drip pending transition to Lovenox prior to discharge Previously on Coumadin for prior DVT - resumed on Coumadin 03/24. Patient and family prefer Coumadin to novel AC options. Echo essentially normal. CTA Chest - no PE. Continue Coumadin 5mg tonight with transition from Heparin drip to Lovenox bridging prior to discharge. For INR check tomorrow AM with further Coumadin dosing and Lovenox administration by PCP. 2. HTN - continue Norvasc 3. DM 2 - maintained on sliding scale Novolog. To resume Metformin on discharge. 4. Hypothyroidism - Continue Levothyroxine 5. HLD - Continue Lipitor. 6. Anemia, normocytic - likely sec to CKD, no evidence of blood loss. Ferritin 28 - supplemented with FeSO4. Further work-up as out-patient. B12 level 265 ( low normal), Methylmalonic Acid level pending - for follow up with PCP for result and likely initiation on B12 supplementation as out-patient. 7. Hypomagnesemia - repleted. Medically Stable for discharge home on Coumadin with INR check 03/26/18
--- NOTE | 2018-03-25 12:12 | PN ---
Progress Note, Physician History of Present Illness: PULMONARY ALERT,NO DISTRESS,-CP,-SOB. CHEST CTA -PE - Current Medication List Current Medications: Active Medications Acetaminophen (Tylenol -) 500 mg PO Q6H PRN PRN Reason: PAIN LEVEL 1-5 Last Admin: 03/25/18 07:38 Dose: 500 mg Amlodipine Besylate (Norvasc -) 2.5 mg PO DAILY [facility] Last Admin: 03/25/18 09:49 Dose: 2.5 mg Atorvastatin Calcium (Lipitor -) 20 mg PO HS [facility] Last Admin: 03/24/18 21:02 Dose: 20 mg Ferrous Sulfate (Feosol -) 325 mg PO BID [facility] Last Admin: 03/25/18 09:49 Dose: 325 mg Heparin Sodium (Porcine) (Heparin -) 1,000 unit IVPUSH PRN PRN PRN Reason: Heparin Heparin Sodium (Porcine) (Heparin -) 5,000 unit IVPUSH PRN PRN PRN Reason: Heparin Heparin Sodium (Porcine) 25, (000 unit/ Sodium Chloride) 500 mls @ 20 mls/hr IV TITR [facility]; Protocol Last Admin: 03/24/18 17:24 Dose: 1,100 unit/hr, 22 mls/hr Insulin Aspart (Novolog Vial Sliding Scale -) 1 vial SQ ACHS [facility]; Protocol Last Admin: 03/25/18 11:21 Dose: Not Given Levothyroxine Sodium (Synthroid -) 100 mcg PO DAILY@0700 [facility] Last Admin: 03/25/18 06:12 Dose: 100 mcg Pantoprazole Sodium (Protonix -) 40 mg PO DAILY [facility] Last Admin: 03/25/18 09:49 Dose: 40 mg Pramipexole Dihydrochloride (Mirapex -) 0.25 mg PO DAILY@0900 [facility] Last Admin: 03/25/18 09:49 Dose: 0.25 mg Pramipexole Dihydrochloride (Mirapex -) 0.5 mg PO DAILY@1830 [facility] Last Admin: 03/24/18 17:54 Dose: 0.5 mg Warfarin Sodium (Coumadin -) 5 mg PO DAILY@1800 [facility] Last Admin: 03/24/18 17:24 Dose: 5 mg - Objective Vital Signs: Vital Signs Temperature 98.1 F 03/25/18 09:00 Pulse Rate 78 03/25/18 09:00 Respiratory Rate 20 03/25/18 09:00 Blood Pressure 108/44 L 03/25/18 09:00 O2 Sat by Pulse Oximetry (%) 97 03/25/18 09:00 Constitutional: Yes: Well Nourished, Calm, Obese Eyes: Yes: WNL HENT: Yes: WNL Neck: Yes: WNL Cardiovascular: Yes: Regular Rate and Rhythm, S1, S2 Respiratory: Yes: Rales (FEW BASAILAR CRACKLES) Gastrointestinal: Yes: Normal Bowel Sounds, Soft Extremities: Yes: WNL Edema: Yes Labs: CBC, BMP 03/25/18 05:30 03/25/18 05:30 INR, PTT INR 1.08 (0.83-1.09) 03/25/18 05:30 Problem List - Problems (1) DVT (deep venous thrombosis) Code(s): I82.409 - ACUTE EMBOLISM AND THOMBOS UNSP DEEP VN UNSP LOWER EXTREMITY Qualifiers: DVT location: lower extremity Affected thrombotic vein of extremity: femoral Chronicity: acute Laterality: left Qualified Code(s): I82.412 - Acute embolism and thrombosis of left femoral vein (2) Diabetes mellitus type 2, noninsulin dependent Code(s): E11.9 - TYPE 2 DIABETES MELLITUS WITHOUT COMPLICATIONS (3) History of pulmonary embolus (PE) Code(s): Z86.711 - PERSONAL HISTORY OF PULMONARY EMBOLISM (4) Hypertension Code(s): I10 - ESSENTIAL (PRIMARY) HYPERTENSION Qualifiers: Hypertension type: unspecified Qualified Code(s): I10 - Essential (primary ) hypertension (5) Shortness of breath on exertion Code(s): R06.02 - SHORTNESS OF BREATH (6) Colon cancer Code(s): C18.9 - MALIGNANT NEOPLASM OF COLON, UNSPECIFIED (7) Hypothyroidism Code(s): E03.9 - HYPOTHYROIDISM, UNSPECIFIED Qualifiers: Hypothyroidism type: acquired Qualified Code(s): E03.9 - Hypothyroidism, unspecified (8) Obesity (BMI 30-39.9) Code(s): E66.9 - OBESITY, UNSPECIFIED Assessment/Plan IMP LLE DVT RECURRENT H/O DVT/PE DYSPNEA ?PE,? CARDIAC HTN H/O COLON CA S/P RESECTION H/O BREAST CA DM HYPOTHYROID H/P PANCREATITIS OSAS AHI 13.7 ON SLEEP SCREEN CKD PULMONARY NODULES PLAN AC PT WILL REQUIRE [place] AC O2 NEEDED MONITOR LYTES,RENAL FUNCTION SLEEP STUDIES OUTPATIENT F/U CHEST CT ONE YR DR AVILEZ Problem List - Problems (1) DVT (deep venous thrombosis) Code(s): I82.409 - ACUTE EMBOLISM AND THOMBOS UNSP DEEP VN UNSP LOWER EXTREMITY Qualifiers: DVT location: lower extremity Affected thrombotic vein of extremity: femoral Chronicity: acute Laterality: left Qualified Code(s): I82.412 - Acute embolism and thrombosis of left femoral vein (2) Diabetes mellitus type 2, noninsulin dependent Code(s): E11.9 - TYPE 2 DIABETES MELLITUS WITHOUT COMPLICATIONS (3) History of pulmonary embolus (PE) Code(s): Z86.711 - PERSONAL HISTORY OF PULMONARY EMBOLISM (4) Hypertension Code(s): I10 - ESSENTIAL (PRIMARY) HYPERTENSION Qualifiers: Hypertension type: unspecified Qualified Code(s): I10 - Essential (primary ) hypertension (5) Shortness of breath on exertion Code(s): R06.02 - SHORTNESS OF BREATH (6) Colon cancer Code(s): C18.9 - MALIGNANT NEOPLASM OF COLON, UNSPECIFIED (7) Hypothyroidism Code(s): E03.9 - HYPOTHYROIDISM, UNSPECIFIED Qualifiers: Hypothyroidism type: acquired Qualified Code(s): E03.9 - Hypothyroidism, unspecified (8) Obesity (BMI 30-39.9) Code(s): E66.9 - OBESITY, UNSPECIFIED
--- NOTE | 2018-03-25 14:24 | DS ---
Physical Exam: SUBJECTIVE: Patient seen and examined at bedside this morning. She does not endorse any new complaints today. She denies subjective fevers, chills, shortness of breath, chest pain, palpitations, abdominal pain, nausea, vomiting today. OBJECTIVE: Vital Signs Period Temp Pulse Resp BP Sys/Brandt Pulse Ox Last 24 Hr 98.1 F-98.9 F 72-79 20-20 108-124/44-64 96-97 PHYSICAL EXAM GENERAL: The patient is awake, alert, and fully oriented, in no acute distress. HEAD: Normal with no signs of trauma. EYES: PERRL, extraocular movements intact, sclera anicteric, conjunctiva clear. No ptosis. ENT:Oropharynx clear without exudates, moist mucous membranes. NECK: Supple without lymphadenopathy LUNGS: Breath sounds equal, clear to auscultation bilaterally, no wheezes, no crackles, no accessory muscle use. HEART: Regular rate and rhythm, S1, S2 without murmur, rub or gallop. ABDOMEN: Soft, nontender, nondistended, normoactive bowel sounds, no guarding, no rebound, no hepatosplenomegaly, no masses. EXTREMITIES: 2+ pulses, warm, well-perfused, no edema. NEUROLOGICAL: Cranial nerves II through XII grossly intact. Normal speech. PSYCH: Normal mood, normal affect. SKIN: Warm, dry, normal turgor, no rashes or lesions noted LABS Laboratory Results - last 24 hr 03/23/18 03/24/18 03/24/18 06:30 17:14 21:01 WBC RBC Hgb Hct MCV MCH MCHC RDW Plt Count MPV PT with INR INR PTT (Actin FS) Sodium Potassium Chloride Carbon Dioxide Anion Gap BUN Creatinine Creat Clearance w eGFR POC Glucometer 92 125 Random Glucose Calcium Iron 69 TIBC 400 Iron Saturation 17 Total Bilirubin AST ALT Alkaline Phosphatase Total Protein Albumin 03/25/18 03/25/18 03/25/18 05:30 05:30 05:30 WBC 4.8 RBC 2.75 L Hgb 8.7 L Hct 25.5 L MCV 92.8 MCH 31.8 MCHC 34.3 RDW 15.0 Plt Count 240 MPV 7.7 PT with INR 12.80 INR 1.08 PTT (Actin FS) 49.7 H Sodium Potassium Chloride Carbon Dioxide Anion Gap BUN Creatinine Creat Clearance w eGFR POC Glucometer Random Glucose Calcium Iron TIBC Iron Saturation Total Bilirubin AST ALT Alkaline Phosphatase Total Protein Albumin 03/25/18 03/25/18 03/25/18 05:30 05:53 10:43 WBC RBC Hgb Hct MCV MCH MCHC RDW Plt Count MPV PT with INR INR PTT (Actin FS) Sodium 140 Potassium 4.4 Chloride 108 H Carbon Dioxide 24 Anion Gap 8 BUN 20 H Creatinine 1.3 Creat Clearance w eGFR 40.15 POC Glucometer 102 109 Random Glucose 82 Calcium 8.7 Iron TIBC Iron Saturation Total Bilirubin 0.3 AST 17 ALT 17 Alkaline Phosphatase 79 Total Protein 6.6 Albumin 3.2 L HOSPITAL COURSE: Date of Admission:03/21/18 Date of Discharge: 03/25/18 The patient is a 72 year old female with history of DVT right lower extremity, PE (Coumadin stopped by PCP in 2018), diabetes mellitus, hypertension, hypothyroidism, colon cancer (s/p chemotherapy, resection), left breast cancer ( s/p LCIS, prior Tamoxifen therapy), CKD presented to hospital with complaint of leg pain, swelling associated with shortness of breath. Venous duplex of bilateral lower extremities showed DVT within left common femoral vein. Heparin drip was initiated. Patient was evaluated by Tablet Making Machine Operator, with recommendation of lifelong anticoagulation. CTA was negative for pulmonary embolism. Patient elected to continue Coumadin for anticoagulation. Patient and family at bedside were educated regarding subcutaeous Lovenox injections. Patient discharged with Lovenox (for bridging therapy), and Coumadin. Discussed to follow up with primary care physician within one day of discharge for follow up and INR check to adjust Coumadin dosage as needed. Case discussed with Dr. Arroyo prior to discharge. Provided follow up outpatient referral to Primary care physician ( Dr. Arroyo), Hematology/ oncology, Tablet Making Machine Operator, Promotions Assistant Sales Marketing. Minutes to complete discharge: 35 Discharge Summary Reason For Visit: DVT/SOB ON EXERTION/KIDNEY DISORDER/ Current Active Problems Anemia (Acute) DVT (deep venous thrombosis) (Acute) Diabetes mellitus type 2, noninsulin dependent (Acute) History of pulmonary embolus (PE) (Acute) Hypertension (Acute) Shortness of breath on exertion (Acute) Condition: Stable - Instructions Diet, Activity, Other Instructions: You were admitted to hospital with lower extremity pain and swelling, and were found to have a blood clot within your leg (DVT) You were started on blood thinners Heparin and Coumadin. You had a CT scan which showed no blood clots within your lungs. You are being discharged home. You will continue taking Coumadin 5mg daily. You will need to follow up with your primary care physician Dr. Arroyo within one - two days after discharge to check your INR blood level, to ensure the Coumadin is at an appropriate dose. Your primary care physician may need to change your dose, and it is important that you maintain frequent visits with your primary care physician. In addition, you will be taking Lovenox injections 180mg injected subcutaneously daily- until the Coumadin is at appropriate blood level (INR). As you are on a blood thinner be cautious with your daily activities. Note that there is an increased risk of bleeding from any trauma, fall, cut, or injury. If you experience any bleeding, return to the nearest Emergency Department. Continue taking your home medications as directed. Begin taking Coumadin 5mg daily. Follow up tomorrow with your primary care physician for INR check, and discuss any dosage changes. Begin taking Lovenox 180mg injected subcutaneously daily (150mg syrine + 30mg syringe). Discuss this new medication with your primary care physician. Follow up with your primary care physician Dr. Arroyo within one day after discharge. You will need to check your INR blood level at the apppointment. You will need to follow up with a manager of clinical within one week of discharge. A referral to Dr. Lara has been provided. Follow up with histology manager Dr. Dewitt within one- two weeks after discharge. Referrals: Chriss Dewitt MD [Staff Physician] - Roseanna Roque MD [Staff Physician] - Benedicto Lara MD [Staff Physician] - Sherri Arroyo-Stew Mathias [Primary Care Provider] - Disposition: HOME - Home Medications Comprehensive Discharge Medication List: Ambulatory Orders Amlodipine Besylate 2.5 mg PO DAILY 12/10/16 Cholecalciferol (Vitamin D3) [Vitamin D3] 50,000 unit PO WEEKLY 12/10/16 Hydrochlorothiazide [Hctz -] 12.5 mg PO DAILY 12/10/16 Levothyroxine [Synthroid -] 100 mcg PO DAILY 12/10/16 metFORMIN HCL [Metformin ER Osmotic] 500 mg PO DAILY 12/10/16 Atorvastatin Calcium [Lipitor] 20 mg PO HS 03/21/18 Omeprazole 40 mg PO DAILY 03/21/18 Pramipexole Di-HCl [Mirapex] 0.25 mg PO AM 03/21/18 Alcohol Antiseptic Pads [Alcohol Prep Pads] 1 each TP DAILY #1 box 03/25/18 Enoxaparin Sodium [Lovenox] 150 mg SQ DAILY #10 dis.syr 03/25/18 Enoxaparin [Lovenox -] 30 mg SQ DAILY #10 disp.syrin 03/25/18 This patient is new to me today: No Emergency Visit: Yes ED Registration Date: 03/21/18 Care time: The patient presented to the Emergency Department on the above date and was hospitalized for further evaluation of their emergent condition. Critical Care patient: No - Discharge Referral Referred to [facility] Med P.C[facility] No
[2018-03-25] MEDS ORDERED: ENOXAPARIN NA (PORCINE) 40 MG/0.4 ML DISP.SYRIN SQ ONE (14:51)
[2018-03-25] MEDS ORDERED: ENOXAPARIN NA (PORCINE) 80 MG/0.8 ML DISP.SYRIN SQ ONE (15:50)
[2018-03-25] MEDS ORDERED: PT OWN MED DRAWER 7, Y5N ONE (16:44)
[2018-03-25] MEDS: WARFARIN NA 5 MG TABLET (UD) PO SCH (16:48)
[2018-03-28 08:47] LABS: METHYLMALONIC ACID- 216 nmol/L (0-378)
== END 2018-03-25 17:27 | disposition home or self-care (01) | DRG 300 ==
LOC: JER 11:03 → JERBED 17:55 → J4W 03-22 20:18
PROVIDERS: ADMIT Internal Medicine
DX: I82.412 Acute embolism and thrombosis of left femoral vein (principal); Z68.41 Body mass index [BMI] 40.0-44.9, adult; I82.492 Acute embolism and thrombosis of other specified deep vein of left lower extremity; E11.9 Type 2 diabetes mellitus without complications; E66.01 Morbid (severe) obesity due to excess calories; K21.9 Gastro-esophageal reflux disease without esophagitis; E03.9 Hypothyroidism, unspecified; I12.9 Hypertensive chronic kidney disease with stage 1 through stage 4 chronic kidney disease, or unspecified chronic kidney disease; E78.5 Hyperlipidemia, unspecified; M75.21 Bicipital tendinitis, right shoulder; E11.22 Type 2 diabetes mellitus with diabetic chronic kidney disease; N18.3 Chronic kidney disease, stage 3 (moderate); G47.33 Obstructive sleep apnea (adult) (pediatric); E83.42 Hypomagnesemia; R91.8 Other nonspecific abnormal finding of lung field; D63.8 Anemia in other chronic diseases classified elsewhere; Z85.3 Personal history of malignant neoplasm of breast; Z86.711 Personal history of pulmonary embolism; Z85.038 Personal history of other malignant neoplasm of large intestine; Z86.73 Personal history of transient ischemic attack (TIA), and cerebral infarction without residual deficits
CPT/HCPCS: 36415; 71046-TC-FY; 71275-TC; 76775-TC; 80053; 82550; 82565; 82607; 82728; 82746; 82962; 83036; 83540; 83550; 83735; 83880; 83921; 84100; 84443; 84484; 84520; 85025; 85027; 85610; 85730; 90688; 93005; 93010; 93306-TC; 93970-TC; 99285-25; G0008; J1644; J7030

== ENCOUNTER 2018-04-20 16:36 | Observation (INO) | payer OTHER ==
[2018-04-20 16:52] VITALS: BMI 43.2
--- NOTE | 2018-04-20 17:11 | PDOC ---
History of Present Illness - General Chief Complaint: Pain Stated Complaint: REFERED BY DR Chamberlain Seen by Provider: 04/20/18 17:10 History Source: Patient Exam Limitations: No Limitations - History of Present Illness Initial Comments: 72 yo F w a pmh of DVT right lower extremity, PE (Coumadin stopped by PCP in 2018), diabetes mellitus, hypertension, hypothyroidism, colon cancer (s/p chemotherapy, resection), left breast cancer (s/p LCIS, prior Tamoxifen therapy) , CKD presents to the [facility] ER sent in by her PCP Dr. Arroyo for concern regarding "knots in her lower abdomen" and some borderline abnormal lab results. She was recently discharged from [facility] with education regarding sub Q lovenox injections. The plan was for her to take lovenox as a bridge therapy to get back on warfarin because she likely needs warfarin for life. The patient states that she has these "knots" in her lower abdomen in the area where she has been receiving the lovenox shots. She states they are not painful but she's finds it a bit weird that she has these large appreciable knots. She denies having any of the following new findings since her recent discharge: chest pain, new SOB, difficulty breathing, fevers, chills, infections, back pain , abdominal pain, weakness, numbness, tingling, chills, dysuria, frequency, urgency. PCP: Dr. Arroyo Oncologist: Dr. Freedman PSH: ex lap for obstruction in , lap cholecystectomy complicated with pancreatitis in 2016, breast biopsy b/l, appendectomy, hernia repair with mesh Social Hx: Former smoker Allergies: NKA, NKDA Past History - Past Medical History Allergies/Adverse Reactions: Allergies Allergy/AdvReac Type Severity Reaction Status Date / Time No Known Drug Allergies Allergy Verified 04/20/18 17:05 Home Medications: Ambulatory Orders Amlodipine Besylate 2.5 mg PO DAILY 12/10/16 Cholecalciferol (Vitamin D3) [Vitamin D3] 50,000 unit PO WEEKLY 12/10/16 Hydrochlorothiazide [Hctz -] 12.5 mg PO DAILY 12/10/16 metFORMIN HCL [Metformin ER Osmotic] 500 mg PO DAILY 12/10/16 Atorvastatin Calcium [Lipitor] 20 mg PO HS 03/21/18 Omeprazole 40 mg PO DAILY 03/21/18 Pramipexole Di-HCl [Mirapex] 0.25 mg PO AM 03/21/18 Warfarin Sodium [Coumadin] 5 mg PO DAILY 7 Days #7 tablet 03/25/18 Levothyroxine [Synthroid -] 100 mcg PO DAILY 04/21/18 Anemia: Yes Asthma: No Cancer: Yes (COLON) Cardiac Disorders: Yes CVA: No COPD: No CHF: No Dementia: No Diabetes: Yes GI Disorders: No Disorders: No HTN: Yes Hypercholesterolemia: Yes Liver Disease: No Seizures: No Thyroid Disease: Yes - Surgical History Abdominal Surgery: Yes (exploratory lap for obstruction 1993) Appendectomy: No Cardiac Surgery: No Cholecystectomy: Yes (11/2016) Lung Surgery: No Neurologic Surgery: No - Suicide/Smoking/Psychosocial Hx Smoking History: Unknown if ever smoked Have you smoked in the past 12 months: No Number of Cigarettes Smoked Daily: 0 If you are a former smoker, when did you quit?: 1971 Hx Alcohol Use: No Drug/Substance Use Hx: No Substance Use Type: None Hx Substance Use Treatment: No Review of Systems - Review of Systems Able to Perform ROS?: Yes Comments:: CONSTITUTIONAL: Absent: fever, no chills, no fatigue EYES: Absent: visual changes ENT: Absent: ear pain, no sore throat CARDIOVASCULAR: Absent: chest pain, no palpitations RESPIRATORY: Absent: cough, no SOB GI: Absent: abdominal pain, no nausea, no vomiting, no constipation, no diarrhea GENITOURINARY: Absent: dysuria, no frequency, no hematuria MUSKULOSKELETAL: Absent: back pain, no arthralgia, no myalgia SKIN: Absent: rash NEURO: Absent: headache *Physical Exam - Vital Signs Last Vital Signs Temp Pulse Resp BP Pulse Ox 98.2 F 82 18 170/100 98 04/20/18 16:51 04/20/18 16:51 04/20/18 16:51 04/20/18 16:51 04/20/18 16:51 - Physical Exam Comments: GENERAL: Well-appearing, well-nourished. No apparent distress. HEENT: Normocephalic, atraumatic. PERRL, EOM intact. CARDIOVASCULAR: Normal S1, S2. Regular rate and rhythm. PULMONARY: No evidence of respiratory distress. Lungs clear to auscultation bilaterally. No wheezing, rales or rhonchi. ABDOMEN: There are multiple large massess in her lower abdomen. The massess are not painful or erythematous. They are mobile. The abdomen is soft with normal bowel sounds and not tender or distended. EXTREMITIES: Normal ROM in all four extremities. No gross deformities. SKIN: Warm, dry. No rash NEUROLOGICAL: No focal neurological deficits. Moderate Sedation - Procedure Monitoring Vital Signs: Procedure Monitoring Vital Signs Temperature 98.2 F 04/20/18 16:51 Pulse Rate 82 04/20/18 16:51 Respiratory Rate 18 04/20/18 16:51 Blood Pressure 170/100 04/20/18 16:51 O2 Sat by Pulse Oximetry (%) 98 04/20/18 16:51 ED Treatment Course - LABORATORY CBC & Chemistry Diagram: 04/21/18 06:30 04/21/18 06:30 Medical Decision Making - Medical Decision Making 72 yo F w a pmh of DVT right lower extremity, PE (Coumadin stopped by PCP in 2018), diabetes mellitus, hypertension, hypothyroidism, colon cancer (s/p chemotherapy, resection), left breast cancer (s/p LCIS, prior Tamoxifen therapy) , CKD presents to the [facility] ER sent in by her PCP Dr. Arroyo for concern regarding "knots in her lower abdomen" and some borderline abnormal lab results. She was recently discharged from [facility] with education regarding sub Q lovenox injections. The plan was for her to take lovenox as a bridge therapy to get back on warfarin because she likely needs warfarin for life. The patient states that she has these "knots" in her lower abdomen in the area where she has been receiving the lovenox shots. She states they are not painful but she's finds it a bit weird that she has these large appreciable knots. VS: Hypertensive. DDx IBNLT: Hematoma vs metastatic cancer, electrolyte abnormality, subtherapeutic anticoagulation, infection, dehydration. Plan: Labs, UA, EKG, CTAP, PCP consult, re-assess. PCP Dr. Arroyo's Number:[phone] - Patient will be signed out to night team to discuss CT results (metastatic cancer vs hematomas) and lab work with Dr. Arroyo *DC/Admit/Observation/Transfer Diagnosis at time of Disposition: Scar of abdominal skin - Discharge Dispostion Condition at time of disposition: Stable - Referrals - Patient Instructions - Post Discharge Activity
--- NOTE | 2018-04-20 17:15 | PDOC ---
Attending Attestation - HPI HPI: 04/20/18 17:56 The patient is a 72 year old female with a PMH of DVT on the RLE, PE (Coumadin stopped by PCP in 2018), DM, HTN, hypothyroidism, colon CA (s/p chemotherapy, resection), left breast CA (s/p LCIS, prior Tamoxifen therapy), and CKD who presents to the ER sent in by Dr. Arroyo, her PCP, for evaluation of knots in her abdomen. Patient states she was taking sub Q lovenox injections prior to noticing these knots. Patient reports mild pain with movement. Patient denies any other associated symptoms. Allergies: NKDA Surgical history: ex lap for obstruction in , lap cholecystectomy complicated with pancreatitis in 2016, breast biopsy b/l, appendectomy, hernia repair with mesh Social Hx: Former smoker. Denies cigarette or alcohol use. PCP: Dr. Arroyo <Mariola Nolasco - Last Filed: 04/20/18 17:56> - Physicial Exam PE: 04/20/18 18:52 Agree with resident exam. patient is alert and oriented x 3 and in no acute distress. + non tender subcutaneous masses in her anterior abdominal wall. No abdominal tenderness. - Medical Decision Making 04/20/18 18:54 PT presents to the ED complaining of masses to the anterior abdominal wall that appeared after she started subcutaneous lovenox. most likely secondary to hematomas, but will do CT at the request of her PMD to rule out lipoma. <Vero Sy - Last Filed: 04/20/18 19:04>
[2018-04-20 18:02] LABS: BASO % 1.2 % (0-2.0); EOS % 1.1 % (0-4.5); HEMATOCRIT 26.8 % (32.4-45.2); HEMOGLOBIN 9.1 GM/dL (10.7-15.3); LYMPH % 43.5 % (8-40); MCH 32.1 pg (25.7-33.7); MCHC 34.1 g/dl (32.0-36.0); MEAN PLT VOLUME 6.6 fl (7.5-11.1); MONO % 8.8 % (3.8-10.2); NEUT % 45.4 % (42.8-82.8); PLATELET COUNT 289 K/MM3 (134-434); RBC 2.85 M/mm3 (3.60-5.2); RDW 15.4 % (11.6-15.6); WHITE BLOOD COUNT 4.7 K/mm3 (4.0-10.0)
[2018-04-20 18:17] LABS: INR 1.39 (0.83-1.09); PROTHROMBIN TIME (PATIENT) 16.4 SEC (9.7-13.0)
[2018-04-20 18:20] LABS: ACTIVATED PTT 28.1 SECONDS (25.2-36.5)
[2018-04-20 18:31] LABS: ALBUMIN 3.3 g/dl (3.4-5.0); ALK PHOS 80 U/L (45-117); ANION GAP 9 MMOL/L (8-16); BILIRUBIN,TOTAL 0.2 mg/dL (0.2-1); BLOOD UREA NITROGEN 28 mg/dL (7-18); CALCIUM 8.8 mg/dL (8.5-10.1); CHLORIDE 109 mmol/L (98-107); CO2 22 mmol/L (21-32); CREATININE 1.5 mg/dL (0.55-1.3); GLUCOSE,RANDOM 85 mg/dL (74-106); LIPASE 168 U/L (73-393); POTASSIUM 4.5 mmol/L (3.5-5.1); SGOT/AST 16 U/L (15-37); SGPT/ALT 16 U/L (13-61); SODIUM 140 mmol/L (136-145); TOT PROT 6.7 g/dl (6.4-8.2)
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
[2018-04-20 22:12] LABS: URINE APPEARANCE CLEAR; URINE BILIRUBIN NEGATIVE (<2.0 mg/dL); URINE COLOR STRAW; URINE GLUCOSE (UA) NEGATIVE (NEGATIVE); URINE KETONE NEGATIVE (NEGATIVE); URINE LEUK ESTERASE NEGATIVE (NEGATIVE); URINE NITRITE NEGATIVE (NEGATIVE); URINE PROTEIN NEGATIVE (NEGATIVE); URINE UROBILINOGEN NEGATIVE mg/dL (0.2-1.0)
--- NOTE | 2018-04-21 00:39 | HP ---
PCP: Ana Arroyo CHIEF COMPLAINT: Abdominal mass HISTORY OF PRESENT ILLNESS: This is a 72 year old woman who comes to the ED complaining of painless "knots" in her abdomen. She saw her PCP, Dr. Arroyo, yesterday and he advised her to go to the ED to have this evaluated. She first noticed them a few days ago and says they are located in the areas where she is receiving Lovenox injections. They have not been painful. She denies fevers. She had been on Coumadin and had an IVC filter placed after a DVT in her RLE and PE. Coumadin had been stopped in 2018. One month ago, she was found to have a DVT in her LLE. Lifetime anticoagulation was recommended and she chose to use Coumadin. She was discharged on 03/25 on Lovenox and Coumadin. PAST MEDICAL HISTORY HTN Hyperlipidemia Type 2 DM Stage 3 CKD GERD Anemia Hypothyroidism RLE DVT/PE LLE DVT Breast cancer Colon cancer Morbid obesity PAST SURGICAL HISTORY Right colectomy/appendectomy Laparoscopic cholecystectomy Hernia repair Breast biopsy IVC filter placement Social History: Smoking: Quit smoking 1971 Alcohol: Denies Drugs: Denies Recent Travel: No Family History Mother - pacemaker Allergies No Known Drug Allergies Allergy (Verified 04/20/18 17:05) Home Medications Medication Instructions Recorded Amlodipine Besylate 2.5 mg PO DAILY 12/10/16 Cholecalciferol (Vitamin D3) 50,000 unit PO WEEKLY 12/10/16 [Vitamin D3] Hydrochlorothiazide [Hctz -] 12.5 mg PO DAILY 12/10/16 Levothyroxine [Synthroid -] 100 mcg PO DAILY 12/10/16 metFORMIN HCL [Metformin ER 500 mg PO DAILY 12/10/16 Osmotic] Atorvastatin Calcium [Lipitor] 20 mg PO HS 03/21/18 Omeprazole 40 mg PO DAILY 03/21/18 Pramipexole Di-HCl [Mirapex] 0.25 mg PO AM 03/21/18 Warfarin Sodium [Coumadin] 5 mg PO DAILY 7 Days #7 tablet 03/25/18 REVIEW OF SYSTEMS CONSTITUTIONAL: Absent: fever, chills, diaphoresis, generalized weakness, malaise, loss of appetite, weight change HEENT: Absent: rhinorrhea, nasal congestion, throat pain, throat swelling, difficulty swallowing, mouth swelling, ear pain, eye pain, visual changes CARDIOVASCULAR: Absent: chest pain, syncope, palpitations, lightheadedness, peripheral edema RESPIRATORY: Absent: cough, shortness of breath, dyspnea with exertion, orthopnea, wheezing, stridor, hemoptysis GASTROINTESTINAL: Absent: abdominal pain, abdominal distension, nausea, vomiting , diarrhea, constipation, melena, hematochezia GENITOURINARY: Absent: dysuria, frequency, urgency, hesitancy, hematuria, flank pain MUSCULOSKELETAL: Absent: myalgia, arthralgia, joint swelling, back pain, neck pain SKIN: Absent: rash, itching, pallor HEMATOLOGIC/IMMUNOLOGIC: Absent: easy bleeding, easy bruising, lymphadenopathy, frequent infections ENDOCRINE: Absent: unexplained weight gain, unexplained weight loss, heat intolerance, cold intolerance NEUROLOGIC: Absent: headache, focal weakness, paresthesias, dizziness, unsteady gait, seizure, mental status changes, bladder or bowel incontinence PSYCHIATRIC: Absent: anxiety, depression, suicidal or homicidal ideation, hallucinations. PHYSICAL EXAMINATION Vital Signs - 24 hr 04/20/18 16:51 Temperature 98.2 F Pulse Rate 82 Respiratory 18 Rate Blood Pressure 170/100 O2 Sat by Pulse 98 Oximetry (%) GENERAL: Awake, alert, and fully oriented, in no acute distress. HEAD: Normal with no signs of trauma. EYES: Pupils equal, round and reactive to light, extraocular movements intact, sclerae anicteric, conjunctivae clear. EARS, NOSE, THROAT: Ears normal, nares patent, oropharynx clear without exudates. Moist mucous membranes. NECK: Normal range of motion, supple without lymphadenopathy, JVD, or masses. LUNGS: Breath sounds equal, clear to auscultation bilaterally. No wheezes, and no crackles. No accessory muscle use. HEART: Regular rate and rhythm, normal S1 and S2 without murmur, rub or gallop. ABDOMEN: Obese, soft, nontender, not distended, normoactive bowel sounds, no guarding, no rebound. No hepatomegaly or splenomegaly. Multiple non-tender, firm subcutaneous nodules along the lower abdomen bilaterally. MUSCULOSKELETAL: Normal range of motion at all joints. No bony deformities or tenderness. No CVA tenderness. UPPER EXTREMITIES: 2+ pulses, warm, well-perfused. No cyanosis. No clubbing. No peripheral edema. LOWER EXTREMITIES: 2+ pulses, warm, well-perfused. No calf tenderness. Trace edema LLE. NEUROLOGICAL: Cranial nerves II-XII intact. Normal speech. Gait not observed. PSYCHIATRIC: Cooperative. Good eye contact. Appropriate mood and affect. SKIN: Warm, dry, normal turgor, no rashes or lesions noted, normal capillary refill. Laboratory Results - last 24 hr 04/20/18 04/20/18 04/20/18 17:50 17:50 17:50 WBC 4.7 RBC 2.85 L Hgb 9.1 L Hct 26.8 L MCV 94.0 MCH 32.1 MCHC 34.1 RDW 15.4 Plt Count 289 D MPV 6.6 L D Absolute Neuts (auto) 2.1 Neutrophils % 45.4 Lymphocytes % 43.5 H Monocytes % 8.8 Eosinophils % 1.1 Basophils % 1.2 Nucleated RBC % 0 PT with INR 16.40 H INR 1.39 H PTT (Actin FS) 28.1 Sodium 140 Potassium 4.5 Chloride 109 H Carbon Dioxide 22 Anion Gap 9 BUN 28 H Creatinine 1.5 H Creat Clearance w eGFR 34.04 Random Glucose 85 Calcium 8.8 Total Bilirubin 0.2 AST 16 ALT 16 Alkaline Phosphatase 80 Total Protein 6.7 Albumin 3.3 L Lipase 168 Urine Color Urine Appearance Urine pH Ur Specific [place] Urine Protein Urine Glucose (UA) Urine Ketones Urine Blood Urine Nitrite Urine Bilirubin Urine Urobilinogen Ur Leukocyte Esterase Blood Type Antibody Screen 04/20/18 04/20/18 17:50 22:00 WBC RBC Hgb Hct MCV MCH MCHC RDW Plt Count MPV Absolute Neuts (auto) Neutrophils % Lymphocytes % Monocytes % Eosinophils % Basophils % Nucleated RBC % PT with INR INR PTT (Actin FS) Sodium Potassium Chloride Carbon Dioxide Anion Gap BUN Creatinine Creat Clearance w eGFR Random Glucose Calcium Total Bilirubin AST ALT Alkaline Phosphatase Total Protein Albumin Lipase Urine Color Straw Urine Appearance Clear Urine pH 5.0 D Ur Specific [place] 1.011 Urine Protein Negative Urine Glucose (UA) Negative Urine Ketones Negative Urine Blood Negative Urine Nitrite Negative Urine Bilirubin Negative Urine Urobilinogen Negative Ur Leukocyte Esterase Negative Blood Type A POSITIVE Antibody Screen Negative CT abdomen/pelvis: Subcutaneous abscesses versus resolving small hematomas right and left-sided abdominal wall to be considered. ASSESSMENT/PLAN: This is a 72 year old woman with a history of LLE/RLE DVT, PE, stage 3 CKD, colon cancer, breast cancer, type 2 DM, HTN, hyperlipidemia, hypothyroidism who presented to the ED with multiple painless abdominal masses. 1. Subcutaneous hematomas secondary to Lovenox injections - Patient reassured - Cannot stop Lovenox as patient is high risk for DVT/PE and INR is still subtherapeutic 2. Recurrent DVTs, history of PE - Patient is on lifetime anticoagulation - Continue Coumadin - increase to 10 mg daily - Continue Lovenox until INR is therapeutic 3. Stage 3 CKD - Stable (baseline creatinine 1.3-1.5) 4. HTN, uncontrolled - Continue Norvasc - increase to 5 mg daily - Hold HCTZ secondary to elevated creatinine 5. Hyperlipidemia - Continue Lipitor 6. Hypothyroidism - Continue Synthroid - TSH was high last month (7.19) - will repeat 7. Type 2 DM - Hold metformin secondary to elevated creatinine - Fingersticks with Novolog sliding scale 8. GERD - Continue Prilosec 9. Anemia, likely secondary to chronic illness/CKD - Hemoglobin stable - Had hematology evaluation and workup last month - iron, TIBC, iron sat, ferritin, B12, folate all normal 10. Breast cancer 11. Colon cancer 12. Morbid obesity with BMI 43.3 Visit type - Emergency Visit Emergency Visit: Yes ED Registration Date: 04/20/18 Care time: The patient presented to the Emergency Department on the above date and was hospitalized for further evaluation of their emergent condition. - New Patient This patient is new to me today: Yes Date on this admission: 04/21/18 - Critical Care Critical Care patient: No
[2018-04-21] MEDS ORDERED: ACETAMINOPHEN 325 MG TABLET (FP) PO PRN (01:40)
[2018-04-21] MEDS ORDERED: PATIENT'S OWN MEDICATION (NON-FORMULARY) (Cholecalciferol (Vitamin D3) [Vitamin D3] 50,000 PO SCH (01:45)
[2018-04-21] MEDS ORDERED: ACETAMINOPHEN 325 MG TABLET (FP) PO ONE ×2 (06:19→06:20)
[2018-04-21] MEDS ORDERED: ACETAMINOPHEN 325 MG TABLET (FP) ONE (06:22)
[2018-04-21] MEDS ORDERED: LEVOTHYROXINE NA 100 MCG TABLET (FP) PO SCH (07:00)
[2018-04-21] MEDS ORDERED: PRAMIPEXOLE DIHYDROCHLORIDE 0.25 MG TABLET PO SCH (07:00)
[2018-04-21] MEDS ORDERED: INSULIN SLIDING SCALE (NOVOLOG) 1 VIAL SQ SCH (07:00)
[2018-04-21 07:47] LABS: HEMATOCRIT 25.9 % (32.4-45.2); HEMOGLOBIN 8.6 GM/dL (10.7-15.3); MCH 31.3 pg (25.7-33.7); MCHC 33.4 g/dl (32.0-36.0); MEAN CELL VOLUME 93.6 fl (80-96); MEAN PLT VOLUME 6.9 fl (7.5-11.1); PLATELET COUNT 283 K/MM3 (134-434); RBC 2.76 M/mm3 (3.60-5.2); RDW 15.8 % (11.6-15.6); WHITE BLOOD COUNT 4.3 K/mm3 (4.0-10.0)
[2018-04-21 07:57] LABS: INR 1.27 (0.83-1.09)
[2018-04-21 08:26] LABS: ANION GAP 4 MMOL/L (8-16); BLOOD UREA NITROGEN 26 mg/dL (7-18); CALCIUM 8.8 mg/dL (8.5-10.1); CHLORIDE 107 mmol/L (98-107); CO2 27 mmol/L (21-32); CREATININE 1.3 mg/dL (0.55-1.3); GLUCOSE,RANDOM 81 mg/dL (74-106); POTASSIUM 4.7 mmol/L (3.5-5.1); SODIUM 138 mmol/L (136-145)
--- NOTE | 2018-04-21 09:55 | EKG ---
Test Reason : Blood Pressure : / mmHG Vent. Rate : 079 BPM Atrial Rate : 079 BPM P-R Int : 200 ms QRS Dur : 078 ms QT Int : 350 ms P-R-T Axes : 022 -20 027 degrees QTc Int : 401 ms SINUS RHYTHM WITH OCCASIONAL PREMATURE VENTRICULAR COMPLEXES MODERATE VOLTAGE CRITERIA FOR LVH, MAY BE NORMAL VARIANT BORDERLINE ECG WHEN COMPARED WITH ECG OF 22-MAR-2018 11:07, PREMATURE VENTRICULAR COMPLEXES ARE NOW PRESENT Confirmed by RILEY JANG, MARIA VICTORIA ([id number]) on 04/21/2018 9:54:44 AM Referred By: Confirmed By:MARIA VICTORIA LIN MD
[2018-04-21] MEDS ORDERED: amLODIPine BESYLATE 5 MG TABLET (FP) PO SCH ×2 (10:00)
[2018-04-21] MEDS ORDERED: ENOXAPARIN NA (PORCINE) 40 MG/0.4 ML DISP.SYRIN SQ SCH (10:00)
[2018-04-21] MEDS ORDERED: ENOXAPARIN SQ SCH (10:00)
[2018-04-21] MEDS ORDERED: PANTOPRAZOLE 40 MG TABLET (FP) PO SCH (10:00)
[2018-04-21] MEDS ORDERED: WARFARIN NA 5 MG TABLET (UD) PO SCH (10:00)
--- NOTE | 2018-04-21 12:28 | PN ---
Teaching Attending Note Name of Resident: Young Clark ATTENDING PHYSICIAN STATEMENT I saw and evaluated the patient. I reviewed the resident's note and discussed the case with the resident. I agree with the resident's findings and plan as documented. SUBJECTIVE: No Cp no Abd pain, no fever or chills. no [place] . No bleeding at home OBJECTIVE: Nad , AWAKE , ALERT AND COOPERATIVE CV: RRR, no mRG Lungs: CTAB ext : no edema Abd; obese, soft, ND, NT, few superficial subcutaneous nodule felt in lower abd wall. non tender, No erythema over covering skin. Nl BS ASSESSMENT AND PLAN: 72 y/o lady with h/o HTN, DVT/PE, IVCF, GERD, anemia, HLP, DM, CKD3, recent LLE DVT now on AC. She presented after bein referred by her PCP due to abd wall nodules 1- Abd wall nodules, likley due to small hematomas at lovenox injection. No evidence of infection due to tenderness, erythema, fever , leukocytosis or other signs. CT prelim read reviewed. final still pending . US report pending. No further w/u or specific treatment . 2- H/o DM: last A1c 5.3 in 03/29. alicia stop her metformin due to her CKD. will need regular monitoring of her A1c after dc 3- HTN: cont HCTZ and increased dose of Norvasc at dc 4- Anemia : chronic . Hb at base line . recent iron studies reviewed and indicates iron def. will start iorn supp. of course renal disease might be contributing 5- H/o DVT x 2 . s/p IVC filter. need AC for life. currently being bridged to coumadin cont home dose Lovenox and increased dose of coumadin 10 q PM ,. next INR 2/13 to be sent to her pCP dr. Arroyo. goal INR 2-3 . further instructions per him. instructed pt about above and to monitor for bleeding 6- dispo : dc back home to follow with her PCP for further w/u, instructions, referrals.
--- NOTE | 2018-04-21 15:32 | DS ---
Physical Exam: SUBJECTIVE: Patient seen and examined OBJECTIVE: Vital Signs Period Temp Pulse Resp BP Sys/Brandt Pulse Ox Last 24 Hr 98.1 F-98.5 F 74-90 17-20 92-170/52-100 98-100 PHYSICAL EXAM GENERAL: The patient is awake, alert, and fully oriented, in no acute distress. HEAD: Normal with no signs of trauma. EYES: PERRL, extraocular movements intact, sclera anicteric, conjunctiva clear. ENT: Ears normal, nares patent, oropharynx clear without exudates, moist mucous membranes. NECK: Trachea midline, full range of motion, supple. LUNGS: Breath sounds equal, clear to auscultation bilaterally, no wheezes, no crackles, no accessory muscle use. HEART: Regular rate and rhythm, S1, S2 without murmur, rub or gallop. ABDOMEN: Soft, nontender, nondistended, normoactive bowel sounds, no guarding, no rebound, no hepatosplenomegaly, no masses. EXTREMITIES: 2+ pulses, warm, well-perfused, no edema. NEUROLOGICAL: Cranial nerves II through XII grossly intact. Normal speech, gait not observed. PSYCH: Normal mood, normal affect. SKIN: Warm, dry, normal turgor, no rashes or lesions noted. LABS Laboratory Results - last 24 hr 04/20/18 04/20/18 04/20/18 17:50 17:50 17:50 WBC 4.7 RBC 2.85 L Hgb 9.1 L Hct 26.8 L MCV 94.0 MCH 32.1 MCHC 34.1 RDW 15.4 Plt Count 289 D MPV 6.6 L D Absolute Neuts (auto) 2.1 Neutrophils % 45.4 Lymphocytes % 43.5 H Monocytes % 8.8 Eosinophils % 1.1 Basophils % 1.2 Nucleated RBC % 0 PT with INR 16.40 H INR 1.39 H PTT (Actin FS) 28.1 Sodium 140 Potassium 4.5 Chloride 109 H Carbon Dioxide 22 Anion Gap 9 BUN 28 H Creatinine 1.5 H Creat Clearance w eGFR 34.04 Random Glucose 85 Calcium 8.8 Total Bilirubin 0.2 AST 16 ALT 16 Alkaline Phosphatase 80 Total Protein 6.7 Albumin 3.3 L Lipase 168 TSH Free T4 Urine Color Urine Appearance Urine pH Ur Specific [place] Urine Protein Urine Glucose (UA) Urine Ketones Urine Blood Urine Nitrite Urine Bilirubin Urine Urobilinogen Ur Leukocyte Esterase Blood Type Antibody Screen 04/20/18 04/20/18 04/21/18 17:50 22:00 06:30 WBC RBC Hgb Hct MCV MCH MCHC RDW Plt Count MPV Absolute Neuts (auto) Neutrophils % Lymphocytes % Monocytes % Eosinophils % Basophils % Nucleated RBC % PT with INR 15.00 H INR 1.27 H PTT (Actin FS) Sodium Potassium Chloride Carbon Dioxide Anion Gap BUN Creatinine Creat Clearance w eGFR Random Glucose Calcium Total Bilirubin AST ALT Alkaline Phosphatase Total Protein Albumin Lipase TSH Free T4 Urine Color Straw Urine Appearance Clear Urine pH 5.0 D Ur Specific [place] 1.011 Urine Protein Negative Urine Glucose (UA) Negative Urine Ketones Negative Urine Blood Negative Urine Nitrite Negative Urine Bilirubin Negative Urine Urobilinogen Negative Ur Leukocyte Esterase Negative Blood Type A POSITIVE Antibody Screen Negative 04/21/18 04/21/18 06:30 06:30 WBC 4.3 RBC 2.76 L Hgb 8.6 L Hct 25.9 L MCV 93.6 MCH 31.3 MCHC 33.4 RDW 15.8 H Plt Count 283 MPV 6.9 L Absolute Neuts (auto) Neutrophils % Lymphocytes % Monocytes % Eosinophils % Basophils % Nucleated RBC % PT with INR INR PTT (Actin FS) Sodium 138 Potassium 4.7 Chloride 107 Carbon Dioxide 27 Anion Gap 4 L BUN 26 H Creatinine 1.3 Creat Clearance w eGFR 40.15 Random Glucose 81 Calcium 8.8 Total Bilirubin AST ALT Alkaline Phosphatase Total Protein Albumin Lipase TSH 9.61 H Free T4 1.01 Urine Color Urine Appearance Urine pH Ur Specific [place] Urine Protein Urine Glucose (UA) Urine Ketones Urine Blood Urine Nitrite Urine Bilirubin Urine Urobilinogen Ur Leukocyte Esterase Blood Type Antibody Screen CBC, BMP 04/21/18 06:30 04/21/18 06:30 HOSPITAL COURSE: Date of Admission:04/20/18 Date of Discharge: 04/21/18 Discharge Summary Reason For Visit: SCAR OF ABDOMINAL SKIN Current Active Problems Hematoma (Acute) Anemia (Chronic) Breast cancer (Chronic) Chronic kidney disease (CKD) (Chronic) Colon cancer (Chronic) DVT (deep venous thrombosis) (Chronic) GERD (gastroesophageal reflux disease) (Chronic) Hyperlipidemia (Chronic) Hypertension (Chronic) Hypothyroidism (Chronic) Morbid obesity (Chronic) Scar of abdominal skin (Chronic) Condition: Stable - Instructions Diet, Activity, Other Instructions: You presented to the emergency room due to nodule in the abdomen secondary to lovebnox injection , the nodule are benign and does not have any infection signs. You will be discharged home Your Norvasc has been increased to 5 mg daily Continue Hydrochlorthiazide home dose your coumadin has been increased to 10 mg every evening . please repeat INR level with your primary on Saturday04/23/18. send results to your PC Dr. Arryoo for adjustment and timing of next INR Please stop using Metformin for diabetes because it will damage your kidney , Your Hgb A1c is normal and you don't need any diabetes medicine as of now Please take Ferrous sulfate 325 mg once a day for one week and twice daily for one week and then three times daily for 6 months Please use miralax ad colace to help move your bowel while you are using Ferrous sulfate because it can cause constipation Follow UP Please follow up with your primary care physician within 72 hours. Please repeat INR level in 2 days of discharged follow with hematology as planned before Please return to the emergency department with any new or worsening symptoms or concerns. Referrals: Ana Arroyo [Primary Care Provider] - 04/23/18 Disposition: HOME - Home Medications Comprehensive Discharge Medication List: Ambulatory Orders Amlodipine Besylate 2.5 mg PO DAILY 12/10/16 Cholecalciferol (Vitamin D3) [Vitamin D3] 50,000 unit PO WEEKLY 12/10/16 Hydrochlorothiazide [Hctz -] 12.5 mg PO DAILY 12/10/16 Atorvastatin Calcium [Lipitor] 20 mg PO HS 03/21/18 Omeprazole 40 mg PO DAILY 03/21/18 Pramipexole Di-HCl [Mirapex] 0.25 mg PO AM 03/21/18 Acetaminophen [Tylenol .Regular Strength -] 650 mg PO Q4H PRN tablet 04/21/18 Enoxaparin [Lovenox -] 180 mg SQ DAILY disp.syrin 04/21/18 Ferrous Sulfate [Feosol] 325 mg PO DAILY #120 ud 04/21/18 Levothyroxine [Synthroid -] 100 mcg PO DAILY 04/21/18 Miscellaneous Drug Not In Syst [Outpatient Lab Test] 1 each ASDIR #1 misc 01/27 Miscellaneous Drug Not In Syst [Outpatient Lab Test] 1 each ASDIR #1 misc 01/27 Polyethylene Glycol 3350 [Miralax (For Daily Use) -] 17 gm PO BID #1 bottle 01/27 Warfarin Na [Coumadin -] 10 mg PO DAILY #60 tablet 04/21/18
[2018-04-21 17:07] VITALS: BP 142/71; PULSE 72; TEMP 98.6
[2018-04-21] MEDS ORDERED: WARFARIN NA 10 MG TABLET (FP) PO SCH (18:00)
--- NOTE | 2018-04-21 18:22 | HOSP ---
Subjective - Review of Symptoms Events since last encounter: Dr. Hagan called and explained that he will not be prescribing any Lovenox to the patient after discharge, and will not be monitoring her INR. I called Maury , Apparently, she was taken off Lovenox by dr. Arroyo after 10 days of bridging and was kept on coumadin only. her INR is not therapeutic after a month form discharge with acute DVT . I discussed with her her options for AC, Lovenox Vs. NOACS VS bridging to coumadin. She wants NOACS. She was made aware of the increased risk of bleeding including spinal/episdural hematomas. I called her pharmacy, Eliquis is not covered. Xarelto is covered and will cost her 0 $/month. I sent script of xarelto 15 mg BID x 21 days then 20 daily. she was advised to follow with Dr. Freedman for further management. She knows she need AC indefinably. She will start treatment tonight. No more coumadin Her renal function need to be monitored. if any change, then xarelto to be changed. - Also, TSH 9.5 this admission. she takes synthroid 100 mcg/day. 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 She was advised to see him in a week and to let him know of TSH level. will not make any changes now as recent changes might have been made. She does not recall his name. - all questions were answered Physical Examination Vital Signs: Vital Signs Temperature 98.6 F 04/21/18 14:45 Pulse Rate 72 04/21/18 14:45 Respiratory Rate 17 04/21/18 14:45 Blood Pressure 142/71 04/21/18 14:45 O2 Sat by Pulse Oximetry (%) 100 04/21/18 09:30 Labs: CBC, BMP 04/21/18 06:30 04/21/18 06:30
--- NOTE | 2018-04-21 18:49 | DS ---
Physical Exam: SUBJECTIVE: Patient seen and examined at bed side noticed small nodule on abdomen on Leovenox injection sight , ct with no abscess or signs of infection , pt will be dc home and follow with her PCP. OBJECTIVE: Vital Signs Period Temp Pulse Resp BP Sys/Brandt Pulse Ox Last 24 Hr 98.1 F-98.6 F 72-90 17-20 92-153/52-77 98-100 PHYSICAL EXAM GENERAL: AAX3 in NAD HEAD: NC/AT EYES:GÉNESIS, EOMI ENT: MMM NECK: Normal range of motion, supple LUNGS: Breath sounds equal, clear to auscultation bilaterally. No wheezes, and no crackles. No accessory muscle use. HEART: Regular rate and rhythm, normal S1 and S2 without murmur, rub or gallop. ABDOMEN: Obese, soft, nontender, not distended, normoactive bowel sounds, no guarding, no rebound. . Multiple non-tender, firm subcutaneous nodules along the lower abdomen bilaterally. MUSCULOSKELETAL: Normal range of motion at all joints. LOWER EXTREMITIES: 2+ pulses, warm, well-perfused. No calf tenderness. Trace edema LLE. NEUROLOGICAL: Cranial nerves II-XII intact. Normal speech. Gait not observed. PSYCHIATRIC: Cooperative. SKIN: Warm, dry, normal turgor, LABS Laboratory Results - last 24 hr 04/20/18 04/20/18 04/21/18 17:50 22:00 06:30 WBC RBC Hgb Hct MCV MCH MCHC RDW Plt Count MPV PT with INR 15.00 H INR 1.27 H Sodium Potassium Chloride Carbon Dioxide Anion Gap BUN Creatinine Creat Clearance w eGFR Random Glucose Calcium TSH Free T4 Urine Color Straw Urine Appearance Clear Urine pH 5.0 D Ur Specific [place] 1.011 Urine Protein Negative Urine Glucose (UA) Negative Urine Ketones Negative Urine Blood Negative Urine Nitrite Negative Urine Bilirubin Negative Urine Urobilinogen Negative Ur Leukocyte Esterase Negative Blood Type A POSITIVE Antibody Screen Negative 04/21/18 04/21/18 06:30 06:30 WBC 4.3 RBC 2.76 L Hgb 8.6 L Hct 25.9 L MCV 93.6 MCH 31.3 MCHC 33.4 RDW 15.8 H Plt Count 283 MPV 6.9 L PT with INR INR Sodium 138 Potassium 4.7 Chloride 107 Carbon Dioxide 27 Anion Gap 4 L BUN 26 H Creatinine 1.3 Creat Clearance w eGFR 40.15 Random Glucose 81 Calcium 8.8 TSH 9.61 H Free T4 1.01 Urine Color Urine Appearance Urine pH Ur Specific [place] Urine Protein Urine Glucose (UA) Urine Ketones Urine Blood Urine Nitrite Urine Bilirubin Urine Urobilinogen Ur Leukocyte Esterase Blood Type Antibody Screen CBC, BMP 04/21/18 06:30 04/21/18 06:30 HOSPITAL COURSE: Date of Admission:04/20/18 Date of Discharge: 04/21/18 72 y/o lady with h/o HTN, DVT/PE, IVCF, GERD, anemia, HLP, DM, CKD3, recent LLE DVT now on AC. She presented after bein referred by her PCP due to abdominal wall nodules likley due to small hematomas at lovenox injection. No evidence of infection . CT with no abscesses , No further w/u or specific treatment . for her DM: last A1c 5.3 in 03/29. alicia stop her metformin due to her CKD. will need regular monitoring of her A1c after discharge.in term of HTN will continue HCTZ and increased dose of Norvasc to 5 mg po daily uppon DC. for Anemia likely chronic . Hb at base line . recent iron studies reviewed and indicates iron def. will start iron supplement. of course renal disease might be contributing . Ferrous sulfate started 325 daily for one week then BID for one week then TID for 6 months , laxative was prescribed as well for constipation as SE of Iron supplement. pt has a history of DVT x 2 . s/p IVC filter. need AC for life. after discussing with PCP and daughter we decide to dc her with script of xarelto 15 mg BID x 21 days then 20 daily. she was advised to follow with Dr. Freedman for further management. She knows she need AC indefinably. She will start treatment tonight. No more coumadin Her renal function need to be monitored. if any change, then xarelto to be changed. for TSH 9.5 this admission. she takes synthroid 100 mcg/day. she saw her garden tractor mechanic 2 weeks ago, not sure of the changes he made. She was advised to see him in a week and to let him know of TSH level. will not make any changes now as recent changes might have been made. pt will be dc back home to follow with her PCP for further w/u, instructions, referrals. Minutes to complete discharge: 45 Discharge Summary Reason For Visit: SCAR OF ABDOMINAL SKIN Condition: Stable - Instructions Diet, Activity, Other Instructions: You presented to the emergency room due to nodule in the abdomen secondary to lovebnox injection , the nodule are benign and does not have any infection signs. You will be discharged home Your Norvasc has been increased to 5 mg daily Continue Hydrochlorthiazide home dose you were switched to XArelto. Please stop coumadin and lovenox and start xarelto : Xarelto 15 mg twice a day x 21 days then 20 mg daily after then. please call your doctor for refills before you run out if your kidney function deteriorate, then Xarelto might need to be changed Please stop using Metformin for diabetes because it will damage your kidney , Your Hgb A1c is normal and you don't need any diabetes medicine as of now Please take Ferrous sulfate 325 mg once a day for one week and twice daily for one week and then three times daily for 6 months Please use miralax ad colace to help move your bowel while you are using Ferrous sulfate because it can cause constipation Follow UP Please follow up with your primary care physician within 72 hours. Please repeat INR level in 2 days of discharged follow with hematology as planned before Please return to the emergency department with any new or worsening symptoms or concerns. Referrals: Isidro Freedman MD [Staff Physician] - Ana Arroyo [Primary Care Provider] - 04/23/18 Disposition: HOME - Home Medications Comprehensive Discharge Medication List: Ambulatory Orders Amlodipine Besylate 2.5 mg PO DAILY 12/10/16 Cholecalciferol (Vitamin D3) [Vitamin D3] 50,000 unit PO WEEKLY 12/10/16 Hydrochlorothiazide [Hctz -] 12.5 mg PO DAILY 12/10/16 Atorvastatin Calcium [Lipitor] 20 mg PO HS 03/21/18 Omeprazole 40 mg PO DAILY 03/21/18 Pramipexole Di-HCl [Mirapex] 0.25 mg PO AM 03/21/18 Acetaminophen [Tylenol .Regular Strength -] 650 mg PO Q4H PRN tablet 04/21/18 Ferrous Sulfate [Feosol] 325 mg PO DAILY #120 ud 04/21/18 Levothyroxine [Synthroid -] 100 mcg PO DAILY 04/21/18 Miscellaneous Drug Not In Syst [Outpatient Lab Test] 1 each ASDIR #1 misc 01/27 Miscellaneous Drug Not In Syst [Outpatient Lab Test] 1 each ASDIR #1 misc 01/27 Polyethylene Glycol 3350 [Miralax (For Daily Use) -] 17 gm PO BID #1 bottle 01/27 Rivaroxaban [Xarelto -] 20 mg PO DAILY #30 tablet 04/21/18 Rivaroxaban [Xarelto] 15 mg PO BID #42 tab 04/21/18 This patient is new to me today: Yes Date on this admission: 04/22/18 Emergency Visit: Yes ED Registration Date: 04/22/18 Care time: The patient presented to the Emergency Department on the above date and was hospitalized for further evaluation of their emergent condition. Critical Care patient: No - Discharge Referral Referred to [facility] No
[2018-04-21] MEDS ORDERED: ATORVASTATIN CA 20 MG TABLET (FP) PO SCH (22:00)
[2018-04-22] MEDS ORDERED: FERROUS SO4 325 MG TABLET (FP) PO SCH (10:00)
== END 2018-04-21 16:42 | disposition home or self-care (01) ==
LOC: JER 16:36 → JERBED 23:15
PROVIDERS: ADMIT Internal Medicine; ATTEND Internal Medicine
PROC: 3E013GC Introduction of Other Therapeutic Substance into Subcutaneous Tissue, Percutaneous Approach (ICD-10-PCS; principal; 2018-04-20)
DX: R19.07 Generalized intra-abdominal and pelvic swelling, mass and lump (principal); M79.81 Nontraumatic hematoma of soft tissue; I82.509 Chronic embolism and thrombosis of unspecified deep veins of unspecified lower extremity; E11.22 Type 2 diabetes mellitus with diabetic chronic kidney disease; I12.9 Hypertensive chronic kidney disease with stage 1 through stage 4 chronic kidney disease, or unspecified chronic kidney disease; N18.3 Chronic kidney disease, stage 3 (moderate); Z79.84 Long term (current) use of oral hypoglycemic drugs; E78.5 Hyperlipidemia, unspecified; E03.9 Hypothyroidism, unspecified; K21.9 Gastro-esophageal reflux disease without esophagitis; D64.9 Anemia, unspecified; Z87.891 Personal history of nicotine dependence; Z85.3 Personal history of malignant neoplasm of breast; Z86.711 Personal history of pulmonary embolism; Z92.21 Personal history of antineoplastic chemotherapy; Z85.038 Personal history of other malignant neoplasm of large intestine; E66.01 Morbid (severe) obesity due to excess calories; Z68.41 Body mass index [BMI] 40.0-44.9, adult; L90.5 Scar conditions and fibrosis of skin
CPT/HCPCS: 36415; 74176-TC; 76705; 80048; 80053; 81003; 83690; 84439; 84443; 84481; 85025; 85027; 85610; 85730; 86850; 86900; 86901; 93005; 93010; 96372; 99285-25; G0378

== ENCOUNTER 2018-12-18 20:35 | Inpatient (IN) | payer OTHER ==
--- NOTE | 2018-12-18 20:41 | PDOC ---
Rapid Medical Evaluation Time Seen by Provider: 12/18/18 20:38 Medical Evaluation: Allergies Allergy/AdvReac Type Severity Reaction Status Date / Time No Known Drug Allergies Allergy Verified 04/20/18 17:05 12/18/18 20:38 Pt c/o: fell last week and now with redness and bruising to right leg Pt on brief exam: red warm edematous rle, vss Pt ordered for: u/s labs, iv Pt to proceed to the ED Discharge Disposition - Diagnosis NEGRA (acute kidney injury), Anemia Cellulitis Qualifiers: Site of cellulitis: extremity Site of cellulitis of extremity: lower extremity Laterality: right Qualified Code(s): L03.115 - Cellulitis of right lower limb - Discharge Dispostion Condition at time of disposition: Stable - Referrals - Patient Instructions - Post Discharge Activity
[2018-12-18] MEDS ORDERED: SODIUM CHLORIDE 0.9% 500 ML INFUS.BAG IV ONE ×2 (20:59→22:54)
--- NOTE | 2018-12-18 21:00 | PDOC ---
History of Present Illness - General Chief Complaint: Edema Stated Complaint: POSSIBLE BLOOD CLOT RT LEG Time Seen by Provider: 12/18/18 20:38 History Source: Patient Exam Limitations: No Limitations - History of Present Illness Initial Comments: Jossy Ashford is a 73 yo Morbidly obese F w a pmh of HTN, HLD, Stage 3 CKD , T2DM, GERD, anemia, hypothyroidism, b/l lower extremity DVT's, Breast cancer, colon cancer (s/p chemotherapy, resection), left breast cancer (s/p LCIS, prior Tamoxifen therapy), presents to the ER with right lower leg pain after she fell down on her leg 2 days ago. She states that now her leg is swollen, red and painful. The patient is concerned because she has had DVT's in the RLE in the past. She also states that she has been experiencing an increased amount of chills over the past few days and feels warm. PCP: Dr. Arroyo Oncologist: Dr. Freedman PSH: Right colectomy/appendectomy, Laparoscopic cholecystectomy, Hernia repair, IVC filter placement, ex lap for obstruction in , lap cholecystectomy complicated with pancreatitis in 2016, breast biopsy b/l, appendectomy, hernia repair with mesh Social Hx: Quit smoking in 1970. Denies current toxic habits Allergies: NKA, NKDA Past History - Past Medical History Allergies/Adverse Reactions: Allergies Allergy/AdvReac Type Severity Reaction Status Date / Time No Known Drug Allergies Allergy Verified 04/20/18 17:05 Home Medications: Ambulatory Orders Amlodipine Besylate 2.5 mg PO DAILY 12/10/16 Cholecalciferol (Vitamin D3) [Vitamin D3] 50,000 unit PO WEEKLY 12/10/16 Hydrochlorothiazide [Hctz -] 12.5 mg PO DAILY 12/10/16 Atorvastatin Calcium [Lipitor] 20 mg PO HS 03/21/18 Omeprazole 40 mg PO DAILY 03/21/18 Pramipexole Di-HCl [Mirapex] 0.25 mg PO AM 03/21/18 Acetaminophen [Tylenol .Regular Strength -] 650 mg PO Q4H PRN tablet 04/21/18 Ferrous Sulfate [Feosol] 325 mg PO DAILY #120 ud 04/21/18 Levothyroxine [Synthroid -] 100 mcg PO DAILY 04/21/18 Miscellaneous Drug Not In Syst [Outpatient Lab Test] 1 each ASDIR #1 misc 01/27 Miscellaneous Drug Not In Syst [Outpatient Lab Test] 1 each ASDIR #1 [facility] [place] 01/27 Polyethylene Glycol 3350 [Miralax (For Daily Use) -] 17 gm PO BID #1 bottle 01/27 Rivaroxaban [Xarelto -] 20 mg PO DAILY #30 tablet 04/21/18 Rivaroxaban [Xarelto] 15 mg PO BID #42 tab 04/21/18 Anemia: Yes Asthma: No Cancer: Yes (COLON) Cardiac Disorders: Yes CVA: No COPD: No CHF: No Dementia: No Diabetes: Yes GI Disorders: No Disorders: No HTN: Yes Hypercholesterolemia: Yes Liver Disease: No Seizures: No Thyroid Disease: Yes - Surgical History Abdominal Surgery: Yes (exploratory lap for obstruction 1993) Appendectomy: No Cardiac Surgery: No Cholecystectomy: Yes (11/2016) Lung Surgery: No Neurologic Surgery: No - Immunization History Immunization Up to Date: Yes - Psycho Social/Smoking Cessation Hx Smoking History: Never smoked Have you smoked in the past 12 months: No Number of Cigarettes Smoked Daily: 0 If you are a former smoker, when did you quit?: 1970 Information on smoking cessation initiated: No Hx Alcohol Use: No Drug/Substance Use Hx: No Substance Use Type: None Hx Substance Use Treatment: No Review of Systems - Review of Systems Able to Perform ROS?: Yes Comments:: CONSTITUTIONAL: Present: Chills Absent: fever, no fatigue EYES: Absent: visual changes ENT: Absent: ear pain, no sore throat CARDIOVASCULAR: Absent: chest pain, no palpitations RESPIRATORY: Absent: cough, no SOB GI: Absent: abdominal pain, no nausea, no vomiting, no constipation, no diarrhea GENITOURINARY: Absent: dysuria, no frequency, no hematuria MUSKULOSKELETAL: Absent: back pain, no arthralgia, no myalgia SKIN: Present: Rash NEURO: Absent: headache *Physical Exam - Vital Signs Last Vital Signs Temp Pulse Resp BP Pulse Ox 97.8 F 91 H 17 144/70 91 L 12/18/18 20:40 12/18/18 20:40 12/18/18 20:40 12/18/18 20:40 12/18/18 20:40 - Physical Exam Comments: GENERAL: Morbidly obese. Well-appearing, well-nourished. No apparent distress. HEENT: Normocephalic, atraumatic. PERRL, EOM intact. CARDIOVASCULAR: Normal S1, S2. Regular rate and rhythm. PULMONARY: No evidence of respiratory distress. Lungs clear to auscultation bilaterally. No wheezing, rales or rhonchi. ABDOMEN: Soft, non-distended, non-tender. EXTREMITIES: Normal ROM in all four extremities. No gross deformities.2+ DPPT pulses b/l SKIN: Warm, dry. The right lower leg is swollen, erythematous, and TTP. The entire lower leg is erythematous and TTP. NEUROLOGICAL: No focal neurological deficits. ED Treatment Course - LABORATORY CBC & Chemistry Diagram: 12/18/18 21:30 12/18/18 21:30 - RADIOLOGY Radiology Studies Ordered: Category Date Time Status CHEST X-RAY PORTABLE* [RAD] Stat Radiology 12/18/18 20:58 Ordered Medical Decision Making - Medical Decision Making Jossy Ashford is a 73 yo Morbidly obese F w a pmh of HTN, HLD, Stage 3 CKD , T2DM, GERD, anemia, hypothyroidism, b/l lower extremity DVT's, Breast cancer, colon cancer (s/p chemotherapy, resection), left breast cancer (s/p LCIS, prior Tamoxifen therapy), presents to the ER with right lower leg pain after she fell down on her leg 2 days ago. She states that now her leg is swollen, red and painful. The patient is concerned because she has had DVT's in the RLE in the past. She also states that she has been experiencing an increased amount of chills over the past few days and feels warm. Vital Signs Temp Pulse Resp BP Pulse Ox 97.8 F 91 H 17 144/70 91 L 12/18/18 20:40 12/18/18 20:40 12/18/18 20:40 12/18/18 20:40 12/18/18 20:40 DDx IBNLT: Cellulitis, erysipelas, DVT, electrolyte/metabolic disturbance Plan: ED adult sepsis workup, IV hydration, Duplex dvt, IV hydration, re- assess. EKG: Poor data quality. NS rate of 90, narrow complexes, normal axis, LVH minimal in aVL, No ST elevations or depressions, no Q waves, no large TWI's Labs: Anemic, elevated INR, elevated BUN/Cr - BUn seems baseline, Cr is highest in our system suggesting patient is experiencing an NEGRA. Lactic elevated - will hydrate. Duplex: No evidence of right leg DVT Disposition: Admit to hospital for cellulitis and NEGRA - Spoke hospitalist resident who accepted the patient for admission. Discharge - Discharge Information Problems reviewed: Yes Clinical Impression/Diagnosis: NEGRA (acute kidney injury) Cellulitis Qualifiers: Site of cellulitis: extremity Site of cellulitis of extremity: lower extremity Laterality: right Qualified Code(s): L03.115 - Cellulitis of right lower limb Anemia Qualifiers: Anemia type: unspecified type Qualified Code(s): D64.9 - Anemia, unspecified Condition: Stable - Admission Yes - Follow up/Referral - Patient Discharge Instructions - Post Discharge Activity
--- NOTE | 2018-12-18 21:59 | PDOC ---
Attending Attestation - Resident Resident Name: Rishi Smi - ED Attending Attestation I have performed the following: I have examined & evaluated the patient, The case was reviewed & discussed with the resident, I agree w/resident's findings & plan, Exceptions are as noted - HPI HPI: 12/18/18 21:53 73yo female with morbid obesity from home for eval of RLE swelling. Pt states she fell on saturday transferring from her bed to the toilet and fell hitting her R tibia on the bedside table. Pt states increasing pain and swelling. Pt with hx of dvt in the leg - on xarelto. Pt states calf pain. Hematoma and cellulitis to skin on anterior tibia on lower extremity. Subjective fevers/chills at home this week. Pt uses walker, cane, wheelchair at home. Pt seen at [facility] after fall on saturday. Denies hitting her head or loc. - Physicial Exam PE: 12/18/18 21:56 Gen: aaox3, nad, morbid obesity heart: +s1s2 reg lungs: cta b/l abd: soft, nt/nd obese, ext: LLE no calf ttp, RLE with erythema/hematoma/warmth/redness/small abrsion with scab to anterior proximal tibia neuro: awake, no focal findings - Medical Decision Making 12/18/18 21:57 a/p: 73yo female with RLE swelling and pain -suspect cellulitis secondary to fall and abrasion on saturday -hx of dvt on xarelto -subjective f/c -will send labs, duplex ultrasound, xray -will send cultures -will start iv abx 12/18/18 22:48 pt with anemia pt with NEGRA 12/18/18 22:48 no dvt 12/18/18 22:48 no elevated wbc 12/18/18 22:52 will start iv vanc for LE cellulitis [facility] [place] [facility] 12/19/18 01:37 resident discussed the case with tanaroberta who accepts pt to service Heart Score/ECG Review - ECG Intrepretation Comment:: 12/18/18 21:59 sinus at 90, L matos axis, lvh, baseline artifact, no acute st findings, t wave flattening diffusely
[2018-12-18 22:02] LABS: BASO % 0.9 % (0-2.0); EOS % 1.4 % (0-4.5); HEMATOCRIT 23.7 % (32.4-45.2); HEMOGLOBIN 7.6 GM/dL (10.7-15.3); LYMPH % 24.6 % (8-40); MCH 29.5 pg (25.7-33.7); MCHC 32.2 g/dl (32.0-36.0); MEAN CELL VOLUME 91.6 fl (80-96); MEAN PLT VOLUME 7.4 fl (7.5-11.1); MONO % 7.2 % (3.8-10.2); NEUT % 65.9 % (42.8-82.8); PLATELET COUNT 295 K/MM3 (134-434); RBC 2.59 M/mm3 (3.60-5.2); WHITE BLOOD COUNT 6.6 K/mm3 (4.0-10.0)
[2018-12-18 22:24] LABS: ALBUMIN 3.3 g/dl (3.4-5.0); BILIRUBIN,TOTAL 0.4 mg/dL (0.2-1); BLOOD UREA NITROGEN 27.6 mg/dL (7-18); CALCIUM 8.7 mg/dL (8.5-10.1); CREATININE 1.9 mg/dL (0.55-1.3); POTASSIUM 3.5 mmol/L (3.5-5.1); TOT PROT 7.1 g/dl (6.4-8.2)
[2018-12-18 22:47] LABS: INR 2.28 (0.83-1.09); PROTHROMBIN TIME (PATIENT) 27.1 SEC (9.7-13.0)
[2018-12-18] MEDS ORDERED: VANCOMYCIN 1,000 MG in DEXTROSE 5%-WATER - 250 ML IVPB ONE (22:54)
[2018-12-18] MEDS ORDERED: VANCOMYCIN 1 GRAM (PRE-DOCKED) 1,000 MG/250 ML BAG IVPB ONE (23:44)
--- NOTE | 2018-12-19 01:35 | PN ---
Teaching Attending Note Name of Resident: Kenia Buchanan ATTENDING PHYSICIAN STATEMENT I saw and evaluated the patient. I reviewed the resident's note and discussed the case with the resident. I agree with the resident's findings and plan as documented. SUBJECTIVE: Patient is a 73 year old woman with PMH of o Morbid obesity, HTN, HLD, CKD Stage 3, NIDDM (diet controlle; used to be on metformin), GERD, Anemia, Hypothyroidism, Bilateral lower extremity DVT's (on xarelto), Colon cancer (s/p chemotherapy, resection) and Left breast cancer (s/p LCIS, prior Tamoxifen therapy), presents to the ER with right lower leg pain after she fell down on her leg 2 days ago. She states that now her leg is swollen, red and painful. The patient is concerned because she has had DVT's in the RLE in the past. She also states that she has been experiencing an increased amount of chills over the past few days and feels warm. Patient uses walker, cane and wheelchair at home. Patient was seen at [facility] after fall on Saturday. Denies hitting her head or LOC. Has intermittent loose bowel movements with blood stain when she wipes. OBJECTIVE: Alert Vital Signs Period Temp Pulse Resp BP Sys/Brandt Pulse Ox Last 24 Hr 97.8 F 91-91 17 144/70 91-97 HEENT: No Jaundice, eye redness or discharge, PERRLA, EOMI. Normocephalic, atraumatic. External ears are normal and hearing is grossly intact. No nasal discharge. Neck: Supple, nontender. No palpable adenopathy or thyromegaly. No JVD Chest: Good effort. Clear to auscultation and percussion. Heart: Regular. No S3, rub or murmur Abdomen: Not distended, soft, nontender and no HSM. No rebound or guarding. Normal bowel sounds. Ext: Peripheral pulses intact. RLE with edema and diffuse erythema, hematoma, warm and tender to touch. No crepitus. Has a small abrasion with scab to anterior proximal tibia. Skin: Warm and dry. No petechiae, rash or ecchymosis. Neuro: Alert. Oriented x3. CN 2-12 grossly intact. Sensation grossly intact in all four extremities and DTR are symmetric. Psych: Appropriate mood and affect. Good insight. Home Medications Medication Instructions Recorded Amlodipine Besylate 2.5 mg PO DAILY 12/10/16 Cholecalciferol (Vitamin D3) 50,000 unit PO WEEKLY 12/10/16 [Vitamin D3] Hydrochlorothiazide [Hctz -] 12.5 mg PO DAILY 12/10/16 Atorvastatin Calcium [Lipitor] 20 mg PO HS 03/21/18 Omeprazole 40 mg PO DAILY 03/21/18 Pramipexole Di-HCl [Mirapex] 0.25 mg PO AM 03/21/18 Acetaminophen [Tylenol .Regular 650 mg PO Q4H PRN tablet 04/21/18 Strength -] Ferrous Sulfate [Feosol] 325 mg PO DAILY #120 ud 04/21/18 Levothyroxine [Synthroid -] 100 mcg PO DAILY 04/21/18 Miscellaneous Drug Not In Syst 1 each ASDIR #1 misc 04/21/18 [Outpatient Lab Test] Miscellaneous Drug Not In Syst 1 each ASDIR #1 misc 04/21/18 [Outpatient Lab Test] Polyethylene Glycol 3350 [Miralax 17 gm PO BID #1 bottle 04/21/18 (For Daily Use) -] Rivaroxaban [Xarelto -] 20 mg PO DAILY #30 tablet 04/21/18 Rivaroxaban [Xarelto] 15 mg PO BID #42 tab 04/21/18 Abnormal Lab Results 12/18/18 12/18/18 12/18/18 21:30 21:30 21:30 RBC 2.59 L Hgb 7.6 L Hct 23.7 L RDW 16.0 H MPV 7.4 L PT with INR INR BUN 27.6 H Creatinine 1.9 H Lactic Acid 2.5 H* AST 10 L Albumin 3.3 L 12/18/18 21:34 RBC Hgb Hct RDW MPV PT with INR 27.10 H INR 2.28 H BUN Creatinine Lactic Acid AST Albumin ASSESSMENT AND PLAN: 1. RLE Cellulitis - Right leg doppler didnot show DVT. EKG shows NSR with no significant ST-T wave changes and diffuse flattening of T waves. Right LE xray shows soft tissue edema, no fracture or gas collection. Due to concern for compartment syndrome, will get a CT scan of RLE. UA is pending. Loose BM with blood stain is a concern in view of colon cancer history. Will send any loose stool sample for studies including C.diff. CXR shows scoliosis but no acute infiltrate. Will continue comprehensive care for all of patients comorbid conditions. 2. Hypoalbuminemia - Possibly due to combined effects of malnutrition and inflammation associated with comorbid chronic conditions. Will ensure adequate dietary protein intake and also consult drum operator. 3. DM For now, we will hold the home diabetes drugs and implement sliding scale insulin regimen. Provide comprehensive diabetes care with patient teaching and counseling about the importance of adherence to prescribed diabetes regimen, euglycemia, eye care and foot care. 4. CKD - Has multiple risk factors for CKD. Will consult nephrology and avoid nephrotoxic agents such as NSAIDS, aminoglycosides, contrast dyes and certain Alternative medicine products. 5. Anemia - Likely chiefly due to CKD. Will do basic anemia work up including serial stool guaiacs, reticulocyte count and iron studies. Consult GI for colonoscopy. Will give IV iron Venofer 500 mg x 2 and treat with Procrit. 6. Morbid Obesity Counseled on the risks associated with obesity. Will provide patient all the necessary assistance, counseling and positive reinforcement to facilitate weight loss. Consult drum operator. 7. Hypertension - Restart suitable outpatient antihypertensive drugs when clinically appropriate. Revise regimen to ensure [id number] excellent BP control and counselor nurses' association patient on the injurious effects of uncontrolled hypertension. Nonpharmacologic measures to control hypertension like weight loss , salt restriction and exercise discussed. Importance of adherence to treatment regimen and attainment of normotension emphasized. 8. DVT prophylaxis - On Xarelto 9. Advance directives - Full code
[2018-12-19] MEDS ORDERED: SODIUM CHLORIDE 1,000 ML IV SCH (03:30)
[2018-12-19] MEDS ORDERED: CLINDAMYCIN 600MG PREMIX IVPB 600 MG/50 ML BAG IVPB ONE ×3 (03:31→08:15)
--- NOTE | 2018-12-19 04:43 | HP ---
CHIEF COMPLAINT: RLE pain PCP: Dr. Arroyo HISTORY OF PRESENT ILLNESS: 73 y.o. F PMH HN, HLD, stage 3 CKD, DM2, GERD, anemia, hypothyroidism, b/l extremity DVT's most recent RLE in 03/2018, breast CA (s/p tomoxifen therapy & radiation), colon CA (s/o chemo & resection), morbid obesity presenting from home d/t RLE pain. The patient states on Saturday she fell while trying to get out of bed and hit her right leg on her nightstand. As per patient she then went to [facility] ED where she has a RLE X-ray revealing no fractures, was given percocet, an ice pack and sent home. Since then her pain has been increasing, radiating up her anterior thigh along with parasthesias in R foot. Her leg has become increasingly more edematous and erythematous since Saturday. Of note, patient has also had diarrhea x 2 days and has been noticing some blood on the toilet paper when she wipes. On ROS: + diarrhea Denies chest pain, shortness of breath, headaches, dizziness/ lightheadedness, nausea, vomiting, urinary symptoms, abdominal pain, myalgias, weakness. ER course was notable for: (1) NS 1L x 2 boluses (2) Vanc 1g (3) latate 2.5 Recent Travel: denies PAST MEDICAL HISTORY: as per HPI PAST SURGICAL HISTORY: R colectomy, appendectomy, ap salomón, henia repair w/ mesh placement, IVC filter, b/l breast biopsies Social History: lives at home with her grandchildren Smoking: quit smoking in 1970 Alcohol: denies Drugs: denies Allergies No Known Drug Allergies Allergy (Verified 04/20/18 17:05) HOME MEDICATIONS: Home Medications Medication Instructions Recorded Amlodipine Besylate 2.5 mg PO DAILY 12/10/16 Cholecalciferol (Vitamin D3) 50,000 unit PO WEEKLY 12/10/16 [Vitamin D3] Hydrochlorothiazide [Hctz -] 12.5 mg PO DAILY 12/10/16 Atorvastatin Calcium [Lipitor] 20 mg PO HS 03/21/18 Omeprazole 40 mg PO DAILY 03/21/18 Pramipexole Di-HCl [Mirapex] 0.25 mg PO AM 03/21/18 Acetaminophen [Tylenol .Regular 650 mg PO Q4H PRN tablet 04/21/18 Strength -] Ferrous Sulfate [Feosol] 325 mg PO DAILY #120 ud 04/21/18 Levothyroxine [Synthroid -] 100 mcg PO DAILY 04/21/18 Miscellaneous Drug Not In Syst 1 each ASDIR #1 misc 04/21/18 [Outpatient Lab Test] Miscellaneous Drug Not In Syst 1 each ASDIR #1 misc 04/21/18 [Outpatient Lab Test] Polyethylene Glycol 3350 [Miralax 17 gm PO BID #1 bottle 04/21/18 (For Daily Use) -] Rivaroxaban [Xarelto -] 20 mg PO DAILY #30 tablet 04/21/18 Rivaroxaban [Xarelto] 15 mg PO BID #42 tab 04/21/18 PHYSICAL EXAMINATION Vital Signs - 24 hr 12/18/18 12/18/18 20:40 21:45 Temperature 97.8 F Pulse Rate 91 H 91 H Respiratory 17 Rate Blood Pressure 144/70 O2 Sat by Pulse 91 L 97 Oximetry (%) GENERAL: Awake, alert, and fully oriented, in mild distress d/t pain HEENT: NCAT. PERRLA. MMM clear oropharynx. No scleral icterus/ injection. LUNGS: CTABL. No crackling/ wheezing. No incr work of breathing. HEART: S1S2 heard. RRR. No murmurs. ABDOMEN: Obese. Soft, nontender, not distended, normoactive bowel sounds, no guarding. MUSCULOSKELETAL: Difficulty w/ ROM RLE. Good ROM of other extr. R calf tenderness present. UPPER EXTREMITIES: 2+ pulses, warm, well-perfused. No edema. LOWER EXTREMITIES: 2+ pulses palpated. RLE: 2+ pitting edema, erythema, warm to touch, 3 punctated skin lesions present below knee- 1 is crusted & healing. RLE skin dimpling present below knee. LLE no edema PSYCHIATRIC: Appropriate mood and affect. Laboratory Results - last 24 hr 12/18/18 12/18/18 12/18/18 21:30 21:30 21:30 WBC 6.6 RBC 2.59 L Hgb 7.6 L Hct 23.7 L MCV 91.6 MCH 29.5 MCHC 32.2 RDW 16.0 H Plt Count 295 MPV 7.4 L Absolute Neuts (auto) 4.3 Neutrophils % 65.9 D Lymphocytes % 24.6 D Monocytes % 7.2 Eosinophils % 1.4 Basophils % 0.9 Nucleated RBC % 0 PT with INR INR Sodium 140 Potassium 3.5 Chloride 107 Carbon Dioxide 24 Anion Gap 9 BUN 27.6 H Creatinine 1.9 H Est GFR (CKD-EPI)AfAm 29.58 Est GFR (CKD-EPI)NonAf 25.52 Random Glucose 98 Lactic Acid Calcium 8.7 Total Bilirubin 0.4 AST 10 L ALT 17 Alkaline Phosphatase 87 Troponin I < 0.02 Total Protein 7.1 Albumin 3.3 L 12/18/18 12/18/18 21:30 21:34 WBC RBC Hgb Hct MCV MCH MCHC RDW Plt Count MPV Absolute Neuts (auto) Neutrophils % Lymphocytes % Monocytes % Eosinophils % Basophils % Nucleated RBC % PT with INR 27.10 H INR 2.28 H Sodium Potassium Chloride Carbon Dioxide Anion Gap BUN Creatinine Est GFR (CKD-EPI)AfAm Est GFR (CKD-EPI)NonAf Random Glucose Lactic Acid 2.5 H* Calcium Total Bilirubin AST ALT Alkaline Phosphatase Troponin I Total Protein Albumin ASSESSMENT/PLAN: 73 y.o. F PMH HTN, HLD, stage 3 CKD, DM2, GERD, anemia, hypothyroidism, b/l extremity DVT's most recent RLE in 03/2018, breast CA (s/p tomoxifen therapy & radiation), colon CA (s/o chemo & resection), morbid obesity presenting with RLE pain. #RLE cellulitis -RLE U/S negative for DVT, shows soft tissue edema -F/u CT RLE-- r/o compartment syndrome -S/p 1 dose vanc in ED -Starting clindamycin 600mg IV q6h -Dr. Nur consulted (ID) -Pt is on xarelto for hx DVTs #Diarrhea -pt endorses 2 days diarrhea -Blood on toilet paper w wiping -F/u stool for occult blood, sent -IVF NS @mL/ hr -F/u C. dif, stool studies -NPO #HTN -C/w home meds: amlodipine, hctz -Monitor vitals -EKG shows NSR no st changes #HLD -C/w atorvastatin #Stage 3 CKD -Pt sees Dr. Quiñones outpatient -Cr 1.9 elevated from baseline ~1.2 -Avoid nephrotoxic meds -F/u UA #DM2 -PT says she was recently taken off metformin by her PCP -ISS -BGMs #Normocytic anemia -Hgb 7.6 -Given hx of colon ca, f/u w/ GI (Dr. Amaral) for rectal bleeding -F/u AM cbc -F/u FOBT, iron studies, retics, ferritin, transferrin-- then IV Venofer 500mg x 2 doses, procrit #GERD -C/w omeprazole #Hypothyroidism -c/w synthroid 100mcg #FEN -C.w IVF NS 75mL/ hr -Trend lytes -NPO #DVT PPX -On Xarelto #Dispo Med surg Visit type - Emergency Visit Emergency Visit: Yes ED Registration Date: 12/18/18 Care time: The patient presented to the Emergency Department on the above date and was hospitalized for further evaluation of their emergent condition. - New Patient This patient is new to me today: Yes Date on this admission: 12/19/18 - Critical Care Critical Care patient: No ATTENDING PHYSICIAN STATEMENT I saw and evaluated the patient. I reviewed the resident's note and discussed the case with the resident. I agree with the resident's findings and plan as documented. SUBJECTIVE: OBJECTIVE: ASSESSMENT AND PLAN:
[2018-12-19 07:00] LABS: HEMATOCRIT 20.3 % (32.4-45.2); MCH 29.8 pg (25.7-33.7); MCHC 33.1 g/dl (32.0-36.0); MEAN CELL VOLUME 90.2 fl (80-96); MEAN PLT VOLUME 7.2 fl (7.5-11.1); PLATELET COUNT 249 K/MM3 (134-434); RBC 2.25 M/mm3 (3.60-5.2); RDW 16.4 % (11.6-15.6); WHITE BLOOD COUNT 5.6 K/mm3 (4.0-10.0)
[2018-12-19] MEDS: INSULIN SLIDING SCALE (NOVOLOG) 1 VIAL SQ SCH ×4 (07:08→21:31)
[2018-12-19 07:15] LABS: ALBUMIN 2.9 g/dl (3.4-5.0); BILIRUBIN,TOTAL 0.4 mg/dL (0.2-1); BLOOD UREA NITROGEN 22.9 mg/dL (7-18); CALCIUM 8.1 mg/dL (8.5-10.1); CREATININE 1.7 mg/dL (0.55-1.3); MAGNESIUM 1.4 mg/dL (1.8-2.4); PHOSPHOROUS 2.2 mg/dL (2.5-4.9); POTASSIUM 3.4 mmol/L (3.5-5.1)
[2018-12-19 07:36] LABS: HEMOGLOBIN 6.7 GM/dL (10.7-15.3)
[2018-12-19] MEDS ORDERED: MAGNESIUM SULF 50% (8.12 MEQ/2 ML-1 GM VIAL) IVPB ONE (07:54)
[2018-12-19] MEDS ORDERED: POTASSIUM CHLORIDE TABS 20 MEQ TABLET.ER (FP) PO ONE (07:54)
[2018-12-19] MEDS ORDERED: NAPH,MB-DB/K PH,MBDB POWDER PACKET PO ONE (07:55)
[2018-12-19] MEDS ORDERED: LEVOTHYROXINE NA 25 MCG TABLET (FP) ONE (08:13)
[2018-12-19] MEDS ORDERED: PANTOPRAZOLE 40 MG TABLET (FP) ONE (08:13)
[2018-12-19] MEDS ORDERED: amLODIPine BESYLATE 5 MG TABLET (FP) ONE (08:13)
[2018-12-19] MEDS ORDERED: CLINDAMYCIN 600MG PREMIX IVPB 600 MG/50 ML BAG IVPB SCH (09:00)
[2018-12-19] MEDS: SODIUM CHLORIDE 1,000 ML IV SCH ×2 (09:48→12:38)
[2018-12-19] MEDS: LEVOTHYROXINE NA 100 MCG TABLET (FP) PO SCH (09:48)
[2018-12-19] MEDS: amLODIPine BESYLATE 2.5 MG TABLET (FP) PO SCH (09:49)
[2018-12-19] MEDS: PANTOPRAZOLE 40 MG TABLET (FP) PO SCH (09:49)
[2018-12-19] MEDS ORDERED: PATIENT'S OWN MEDICATION (NON-FORMULARY) (Omeprazole [Omeprazole] 40 MG) PO SCH (10:00)
[2018-12-19] MEDS ORDERED: HYDROCHLOROTHIAZIDE 12.5 MG CAPSULE (FP) PO SCH (10:00)
--- NOTE | 2018-12-19 10:20 | PN ---
Progress Note (short form) - Note Progress Note: ID consult dictated imp.reccd RLE cellulitis r/o hematoma- she is on anticoagulants anemia ckd/negra no history of MRSA no recent hospitalizations can treat with cefazolin 2 g q12h given ckd/negra image the leg- r/o hematoma d/w hosptalist service Problem List - Problems (1) Cellulitis Code(s): L03.90 - CELLULITIS, UNSPECIFIED Qualifiers: Site of cellulitis: extremity Site of cellulitis of extremity: lower extremity Laterality: right Qualified Code(s): L03.115 - Cellulitis of right lower limb (2) Anemia Code(s): D64.9 - ANEMIA, UNSPECIFIED Qualifiers: Anemia type: unspecified type Qualified Code(s): D64.9 - Anemia, unspecified (3) NEGRA (acute kidney injury) Code(s): N17.9 - ACUTE KIDNEY FAILURE, UNSPECIFIED
--- NOTE | 2018-12-19 10:53 | CON.GI ---
Consult Consult Specialty:: Gastroenterology Referred by:: Hanh Guevara MD Reason for Consultation:: anemia, diarrhea and hematochezia - History of Present Illness Chief Complaint: RLE pain and swelling since traumatizing it several days ago. History of Present Illness: 73F traumatized her RLE several days ago and was evaluated at [facility] where a fracture was excluded. The leg has been swelling up since then resulting in increasing pain which prompted her to come to the ER. She is on warfarin. She also reports intermittent loose BMs and notes rectal bleeding only when she stran and then it is associated with a hemorrhoidal tenderness. She had a colonoscopy with Dr Elliott in 06/25 which was unrevealing. She had a right hemicolectomy for colon cancer. She last saw Dr Elliott om 04/19/17 for choleretic diarrhea related to a 11/25 cholecystectomy. 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: Yes: CVA (h/o but pt was not aware of it) Cardio/Vascular: Yes: Deep Vein Thrombosis (and PE s/p IVC filter on coumadin), HTN, Hyperlipdemia (?), Other (possible valvular stenosis?) Pulmonary: Yes: Pulmonary Embolus Gastrointestinal: Yes: Cancer (R hemicolectomy for colon cancer), Other ( diarrhea/chronic loose stool) Hepatobiliary: Yes: Cholecystitis (s/p lap salomón 5d ago) Musculoskeletal: Yes: Osteoarthritis, Other (R shoulder tendonitis) Endocrine: Yes: Diabetes Mellitus (no longer on meds), Hypothyroidism Additional Medical History: cataracts - Past Surgical History Past Surgical History: Yes: Appendectomy ((part of R hemicolectomy)), Breast Biopsy (precancerous cells found), Cholecystectomy (laparoscopic 5 days ago), Colectomy (R massiel for CA 2003), Colonoscopy, Hernia Repair (abdominal wall with mesh at time of hemicolectomy per pt), Tubal Ligation Additional Surgical History: scoliosis surgery. 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 Place of : [facility] History of Recent Travel: No Home Medications - Allergies Allergies/Adverse Reactions: Allergies Allergy/AdvReac Type Severity Reaction Status Date / Time No Known Drug Allergies Allergy Verified 12/19/18 08:06 - Home Medications Home Medications: Ambulatory Orders Amlodipine Besylate 2.5 mg PO DAILY 12/10/16 Cholecalciferol (Vitamin D3) [Vitamin D3] 50,000 unit PO WEEKLY 12/10/16 Hydrochlorothiazide [Hctz -] 12.5 mg PO DAILY 12/10/16 Atorvastatin Calcium [Lipitor] 20 mg PO HS 03/21/18 Omeprazole 40 mg PO DAILY 03/21/18 Pramipexole Di-HCl [Mirapex] 0.25 mg PO AM 03/21/18 Acetaminophen [Tylenol .Regular Strength -] 650 mg PO Q4H PRN tablet 04/21/18 Ferrous Sulfate [Feosol] 325 mg PO DAILY #120 ud 04/21/18 Levothyroxine [Synthroid -] 100 mcg PO DAILY 04/21/18 Miscellaneous Drug Not In Syst [Outpatient Lab Test] 1 each ASDIR #1 misc 01/27 Miscellaneous Drug Not In Syst [Outpatient Lab Test] 1 each ASDIR #1 misc 01/27 Polyethylene Glycol 3350 [Miralax (For Daily Use) -] 17 gm PO BID #1 bottle 01/27 Rivaroxaban [Xarelto -] 20 mg PO DAILY #30 tablet 04/21/18 Rivaroxaban [Xarelto] 15 mg PO BID #42 tab 04/21/18 Family Medical History Family Hx Cancer: Sister (breast cancer) Family Hx Cardiac Disorders: Mother ( NE 68), Father ( NE 85), Sister ( NE age 21) Family Hx Gastrointestinal Disorder: Sister (had pancreatic disease) Review of Systems - Review of Systems Constitutional: reports: No Symptoms, Weakness Eyes: reports: No Symptoms HENT: reports: No Symptoms Neck: reports: No Symptoms Cardiovascular: reports: No Symptoms Respiratory: reports: No Symptoms Gastrointestinal: reports: Rectal Bleeding Musculoskeletal: reports: Extremity Pain (RLE pain and swelling) Physical Exam-GI Vital Signs: Vital Signs Temperature 97.8 F 12/18/18 20:40 Pulse Rate 90 12/19/18 04:58 Respiratory Rate 18 12/19/18 04:58 Blood Pressure 154/82 12/19/18 04:58 O2 Sat by Pulse Oximetry (%) 95 12/19/18 04:58 CBC,CMP WBC 5.6 K/mm3 (4.0-10.0) 12/19/18 05:25 RBC 2.25 M/mm3 (3.60-5.2) L 12/19/18 05:25 Hgb 6.7 GM/dL (10.7-15.3) L* 12/19/18 05:25 Hct 20.3 % (32.4-45.2) L 12/19/18 05:25 MCV 90.2 fl (80-96) 12/19/18 05:25 MCH 29.8 pg (25.7-33.7) 12/19/18 05:25 MCHC 33.1 g/dl (32.0-36.0) 12/19/18 05:25 RDW 16.4 % (11.6-15.6) H 12/19/18 05:25 Plt Count 249 K/MM3 (134-434) 12/19/18 05:25 MPV 7.2 fl (7.5-11.1) L 12/19/18 05:25 Absolute Neuts (auto) 4.3 K/mm3 (1.5-8.0) 12/18/18 21:30 Neutrophils % 65.9 % (42.8-82.8) D 12/18/18 21:30 Lymphocytes % 24.6 % (8-40) D 12/18/18 21:30 Monocytes % 7.2 % (3.8-10.2) 12/18/18 21:30 Eosinophils % 1.4 % (0-4.5) 12/18/18 21:30 Basophils % 0.9 % (0-2.0) 12/18/18 21:30 Nucleated RBC % 0 % (0-0) 12/18/18 21:30 Retic Count 1.97 % (0.5-1.5) H 12/19/18 05:25 Sodium 140 mmol/L (136-145) 12/19/18 05:25 Potassium 3.4 mmol/L (3.5-5.1) L 12/19/18 05:25 Chloride 109 mmol/L (98-107) H 12/19/18 05:25 Carbon Dioxide 24 mmol/L (21-32) 12/19/18 05:25 Anion Gap 7 MMOL/L (8-16) L 12/19/18 05:25 BUN 22.9 mg/dL (7-18) H 12/19/18 05:25 Creatinine 1.7 mg/dL (0.55-1.3) H 12/19/18 05:25 Est GFR (CKD-EPI)AfAm 33.84 12/19/18 05:25 Est GFR (CKD-EPI)NonAf 29.20 12/19/18 05:25 POC Glucometer 92 UNITS (80-120) 12/19/18 07:04 Random Glucose 92 mg/dL (74-106) 12/19/18 05:25 Lactic Acid 2.5 mmol/L (0.4-2.0) H* 12/18/18 21:30 Calcium 8.1 mg/dL (8.5-10.1) L 12/19/18 05:25 Phosphorus 2.2 mg/dL (2.5-4.9) L 12/19/18 05:25 Magnesium 1.4 mg/dL (1.8-2.4) L 12/19/18 05:25 Total Bilirubin 0.4 mg/dL (0.2-1) 12/19/18 05:25 AST 11 U/L (15-37) L 12/19/18 05:25 ALT 15 U/L (13-61) 12/19/18 05:25 Alkaline Phosphatase 74 U/L (45-117) 12/19/18 05:25 Troponin I < 0.02 ng/ml (0.00-0.05) 12/18/18 21:30 Total Protein 6.0 g/dl (6.4-8.2) L 12/19/18 05:25 Albumin 2.9 g/dl (3.4-5.0) L 12/19/18 05:25 Current Medications Generic Name Dose Route Start Last Admin Trade Name Freq PRN Reason Stop Dose Admin Acetaminophen 650 mg 12/19/18 03:21 Tylenol - PO Q4H PRN PAIN LEVEL 6-10 Amlodipine Besylate 2.5 mg 12/19/18 10:00 12/19/18 09:49 Norvasc - PO 2.5 mg DAILY GIL Administration Atorvastatin Calcium 20 mg 12/19/18 22:00 Lipitor - PO HS GIL Sodium Chloride 1,000 mls @ 100 mls/hr 12/19/18 08:02 12/19/18 09:48 Normal Saline - IV 100 mls/hr ASDIR GIL Administration Cefazolin Sodium 2 gm/ 50 mls @ 200 mls/hr 12/19/18 10:45 Dextrose IVPB BID GIL Insulin Aspart 1 vial 12/19/18 07:00 12/19/18 07:08 Novolog Vial Sliding Scale - SQ Not Given ACHS GIL Protocol Levothyroxine Sodium 100 mcg 12/19/18 07:30 12/19/18 09:48 Synthroid - PO 100 mcg ACBK GIL Administration Pantoprazole Sodium 40 mg 12/19/18 10:00 12/19/18 09:49 Protonix - PO 40 mg DAILY GIL Administration Constitutional: Yes: No Distress Eyes: Yes: Conjunctiva Clear HENT: Yes: Atraumatic Neck: Yes: Trachea Midline Cardiovascular: Yes: Regular Rate and Rhythm Respiratory: Yes: CTA Bilaterally Gastrointestinal Inspection: Yes: Scars (long vertical midline and laparoscopic incisions) ...Auscultate: Yes: Normoactive Bowel Sounds ...Palpate: Yes: Soft, Other (nontender) ...Rectal Exam: Yes: Guaiac Negative (soft brown guaiac negative stool) Extremities: Yes: Other (hot swollen RLE) Neurological: Yes: Alert, Oriented Labs: CBC, BMP 12/19/18 05:25 12/19/18 05:25 INR, PTT INR 2.28 (0.83-1.09) H 12/18/18 21:34 Problem List - Problems (1) Rectal bleeding Assessment/Plan: Suspect hemorrhoidal bleeding Code(s): K62.5 - HEMORRHAGE OF ANUS AND RECTUM (2) Cellulitis Code(s): L03.90 - CELLULITIS, UNSPECIFIED Qualifiers: Site of cellulitis: extremity Site of cellulitis of extremity: lower extremity Laterality: right Qualified Code(s): L03.115 - Cellulitis of right lower limb (3) Anemia Code(s): D64.9 - ANEMIA, UNSPECIFIED Qualifiers: Anemia type: unspecified type Qualified Code(s): D64.9 - Anemia, unspecified (4) Anemia Code(s): D64.9 - ANEMIA, UNSPECIFIED (5) Colon cancer Code(s): C18.9 - MALIGNANT NEOPLASM OF COLON, UNSPECIFIED (6) DVT (deep venous thrombosis) Code(s): I82.409 - ACUTE EMBOLISM AND THOMBOS UNSP DEEP VN UNSP LOWER EXTREMITY Qualifiers: DVT location: lower extremity Affected thrombotic vein of extremity: femoral Chronicity: acute Laterality: left Qualified Code(s): I82.412 - Acute embolism and thrombosis of left femoral vein (7) Diabetes mellitus type 2, noninsulin dependent Code(s): E11.9 - TYPE 2 DIABETES MELLITUS WITHOUT COMPLICATIONS (8) Hematoma Code(s): T14.8XXA - OTHER INJURY OF UNSPECIFIED BODY REGION, INITIAL ENCOUNTER (9) Hypertension Code(s): I10 - ESSENTIAL (PRIMARY) HYPERTENSION Qualifiers: Hypertension type: unspecified Qualified Code(s): I10 - Essential (primary ) hypertension (10) Hypothyroidism Code(s): E03.9 - HYPOTHYROIDISM, UNSPECIFIED Qualifiers: Hypothyroidism type: acquired Qualified Code(s): E03.9 - Hypothyroidism, unspecified (11) Lobular carcinoma in situ (LCIS) of right breast Code(s): D05.01 - LOBULAR CARCINOMA IN SITU OF RIGHT BREAST (12) Obesity (BMI 30-39.9) Code(s): E66.9 - OBESITY, UNSPECIFIED (13) S/P laparoscopic cholecystectomy Code(s): Z90.49 - ACQUIRED ABSENCE OF OTHER SPECIFIED PARTS OF DIGESTIVE TRACT (14) Morbid obesity Code(s): E66.01 - MORBID (SEVERE) OBESITY DUE TO EXCESS CALORIES (15) History of pulmonary embolus (PE) Code(s): Z86.711 - PERSONAL HISTORY OF PULMONARY EMBOLISM (16) DVT (deep venous thrombosis) Code(s): I82.409 - ACUTE EMBOLISM AND THOMBOS UNSP DEEP VN UNSP LOWER EXTREMITY (17) Hyperlipidemia Code(s): E78.5 - HYPERLIPIDEMIA, UNSPECIFIED (18) Hypertension Code(s): I10 - ESSENTIAL (PRIMARY) HYPERTENSION (19) Hypothyroidism Code(s): E03.9 - HYPOTHYROIDISM, UNSPECIFIED (20) Diabetes Code(s): E11.9 - TYPE 2 DIABETES MELLITUS WITHOUT COMPLICATIONS Assessment/Plan Assessment: -- Given the lack of overt GI bleeding in the face of a dwindling Hb I suspect that the loss loss is into the RLE placing her at risk for compartment syndrome. -- Rectal bleeding due to hemorrhoids -- Personal h/o colon cancer and due for repeat surveillance next year Plan: -- Will advance diet -- Please recall is any overt GI bleeding arises Dr Dexter will be covering this weekend.
[2018-12-19 11:00] LABS: RETICULOCYTES 1.97 % (0.5-1.5)
[2018-12-19] MEDS ORDERED: CEFAZOLIN 1 GM/D5W 2 GM/100 ML BAG ONE (11:32)
--- NOTE | 2018-12-19 11:39 | CONS ---
INFECTIOUS DISEASE CONSULTATION DATE OF CONSULTATION: 12/19/2018 This is a 73-year-old woman who reports that on Saturday, she fell when she was getting out of bed, and she hit her right leg on the night stand. She had pain in the leg. She was seen at [facility] ER. She had an x-ray that showed no fracture. She was given an ice pack and Percocet and sent home. The pain has been increasing. She has noted that the leg has felt hot, and she came to [facility]. She denies any fevers or chills. She has no nausea, vomiting, diarrhea, or dysuria. She generally uses a walker or a wheelchair to get around. Her mobility is not very good. PAST MEDICAL HISTORY: Notable for hyperlipidemia, hypertension, CKD, awn-izcemkv-jzamjxtob diabetes, GERD, anemia, hypothyroidism, bilateral lower extremity DVTs, history of breast cancer, and history of colon cancer. SURGICAL HISTORY: Notable for colectomy, appendectomy, laparoscopic cholecystectomy, hernia repair, IVC filter, and bilateral breast biopsies. SOCIAL HISTORY: Her grandchildren live with her at home. She stopped smoking in the 1980s. There is no history of alcohol or substance use. She is originally from [place]. 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 FAMILY HISTORY: Notable for heart disease in her mother. Her father was alive and well until he was 86 when he had a heart attack and . ALLERGIES: She has no known drug allergies. MEDICATIONS: Include amlodipine, vitamin D, hydrochlorothiazide, Lipitor, omeprazole, Mirapex, , Synthroid, MiraLAX, and Xarelto. PRIMARY MEDICAL DOCTOR: Sherri Arroyo MD PHYSICAL EXAMINATION: General: She is awake and alert. She is an obese woman in no acute distress. Vital Signs: She has been afebrile; temperature is 97.8. Pulse is 91. Blood pressure is 154/82. Respiratory rate of 18. She is saturating 95% on room air. She weighs 124 kg. HEENT: She is normocephalic. Her eyes are anicteric. Neck: Supple. Lungs: Clear to auscultation. Lungs have diminished breath sounds at the bases. Heart: Distant heart sounds. Abdomen: Soft. Cannot palpate any organomegaly due to her size. Extremities: Notable for non-fluctuant erythema of the right lower extremity which is tender to touch. She has an area along her anterior tibia that is probably about 20 cm in length and about 8 cm wide, which is erythematous. She has bilaterally palpable dorsalis pedis pulses, 2+. LABORATORY DATA: Her labs are notable for a white count last night was 6.6, hemoglobin 7.6. This morning, white count is 5.6 with a hemoglobin of 6.7. Platelets are 249. Her INR is 2.28. BUN is 22 and creatinine 1.7. LFTs are normal. UA and blood cultures are pending. She had a duplex of her leg, that was negative for DVT, and an x-ray of the leg that showed some degenerative changes, no fracture. There was some diffuse swelling of the soft tissue. She had a chest x-ray that showed a large heart. As well, she has had some thoracic spine surgery in the past, which is evident on the chest x-ray. She had a duplex of her right lower extremity, that was negative for DVT. In summary, this is a 73-year-old obese lady with cellulitis of her right lower extremity, possible hematoma in the setting of worsening anemia and anticoagulation, chronic kidney disease with a component of acute kidney injury. No history of methicillin-resistant Staphylococcus aureus. No recent hospitalizations. I would switch her to cefazolin. Would image her leg to rule out hematoma. This was discussed with the hospitalist service. SHAYY LOVE M.D. [id number]
[2018-12-19] MEDS: CEFAZOLIN 2 GM/D5W 2 GM/50 ML ML IVPB SCH ×2 (12:39→21:31)
--- NOTE | 2018-12-19 13:46 | CONSULT ---
Consult Consult Specialty:: Hematology and Oncology Reason for Consultation:: Anemia w/ Hx of colon cancer - History of Present Illness Chief Complaint: Leg pain and swelling History of Present Illness: The patient is a 73yo m w/ PMH HTN, HLD, CKD stage 3, DM, Anemia, hypothyroidism , B/l DVT, breast CA (s/p tomoxifen therapy & radiation), colon CA (s/p chemo & resection) who comes into the ED c/o RLE cellulitis. In the ED, she was found to have a Hb of 6.7. Hematology was called to assist in the management of her anemia in the setting of colon and breast cancer. On interview, the patient was found lying in bed comfortably in the ED. She continues to complain of the pain in her right leg. 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: CVA (h/o but pt was not aware of it) Cardio/Vascular: Yes: Deep Vein Thrombosis (and PE s/p IVC filter on coumadin), HTN, Hyperlipdemia (?), Other (possible valvular stenosis?) Gastrointestinal: Yes: Cancer (R hemicolectomy for colon cancer), Other ( diarrhea/chronic loose stool) Hepatobiliary: Yes: Cholecystitis (s/p lap [place] 5d ago) ...: No Musculoskeletal: Yes: Osteoarthritis, Other (R shoulder tendonitis) Endocrine: Yes: Diabetes Mellitus, Hypothyroidism - Past Surgical History Past Surgical History: Yes: Appendectomy ((part of R hemicolectomy)), Breast Biopsy (precancerous cells found), Cholecystectomy (laparoscopic 5 days ago), Colectomy (R massiel for CA 2003), Colonoscopy, Hernia Repair (abdominal wall with mesh at time of hemicolectomy per pt), Tubal Ligation Additional Surgical History: scoliosis surgery. negative exploratory laparotomy 1990 - Alcohol/Substance Use Hx Alcohol Use: No History of Substance Use: reports: None - Smoking History Smoking history: Never smoked Have you smoked in the past 12 months: No Aproximately how many cigarettes per day: 0 If you are a former smoker, when did you quit?: 1970 Home Medications - Allergies Allergies/Adverse Reactions: Allergies Allergy/AdvReac Type Severity Reaction Status Date / Time No Known Drug Allergies Allergy Verified 12/19/18 08:06 - Home Medications Home Medications: Ambulatory Orders Amlodipine Besylate 2.5 mg PO DAILY 12/10/16 Cholecalciferol (Vitamin D3) [Vitamin D3] 50,000 unit PO WEEKLY 12/10/16 Hydrochlorothiazide [Hctz -] 12.5 mg PO DAILY 12/10/16 Atorvastatin Calcium [Lipitor] 40 mg PO DAILY 03/21/18 Omeprazole 40 mg PO DAILY 03/21/18 Pramipexole Di-HCl [Mirapex] 0.25 mg PO AM 03/21/18 Acetaminophen [Tylenol .Regular Strength -] 650 mg PO Q4H PRN tablet 04/21/18 Ferrous Sulfate [Feosol] 325 mg PO DAILY #120 ud 04/21/18 Levothyroxine [Synthroid -] 100 mcg PO DAILY 04/21/18 Miscellaneous Drug Not In Syst [Outpatient Lab Test] 1 each ASDIR #1 misc 01/27 Miscellaneous Drug Not In Syst [Outpatient Lab Test] 1 each ASDIR #1 misc 01/27 Polyethylene Glycol 3350 [Miralax (For Daily Use) -] 17 gm PO BID #1 bottle 01/27 Rivaroxaban [Xarelto -] 20 mg PO DAILY #30 tablet 04/21/18 Rivaroxaban [Xarelto] 15 mg PO BID #42 tab 04/21/18 Clotrimazole/Betamet Diprop [Lotrisone Cream (Small Tube)] 1 applic TP BID 12/19 Clotrimazole/Betamethasone Dip [Clotrimazole-Betamethasone Crm] 15 gm TP BID 01/27 Furosemide 20 mg PO DAILY 12/19/18 Levothyroxine [Synthroid -] 112 mcg PO AM 12/19/18 Losartan/Hydrochlorothiazide [Losartan-Hctz 50-12.5 mg Tab] 1 each PO DAILY 01/27 Pramipexole Di-HCl [Mirapex] 0.75 mg PO HS 12/19/18 Pramipexole Di-HCl [Pramipexole Dihydrochloride] 0.375 mg PO AM 12/19/18 Family Medical History Family Hx Cancer: Father (prostate cancer) Physical Exam Vital Signs: Vital Signs Temperature 99.9 F H 12/19/18 12:28 Pulse Rate 101 H 12/19/18 12:28 Respiratory Rate 18 12/19/18 12:28 Blood Pressure 160/75 12/19/18 12:28 O2 Sat by Pulse Oximetry (%) 96 12/19/18 12:28 Constitutional: Yes: Well Nourished, No Distress, Calm, Obese HENT: Yes: Atraumatic, Normocephalic Cardiovascular: Yes: Regular Rate and Rhythm, S1, S2. No: Gallop, Murmur, Rub Respiratory: Yes: Regular, CTA Bilaterally Gastrointestinal: Yes: Normal Bowel Sounds, Soft, Abdomen, Obese. No: Tenderness Edema: No Neurological: Yes: Alert, Oriented Labs: CBC, BMP 12/19/18 05:25 12/19/18 05:25 Imaging - Results Chest X-ray: Report Reviewed, Image Reviewed Assessment/Plan The patient is a 73yo m w/ PMH HTN, HLD, CKD stage 3, DM, Anemia, hypothyroidism , B/l DVT, breast CA (s/p tomoxifen therapy & radiation), colon CA (s/p chemo & resection) who comes into the ED c/o RLE cellulitis. In the ED, she was found to be anemic to 6.3 #Normocytic Anemia -Iron studies reflect iron deficiency. This may be possible cause -must rule out occult blood loss as well as malignancy given age and history -suggest GI consult -added on TSH, B12, folate -2u PRBC ordered by primary team. -f/u post transfusion CBC -maintain normal transfusion thresholds.
--- NOTE | 2018-12-19 14:28 | EKG ---
Test Reason : Blood Pressure : / mmHG Vent. Rate : 090 BPM Atrial Rate : 090 BPM P-R Int : 148 ms QRS Dur : 088 ms QT Int : 390 ms P-R-T Axes : 007 -11 034 degrees QTc Int : 477 ms POOR DATA QUALITY, INTERPRETATION MAY BE ADVERSELY AFFECTED NORMAL SINUS RHYTHM MINIMAL VOLTAGE CRITERIA FOR LVH, MAY BE NORMAL VARIANT CANNOT RULE OUT ANTERIOR INFARCT , AGE UNDETERMINED NONSPECIFIC ST ABNORMALITY ABNORMAL ECG Confirmed by ALEX FLAHERTY MD ([id number]) on 12/19/2018 2:28:26 PM Referred By: Confirmed By:ALEX FLAHERTY MD
--- NOTE | 2018-12-19 14:41 | CONSULT ---
Consult - text type - Consultation Consultation Note: Renal consult for CKD This is a 73year old woman with history of CKD stage 3 ( baseline Cr ~1.7-2), hypertension, hyperlipidemia, Anemia, hypothyroidism, DVT, breast Ca, Colon Ca s/p resection who presented from home with unilateral leg swelling and pain s/p fall with Cr of 1.7. Pt seen at the bedside. Offers no acute complaints apart from leg tenderness. Denies any chest pain, abdominal pain, fever, chills, N/V/D. PMhx: as above Allergies: NKDA Family Hx: NC Social Hx: No T/A/D ROS: as per HPI Home Medications Medication Instructions Recorded Amlodipine Besylate 2.5 mg PO DAILY 12/10/16 Cholecalciferol (Vitamin D3) 50,000 unit PO WEEKLY 12/10/16 [Vitamin D3] Hydrochlorothiazide [Hctz -] 12.5 mg PO DAILY 12/10/16 Atorvastatin Calcium [Lipitor] 20 mg PO HS 03/21/18 Omeprazole 40 mg PO DAILY 03/21/18 Pramipexole Di-HCl [Mirapex] 0.25 mg PO AM 03/21/18 Acetaminophen [Tylenol .Regular 650 mg PO Q4H PRN tablet 04/21/18 Strength -] Ferrous Sulfate [Feosol] 325 mg PO DAILY #120 ud 04/21/18 Levothyroxine [Synthroid -] 100 mcg PO DAILY 04/21/18 Miscellaneous Drug Not In Syst 1 each ASDIR #1 misc 04/21/18 [Outpatient Lab Test] Miscellaneous Drug Not In Syst 1 each [place]1 [facility] [place]21[place]18 [Outpatient Lab Test] Polyethylene Glycol 3350 [Miralax 17 gm PO BID #1 bottle 04/21/18 (For Daily Use) -] Rivaroxaban [Xarelto -] 20 mg PO DAILY #30 tablet 04/21/18 Rivaroxaban [Xarelto] 15 mg PO BID #42 tab 04/21/18 Furosemide 20 mg PO DAILY 12/19/18 Levothyroxine [Synthroid -] 112 mcg PO AM 12/19/18 Losartan/Hydrochlorothiazide 1 each PO DAILY 12/19/18 [Losartan-Hctz 50-12.5 mg Tab] Pramipexole Di-HCl [Mirapex] 0.75 mg PO HS 12/19/18 Pramipexole Di-HCl [Pramipexole 0.375 mg PO AM 12/19/18 Dihydrochloride] Vital Signs Temperature 99.9 F H 12/19/18 12:28 Pulse Rate 101 H 12/19/18 12:28 Respiratory Rate 18 12/19/18 12:28 Blood Pressure 160/75 12/19/18 12:28 O2 Sat by Pulse Oximetry (%) 96 12/19/18 12:28 Intake & Output 12/16/18 12/17/18 12/18/18 12/19/18 23:59 23:59 23:59 23:59 Weight 124.738 kg NAD awake and alert neck supple, no JVD RRR, no M/R CTA, no rales or wheeze soft NT/ND + LE edema R>L no bladder distension CBC, BMP 12/19/18 05:25 12/19/18 05:25 Current Medications Acetaminophen (Tylenol -) 650 mg PO Q4H PRN PRN Reason: PAIN LEVEL 6-10 Amlodipine Besylate (Norvasc -) 2.5 mg PO DAILY [facility] Last Admin: 12/19/18 09:49 Dose: 2.5 mg Atorvastatin Calcium (Lipitor -) 20 mg PO HS [facility] Sodium Chloride (Normal Saline -) 1,000 mls @ 100 mls/hr IV ASDIR [facility] Last Admin: 12/19/18 12:38 Dose: 100 mls/hr Cefazolin Sodium/Dextrose (Ancef 2 Gm Premixed Ivpb -) 2 gm in 50 mls @ 100 mls /hr IVPB BID [facility] Last Admin: 12/19/18 12:39 Dose: 100 mls/hr Insulin Aspart (Novolog Vial Sliding Scale -) 1 vial SQ ACHS [facility]; Protocol Last Admin: 12/19/18 13:16 Dose: Not Given Levothyroxine Sodium (Synthroid -) 100 mcg PO ACBK [facility] Last Admin: 12/19/18 09:48 Dose: 100 mcg Pantoprazole Sodium (Protonix -) 40 mg PO DAILY [facility] Last Admin: 12/19/18 09:49 Dose: 40 mg 73year old woman with history of CKD stage 3 (baseline Cr ~1.7- 2), hypertension, hyperlipidemia, Anemia, hypothyroidism, DVT, breast Ca, Colon Ca s/p resection who presented from home with unilateral leg swelling and pain s /p fall with Cr of 1.7. 1. CKD stage 3 2. Lower extremity cellulitis 3. Acute on Chronic anemia 4. Hypertension 5. Chronic DVT on xarelto 6. DM Type 2 Renal function appears to be stable and near baseline. No ovet electrolyte or acid base disturbance noted. Dose all meds for eGFR of 30 Avoid NSAIDs and nephrotoxins Continue cefazolin as per ID. Follow up cultures. Continue home BP meds: Amlodipine, Losartan, HCTZ. Goal BP < 130/80 Mangement of anticoagulation as per primary team GI following for anemia. For PRBC transfusion today. Check iron studies. Thank you Will follow Anant Giron DO
--- NOTE | 2018-12-19 14:52 | PN ---
Teaching Attending Note Name of Resident: Hanh Guevara ATTENDING PHYSICIAN STATEMENT I saw and evaluated the patient. I reviewed the resident's note and discussed the case with the resident. I agree with the resident's findings and plan as documented with exceptions below. SUBJECTIVE: Patient seen and examined. right leg pain, overall unchanged, no new complaints , able to move toes without pain. No fevers, chills, abdominal pain or concerns. Occasional BRBPR but none currently. OBJECTIVE: Vital Signs Period Temp Pulse Resp BP Sys/Brandt Pulse Ox Last 24 Hr 97.8 F-99.9 F 90-101 17-18 144-160/70-82 91-97 Intake & Output 12/16/18 12/17/18 12/18/18 12/19/18 23:59 23:59 23:59 23:59 Weight 275 lb general: morbidly obese female sitting in bed, no acute distress, BMI 45.8 neck; Soft, supple HEENT: pallor Abdomen:Soft, obese, NT Extremities: RLE swelling with minimal erythema on anterior right leg, 2/3rd, with some tenderness, palpable DP pulses, able to move toes freely, no warmth noted Home Medications Medication Instructions Recorded Amlodipine Besylate 2.5 mg PO DAILY 12/10/16 Cholecalciferol (Vitamin D3) 50,000 unit PO WEEKLY 12/10/16 [Vitamin D3] Hydrochlorothiazide [Hctz -] 12.5 mg PO DAILY 12/10/16 Atorvastatin Calcium [Lipitor] 20 mg PO HS 03/21/18 Omeprazole 40 mg PO DAILY 03/21/18 Pramipexole Di-HCl [Mirapex] 0.25 mg PO AM 03/21/18 Acetaminophen [Tylenol .Regular 650 mg PO Q4H PRN tablet 04/21/18 Strength -] Ferrous Sulfate [Feosol] 325 mg PO DAILY #120 ud 04/21/18 Levothyroxine [Synthroid -] 100 mcg PO DAILY 04/21/18 Miscellaneous Drug Not In Syst 1 each ASDIR #1 misc 04/21/18 [Outpatient Lab Test] Miscellaneous Drug Not In Syst 1 each ASDIR #1 misc 04/21/18 [Outpatient Lab Test] Polyethylene Glycol 3350 [Miralax 17 gm PO BID #1 bottle 04/21/18 (For Daily Use) -] Rivaroxaban [Xarelto -] 20 mg PO DAILY #30 tablet 04/21/18 Rivaroxaban [Xarelto] 15 mg PO BID #42 tab 04/21/18 Furosemide 20 mg PO DAILY 12/19/18 Levothyroxine [Synthroid -] 112 mcg PO AM 12/19/18 Losartan/Hydrochlorothiazide 1 each PO DAILY 12/19/18 [Losartan-Hctz 50-12.5 mg Tab] Pramipexole Di-HCl [Mirapex] 0.75 mg PO HS 12/19/18 Pramipexole Di-HCl [Pramipexole 0.375 mg PO AM 12/19/18 Dihydrochloride] Active Medications Acetaminophen (Tylenol -) 650 mg PO Q4H PRN PRN Reason: PAIN LEVEL 6-10 Amlodipine Besylate (Norvasc -) 2.5 mg PO DAILY [facility] Last Admin: 12/19/18 09:49 Dose: 2.5 mg Atorvastatin Calcium (Lipitor -) 20 mg PO [facility] Sodium Chloride (Normal Saline -) 1,000 mls @ 100 mls/hr IV ASDIR [facility] Last Admin: 12/19/18 12:38 Dose: 100 mls/hr Cefazolin Sodium/Dextrose (Ancef 2 Gm Premixed Ivpb -) 2 gm in 50 mls @ 100 mls /hr IVPB BID [facility] Last Admin: 12/19/18 12:39 Dose: 100 mls/hr Insulin Aspart (Novolog Vial Sliding Scale -) 1 vial SQ ACHS [facility]; Protocol Last Admin: 12/19/18 13:16 Dose: Not Given Levothyroxine Sodium (Synthroid -) 100 mcg PO ACBK [facility] Last Admin: 12/19/18 09:48 Dose: 100 mcg Pantoprazole Sodium (Protonix -) 40 mg PO DAILY [facility] Last Admin: 12/19/18 09:49 Dose: 40 mg Laboratory Results - last 24 hr 12/18/18 12/18/18 12/18/18 21:30 21:30 21:30 WBC 6.6 RBC 2.59 L Hgb 7.6 L Hct 23.7 L MCV 91.6 MCH 29.5 MCHC 32.2 RDW 16.0 H Plt Count 295 MPV 7.4 L Absolute Neuts (auto) 4.3 Neutrophils % 65.9 D Lymphocytes % 24.6 D Monocytes % 7.2 Eosinophils % 1.4 Basophils % 0.9 Nucleated RBC % 0 Retic Count PT with INR INR Sodium 140 Potassium 3.5 Chloride 107 Carbon Dioxide 24 Anion Gap 9 BUN 27.6 H Creatinine 1.9 H Est GFR (CKD-EPI)AfAm 29.58 Est GFR (CKD-EPI)NonAf 25.52 POC Glucometer Random Glucose 98 Lactic Acid Calcium 8.7 Phosphorus Magnesium Iron TIBC Iron Saturation Unsaturated IBC Ferritin Total Bilirubin 0.4 AST 10 L ALT 17 Alkaline Phosphatase 87 Troponin I < 0.02 Total Protein 7.1 Albumin 3.3 L Stool Occult Blood Blood Type Antibody Screen Crossmatch 12/18/18 12/18/18 12/19/18 21:30 21:34 04:15 WBC RBC Hgb Hct MCV MCH MCHC RDW Plt Count MPV Absolute Neuts (auto) Neutrophils % Lymphocytes % Monocytes % Eosinophils % Basophils % Nucleated RBC % Retic Count PT with INR 27.10 H INR 2.28 H Sodium Potassium Chloride Carbon Dioxide Anion Gap BUN Creatinine Est GFR (CKD-EPI)AfAm Est GFR (CKD-EPI)NonAf POC Glucometer Random Glucose Lactic Acid 2.5 H* Calcium Phosphorus Magnesium Iron TIBC Iron Saturation Unsaturated IBC Ferritin Total Bilirubin AST ALT Alkaline Phosphatase Troponin I Total Protein Albumin Stool Occult Blood Negative Blood Type Antibody Screen Crossmatch 12/19/18 12/19/18 12/19/18 05:25 05:25 07:04 WBC 5.6 RBC 2.25 L Hgb 6.7 L* Hct 20.3 L MCV 90.2 MCH 29.8 MCHC 33.1 RDW 16.4 H Plt Count 249 MPV 7.2 L Absolute Neuts (auto) Neutrophils % Lymphocytes % Monocytes % Eosinophils % Basophils % Nucleated RBC % Retic Count 1.97 H PT with INR INR Sodium 140 Potassium 3.4 L Chloride 109 H Carbon Dioxide 24 Anion Gap 7 L BUN 22.9 H Creatinine 1.7 H Est GFR (CKD-EPI)AfAm 33.84 Est GFR (CKD-EPI)NonAf 29.20 POC Glucometer 92 Random Glucose 92 Lactic Acid Calcium 8.1 L Phosphorus 2.2 L Magnesium 1.4 L Iron TIBC Iron Saturation Unsaturated IBC Ferritin Total Bilirubin 0.4 AST 11 L ALT 15 Alkaline Phosphatase 74 Troponin I Total Protein 6.0 L Albumin 2.9 L Stool Occult Blood Blood Type Antibody Screen Crossmatch 12/19/18 12/19/18 12/19/18 10:22 10:22 10:22 WBC RBC Hgb Hct MCV MCH MCHC RDW Plt Count MPV Absolute Neuts (auto) Neutrophils % Lymphocytes % Monocytes % Eosinophils % Basophils % Nucleated RBC % Retic Count PT with INR INR Sodium Potassium Chloride Carbon Dioxide Anion Gap BUN Creatinine Est GFR (CKD-EPI)AfAm Est GFR (CKD-EPI)NonAf POC Glucometer Random Glucose Lactic Acid 1.3 Calcium Phosphorus Magnesium Iron 27 L TIBC 349 Iron Saturation 7 L Unsaturated IBC 322 H Ferritin 24.2 Total Bilirubin AST ALT Alkaline Phosphatase Troponin I Total Protein Albumin Stool Occult Blood Blood Type A POSITIVE Antibody Screen Negative Crossmatch See Detail 12/19/18 12:46 WBC RBC Hgb Hct MCV MCH MCHC RDW Plt Count MPV Absolute Neuts (auto) Neutrophils % Lymphocytes % Monocytes % Eosinophils % Basophils % Nucleated RBC % Retic Count PT with INR INR Sodium Potassium Chloride Carbon Dioxide Anion Gap BUN Creatinine Est GFR (CKD-EPI)AfAm Est GFR (CKD-EPI)NonAf POC Glucometer 84 Random Glucose Lactic Acid Calcium Phosphorus Magnesium Iron TIBC Iron Saturation Unsaturated IBC Ferritin Total Bilirubin AST ALT Alkaline Phosphatase Troponin I Total Protein Albumin Stool Occult Blood Blood Type Antibody Screen Crossmatch LE duplex results noted ASSESSMENT AND PLAN: 73 yof with PMHx of HTN, HLD, stage 3 CKD, DM2, GERD, anemia, hypothyroidism, b/ l extremity DVT's most recent RLE in 03/2018, breast CA (s/p tomoxifen therapy & radiation), colon CA (s/o chemo & resection), morbid obesity admitted with RLE pain/swelling after fall and trauma to the leg 1 week ago. -RLE pain/swelling, suspect hematoma, low suspicion for cellulitis, do not suspect compartment syndrome based on current exam -Acute on chronic anemia, suspect blood loss from above in the setting of trauma /on full dose AC -Fall with right leg trauma 1 week ago -NEGRA on CKD stage III, suspect hypovolumia/blood loss and continuation of lasix/ HCTZ/Losartan -Hypokalemia, hypomagnesemia, hypophosphatemia -HTN -HLD -Morbid obesity -GERD -Type II DM -Hypothyroidism -Bilateral LE DVT, most recent RLE 03/2018 -Breast ca s/p tamoxifen/radiation -Colon Ca s/p chemo/resection Plan: CT LE, serial monitoring of circumference RLE, vascular checks. Hold xarelto for now. ID input noted changed to cefazolin. Transfuse 2 units PRBC, monitor volume status. Monitor h/h. Replete lytes. Hold ARB/HCTZ/Lasix, follow up renal input. GI input noted, FOBT neg, monitor Hematology consulted, follow up recs. DVTPPX SCDs LLE Dispo pending clinical improvement. Discussed with patient, all questions answered.
--- NOTE | 2018-12-19 16:28 | PN ---
Teaching Attending Note Name of Resident: Geremias Hardy ATTENDING PHYSICIAN STATEMENT I saw and evaluated the patient. I reviewed the resident's note and discussed the case with the resident. I agree with the resident's findings and plan as documented. SUBJECTIVE: Patient seen and examined Presents after trauma with swelling and? cellullitis of distal RLE Noted to be anemic with Fe++ studies revealing picture compatible with iron deficiency with iron sat -- 8%. Past history of DCIS - s/p lumpectmy and RT with 5 years of tamoxifen therapy. History of colon ca - s/p right hemicolectomy in 2003 followed by chemotherapy History of exploratory lap with resected bowel history of appendectomy History of cholecystecomy History of hernia repair History of DVT/P.E/ and IVC filter on a/c history of HBP History of DM Family history Motherr and fther of cardiacc disease brother of prostate ca 1 sister of breast ca 1 sister of stomach ca ROS - leg pain annual mammography and PAP smears Followed by GI - Dr. Elliott Last Vital Signs Temp Pulse Resp BP Pulse Ox 99.9 F H 101 H 18 160/75 96 12/19/18 12:28 12/19/18 12:28 12/19/18 12:28 12/19/18 12:28 12/19/18 12:28 Obese HEENT: GÉNESIS, EOM Intact Oropharynx: No thrush, No mucositis Neck: Supple Nodes: Without adenopathy Breasts: Without masses; scar right breast Cor: RSR, No murmurs, No gallops Lungs: Clear to P&A Abd: Soft, Normal bowel sounds, No organomegalysurgical scar Ext:right lower extremity selling/ erythema > LLE Skin: No rashes, Integument intact Impression: Picture compatible with Fe++ deficiency with Fe++ saturation of 8% Component of CKD/ chronic disease. Seen by GI and endoscopic assessment being deferred currently. Need to get details of prior DVT/PE ? need for branch examiner a/c If necessary- when Hb stable , in view of negative stool guaics - would resume a /c. OBJECTIVE: ASSESSMENT AND PLAN:
[2018-12-19] MEDS ORDERED: RIVAROXABAN 20 MG TABLET PO SCH (18:00)
--- NOTE | 2018-12-19 18:44 | PN ---
Physical Exam: SUBJECTIVE: Patient seen and examined. She reports right LE pain is 5/10. She has not had diarrhea or blood in bowel movement since admission. She denies fever, chills, chest pain, abdominal pain, nausea, or vomiting. She reports hx of anemia, last colonoscopy 3-4 years ago did not have any findings per pt. OBJECTIVE: Vital Signs Period Temp Pulse Resp BP Sys/Brandt Pulse Ox Last 24 Hr 97.8 F-99.9 F 90-101 17-18 144-160/70-82 91-97 GENERAL: The patient is awake, alert, and fully oriented, in no acute distress. HEAD: Normal with no signs of trauma. EYES: PERRL, extraocular movements intact ENT: Ears normal, nares patent, moist mucous membranes. NECK: Trachea midline, full range of motion. LUNGS: Breath sounds equal, clear to auscultation bilaterally HEART: Regular rate and rhythm, no murmur ABDOMEN: Soft, nontender, nondistended, normoactive bowel sounds EXTREMITIES: warm, well-perfused, right lower extremity erythema and edema with multiple small areas of light discoloration on anterior surface. One small abrasion with minor scabbing, no oozing. NEUROLOGICAL: Normal speech PSYCH: Normal mood, normal affect. SKIN: Warm, dry, normal turgor, no rashes or lesions noted RECTAL: small amount of soft, light brown stool, no hemorrhoids or masses noted Laboratory Results - last 24 hr 12/18/18 12/18/18 12/18/18 21:30 21:30 21:30 WBC 6.6 RBC 2.59 L Hgb 7.6 L Hct 23.7 L MCV 91.6 MCH 29.5 MCHC 32.2 RDW 16.0 H Plt Count 295 MPV 7.4 L Absolute Neuts (auto) 4.3 Neutrophils % 65.9 D Lymphocytes % 24.6 D Monocytes % 7.2 Eosinophils % 1.4 Basophils % 0.9 Nucleated RBC % 0 Retic Count PT with INR INR Sodium 140 Potassium 3.5 Chloride 107 Carbon Dioxide 24 Anion Gap 9 BUN 27.6 H Creatinine 1.9 H Est GFR (CKD-EPI)AfAm 29.58 Est GFR (CKD-EPI)NonAf 25.52 POC Glucometer Random Glucose 98 Lactic Acid Calcium 8.7 Phosphorus Magnesium Iron TIBC Iron Saturation Unsaturated IBC Ferritin Total Bilirubin 0.4 AST 10 L ALT 17 Alkaline Phosphatase 87 Troponin I < 0.02 Total Protein 7.1 Albumin 3.3 L Stool Occult Blood Blood Type Antibody Screen Crossmatch 12/18/18 12/18/18 12/19/18 21:30 21:34 04:15 WBC RBC Hgb Hct MCV MCH MCHC RDW Plt Count MPV Absolute Neuts (auto) Neutrophils % Lymphocytes % Monocytes % Eosinophils % Basophils % Nucleated RBC % Retic Count PT with INR 27.10 H INR 2.28 H Sodium Potassium Chloride Carbon Dioxide Anion Gap BUN Creatinine Est GFR (CKD-EPI)AfAm Est GFR (CKD-EPI)NonAf POC Glucometer Random Glucose Lactic Acid 2.5 H* Calcium Phosphorus Magnesium Iron TIBC Iron Saturation Unsaturated IBC Ferritin Total Bilirubin AST ALT Alkaline Phosphatase Troponin I Total Protein Albumin Stool Occult Blood Negative Blood Type Antibody Screen Crossmatch 12/19/18 12/19/18 12/19/18 05:25 05:25 07:04 WBC 5.6 RBC 2.25 L Hgb 6.7 L* Hct 20.3 L MCV 90.2 MCH 29.8 MCHC 33.1 RDW 16.4 H Plt Count 249 MPV 7.2 L Absolute Neuts (auto) Neutrophils % Lymphocytes % Monocytes % Eosinophils % Basophils % Nucleated RBC % Retic Count 1.97 H PT with INR INR Sodium 140 Potassium 3.4 L Chloride 109 H Carbon Dioxide 24 Anion Gap 7 L BUN 22.9 H Creatinine 1.7 H Est GFR (CKD-EPI)AfAm 33.84 Est GFR (CKD-EPI)NonAf 29.20 POC Glucometer 92 Random Glucose 92 Lactic Acid Calcium 8.1 L Phosphorus 2.2 L Magnesium 1.4 L Iron TIBC Iron Saturation Unsaturated IBC Ferritin Total Bilirubin 0.4 AST 11 L ALT 15 Alkaline Phosphatase 74 Troponin I Total Protein 6.0 L Albumin 2.9 L Stool Occult Blood Blood Type Antibody Screen Crossmatch 12/19/18 12/19/18 12/19/18 10:22 10:22 10:22 WBC RBC Hgb Hct MCV MCH MCHC RDW Plt Count MPV Absolute Neuts (auto) Neutrophils % Lymphocytes % Monocytes % Eosinophils % Basophils % Nucleated RBC % Retic Count PT with INR INR Sodium Potassium Chloride Carbon Dioxide Anion Gap BUN Creatinine Est GFR (CKD-EPI)AfAm Est GFR (CKD-EPI)NonAf POC Glucometer Random Glucose Lactic Acid 1.3 Calcium Phosphorus Magnesium Iron 27 L TIBC 349 Iron Saturation 7 L Unsaturated IBC 322 H Ferritin 24.2 Total Bilirubin AST ALT Alkaline Phosphatase Troponin I Total Protein Albumin Stool Occult Blood Blood Type A POSITIVE Antibody Screen Negative Crossmatch See Detail 12/19/18 12:46 WBC RBC Hgb Hct MCV MCH MCHC RDW Plt Count MPV Absolute Neuts (auto) Neutrophils % Lymphocytes % Monocytes % Eosinophils % Basophils % Nucleated RBC % Retic Count PT with INR INR Sodium Potassium Chloride Carbon Dioxide Anion Gap BUN Creatinine Est GFR (CKD-EPI)AfAm Est GFR (CKD-EPI)NonAf POC Glucometer 84 Random Glucose Lactic Acid Calcium Phosphorus Magnesium Iron TIBC Iron Saturation Unsaturated IBC Ferritin Total Bilirubin AST ALT Alkaline Phosphatase Troponin I Total Protein Albumin Stool Occult Blood Blood Type Antibody Screen Crossmatch Active Medications Generic Name Dose Route Start Last Admin Trade Name Freq PRN Reason Stop Dose Admin Acetaminophen 650 mg 12/19/18 03:21 Tylenol - PO Q4H PRN PAIN LEVEL 6-10 Amlodipine Besylate 2.5 mg 12/19/18 10:00 12/19/18 09:49 Norvasc - PO 2.5 mg DAILY GIL Administration Atorvastatin Calcium 20 mg 12/19/18 22:00 Lipitor - PO HS GIL Hydrochlorothiazide 12.5 mg 12/20/18 10:00 Hctz - PO DAILY GIL Cefazolin Sodium/Dextrose 2 gm in 50 mls @ 100 mls/hr 12/19/18 10:45 12:39 Ancef 2 Gm Premixed Ivpb - IVPB 100 mls/hr BID GIL Administration Insulin Aspart 1 vial 12/19/18 07:00 12/19/18 17:54 Novolog Vial Sliding Scale - SQ Not Given ACHS GIL Protocol Levothyroxine Sodium 100 mcg 12/19/18 07:30 12/19/18 09:48 Synthroid - PO 100 mcg ACBK GIL Administration Losartan Potassium 50 mg 12/20/18 10:00 Cozaar - PO DAILY GIL Pantoprazole Sodium 40 mg 12/19/18 10:00 12/19/18 09:49 Protonix - PO 40 mg DAILY GIL Administration ASSESSMENT/PLAN: Ms. Ashford is a 73 y/o female with HTN, HLD, stage 3 CKD, DM2, GERD, anemia, hypothyroidism, b/l extremity DVT's most recent RLE in 03/2018, breast CA (s/p tomoxifen therapy & radiation), colon CA (s/o chemo & resection), morbid obesity presenting with RLE pain. #RLE cellulitis Erythematous and tender to palpation. U/S negative for DVT, shows soft tissue edema -Cefazolin day 1 -ID following #rectal bleeding Pt reports 2 days diarrhea with blood on toilet paper with wiping. No hemorrhoids noted on exam. FOBT negative. -GI following -c diff and stool studies pending from diarrhea #iron deficiency anemia, acute on chronic Hb 6.7. Iron low. Pt reports 2 days diarrhea with blood on toilet paper with wiping. No hemorrhoids noted on exam. FOBT negative. Hx colon cancer. -2 units PRBCs -iron supplementation -monitor CBC -heme following #hypokalemia 3.4 -replete -recheck labs #hypomagnesemia 1.4 -replete -recheck labs #hypophosphatemia 2.2 -replete -recheck labs #NEGRA on stage 3 CKD Cr 1.9 baseline is near 1.2. Possibly 2/2 dehydration. -nephro following- dose meds for eGFR 30 #HTN -continue home amlodipine -continue home HCTZ -continue home losartan #HLD -home atorvastatin #DM2 Pt reports recently having meds discontinued by dr DE JESUS -BGM -consider A1C if hyperglycemia occurs #GERD -pantoprazole #hypothyroidism -home synthroid FEN Renal diet monitor Phos, Mg, K DVT PPX holding Xarelto in light of bleed, SCDs as tolerated dispo med surg Visit type - Emergency Visit Emergency Visit: Yes ED Registration Date: 12/18/18 Care time: The patient presented to the Emergency Department on the above date and was hospitalized for further evaluation of their emergent condition. - New Patient This patient is new to me today: Yes Date on this admission: 12/19/18 - Critical Care Critical Care patient: No - Discharge Referral Referred to [facility] No ATTENDING PHYSICIAN STATEMENT I saw and evaluated the patient. I reviewed the resident's note and discussed the case with the resident. I agree with the resident's findings and plan as documented. SUBJECTIVE: OBJECTIVE: ASSESSMENT AND PLAN:
[2018-12-19] MEDS: ATORVASTATIN CA 20 MG TABLET (FP) PO SCH (21:31)
[2018-12-19] MEDS ORDERED: ACETAMINOPHEN 500 MG TABLET (FP) PO ONE (21:45)
[2018-12-19 21:55] LABS: BASO % 0.7 % (0-2.0); EOS % 2.1 % (0-4.5); HEMOGLOBIN 8.3 GM/dL (10.7-15.3); LYMPH % 19.1 % (8-40); MCH 28.4 pg (25.7-33.7); MCHC 31.8 g/dl (32.0-36.0); MEAN CELL VOLUME 89.2 fl (80-96); MEAN PLT VOLUME 7.5 fl (7.5-11.1); NEUT % 72.1 % (42.8-82.8); PLATELET COUNT 266 K/MM3 (134-434); RBC 2.91 M/mm3 (3.60-5.2); RDW 18.1 % (11.6-15.6); WHITE BLOOD COUNT 6.6 K/mm3 (4.0-10.0)
[2018-12-20] MEDS: LEVOTHYROXINE NA 100 MCG TABLET (FP) PO SCH (06:17)
[2018-12-20] MEDS: INSULIN SLIDING SCALE (NOVOLOG) 1 VIAL SQ SCH ×4 (06:18→21:59)
[2018-12-20 08:04] LABS: BASO % 0.4 % (0-2.0); EOS % 2.3 % (0-4.5); HEMOGLOBIN 8.6 GM/dL (10.7-15.3); LYMPH % 23.7 % (8-40); MCH 29.2 pg (25.7-33.7); MCHC 33.1 g/dl (32.0-36.0); MEAN CELL VOLUME 88.2 fl (80-96); MEAN PLT VOLUME 7.5 fl (7.5-11.1); MONO % 6.6 % (3.8-10.2); PLATELET COUNT 245 K/MM3 (134-434); RBC 2.94 M/mm3 (3.60-5.2); RDW 17.9 % (11.6-15.6); WHITE BLOOD COUNT 5.6 K/mm3 (4.0-10.0)
[2018-12-20 08:26] LABS: MAGNESIUM 1.6 mg/dL (1.8-2.4); PHOSPHOROUS 2.3 mg/dL (2.5-4.9)
[2018-12-20] MEDS ORDERED: MAGNESIUM SULF 50% (8.12 MEQ/2 ML-1 GM VIAL) IVPB ONE (08:40)
[2018-12-20] MEDS ORDERED: NAPH,MB-DB/K PH,MBDB POWDER PACKET PO ONE (09:30)
[2018-12-20] MEDS: CEFAZOLIN 2 GM/D5W 2 GM/50 ML ML IVPB SCH ×2 (09:39→21:58)
[2018-12-20] MEDS: LOSARTAN POTASSIUM 50 MG TABLET (FP) PO SCH (09:39)
[2018-12-20] MEDS: amLODIPine BESYLATE 2.5 MG TABLET (FP) PO SCH (09:40)
[2018-12-20] MEDS: PANTOPRAZOLE 40 MG TABLET (FP) PO SCH (09:40)
[2018-12-20] MEDS: HYDROCHLOROTHIAZIDE 12.5 MG CAPSULE (FP) PO SCH (09:40)
[2018-12-20 10:06] LABS: BLOOD UREA NITROGEN 17.5 mg/dL (7-18); CALCIUM 8.6 mg/dL (8.5-10.1); CREATININE 1.6 mg/dL (0.55-1.3); POTASSIUM 4.2 mmol/L (3.5-5.1)
[2018-12-20] MEDS: ACETAMINOPHEN 325 MG TABLET (FP) PO PRN ×2 (10:59→17:15)
--- NOTE | 2018-12-20 14:37 | PN ---
Teaching Attending Note Name of Resident: Hanh Guevara ATTENDING PHYSICIAN STATEMENT I saw and evaluated the patient. I reviewed the resident's note and discussed the case with the resident. I agree with the resident's findings and plan as documented with exceptions below. SUBJECTIVE: Patient seen and examined, right leg pain improved, Some dyspnea, overall feels better. OBJECTIVE: Vital Signs Period Temp Pulse Resp BP Sys/Brandt Pulse Ox Last 24 Hr 97.9 F-98.7 F 16-92 16-18 121-149/54-73 98-98 Intake & Output 12/17/18 12/18/18 12/19/18 12/20/18 23:59 23:59 23:59 23:59 Intake Total 200 150 Balance 200 150 Weight 275 lb 243 lb General: sitting in bed in no acute distress Chest: limited by body habitus, no rales or wheezing Abdomen: soft, obese, NT Extremities: RLE swelling softer today, overlying erythema improved, calf circumference unchanged, palpable DP pulses, able to move toes freely, no warmth noted Home Medications Medication Instructions Recorded Amlodipine Besylate 2.5 mg PO DAILY 12/10/16 Cholecalciferol (Vitamin D3) 50,000 unit PO WEEKLY 12/10/16 [Vitamin D3] Hydrochlorothiazide [Hctz -] 12.5 mg PO DAILY 12/10/16 Atorvastatin Calcium [Lipitor] 40 mg PO DAILY 03/21/18 Omeprazole 40 mg PO DAILY 03/21/18 Pramipexole Di-HCl [Mirapex] 0.25 mg PO AM 03/21/18 Acetaminophen [Tylenol .Regular 650 mg PO Q4H PRN tablet 04/21/18 Strength -] Ferrous Sulfate [Feosol] 325 mg PO DAILY #120 ud 04/21/18 Levothyroxine [Synthroid -] 100 mcg PO DAILY 04/21/18 Miscellaneous Drug Not In Syst 1 each ASDIR #1 misc 04/21/18 [Outpatient Lab Test] Miscellaneous Drug Not In Syst 1 each ASDIR #1 misc 04/21/18 [Outpatient Lab Test] Polyethylene Glycol 3350 [Miralax 17 gm PO BID #1 bottle 04/21/18 (For Daily Use) -] Rivaroxaban [Xarelto -] 20 mg PO DAILY #30 tablet 04/21/18 Rivaroxaban [Xarelto] 15 mg PO BID #42 tab 04/21/18 Clotrimazole/Betamet Diprop 1 applic TP BID 12/19/18 [Lotrisone Cream (Small Tube)] Clotrimazole/Betamethasone Dip 15 gm TP BID 12/19/18 [Clotrimazole-Betamethasone Crm] Furosemide 20 mg PO DAILY 12/19/18 Levothyroxine [Synthroid -] 112 mcg PO AM 12/19/18 Losartan/Hydrochlorothiazide 1 each PO DAILY 12/19/18 [Losartan-Hctz 50-12.5 mg Tab] Pramipexole Di-HCl [Mirapex] 0.75 mg PO HS 12/19/18 Pramipexole Di-HCl [Pramipexole 0.375 mg PO AM 12/19/18 Dihydrochloride] Active Medications Acetaminophen (Tylenol -) 650 mg PO Q4H PRN PRN Reason: PAIN LEVEL 6-10 Last Admin: 12/20/18 10:59 Dose: 650 mg Amlodipine Besylate (Norvasc -) 2.5 mg PO DAILY [facility] Last Admin: 12/20/18 09:40 Dose: 2.5 mg Atorvastatin Calcium (Lipitor -) 20 mg PO HS [facility] Last Admin: 12/19/18 21:31 Dose: 20 mg Furosemide (Lasix -) 20 mg PO DAILY [facility] Hydrochlorothiazide (Hctz -) 12.5 mg PO DAILY [facility] Last Admin: 12/20/18 09:40 Dose: 12.5 mg Cefazolin Sodium/Dextrose (Ancef 2 Gm Premixed Ivpb -) 2 gm in 50 mls @ 100 mls /hr IVPB BID [facility] Last Admin: 12/20/18 09:39 Dose: 100 mls/hr Insulin Aspart (Novolog Vial Sliding Scale -) 1 vial SQ ACHS [facility]; Protocol Last Admin: 12/20/18 11:08 Dose: Not Given Levothyroxine Sodium (Synthroid -) 100 mcg PO ACBK [facility] Last Admin: 12/20/18 06:17 Dose: 100 mcg Losartan Potassium (Cozaar -) 50 mg PO DAILY [facility] Last Admin: 12/20/18 09:39 Dose: 50 mg Pantoprazole Sodium (Protonix -) 40 mg PO DAILY [facility] Last Admin: 12/20/18 09:40 Dose: 40 mg Tramadol HCl (Ultram -) 25 mg PO Q6H PRN PRN Reason: PAIN LEVEL 6-10 Laboratory Results - last 24 hr 12/19/18 12/19/18 12/19/18 10:22 10:22 10:22 WBC RBC Hgb Hct MCV MCH MCHC RDW Plt Count MPV Absolute Neuts (auto) Neutrophils % Lymphocytes % Monocytes % Eosinophils % Basophils % Nucleated RBC % Sodium Potassium Chloride Carbon Dioxide Anion Gap BUN Creatinine Est GFR (CKD-EPI)AfAm Est GFR (CKD-EPI)NonAf POC Glucometer Random Glucose Calcium Phosphorus Magnesium Iron 27 L TIBC 349 Iron Saturation 7 L Unsaturated IBC 322 H Transferrin 274 Ferritin 24.2 Vitamin B12 240 Serum Folate 9 TSH 3.14 Blood Type A POSITIVE Antibody Screen Negative Crossmatch See Detail 12/19/18 12/19/18 12/19/18 17:03 21:00 21:30 WBC 6.6 RBC 2.91 L Hgb 8.3 L Hct 26.0 L D MCV 89.2 MCH 28.4 MCHC 31.8 L RDW 18.1 H Plt Count 266 MPV 7.5 Absolute Neuts (auto) 4.7 Neutrophils % 72.1 Lymphocytes % 19.1 D Monocytes % 6.0 Eosinophils % 2.1 Basophils % 0.7 Nucleated RBC % 0 Sodium Potassium Chloride Carbon Dioxide Anion Gap BUN Creatinine Est GFR (CKD-EPI)AfAm Est GFR (CKD-EPI)NonAf POC Glucometer 77 112 Random Glucose Calcium Phosphorus Magnesium Iron TIBC Iron Saturation Unsaturated IBC Transferrin Ferritin Vitamin B12 Serum Folate TSH Blood Type Antibody Screen Crossmatch 12/20/18 12/20/18 12/20/18 06:16 06:35 06:35 WBC 5.6 RBC 2.94 L Hgb 8.6 L Hct 26.0 L MCV 88.2 MCH 29.2 MCHC 33.1 RDW 17.9 H Plt Count 245 MPV 7.5 Absolute Neuts (auto) 3.8 Neutrophils % 67.0 Lymphocytes % 23.7 D Monocytes % 6.6 Eosinophils % 2.3 Basophils % 0.4 Nucleated RBC % 0 Sodium 141 Potassium 4.2 Chloride 110 H Carbon Dioxide 21 Anion Gap 10 BUN 17.5 Creatinine 1.6 H Est GFR (CKD-EPI)AfAm 36.41 Est GFR (CKD-EPI)NonAf 31.42 POC Glucometer 93 Random Glucose 89 Calcium 8.6 Phosphorus 2.3 L Magnesium 1.6 L Iron TIBC Iron Saturation Unsaturated IBC Transferrin Ferritin Vitamin B12 Serum Folate TSH Blood Type Antibody Screen Crossmatch 12/20/18 10:58 WBC RBC Hgb Hct MCV MCH MCHC RDW Plt Count MPV Absolute Neuts (auto) Neutrophils % Lymphocytes % Monocytes % Eosinophils % Basophils % Nucleated RBC % Sodium Potassium Chloride Carbon Dioxide Anion Gap BUN Creatinine Est GFR (CKD-EPI)AfAm Est GFR (CKD-EPI)NonAf POC Glucometer 110 Random Glucose Calcium Phosphorus Magnesium Iron TIBC Iron Saturation Unsaturated IBC Transferrin Ferritin Vitamin B12 Serum Folate TSH Blood Type Antibody Screen Crossmatch Microbiology 12/18/18 21:30 Blood - Peripheral Venous Blood Culture - Preliminary Pending Organism 12/18/18 21:34 Blood - Peripheral Venous Blood Culture - Preliminary NO GROWTH OBTAINED AFTER 24 HOURS, INCUBATION TO CONTINUE FOR [address] LE results reviewed ASSESSMENT AND PLAN: 73 yof with PMHx of HTN, HLD, stage 3 CKD, DM2, GERD, anemia, hypothyroidism, b/ l extremity DVT's most recent RLE in 03/2018, breast CA (s/p tomoxifen therapy & radiation), colon CA (s/o chemo & resection), morbid obesity admitted with RLE pain/swelling after fall and trauma to the leg 1 week ago. -RLE hematoma -Acute on chronic anemia, suspect blood loss from above in the setting of trauma /on full dose AC -Fall with right leg trauma 1 week ago -NEGRA on CKD stage III, suspect hypovolumia/blood loss and continuation of lasix/ HCTZ/Losartan -Hypokalemia, hypomagnesemia, hypophosphatemia -HTN -HLD -Morbid obesity -GERD -Type II DM -Hypothyroidism -Bilateral LE DVT, most recent RLE 03/2018 -Breast ca s/p tamoxifen/radiation -Colon Ca s/p chemo/resection Plan: CT LE noted, H/h stable post 2 units PRBC, Ice RLE Hold xarelto for now, resume in 24-48 hours if h/h stable and leg findings improved. ID input noted Change to Keflex renal function improved. Renal input noted. Losartan resumed. Off IVF, resume lasix in AM. GI input noted, FOBT neg, monitor Hematology input noted. DVTPPX SCDs LLE Dispo pending clinical improvement. Discussed with patient, all questions answered.
[2018-12-20 15:20] LABS: URINE APPEARANCE CLEAR; URINE BILIRUBIN NEGATIVE (NEGATIVE); URINE COLOR YELLOW; URINE GLUCOSE (UA) NEGATIVE (NEGATIVE); URINE KETONE NEGATIVE (NEGATIVE); URINE LEUK ESTERASE NEGATIVE (NEGATIVE); URINE NITRITE NEGATIVE (NEGATIVE); URINE PROTEIN NEGATIVE (NEGATIVE); URINE UROBILINOGEN 0.2 mg/dL (0.2-1.0)
--- NOTE | 2018-12-20 15:26 | PN ---
Physical Exam: SUBJECTIVE: Patient seen and examined. She reports feeling better today s/p 2 units PRBCs. She is still having pain in her right leg, 5/10. She is also continuing to have watery diarrhea. No blood in toilet or paper noted. She denies fever, chills, chest pain, shortness of breath, abdominal pain, nausea, or vomiting. OBJECTIVE: Vital Signs Period Temp Pulse Resp BP Sys/Brandt Pulse Ox Last 24 Hr 97.9 F-98.7 F 16-92 16-18 121-149/54-73 98-98 GENERAL: The patient is awake, alert, and fully oriented, in no acute distress. HEAD: Normal with no signs of trauma. EYES: PERRL, extraocular movements intact ENT: Ears normal, nares patent, moist mucous membranes. NECK: Trachea midline, full range of motion. LUNGS: Breath sounds equal, clear to auscultation bilaterally HEART: Regular rate and rhythm, no murmur ABDOMEN: Soft, nontender, nondistended, normoactive bowel sounds EXTREMITIES: warm, well-perfused, right lower extremity erythema and edema with multiple small areas of light discoloration on anterior surface. Healing small abrasion distal to knee. Largest area of diameter unchanged from yesterday at 60cm. NEUROLOGICAL: Normal speech PSYCH: Normal mood, normal affect. SKIN: Warm, dry, normal turgor Laboratory Results - last 24 hr 12/19/18 12/19/18 12/19/18 10:22 10:22 10:22 WBC RBC Hgb Hct MCV MCH MCHC RDW Plt Count MPV Absolute Neuts (auto) Neutrophils % Lymphocytes % Monocytes % Eosinophils % Basophils % Nucleated RBC % Sodium Potassium Chloride Carbon Dioxide Anion Gap BUN Creatinine Est GFR (CKD-EPI)AfAm Est GFR (CKD-EPI)NonAf POC Glucometer Random Glucose Calcium Phosphorus Magnesium Iron 27 L TIBC 349 Iron Saturation 7 L Unsaturated IBC 322 H Transferrin 274 Ferritin 24.2 Vitamin B12 240 Serum Folate 9 TSH 3.14 Urine Color Urine Appearance Urine pH Ur Specific [place] Urine Protein Urine Glucose (UA) Urine Ketones Urine Blood Urine Nitrite Urine Bilirubin Urine Urobilinogen Ur Leukocyte Esterase Blood Type A POSITIVE Antibody Screen Negative Crossmatch See Detail 12/19/18 12/19/18 12/19/18 17:03 21:00 21:30 WBC 6.6 RBC 2.91 L Hgb 8.3 L Hct 26.0 L D MCV 89.2 MCH 28.4 MCHC 31.8 L RDW 18.1 H Plt Count 266 MPV 7.5 Absolute Neuts (auto) 4.7 Neutrophils % 72.1 Lymphocytes % 19.1 D Monocytes % 6.0 Eosinophils % 2.1 Basophils % 0.7 Nucleated RBC % 0 Sodium Potassium Chloride Carbon Dioxide Anion Gap BUN Creatinine Est GFR (CKD-EPI)AfAm Est GFR (CKD-EPI)NonAf POC Glucometer 77 112 Random Glucose Calcium Phosphorus Magnesium Iron TIBC Iron Saturation Unsaturated IBC Transferrin Ferritin Vitamin B12 Serum Folate TSH Urine Color Urine Appearance Urine pH Ur Specific [place] Urine Protein Urine Glucose (UA) Urine Ketones Urine Blood Urine Nitrite Urine Bilirubin Urine Urobilinogen Ur Leukocyte Esterase Blood Type Antibody Screen Crossmatch 12/20/18 12/20/18 12/20/18 06:16 06:35 06:35 WBC 5.6 RBC 2.94 L Hgb 8.6 L Hct 26.0 L MCV 88.2 MCH 29.2 MCHC 33.1 RDW 17.9 H Plt Count 245 MPV 7.5 Absolute Neuts (auto) 3.8 Neutrophils % 67.0 Lymphocytes % 23.7 D Monocytes % 6.6 Eosinophils % 2.3 Basophils % 0.4 Nucleated RBC % 0 Sodium 141 Potassium 4.2 Chloride 110 H Carbon Dioxide 21 Anion Gap 10 BUN 17.5 Creatinine 1.6 H Est GFR (CKD-EPI)AfAm 36.41 Est GFR (CKD-EPI)NonAf 31.42 POC Glucometer 93 Random Glucose 89 Calcium 8.6 Phosphorus 2.3 L Magnesium 1.6 L Iron TIBC Iron Saturation Unsaturated IBC Transferrin Ferritin Vitamin B12 Serum Folate TSH Urine Color Urine Appearance Urine pH Ur Specific [place] Urine Protein Urine Glucose (UA) Urine Ketones Urine Blood Urine Nitrite Urine Bilirubin Urine Urobilinogen Ur Leukocyte Esterase Blood Type Antibody Screen Crossmatch 12/20/18 12/20/18 10:58 12:00 WBC RBC Hgb Hct MCV MCH MCHC RDW Plt Count MPV Absolute Neuts (auto) Neutrophils % Lymphocytes % Monocytes % Eosinophils % Basophils % Nucleated RBC % Sodium Potassium Chloride Carbon Dioxide Anion Gap BUN Creatinine Est GFR (CKD-EPI)AfAm Est GFR (CKD-EPI)NonAf POC Glucometer 110 Random Glucose Calcium Phosphorus Magnesium Iron TIBC Iron Saturation Unsaturated IBC Transferrin Ferritin Vitamin B12 Serum Folate TSH Urine Color Yellow Urine Appearance Clear Urine pH 5.0 Ur Specific [place] 1.008 L Urine Protein Negative Urine Glucose (UA) Negative Urine Ketones Negative Urine Blood Negative Urine Nitrite Negative Urine Bilirubin Negative Urine Urobilinogen 0.2 Ur Leukocyte Esterase Negative Blood Type Antibody Screen Crossmatch Active Medications Generic Name Dose Route Start Last Admin Trade Name Freq PRN Reason Stop Dose Admin Acetaminophen 650 mg 12/19/18 03:21 12/20/18 10:59 Tylenol - PO 650 mg Q4H PRN Administration PAIN LEVEL 6-10 Amlodipine Besylate 2.5 mg 12/19/18 10:00 12/20/18 09:40 Norvasc - PO 2.5 mg DAILY GIL Administration Atorvastatin Calcium 20 mg 12/19/18 22:00 12/19/18 21:31 Lipitor - PO 20 mg HS GIL Administration Furosemide 20 mg 12/21/18 10:00 Lasix - PO DAILY GIL Hydrochlorothiazide 12.5 mg 12/20/18 10:00 12/20/18 09:40 Hctz - PO 12.5 mg DAILY GIL Administration Cefazolin Sodium/Dextrose 2 gm in 50 mls @ 100 mls/hr 12/19/18 10:45 09:39 Ancef 2 Gm Premixed Ivpb - IVPB 100 mls/hr BID GIL Administration Insulin Aspart 1 vial 12/19/18 07:00 12/20/18 11:08 Novolog Vial Sliding Scale - SQ Not Given ACHS GIL Protocol Levothyroxine Sodium 100 mcg 12/19/18 07:30 12/20/18 06:17 Synthroid - PO 100 mcg ACBK GIL Administration Losartan Potassium 50 mg 12/20/18 10:00 12/20/18 09:39 Cozaar - PO 50 mg DAILY GIL Administration Pantoprazole Sodium 40 mg 12/19/18 10:00 12/20/18 09:40 Protonix - PO 40 mg DAILY GIL Administration Tramadol HCl 25 mg 12/20/18 13:24 Ultram - PO Q6H PRN PAIN LEVEL 6-10 ASSESSMENT/PLAN: Ms. Ashford is a 73 y/o female with HTN, HLD, stage 3 CKD, DM2, GERD, anemia, hypothyroidism, b/l extremity DVTs most recently RLE in 03/2018, breast CA (s/p tomoxifen therapy & radiation?), colon CA (s/o chemo & resection), and morbid obesity presenting with RLE pain s/p fall. #RLE cellulitis Erythematous and tender to palpation. U/S negative for DVT, shows soft tissue edema. Largest area of calf is unchanged in size from yesterday. 60cm. -Cefazolin day 2 -ID following -tramadol and tylenol for pain #rectal bleeding Pt reports 2 days diarrhea with blood on toilet paper with wiping. No hemorrhoids noted on exam. FOBT negative. -GI following -c diff and stool studies pending from diarrhea #iron deficiency anemia, acute on chronic Hb 6.7 at admission. Today 8.6 s/p 2 units PRBCs. Iron low. Pt reports 2 days diarrhea with blood on toilet paper with wiping. No hemorrhoids noted on exam. FOBT negative. Hx colon cancer. -iron supplementation -monitor CBC -heme following #hypokalemia 3.4 -replete -recheck labs #hypomagnesemia 1.4 -replete -recheck labs #hypophosphatemia 2.2 -replete -recheck labs #NEGRA on stage 3 CKD Cr 1.9 baseline is near 1.2. Possibly 2/2 dehydration. -nephro following- dose meds for eGFR 30 #HTN -continue home amlodipine -continue home HCTZ -continue home losartan #HLD -home atorvastatin #DM2 Pt reports recently having meds discontinued by dr LIZA ValenciaBGM -consider A1C if hyperglycemia occurs #GERD -pantoprazole #hypothyroidism -home synthroid FEN Renal diet monitor Phos, Mg, K DVT PPX holding Xarelto in light of bleed, SCDs as tolerated dispo med surg Visit type - Emergency Visit Emergency Visit: Yes ED Registration Date: 12/18/18 Care time: The patient presented to the Emergency Department on the above date and was hospitalized for further evaluation of their emergent condition. - New Patient This patient is new to me today: No - Critical Care Critical Care patient: No - Discharge Referral Referred to [facility] No ATTENDING PHYSICIAN STATEMENT I saw and evaluated the patient. I reviewed the resident's note and discussed the case with the resident. I agree with the resident's findings and plan as documented. SUBJECTIVE: OBJECTIVE: ASSESSMENT AND PLAN:
--- NOTE | 2018-12-20 20:56 | PN ---
Progress Note (short form) - Note Progress Note: Problems 73year old woman with history of CKD stage 3 (baseline Cr ~1.7- 2), hypertension, hyperlipidemia, Anemia, hypothyroidism, DVT, breast Ca, Colon Ca s/p resection who presented from home with unilateral leg swelling and pain s /p fall with Cr of 1.7. 1. CKD stage 3 2. Lower extremity cellulitis 3. Acute on Chronic anemia 4. Hypertension 5. Chronic DVT on xarelto 6. DM Type 2 Current Medications Acetaminophen (Tylenol -) 650 mg PO Q4H PRN PRN Reason: PAIN LEVEL 6-10 Last Admin: 12/20/18 17:15 Dose: 650 mg Amlodipine Besylate (Norvasc -) 2.5 mg PO DAILY [facility] Last Admin: 12/20/18 09:40 Dose: 2.5 mg Atorvastatin Calcium (Lipitor -) 20 mg PO HS [facility] Last Admin: 12/19/18 21:31 Dose: 20 mg Furosemide (Lasix -) 20 mg PO DAILY [facility] Hydrochlorothiazide (Hctz -) 12.5 mg PO DAILY [facility] Last Admin: 12/20/18 09:40 Dose: 12.5 mg Cefazolin Sodium/Dextrose (Ancef 2 Gm Premixed Ivpb -) 2 gm in 50 mls @ 100 mls /hr IVPB BID [facility] Last Admin: 12/20/18 09:39 Dose: 100 mls/hr Insulin Aspart (Novolog Vial Sliding Scale -) 1 vial SQ ACHS [facility]; Protocol Last Admin: 12/20/18 18:38 Dose: Not Given Levothyroxine Sodium (Synthroid -) 100 mcg PO ACBK [facility] Last Admin: 12/20/18 06:17 Dose: 100 mcg Losartan Potassium (Cozaar -) 50 mg PO DAILY [facility] Last Admin: 12/20/18 09:39 Dose: 50 mg Pantoprazole Sodium (Protonix -) 40 mg PO DAILY [facility] Last Admin: 12/20/18 09:40 Dose: 40 mg Tramadol HCl (Ultram -) 25 mg PO Q6H PRN PRN Reason: PAIN LEVEL 6-10 Last Vital Signs Temp Pulse Resp BP Pulse Ox 98.8 F 87 18 135/74 98 12/20/18 19:10 12/20/18 19:10 12/20/18 19:10 12/20/18 19:10 12/20/18 11:00 CBC, BMP 12/20/18 06:35 12/20/18 06:35 IMP CKD Renal function appears to be stable and near baseline. No ovet electrolyte or acid base disturbance noted. Dose all meds for eGFR of 30 Avoid NSAIDs and nephrotoxins Continue cefazolin as per ID. Follow up cultures. Continue home BP meds: Amlodipine, Losartan, HCTZ. Goal BP < 130/80 Mangement of anticoagulation as per primary team GI following for anemia. For PRBC transfusion today. Check iron studies.
[2018-12-20] MEDS: traMADol HCL 50 MG TABLET PO PRN (21:57)
[2018-12-20] MEDS: ATORVASTATIN CA 20 MG TABLET (FP) PO SCH (21:59)
[2018-12-21] MEDS: INSULIN SLIDING SCALE (NOVOLOG) 1 VIAL SQ SCH ×4 (07:05→21:15)
[2018-12-21] MEDS: LEVOTHYROXINE NA 100 MCG TABLET (FP) PO SCH (07:05)
[2018-12-21 08:08] LABS: BASO % 0.5 % (0-2.0); EOS % 2.3 % (0-4.5); HEMATOCRIT 28.6 % (32.4-45.2); HEMOGLOBIN 9.5 GM/dL (10.7-15.3); MCH 29.4 pg (25.7-33.7); MCHC 33.3 g/dl (32.0-36.0); MEAN CELL VOLUME 88.4 fl (80-96); MEAN PLT VOLUME 7.1 fl (7.5-11.1); NEUT % 71.2 % (42.8-82.8); PLATELET COUNT 283 K/MM3 (134-434); RBC 3.24 M/mm3 (3.60-5.2); RDW 17.5 % (11.6-15.6); WHITE BLOOD COUNT 5.9 K/mm3 (4.0-10.0)
[2018-12-21 08:40] LABS: CALCIUM 9.3 mg/dL (8.5-10.1); CREATININE 1.5 mg/dL (0.55-1.3); MAGNESIUM 1.8 mg/dL (1.8-2.4); PHOSPHOROUS 2.3 mg/dL (2.5-4.9); POTASSIUM 3.8 mmol/L (3.5-5.1)
[2018-12-21] MEDS: ACETAMINOPHEN 325 MG TABLET (FP) PO PRN ×2 (09:42→17:08)
[2018-12-21] MEDS: LOSARTAN POTASSIUM 50 MG TABLET (FP) PO SCH (09:42)
[2018-12-21] MEDS: CEFAZOLIN 2 GM/D5W 2 GM/50 ML ML IVPB SCH ×2 (09:42→21:11)
[2018-12-21] MEDS: amLODIPine BESYLATE 2.5 MG TABLET (FP) PO SCH (09:42)
[2018-12-21] MEDS: FUROSEMIDE 20 MG TABLET (FP) PO SCH (09:42)
[2018-12-21] MEDS: HYDROCHLOROTHIAZIDE 12.5 MG CAPSULE (FP) PO SCH (09:43)
[2018-12-21] MEDS: PANTOPRAZOLE 40 MG TABLET (FP) PO SCH (09:43)
--- NOTE | 2018-12-21 13:34 | PN ---
Physical Exam: SUBJECTIVE: Patient seen and examined, much better, right leg pain improved, no dyspnea or new concerns. OBJECTIVE: Vital Signs Period Temp Pulse Resp BP Sys/Brandt Pulse Ox Last 24 Hr 98.7 F-98.9 F 81-99 18-20 125-152/65-82 98-98 Intake & Output 12/18/18 12/19/18 12/20/18 12/21/18 23:59 23:59 23:59 23:59 Intake Total 200 450 50 Balance 200 450 50 Weight 275 lb 243 lb General: sitting in bed in no acute distress neck: soft, supple HEENT: PERRL,EOMI Chest: limited by body habitus, no rales or wheezing Abdomen: soft, obese, NT Extremities: RLE swelling softer today, overlying erythema improved, calf circumference unchanged, palpable DP pulses, able to move toes freely, no warmth noted Laboratory Results - last 24 hr 12/20/18 12/20/18 12/21/18 12:00 17:14 07:04 WBC RBC Hgb Hct MCV MCH MCHC RDW Plt Count MPV Absolute Neuts (auto) Neutrophils % Lymphocytes % Monocytes % Eosinophils % Basophils % Nucleated RBC % Sodium Potassium Chloride Carbon Dioxide Anion Gap BUN Creatinine Est GFR (CKD-EPI)AfAm Est GFR (CKD-EPI)NonAf POC Glucometer 83 103 Random Glucose Calcium Phosphorus Magnesium Urine Color Yellow Urine Appearance Clear Urine pH 5.0 Ur Specific [place] 1.008 L Urine Protein Negative Urine Glucose (UA) Negative Urine Ketones Negative Urine Blood Negative Urine Nitrite Negative Urine Bilirubin Negative Urine Urobilinogen 0.2 Ur Leukocyte Esterase Negative 12/21/18 12/21/18 12/21/18 07:40 07:40 11:16 WBC 5.9 RBC 3.24 L Hgb 9.5 L Hct 28.6 L MCV 88.4 MCH 29.4 MCHC 33.3 RDW 17.5 H Plt Count 283 MPV 7.1 L Absolute Neuts (auto) 4.2 Neutrophils % 71.2 Lymphocytes % 20.0 Monocytes % 6.0 Eosinophils % 2.3 Basophils % 0.5 Nucleated RBC % 0 Sodium 141 Potassium 3.8 Chloride 110 H Carbon Dioxide 20 L Anion Gap 11 BUN 12.0 Creatinine 1.5 H Est GFR (CKD-EPI)AfAm 39.37 Est GFR (CKD-EPI)NonAf 33.97 POC Glucometer 91 Random Glucose 96 Calcium 9.3 Phosphorus 2.3 L Magnesium 1.8 Urine Color Urine Appearance Urine pH Ur Specific [place] Urine Protein Urine Glucose (UA) Urine Ketones Urine Blood Urine Nitrite Urine Bilirubin Urine Urobilinogen Ur Leukocyte Esterase Active Medications Generic Name Dose Route Start Last Admin Trade Name Freq PRN Reason Stop Dose Admin Acetaminophen 650 mg 12/19/18 03:21 12/21/18 09:42 Tylenol - PO 650 mg Q4H PRN Administration PAIN LEVEL 6-10 Amlodipine Besylate 2.5 mg 12/19/18 10:00 12/21/18 09:42 Norvasc - PO 2.5 mg DAILY [facility] Administration Atorvastatin Calcium 20 mg 12/19/18 22:00 12/20/18 21:59 Lipitor - PO 20 mg HS [facility] Administration Furosemide 20 mg 12/21/18 10:00 12/21/18 09:42 Lasix - PO 20 mg DAILY [facility] Administration Hydrochlorothiazide 12.5 mg 12/20/18 10:00 12/21/18 09:43 Hctz - PO 12.5 mg DAILY [facility] Administration Cefazolin Sodium/Dextrose 2 gm in 50 mls @ 100 mls/hr 12/19/18 10:45 09:42 Ancef 2 Gm Premixed Ivpb - IVPB 100 mls/hr BID [facility] Administration Insulin Aspart 1 vial 12/19/18 07:00 12/21/18 11:53 Novolog Vial Sliding Scale - SQ Not Given ACHS [facility] Protocol Levothyroxine Sodium 100 mcg 12/19/18 07:30 12/21/18 07:05 Synthroid - PO 100 mcg ACBK [facility] Administration Losartan Potassium 50 mg 12/20/18 10:00 12/21/18 09:42 Cozaar - PO 50 mg DAILY [facility] Administration Pantoprazole Sodium 40 mg 12/19/18 10:00 12/21/18 09:43 Protonix - PO 40 mg DAILY [facility] Administration Tramadol HCl 25 mg 12/20/18 13:24 12/20/18 21:57 Ultram - PO 25 mg Q6H PRN Administration PAIN LEVEL 6-10 ASSESSMENT/PLAN: 73 yof with PMHx of HTN, HLD, stage 3 CKD, DM2, GERD, anemia, hypothyroidism, b/ l extremity DVT's most recent RLE in 03/2018, breast CA (s/p tomoxifen therapy & radiation), colon CA (s/o chemo & resection), morbid obesity admitted with RLE pain/swelling after fall and trauma to the leg 1 week ago. -RLE hematoma -Acute on chronic anemia, suspect blood loss from above in the setting of trauma /on full dose AC -Fall with right leg trauma 1 week ago -NEGRA on CKD stage III, suspect hypovolumia/blood loss and continuation of lasix/ HCTZ/Losartan -Hypokalemia, hypomagnesemia, hypophosphatemia -HTN -HLD -Morbid obesity -GERD -Type II DM -Hypothyroidism -Bilateral LE DVT, most recent RLE 03/2018 -Breast ca s/p tamoxifen/radiation -Colon Ca s/p chemo/resection Plan: CT LE noted, s/p 2 units PRBCs h/h stable. Right leg swelling/exam improved. Resume xarelto in 24 hours if no concerns. Hematology input noted. Change to PO keflex Renal function stable. Losartan/Lasix resumed. Renal input noted. GI input noted, FOBT neg, monitor DVTPPX SCDs LLE Dispo PT eval, d/c in 48 hours home with services vs SNF if continues to improve and no concerns on AC. Discussed with patient and nursing, all questions answered. Visit type - Emergency Visit Emergency Visit: Yes ED Registration Date: 12/18/18 Care time: The patient presented to the Emergency Department on the above date and was hospitalized for further evaluation of their emergent condition. - New Patient This patient is new to me today: No - Critical Care Critical Care patient: No - Discharge Referral Referred to [facility] Med P.C.: No
[2018-12-21] MEDS: ATORVASTATIN CA 20 MG TABLET (FP) PO SCH (21:11)
[2018-12-21] MEDS: traMADol HCL 50 MG TABLET PO PRN (21:11)
--- NOTE | 2018-12-21 22:14 | PN ---
Progress Note (short form) - Note Progress Note: Problems unilateral leg swelling and pain s/p fall with Cr of 1.7. 1. CKD stage 3 2. Lower extremity cellulitis 3. Acute on Chronic anemia 4. Hypertension 5. Chronic DVT on xarelto 6. DM Type 2 7-hyperlipidemia, 8-hypothyroidism, 9-breast Ca, 10-Colon Ca s/p resection Current Medications Acetaminophen (Tylenol -) 650 mg PO Q4H PRN PRN Reason: PAIN LEVEL 6-10 Last Admin: 12/21/18 17:08 Dose: 650 mg Amlodipine Besylate (Norvasc -) 2.5 mg PO DAILY [facility] Last Admin: 12/21/18 09:42 Dose: 2.5 mg Atorvastatin Calcium (Lipitor -) 20 mg PO HS [facility] Last Admin: 12/21/18 21:11 Dose: 20 mg Furosemide (Lasix -) 20 mg PO DAILY [facility] Last Admin: 12/21/18 09:42 Dose: 20 mg Hydrochlorothiazide (Hctz -) 12.5 mg PO DAILY [facility] Last Admin: 12/21/18 09:43 Dose: 12.5 mg Cefazolin Sodium/Dextrose (Ancef 2 Gm Premixed Ivpb -) 2 gm in 50 mls @ 100 mls /hr IVPB BID [facility] Last Admin: 12/21/18 21:11 Dose: 100 mls/hr Insulin Aspart (Novolog Vial Sliding Scale -) 1 vial SQ ACHS [facility]; Protocol Last Admin: 12/21/18 21:15 Dose: Not Given Levothyroxine Sodium (Synthroid -) 100 mcg PO ACBK [facility] Last Admin: 12/21/18 07:05 Dose: 100 mcg Losartan Potassium (Cozaar -) 50 mg PO DAILY [facility] Last Admin: 12/21/18 09:42 Dose: 50 mg Pantoprazole Sodium (Protonix -) 40 mg PO DAILY [facility] Last Admin: 12/21/18 09:43 Dose: 40 mg Tramadol HCl (Ultram -) 25 mg PO Q6H PRN PRN Reason: PAIN LEVEL 6-10 Last Admin: 12/21/18 21:11 Dose: 25 mg Last Vital Signs Temp Pulse Resp BP Pulse Ox 98.9 F 94 H 20 143/82 98 12/21/18 21:21 12/21/18 21:21 12/21/18 21:21 12/21/18 21:21 12/21/18 11:00 Lungs clear Heart RRR Abd soft nontender Ext rle edema CBC, BMP 12/21/18 07:40 12/21/18 07:40 IMP CKD s/p NEGRA - improving gradually Anemia Plan- continue to monitor labs
[2018-12-22] MEDS: LEVOTHYROXINE NA 100 MCG TABLET (FP) PO SCH (06:08)
[2018-12-22] MEDS: ACETAMINOPHEN 325 MG TABLET (FP) PO PRN (06:08)
[2018-12-22] MEDS: INSULIN SLIDING SCALE (NOVOLOG) 1 VIAL SQ SCH ×4 (06:16→21:33)
[2018-12-22 07:19] LABS: EOS % 2.3 % (0-4.5); HEMATOCRIT 28.1 % (32.4-45.2); LYMPH % 20.8 % (8-40); MCH 28.5 pg (25.7-33.7); MCHC 32.2 g/dl (32.0-36.0); MEAN CELL VOLUME 88.5 fl (80-96); MEAN PLT VOLUME 7.1 fl (7.5-11.1); MONO % 7.6 % (3.8-10.2); NEUT % 68.3 % (42.8-82.8); PLATELET COUNT 280 K/MM3 (134-434); RBC 3.18 M/mm3 (3.60-5.2); RDW 17.7 % (11.6-15.6); WHITE BLOOD COUNT 5.7 K/mm3 (4.0-10.0)
[2018-12-22 07:35] LABS: BLOOD UREA NITROGEN 10.7 mg/dL (7-18); CALCIUM 8.8 mg/dL (8.5-10.1); CREATININE 1.4 mg/dL (0.55-1.3); POTASSIUM 3.8 mmol/L (3.5-5.1)
[2018-12-22] MEDS: CEFAZOLIN 2 GM/D5W 2 GM/50 ML ML IVPB SCH (09:36)
[2018-12-22] MEDS: LOSARTAN POTASSIUM 50 MG TABLET (FP) PO SCH (09:36)
[2018-12-22] MEDS: HYDROCHLOROTHIAZIDE 12.5 MG CAPSULE (FP) PO SCH (09:36)
[2018-12-22] MEDS: amLODIPine BESYLATE 2.5 MG TABLET (FP) PO SCH (09:36)
[2018-12-22] MEDS: FUROSEMIDE 20 MG TABLET (FP) PO SCH (09:36)
[2018-12-22] MEDS: PANTOPRAZOLE 40 MG TABLET (FP) PO SCH (09:36)
[2018-12-22] MEDS: traMADol HCL 50 MG TABLET PO PRN ×2 (10:35→22:49)
--- NOTE | 2018-12-22 11:23 | PN ---
Progress Note (short form) - Note Progress Note: Renal follow up for CKD Seen and examined at the bedside no acute complaints no sob, chest pain, fever, or chills making urine tolerating oral diet Vital Signs Temperature 98 F 12/22/18 09:38 Pulse Rate 84 12/22/18 09:38 Respiratory Rate 18 12/22/18 09:38 Blood Pressure 132/68 12/22/18 09:38 O2 Sat by Pulse Oximetry (%) 98 12/22/18 03:00 Intake & Output 12/19/18 12/20/18 12/21/18 12/22/18 23:59 23:59 23:59 23:59 Intake Total 200 450 50 50 Output Total 500 Balance 200 450 -450 50 Weight 110.223 kg 132.165 kg NAD awake and alert neck supple, no JVD RRR CTA + edema in LE CBC, BMP 12/22/18 06:55 12/22/18 06:55 Current Medications Acetaminophen (Tylenol -) 650 mg PO Q4H PRN PRN Reason: PAIN LEVEL 6-10 Last Admin: 12/22/18 06:08 Dose: 650 mg Amlodipine Besylate (Norvasc -) 2.5 mg PO DAILY [facility] Last Admin: 12/22/18 09:36 Dose: 2.5 mg Atorvastatin Calcium (Lipitor -) 20 mg PO HS [facility] Last Admin: 12/21/18 21:11 Dose: 20 mg Furosemide (Lasix -) 20 mg PO DAILY [facility] Last Admin: 12/22/18 09:36 Dose: 20 mg Hydrochlorothiazide (Hctz -) 12.5 mg PO DAILY [facility] Last Admin: 12/22/18 09:36 Dose: 12.5 mg Cefazolin Sodium/Dextrose (Ancef 2 Gm Premixed Ivpb -) 2 gm in 50 mls @ 100 mls /hr IVPB BID [facility] Last Admin: 12/22/18 09:36 Dose: 100 mls/hr Insulin Aspart (Novolog Vial Sliding Scale -) 1 vial SQ ACHS [facility]; Protocol Last Admin: 12/22/18 06:16 Dose: Not Given Levothyroxine Sodium (Synthroid -) 100 mcg PO ACBK [facility] Last Admin: 12/22/18 06:08 Dose: 100 mcg Losartan Potassium (Cozaar -) 50 mg PO DAILY [facility] Last Admin: 12/22/18 09:36 Dose: 50 mg Pantoprazole Sodium (Protonix -) 40 mg PO DAILY [facility] Last Admin: 12/22/18 09:36 Dose: 40 mg Tramadol HCl (Ultram -) 25 mg PO Q6H PRN PRN Reason: PAIN LEVEL 6-10 Last Admin: 12/22/18 10:35 Dose: 25 mg 73year old woman with history of CKD stage 3 (baseline Cr ~1.7- 2), hypertension, hyperlipidemia, Anemia, hypothyroidism, DVT, breast Ca, Colon Ca s/p resection who presented from home with unilateral leg swelling and pain s /p fall with Cr of 1.7. 1. CKD stage 3 2. Lower extremity cellulitis 3. Acute on Chronic anemia 4. Hypertension 5. Chronic DVT on xarelto 6. DM Type 2 Renal function stable, Cr is better then baseline at this time. Avoid NSAIDs and nephrotoxins Continue cefazolin as per ID. Follow up cultures. Continue home BP meds: Amlodipine, Losartan, HCTZ. Goal BP < 130/80 discharge planning as per primary team Anant Giron DO
[2018-12-22 11:56] VITALS: BMI 48.4
[2018-12-22] MEDS ORDERED: RIVAROXABAN 20 MG TABLET PO ONE (11:56)
--- NOTE | 2018-12-22 13:01 | PN ---
Teaching Attending Note Name of Resident: Hanh Guevara ATTENDING PHYSICIAN STATEMENT I saw and evaluated the patient. I reviewed the resident's note and discussed the case with the resident. I agree with the resident's findings and plan as documented with exceptions below. SUBJECTIVE: Patient seen and examined. right leg symptoms improving, breathing better, has been working with PT. OBJECTIVE: Vital Signs Period Temp Pulse Resp BP Sys/Brandt Pulse Ox Last 24 Hr 98 F-99.1 F 75-100 18-20 107-148/61-82 98-98 Intake & Output 12/19/18 12/20/18 12/21/18 12/22/18 23:59 23:59 23:59 23:59 Intake Total 200 450 50 50 Output Total 500 Balance 200 450 -450 50 Weight 243 lb 291 lb General: sitting in bed in no acute distress neck: soft, supple HEENT: PERRL,EOMI Chest: limited by body habitus, no rales or wheezing Abdomen: soft, obese, NT Extremities: RLE swelling softer today, overlying erythema improved, calf circumference unchanged, palpable DP pulses, able to move toes freely, no warmth noted Home Medications Medication Instructions Recorded Cholecalciferol (Vitamin D3) 50,000 unit PO WEEKLY 12/10/16 [Vitamin D3] Atorvastatin Calcium [Lipitor] 40 mg PO DAILY 03/21/18 Omeprazole 40 mg PO DAILY 03/21/18 Rivaroxaban [Xarelto -] 20 mg PO DAILY #30 tablet 04/21/18 Clotrimazole/Betamet Diprop 1 applic TP BID 12/19/18 [Lotrisone Cream (Small Tube)] Furosemide 20 mg PO DAILY 12/19/18 Levothyroxine [Synthroid -] 112 mcg PO AM 12/19/18 Losartan/Hydrochlorothiazide 1 each PO DAILY 12/19/18 [Losartan-Hctz 50-12.5 mg Tab] Pramipexole Di-HCl [Mirapex] 0.75 mg PO HS 12/19/18 Pramipexole Di-HCl [Pramipexole 0.375 mg PO AM 12/19/18 Dihydrochloride] Active Medications Acetaminophen (Tylenol -) 650 mg PO Q4H PRN PRN Reason: PAIN LEVEL 6-10 Last Admin: 12/22/18 06:08 Dose: 650 mg Amlodipine Besylate (Norvasc -) 2.5 mg PO DAILY [facility] Last Admin: 12/22/18 09:36 Dose: 2.5 mg Atorvastatin Calcium (Lipitor -) 20 mg PO HS [facility] Last Admin: 12/21/18 21:11 Dose: 20 mg Cephalexin HCl (Keflex -) 500 mg PO Q12H [facility] Stop: 12/27/18 08:01 Furosemide (Lasix -) 20 mg PO DAILY [facility] Last Admin: 12/22/18 09:36 Dose: 20 mg Hydrochlorothiazide (Hctz -) 12.5 mg PO DAILY [facility] Last Admin: 12/22/18 09:36 Dose: 12.5 mg Insulin Aspart (Novolog Vial Sliding Scale -) 1 vial SQ ACHS [facility]; Protocol Last Admin: 12/22/18 12:45 Dose: Not Given Levothyroxine Sodium (Synthroid -) 100 mcg PO ACBK [facility] Last Admin: 12/22/18 06:08 Dose: 100 mcg Losartan Potassium (Cozaar -) 50 mg PO DAILY [facility] Last Admin: 12/22/18 09:36 Dose: 50 mg Pantoprazole Sodium (Protonix -) 40 mg PO DAILY [facility] Last Admin: 12/22/18 09:36 Dose: 40 mg Rivaroxaban (Xarelto) 20 mg PO DAILY@1800 [facility] Tramadol HCl (Ultram -) 25 mg PO Q6H PRN PRN Reason: PAIN LEVEL 6-10 Last Admin: 12/22/18 10:35 Dose: 25 mg Laboratory Results - last 24 hr 12/21/18 12/21/18 12/21/18 08:00 08:00 08:00 WBC RBC Hgb Hct MCV MCH MCHC RDW Plt Count MPV Absolute Neuts (auto) Neutrophils % Lymphocytes % Monocytes % Eosinophils % Basophils % Nucleated RBC % Sodium Potassium Chloride Carbon Dioxide Anion Gap BUN Creatinine Est GFR (CKD-EPI)AfAm Est GFR (CKD-EPI)NonAf POC Glucometer Random Glucose Calcium Ur Random Creatinine 130.0 Ur Random Sodium Cancelled 160 Ur Random Potassium 12.0 L Ur Random Chloride Cancelled 172 12/21/18 12/22/18 12/22/18 16:44 06:55 06:55 WBC 5.7 RBC 3.18 L Hgb 9.0 L Hct 28.1 L MCV 88.5 MCH 28.5 MCHC 32.2 RDW 17.7 H Plt Count 280 MPV 7.1 L Absolute Neuts (auto) 3.9 Neutrophils % 68.3 Lymphocytes % 20.8 Monocytes % 7.6 Eosinophils % 2.3 Basophils % 1.0 Nucleated RBC % 0 Sodium 140 Potassium 3.8 Chloride 111 H Carbon Dioxide 24 Anion Gap 6 L BUN 10.7 Creatinine 1.4 H Est GFR (CKD-EPI)AfAm 42.79 Est GFR (CKD-EPI)NonAf 36.92 POC Glucometer 83 Random Glucose 89 Calcium 8.8 Ur Random Creatinine Ur Random Sodium Ur Random Potassium Ur Random Chloride 12/22/18 12:44 WBC RBC Hgb Hct MCV MCH MCHC RDW Plt Count MPV Absolute Neuts (auto) Neutrophils % Lymphocytes % Monocytes % Eosinophils % Basophils % Nucleated RBC % Sodium Potassium Chloride Carbon Dioxide Anion Gap BUN Creatinine Est GFR (CKD-EPI)AfAm Est GFR (CKD-EPI)NonAf POC Glucometer 113 Random Glucose Calcium Ur Random Creatinine Ur Random Sodium Ur Random Potassium Ur Random Chloride Microbiology 12/20/18 10:46 Blood - Peripheral Venous Blood Culture - Preliminary NO GROWTH OBTAINED AFTER 48 HOURS, INCUBATION TO CONTINUE FOR 3 DAYS. 12/20/18 10:40 Blood - Peripheral Venous Blood Culture - Preliminary NO GROWTH OBTAINED AFTER 48 HOURS, INCUBATION TO CONTINUE FOR 3 DAYS. 12/18/18 21:34 Blood - Peripheral Venous Blood Culture - Preliminary NO GROWTH OBTAINED AFTER 72 HOURS, INCUBATION TO CONTINUE FOR 2 DAYS. 12/18/18 21:30 Blood - Peripheral Venous Blood Culture - Final Corynebacterium Minutissumum 12/20/18 12:00 Urine - Urine Clean Catch Urine Culture - Final NO GROWTH OBTAINED ASSESSMENT AND PLAN: 73 yof with PMHx of HTN, HLD, stage 3 CKD, DM2, GERD, anemia, hypothyroidism, b/ l extremity DVT's most recent RLE in 03/2018, breast CA (s/p tomoxifen therapy & radiation), colon CA (s/o chemo & resection), morbid obesity admitted with RLE pain/swelling after fall and trauma to the leg 1 week ago. -RLE hematoma -Acute on chronic anemia, suspect blood loss from above in the setting of trauma /on full dose AC -Fall with right leg trauma 1 week ago -NEGRA on CKD stage III, suspect hypovolumia/blood loss and continuation of lasix/ HCTZ/Losartan -Hypokalemia, hypomagnesemia, hypophosphatemia -HTN -HLD -Morbid obesity -GERD -Type II DM -Hypothyroidism -Bilateral LE DVT, most recent RLE 03/2018 -Breast ca s/p tamoxifen/radiation -Colon Ca s/p chemo/resection Plan: CT LE noted, s/p 2 units PRBCs h/h stable. Right leg swelling/exam continues to improve. Prior h/o DVT/PE 10 years ago in the setting of surgery, recurrent unprovoked DVT in 03/2018 , reports was advised by greensman about lifelong AC. H/o malignancy obesity and not very ambulatory.Risks of DVT high. Hemodynamics, h/h have been stable and leg findings improved that argue against ongoing bleed. Will resume xarelto with cautious monitoring. Hematology input noted. Change to PO keflex Renal function stable. Losartan/Lasix resumed. Renal input noted. GI input noted, FOBT neg, monitor DVTPPX SCDs LLE Dispo Ongoing PT Dc in 48 hours home with services vs SNF if continues to improve and no concerns on AC. Discussed with patient, all questions answered.
[2018-12-22] MEDS ORDERED: INSULIN (NOVOLOG) ASPART 100 UNITS/ML 10ML VIAL ONE (14:02)
--- NOTE | 2018-12-22 15:56 | PN ---
Progress Note (short form) - Note Progress Note: doing well no complaints Vital Signs Period Temp Pulse Resp BP Sys/Brandt Pulse Ox Last 24 Hr 98 F-99.1 F 80-109 18-20 132-148/68-82 98-98 cor-rrr lungs clear abd soft,nt decreased erythema and warmth RLE CBC, BMP 12/22/18 06:55 12/22/18 06:55 Microbiology 12/20/18 10:46 Blood - Peripheral Venous Blood Culture - Preliminary NO GROWTH OBTAINED AFTER 48 HOURS, INCUBATION TO CONTINUE FOR 3 DAYS. 12/20/18 10:40 Blood - Peripheral Venous Blood Culture - Preliminary NO GROWTH OBTAINED AFTER 48 HOURS, INCUBATION TO CONTINUE FOR 3 DAYS. 12/18/18 21:34 Blood - Peripheral Venous Blood Culture - Preliminary NO GROWTH OBTAINED AFTER 72 HOURS, INCUBATION TO CONTINUE FOR 2 DAYS. 12/18/18 21:30 Blood - Peripheral Venous Blood Culture - Final Corynebacterium Minutissumum 12/20/18 12:00 Urine - Urine Clean Catch Urine Culture - Final NO GROWTH OBTAINED RLE cellulitis with hematoma- agree with switch keflex anemia ckd/negra blood culure is contaminant- no need to treat no history of MRSA no recent hospitalizations please call back if needed Problem List - Problems (1) Cellulitis Code(s): L03.90 - CELLULITIS, UNSPECIFIED Qualifiers: Site of cellulitis: extremity Site of cellulitis of extremity: lower extremity Laterality: right Qualified Code(s): L03.115 - Cellulitis of right lower limb (2) Anemia Code(s): D64.9 - ANEMIA, UNSPECIFIED Qualifiers: Anemia type: unspecified type Qualified Code(s): D64.9 - Anemia, unspecified (3) NEGRA (acute kidney injury) Code(s): N17.9 - ACUTE KIDNEY FAILURE, UNSPECIFIED
--- NOTE | 2018-12-22 17:51 | PN ---
Physical Exam: SUBJECTIVE: Patient seen and examined. She reports continued pain in her right leg but says swelling is reduced. She denies shortness of breath, chest pain, abdominal pain, nausea, and vomiting. She had 2 loose bowel movements overnight that were brown. She worked with PT yesterday and worked on sitting and standing from the bed. OBJECTIVE: Vital Signs Period Temp Pulse Resp BP Sys/Brandt Pulse Ox Last 24 Hr 98 F-99.1 F 80-109 18-20 132-148/68-82 98-98 GENERAL: The patient is awake, alert, and fully oriented, in no acute distress. HEAD: Normal with no signs of trauma. EYES: PERRL, extraocular movements intact ENT: Ears normal, nares patent, moist mucous membranes. NECK: Trachea midline, full range of motion. LUNGS: Breath sounds equal, clear to auscultation bilaterally HEART: Regular rate and rhythm, no murmur ABDOMEN: Soft, nontender, nondistended, normoactive bowel sounds EXTREMITIES: warm, well-perfused, right lower extremity hyperpigmentation ( resolved erythema) and edema with multiple small areas of light discoloration on anterior surface. Largest area of diameter unchanged from yesterday at 51cm. NEUROLOGICAL: Normal speech PSYCH: Normal mood, normal affect. SKIN: Warm, dry, normal turgor Laboratory Results - last 24 hr 12/19/18 12/21/18 12/21/18 10:22 08:00 08:00 WBC RBC Hgb Hct MCV MCH MCHC RDW Plt Count MPV Absolute Neuts (auto) Neutrophils % Lymphocytes % Monocytes % Eosinophils % Basophils % Nucleated RBC % Sodium Potassium Chloride Carbon Dioxide Anion Gap BUN Creatinine Est GFR (CKD-EPI)AfAm Est GFR (CKD-EPI)NonAf POC Glucometer Random Glucose Calcium Ur Random Creatinine Ur Random Sodium Cancelled Ur Random Potassium Ur Random Chloride Cancelled Blood Type A POSITIVE Antibody Screen Negative Crossmatch See Detail 12/21/18 12/22/18 12/22/18 08:00 06:55 06:55 WBC 5.7 RBC 3.18 L Hgb 9.0 L Hct 28.1 L MCV 88.5 MCH 28.5 MCHC 32.2 RDW 17.7 H Plt Count 280 MPV 7.1 L Absolute Neuts (auto) 3.9 Neutrophils % 68.3 Lymphocytes % 20.8 Monocytes % 7.6 Eosinophils % 2.3 Basophils % 1.0 Nucleated RBC % 0 Sodium 140 Potassium 3.8 Chloride 111 H Carbon Dioxide 24 Anion Gap 6 L BUN 10.7 Creatinine 1.4 H Est GFR (CKD-EPI)AfAm 42.79 Est GFR (CKD-EPI)NonAf 36.92 POC Glucometer Random Glucose 89 Calcium 8.8 Ur Random Creatinine 130.0 Ur Random Sodium 160 Ur Random Potassium 12.0 L Ur Random Chloride 172 Blood Type Antibody Screen Crossmatch 12/22/18 12:44 WBC RBC Hgb Hct MCV MCH MCHC RDW Plt Count MPV Absolute Neuts (auto) Neutrophils % Lymphocytes % Monocytes % Eosinophils % Basophils % Nucleated RBC % Sodium Potassium Chloride Carbon Dioxide Anion Gap BUN Creatinine Est GFR (CKD-EPI)AfAm Est GFR (CKD-EPI)NonAf POC Glucometer 113 Random Glucose Calcium Ur Random Creatinine Ur Random Sodium Ur Random Potassium Ur Random Chloride Blood Type Antibody Screen Crossmatch Active Medications Generic Name Dose Route Start Last Admin Trade Name Freq PRN Reason Stop Dose Admin Acetaminophen 650 mg 12/19/18 03:21 12/22/18 06:08 Tylenol - PO 650 mg Q4H PRN Administration PAIN LEVEL 6-10 Amlodipine Besylate 2.5 mg 12/19/18 10:00 12/22/18 09:36 Norvasc - PO 2.5 mg DAILY GIL Administration Atorvastatin Calcium 20 mg 12/19/18 22:00 12/21/18 21:11 Lipitor - PO 20 mg HS GIL Administration Cephalexin HCl 500 mg 12/22/18 20:00 Keflex - PO 12/27/18 08:01 Q12H GIL Furosemide 20 mg 12/21/18 10:00 12/22/18 09:36 Lasix - PO 20 mg DAILY GIL Administration Hydrochlorothiazide 12.5 mg 12/20/18 10:00 12/22/18 09:36 Hctz - PO 12.5 mg DAILY GIL Administration Insulin Aspart 1 vial 12/19/18 07:00 12/22/18 12:45 Novolog Vial Sliding Scale - SQ Not Given ACHS [facility] Protocol Levothyroxine Sodium 100 mcg 12/19/18 07:30 12/22/18 06:08 Synthroid - PO 100 mcg ACBK GIL Administration Losartan Potassium 50 mg 12/20/18 10:00 12/22/18 09:36 Cozaar - PO 50 mg DAILY GIL Administration Pantoprazole Sodium 40 mg 12/19/18 10:00 12/22/18 09:36 Protonix - PO 40 mg DAILY GIL Administration Rivaroxaban 20 mg 12/23/18 18:00 Xarelto PO DAILY@1800 GIL Tramadol HCl 25 mg 12/20/18 13:24 12/22/18 10:35 Ultram - PO 25 mg Q6H PRN Administration PAIN LEVEL 6-10 ASSESSMENT/PLAN: Ms. Ashford is a 73 y/o female with HTN, HLD, stage 3 CKD, DM2, GERD, anemia, hypothyroidism, b/l extremity DVTs most recently RLE in 03/2018, breast CA (s/p tomoxifen therapy & radiation?), colon CA (s/o chemo & resection), and morbid obesity presenting with RLE pain s/p fall. She received 2 units PRBCs and hemoglobin has stabilized. Imaging showed hematoma. There has been decrease in size of swelling. PCP was notified today. #RLE cellulitis Resolving erythema, now hyperpigmented and less tender to palpation. U/S negative for DVT, shows soft tissue edema. Largest area of calf is improved from initial 60cm. 51cm. -Cefazolin discontinued -Keflex day 1 -ID following -tramadol and tylenol for pain #rectal bleeding Pt reports 2 days diarrhea with blood on toilet paper with wiping. No hemorrhoids noted on exam. FOBT negative. #iron deficiency anemia, acute on chronic Hb 6.7 at admission. Today 8.6 s/p 2 units PRBCs. Iron low. Pt reports 2 days diarrhea with blood on toilet paper with wiping. No hemorrhoids noted on exam. FOBT negative. Hx colon cancer. -iron supplementation -monitor CBC -heme following #hypokalemia, resolved -replete -recheck labs #hypomagnesemia, resolved 1.4 -replete -recheck labs #hypophosphatemia 2.2 -replete -recheck labs #CKD stage 3 Cr 1.4. Resolved NEGRA. Possibly 2/2 dehydration. -nephro following- dose meds for eGFR 30 #HTN -continue home amlodipine -continue home HCTZ -continue home losartan #HLD -home atorvastatin #DM2 Pt reports recently having meds discontinued by doctor. -SSI -BGM -consider A1C if hyperglycemia occurs #GERD -pantoprazole #hypothyroidism -home synthroid FEN Renal diet monitor Phos, Mg, K DVT PPX restarting Xarelto today dispo med surg Visit type - Emergency Visit Emergency Visit: Yes ED Registration Date: 12/18/18 Care time: The patient presented to the Emergency Department on the above date and was hospitalized for further evaluation of their emergent condition. - New Patient This patient is new to me today: No - Critical Care Critical Care patient: No - Discharge Referral Referred to [facility] Med P.C.: No ATTENDING PHYSICIAN STATEMENT I saw and evaluated the patient. I reviewed the resident's note and discussed the case with the resident. I agree with the resident's findings and plan as documented. SUBJECTIVE: OBJECTIVE: ASSESSMENT AND PLAN:
[2018-12-22] MEDS ORDERED: PT OWN MED DRAWER 7, Y5N ONE (20:08)
[2018-12-22] MEDS: CEPHALEXIN MONOHYDRATE 500 MG CAPSULE (UD) PO SCH (21:32)
[2018-12-22] MEDS: ATORVASTATIN CA 20 MG TABLET (FP) PO SCH (21:33)
[2018-12-23] MEDS: LEVOTHYROXINE NA 100 MCG TABLET (FP) PO SCH (06:11)
[2018-12-23] MEDS: INSULIN SLIDING SCALE (NOVOLOG) 1 VIAL SQ SCH ×4 (06:12→21:19)
[2018-12-23 07:33] LABS: BASO % 0.5 % (0-2.0); EOS % 2.1 % (0-4.5); HEMATOCRIT 27.3 % (32.4-45.2); HEMOGLOBIN 9.1 GM/dL (10.7-15.3); LYMPH % 19.6 % (8-40); MCH 29.2 pg (25.7-33.7); MCHC 33.2 g/dl (32.0-36.0); NEUT % 70.8 % (42.8-82.8); PLATELET COUNT 282 K/MM3 (134-434); RDW 17.4 % (11.6-15.6)
[2018-12-23] MEDS: traMADol HCL 50 MG TABLET PO PRN (07:48)
[2018-12-23 07:56] LABS: BLOOD UREA NITROGEN 10.6 mg/dL (7-18); CREATININE 1.4 mg/dL (0.55-1.3); MAGNESIUM 1.5 mg/dL (1.8-2.4)
[2018-12-23] MEDS ORDERED: MAGNESIUM OXIDE 400 MG TABLET (FP) PO ONE (09:00)
[2018-12-23] MEDS: CEPHALEXIN MONOHYDRATE 500 MG CAPSULE (UD) PO SCH ×2 (09:51→21:18)
[2018-12-23] MEDS: PANTOPRAZOLE 40 MG TABLET (FP) PO SCH (09:52)
[2018-12-23] MEDS: HYDROCHLOROTHIAZIDE 12.5 MG CAPSULE (FP) PO SCH (09:52)
[2018-12-23] MEDS: FUROSEMIDE 20 MG TABLET (FP) PO SCH (09:52)
[2018-12-23] MEDS: amLODIPine BESYLATE 2.5 MG TABLET (FP) PO SCH (09:53)
[2018-12-23] MEDS: LOSARTAN POTASSIUM 50 MG TABLET (FP) PO SCH (09:53)
--- NOTE | 2018-12-23 12:13 | PN ---
Physical Exam: SUBJECTIVE: Patient seen and examined. She reports leg pain is better but reports still 5/10. She denies chest pain, shortness of breath, n/v/d, and calf pain. She is tolerating diet well. She is working on moving around the room with PT. OBJECTIVE: Vital Signs Period Temp Pulse Resp BP Sys/Brandt Pulse Ox Last 24 Hr 98 F-98.9 F 77-109 18-20 126-137/56-73 98-98 GENERAL: The patient is awake, alert, and fully oriented, in no acute distress. HEAD: Normal with no signs of trauma. EYES: PERRL, extraocular movements intact ENT: Ears normal, nares patent, moist mucous membranes. NECK: Trachea midline, full range of motion. LUNGS: Breath sounds equal, clear to auscultation bilaterally HEART: Regular rate and rhythm, no murmur ABDOMEN: Soft, nontender, nondistended, normoactive bowel sounds EXTREMITIES: warm, well-perfused, right lower extremity hyperpigmentation ( resolving erythema) and edema with multiple small areas of hypopigmentation on anterior surface. Largest area of diameter is larger today at 57cm. NEUROLOGICAL: Normal speech PSYCH: Normal mood, normal affect. SKIN: Warm, dry, normal turgor Laboratory Results - last 24 hr 12/19/18 12/22/18 12/22/18 10:22 12:44 18:14 WBC RBC Hgb Hct MCV MCH MCHC RDW Plt Count MPV Absolute Neuts (auto) Neutrophils % Lymphocytes % Monocytes % Eosinophils % Basophils % Nucleated RBC % Sodium Potassium Chloride Carbon Dioxide Anion Gap BUN Creatinine Est GFR (CKD-EPI)AfAm Est GFR (CKD-EPI)NonAf POC Glucometer 113 115 Random Glucose Calcium Phosphorus Magnesium Blood Type A POSITIVE Antibody Screen Negative Crossmatch See Detail 12/23/18 12/23/18 12/23/18 06:11 07:00 07:00 WBC 5.0 RBC 3.10 L Hgb 9.1 L Hct 27.3 L MCV 88.0 MCH 29.2 MCHC 33.2 RDW 17.4 H Plt Count 282 MPV 7.0 L Absolute Neuts (auto) 3.5 Neutrophils % 70.8 Lymphocytes % 19.6 Monocytes % 7.0 Eosinophils % 2.1 Basophils % 0.5 Nucleated RBC % 0 Sodium 139 Potassium 4.0 Chloride 108 H Carbon Dioxide 25 Anion Gap 5 L BUN 10.6 Creatinine 1.4 H Est GFR (CKD-EPI)AfAm 42.79 Est GFR (CKD-EPI)NonAf 36.92 POC Glucometer 85 Random Glucose 89 Calcium 9.0 Phosphorus 3.0 Magnesium 1.5 L Blood Type Antibody Screen Crossmatch 12/23/18 12:09 WBC RBC Hgb Hct MCV MCH MCHC RDW Plt Count MPV Absolute Neuts (auto) Neutrophils % Lymphocytes % Monocytes % Eosinophils % Basophils % Nucleated RBC % Sodium Potassium Chloride Carbon Dioxide Anion Gap BUN Creatinine Est GFR (CKD-EPI)AfAm Est GFR (CKD-EPI)NonAf POC Glucometer 92 Random Glucose Calcium Phosphorus Magnesium Blood Type Antibody Screen Crossmatch Active Medications Generic Name Dose Route Start Last Admin Trade Name Freq PRN Reason Stop Dose Admin Acetaminophen 650 mg 12/19/18 03:21 12/22/18 06:08 Tylenol - PO 650 mg Q4H PRN Administration PAIN LEVEL 6-10 Amlodipine Besylate 2.5 mg 12/19/18 10:00 12/23/18 09:53 Norvasc - PO 2.5 mg DAILY GIL Administration Atorvastatin Calcium 20 mg 12/19/18 22:00 12/22/18 21:33 Lipitor - PO 20 mg HS GIL Administration Cephalexin HCl 500 mg 12/22/18 20:00 12/23/18 09:51 Keflex - PO 12/27/18 08:01 500 mg Q12H GIL Administration Furosemide 20 mg 12/21/18 10:00 12/23/18 09:52 Lasix - PO 20 mg DAILY GIL Administration Hydrochlorothiazide 12.5 mg 12/20/18 10:00 12/23/18 09:52 Hctz - PO 12.5 mg DAILY GIL Administration Insulin Aspart 1 vial 12/19/18 07:00 12/23/18 12:10 Novolog Vial Sliding Scale - SQ Not Given ACHS GIL Protocol Levothyroxine Sodium 100 mcg 12/19/18 07:30 12/23/18 06:11 Synthroid - PO 100 mcg ACBK GIL Administration Losartan Potassium 50 mg 12/20/18 10:00 12/23/18 09:53 Cozaar - PO 50 mg DAILY GIL Administration Pantoprazole Sodium 40 mg 12/19/18 10:00 12/23/18 09:52 Protonix - PO 40 mg DAILY GIL Administration Rivaroxaban 20 mg 12/23/18 18:00 Xarelto PO DAILY@1800 GIL Tramadol HCl 25 mg 12/20/18 13:24 12/23/18 07:48 Ultram - PO 25 mg Q6H PRN Administration PAIN LEVEL 6-10 ASSESSMENT/PLAN: Ms. Ashford is a 73 y/o female with HTN, HLD, stage 3 CKD, DM2, GERD, anemia, hypothyroidism, b/l extremity DVTs most recently RLE in 03/2018, breast CA (s/p tomoxifen therapy & radiation?), colon CA (s/o chemo & resection), and morbid obesity presenting with RLE pain s/p fall. She received 2 units PRBCs and hemoglobin has stabilized. Imaging showed hematoma. There was a decrease in size of swelling with ice then some increase when warm compresses were introduced. PCP was notified the patient was in the hospital. #RLE cellulitis Resolving erythema, now hyperpigmented and less tender to palpation. U/S negative for DVT, shows soft tissue edema. Largest area of calf improved from initial 60cm. 57cm. -Cefazolin discontinued -Keflex day 2 -ID following -tramadol and tylenol for pain #rectal bleeding Pt reports 2 days diarrhea with blood on toilet paper with wiping. No hemorrhoids noted on exam. FOBT negative. No further bleeding during admission. -monitor CBC #iron deficiency anemia, acute on chronic Hb 6.7 at admission. Today 9.1 s/p 2 units PRBCs. Iron low. Pt reports 2 days diarrhea with blood on toilet paper with wiping. No hemorrhoids noted on exam. FOBT negative. Hx colon cancer. -iron supplementation -monitor CBC -heme following #hypokalemia, resolved -replete -recheck labs #hypomagnesemia 1.5 -replete -monitor labs #hypophosphatemia, resolved 3.0 -monitor labs #CKD stage 3 Cr 1.4. Resolved NEGRA. Possibly 2/2 dehydration. -nephro following- dose meds for eGFR 30 #HTN -continue home amlodipine -continue home HCTZ -continue home losartan #HLD -home atorvastatin #DM2 Pt reports recently having meds discontinued by doctor. Pt not requiring insulin during admission. -SSI -BGM -consider A1C if hyperglycemia occurs #GERD -pantoprazole #hypothyroidism -home synthroid #history of DVT s/p IVC filter -Xarelto restarted yesterday -heme following FEN Renal diet monitor Phos, Mg, K DVT Ppx Xarelto dispo med surg probable d/c tomorrow with home PT Visit type - Emergency Visit Emergency Visit: Yes ED Registration Date: 12/18/18 Care time: The patient presented to the Emergency Department on the above date and was hospitalized for further evaluation of their emergent condition. - New Patient This patient is new to me today: No - Critical Care Critical Care patient: No - Discharge Referral Referred to [facility] Med P.C.: No ATTENDING PHYSICIAN STATEMENT I saw and evaluated the patient. I reviewed the resident's note and discussed the case with the resident. I agree with the resident's findings and plan as documented. SUBJECTIVE: OBJECTIVE: ASSESSMENT AND PLAN:
--- NOTE | 2018-12-23 12:41 | PN ---
Teaching Attending Note Name of Resident: Hanh Guevara ATTENDING PHYSICIAN STATEMENT I saw and evaluated the patient. I reviewed the resident's note and discussed the case with the resident. I agree with the resident's findings and plan as documented with exceptions below. SUBJECTIVE: Patient seen and examined. Overall leg symptoms unchanged, no new complaints. OBJECTIVE: Vital Signs Period Temp Pulse Resp BP Sys/Brandt Pulse Ox Last 24 Hr 98 F-98.9 F 77-109 18-20 126-137/56-73 98-98 Intake & Output 12/20/18 12/21/18 12/22/18 12/23/18 23:59 23:59 23:59 23:59 Intake Total 450 50 550 Output Total 500 Balance 450 -450 550 Weight 291 lb 289 lb 12.8 oz General: sitting in bed in no acute distress neck: soft, supple HEENT: PERRL,EOMI Chest: limited by body habitus, no rales or wheezing Abdomen: soft, obese, NT Extremities: RLE swelling overall unchanged today, overlying erythema improved, palpable DP pulses, able to move toes freely, no warmth noted Home Medications Medication Instructions Recorded Cholecalciferol (Vitamin D3) 50,000 unit PO WEEKLY 12/10/16 [Vitamin D3] Atorvastatin Calcium [Lipitor] 40 mg PO DAILY 03/21/18 Omeprazole 40 mg PO DAILY 03/21/18 Rivaroxaban [Xarelto -] 20 mg PO DAILY #30 tablet 04/21/18 Clotrimazole/Betamet Diprop 1 applic TP BID 12/19/18 [Lotrisone Cream (Small Tube)] Furosemide 20 mg PO DAILY 12/19/18 Levothyroxine [Synthroid -] 112 mcg PO AM 12/19/18 Losartan/Hydrochlorothiazide 1 each PO DAILY 12/19/18 [Losartan-Hctz 50-12.5 mg Tab] Pramipexole Di-HCl [Mirapex] 0.75 mg PO HS 12/19/18 Pramipexole Di-HCl [Pramipexole 0.375 mg PO AM 12/19/18 Dihydrochloride] Active Medications Acetaminophen (Tylenol -) 650 mg PO Q4H PRN PRN Reason: PAIN LEVEL 6-10 Last Admin: 12/22/18 06:08 Dose: 650 mg Amlodipine Besylate (Norvasc -) 2.5 mg PO DAILY [facility] Last Admin: 12/23/18 09:53 Dose: 2.5 mg Atorvastatin Calcium (Lipitor -) 20 mg PO HS [facility] Last Admin: 12/22/18 21:33 Dose: 20 mg Cephalexin HCl (Keflex -) 500 mg PO Q12H [facility] Stop: 12/27/18 08:01 Last Admin: 12/23/18 09:51 Dose: 500 mg Furosemide (Lasix -) 20 mg PO DAILY [facility] Last Admin: 12/23/18 09:52 Dose: 20 mg Hydrochlorothiazide (Hctz -) 12.5 mg PO DAILY [facility] Last Admin: 12/23/18 09:52 Dose: 12.5 mg Insulin Aspart (Novolog Vial Sliding Scale -) 1 vial SQ ACHS [facility]; Protocol Last Admin: 12/23/18 12:10 Dose: Not Given Levothyroxine Sodium (Synthroid -) 100 mcg PO ACBK [facility] Last Admin: 12/23/18 06:11 Dose: 100 mcg Losartan Potassium (Cozaar -) 50 mg PO DAILY [facility] Last Admin: 12/23/18 09:53 Dose: 50 mg Pantoprazole Sodium (Protonix -) 40 mg PO DAILY [facility] Last Admin: 12/23/18 09:52 Dose: 40 mg Rivaroxaban (Xarelto) 20 mg PO DAILY@1800 [facility] Tramadol HCl (Ultram -) 25 mg PO Q6H PRN PRN Reason: PAIN LEVEL 6-10 Last Admin: 12/23/18 07:48 Dose: 25 mg ASSESSMENT AND PLAN: 73 yof with PMHx of HTN, HLD, stage 3 CKD, DM2, GERD, anemia, hypothyroidism, b/ l extremity DVT's most recent RLE in 03/2018, breast CA (s/p tomoxifen therapy & radiation), colon CA (s/o chemo & resection), morbid obesity admitted with RLE pain/swelling after fall and trauma to the leg 1 week ago. -RLE hematoma -Acute on chronic anemia, suspect blood loss from above in the setting of trauma /on full dose AC -Fall with right leg trauma 1 week ago -NEGRA on CKD stage III, suspect hypovolumia/blood loss and continuation of lasix/ HCTZ/Losartan -Hypokalemia, hypomagnesemia, hypophosphatemia -HTN -HLD -Morbid obesity -GERD -Type II DM -Hypothyroidism -Bilateral LE DVT, most recent RLE 03/2018 -Breast ca s/p tamoxifen/radiation -Colon Ca s/p chemo/resection Plan: CT LE noted, s/p 2 units PRBCs h/h stable. Right leg swelling/exam continues to improve. Prior h/o DVT/PE 10 years ago in the setting of surgery, recurrent unprovoked DVT in 03/2018 , reports was advised by business strategy manager about lifelong AC. H/o malignancy obesity and not very ambulatory.Risks of DVT high. Hemodynamics, h/h have been stable and leg findings improved that argue against ongoing bleed. Resumed xarelto , no concerns, continue monitoring for now. Hematology input noted. PO keflex for 3-5 days. Renal function stable. Losartan/Lasix resumed. Renal input noted. GI input noted, FOBT neg, monitor DVTPPX SCDs LLE Dispo Ongoing PT Dc in 24 hours home with services vs SNF if continues to improve and no concerns on AC. Discussed with patient, all questions answered.
--- NOTE | 2018-12-23 16:12 | PN ---
Progress Note (short form) - Note Progress Note: Renal follow up for CKD Seen and examined at the bedside no acute complaints no sob, chest pain, fever, or chills making urine Vital Signs Temperature 97.9 F 12/23/18 15:05 Pulse Rate 81 12/23/18 15:05 Respiratory Rate 20 12/23/18 15:05 Blood Pressure 151/71 12/23/18 15:05 O2 Sat by Pulse Oximetry (%) 98 12/23/18 03:00 Intake & Output 12/20/18 12/21/18 12/22/18 12/23/18 23:59 23:59 23:59 23:59 Intake Total 450 50 550 500 Output Total 500 Balance 450 -450 550 500 Weight 131.995 kg 131.451 kg NAD awake and alert neck supple, no JVD RRR CTA + edema in LE CBC, BMP 12/23/18 07:00 12/23/18 07:00 Current Medications Acetaminophen (Tylenol -) 650 mg PO Q4H PRN PRN Reason: PAIN LEVEL 6-10 Last Admin: 12/22/18 06:08 Dose: 650 mg Amlodipine Besylate (Norvasc -) 2.5 mg PO DAILY GIL Last Admin: 12/23/18 09:53 Dose: 2.5 mg Atorvastatin Calcium (Lipitor -) 20 mg PO HS GIL Last Admin: 12/22/18 21:33 Dose: 20 mg Cephalexin HCl (Keflex -) 500 mg PO Q12H GIL Stop: 12/27/18 08:01 Last Admin: 12/23/18 09:51 Dose: 500 mg Furosemide (Lasix -) 20 mg PO DAILY GIL Last Admin: 12/23/18 09:52 Dose: 20 mg Hydrochlorothiazide (Hctz -) 12.5 mg PO DAILY GIL Last Admin: 12/23/18 09:52 Dose: 12.5 mg Insulin Aspart (Novolog Vial Sliding Scale -) 1 vial SQ ACHS [facility]; Protocol Last Admin: 12/23/18 12:10 Dose: Not Given Levothyroxine Sodium (Synthroid -) 100 mcg PO ACBK GIL Last Admin: 12/23/18 06:11 Dose: 100 mcg Losartan Potassium (Cozaar -) 50 mg PO DAILY GIL Last Admin: 12/23/18 09:53 Dose: 50 mg Pantoprazole Sodium (Protonix -) 40 mg PO DAILY GIL Last Admin: 12/23/18 09:52 Dose: 40 mg Pramipexole Dihydrochloride (Mirapex -) 0.75 mg PO HS [facility] Pramipexole Dihydrochloride (Mirapex -) 0.375 mg PO DAILY [facility] Rivaroxaban (Xarelto) 20 mg PO DAILY@1800 [facility] 73year old woman with history of CKD stage 3 (baseline Cr ~1.7- 2), hypertension, hyperlipidemia, Anemia, hypothyroidism, DVT, breast Ca, Colon Ca s/p resection who presented from home with unilateral leg swelling and pain s /p fall with Cr of 1.7. 1. CKD stage 3 2. Lower extremity cellulitis 3. Acute on Chronic anemia 4. Hypertension 5. Chronic DVT on xarelto 6. DM Type 2 Renal function stable Avoid NSAIDs and nephrotoxins Continue cefazolin as per ID. Follow up cultures. Continue home BP meds: Amlodipine, Losartan, HCTZ. Goal BP < 130/80 discharge planning as per primary team leg elevation Anant Giron DO
--- NOTE | 2018-12-23 16:38 | PN ---
Progress Note (short form) - Note Progress Note: Hematology and oncology follow up Subjective: Patient seen and examined at bedside. No events overnight, no new complaints. Objective: Vital Signs Temperature 97.9 F 12/23/18 15:05 Pulse Rate 81 12/23/18 15:05 Respiratory Rate 20 12/23/18 15:05 Blood Pressure 151/71 12/23/18 15:05 O2 Sat by Pulse Oximetry (%) 98 12/23/18 03:00 Physical Exam: General: patient well appearing, in NAD. A&Ox3 Lungs: CTA b/l down to the bases Heart: regular rate and rhythm, S1, S2 heard. No murmurs, gallops or rubs heard. Abdomen: Soft, nontender, nondistended. bowel sounds heard. Extremities: RLE shows edema and induration. Home Medication List Medication Instructions Recorded Confirmed Type Cholecalciferol (Vitamin D3) 50,000 unit PO WEEKLY 12/10/16 12/19/18 History [Vitamin D3] Atorvastatin Calcium [Lipitor] 40 mg PO DAILY 03/21/18 12/19/18 History Omeprazole 40 mg PO DAILY 03/21/18 12/19/18 History Clotrimazole/Betamet Diprop 1 applic TP BID 12/19/18 12/19/18 History [Lotrisone Cream (Small Tube)] Furosemide 20 mg PO DAILY 12/19/18 12/19/18 History Levothyroxine [Synthroid -] 112 mcg PO AM 12/19/18 12/19/18 History Losartan/Hydrochlorothiazide 1 each PO DAILY 12/19/18 12/19/18 History [Losartan-Hctz 50-12.5 mg Tab] Pramipexole Di-HCl [Mirapex] 0.75 mg PO HS 12/19/18 12/19/18 History Pramipexole Di-HCl [Pramipexole 0.375 mg PO AM 12/19/18 12/19/18 History Dihydrochloride] Active Medications Generic Name Dose Route Start Last Admin Trade Name Freq PRN Reason Stop Dose Admin Acetaminophen 650 mg 12/19/18 03:21 12/22/18 06:08 Tylenol - PO 650 mg Q4H PRN Administration PAIN LEVEL 6-10 Amlodipine Besylate 2.5 mg 12/19/18 10:00 12/23/18 09:53 Norvasc - PO 2.5 mg DAILY GIL Administration Atorvastatin Calcium 20 mg 12/19/18 22:00 12/22/18 21:33 Lipitor - PO 20 mg HS GIL Administration Cephalexin HCl 500 mg 12/22/18 20:00 12/23/18 09:51 Keflex - PO 12/27/18 08:01 500 mg Q12H GIL Administration Ferrous Sulfate 325 mg 12/23/18 17:30 Feosol - PO Q2D@1730 [facility] Furosemide 20 mg 12/21/18 10:00 12/23/18 09:52 Lasix - PO 20 mg DAILY IGL Administration Hydrochlorothiazide 12.5 mg 12/20/18 10:00 12/23/18 09:52 Hctz - PO 12.5 mg DAILY GIL Administration Insulin Aspart 1 vial 12/19/18 07:00 12/23/18 12:10 Novolog Vial Sliding Scale - SQ Not Given ACHS [facility] Protocol Levothyroxine Sodium 100 mcg 12/19/18 07:30 12/23/18 06:11 Synthroid - PO 100 mcg ACBK GIL Administration Losartan Potassium 50 mg 12/20/18 10:00 12/23/18 09:53 Cozaar - PO 50 mg DAILY GIL Administration Pantoprazole Sodium 40 mg 12/19/18 10:00 12/23/18 09:52 Protonix - PO 40 mg DAILY GIL Administration Pramipexole Dihydrochloride 0.75 mg 12/23/18 22:00 Mirapex - PO HS GIL Pramipexole Dihydrochloride 0.375 mg 12/24/18 10:00 Mirapex - PO DAILY [facility] Rivaroxaban 20 mg 12/23/18 18:00 Xarelto PO DAILY@1800 [facility] CBC, BMP 12/23/18 07:00 12/23/18 07:00 Assessment and plan: The patient is a 73yo m w/ PMH HTN, HLD, CKD stage 3, DM, Anemia, hypothyroidism , B/l DVT, breast CA (s/p tomoxifen therapy & radiation), colon CA (s/p chemo & resection) who comes into the ED c/o RLE cellulitis. In the ED, she was found to be anemic to 6.3 #Normocytic Anemia -Iron studies reflect iron deficiency w/ Low FE sat. Will supplement iron w/ Fe sulfate 325mg Q48h MWF -GI input appreciated. -added on TSH, B12, folate WNL -s/p 2u PRBC -Hb stable after this transfusion. -maintain normal transfusion thresholds.
--- NOTE | 2018-12-23 17:29 | PN ---
Teaching Attending Note Name of Resident: Geremias Hardy ATTENDING PHYSICIAN STATEMENT I saw and evaluated the patient. I reviewed the resident's note and discussed the case with the resident. I agree with the resident's findings and plan as documented. SUBJECTIVE: Doing well. Complaining of R leg swelling OBJECTIVE: Last Vital Signs Temp Pulse Resp BP Pulse Ox 97.9 F 81 20 151/71 98 12/23/18 15:05 12/23/18 15:05 12/23/18 15:05 12/23/18 15:05 12/23/18 03:00 General: NAD CVS: S1, S2 Lungs: CTAB Abdomen: Soft , NT, ND Extremities: Significant R leg edema, erythema Neuro: Moves all extremities Psych: COnversant, appropriate ASSESSMENT AND PLAN: 73 y/o lady w/ PMH HTN, HLD, CKD stage 3, DM, Anemia, hypothyroidism, B/l DVT, breast CA (s/p tomoxifen therapy & radiation), colon CA (s/p chemo & resection) who comes into the ED c/o RLE cellulitis. In the ED, she was found to be anemic to 6.3 Recommend: 1) Iron deficiency anemia: [facility] GI evaluation. Will do a trial of FeSO4 325 mg po Q48 H. If poorly tolerated, we will switch to IV Iron (Iron Sucrose). Upon initial response may also decide to proceed to IV formulation
[2018-12-23] MEDS ORDERED: FERROUS SO4 325 MG TABLET (FP) PO SCH (17:30)
[2018-12-23] MEDS ORDERED: RIVAROXABAN 20 MG TABLET PO SCH ×2 (18:00)
[2018-12-23] MEDS: ACETAMINOPHEN 325 MG TABLET (FP) PO PRN (18:04)
[2018-12-23] MEDS: ATORVASTATIN CA 20 MG TABLET (FP) PO SCH (21:19)
[2018-12-23] MEDS ORDERED: PRAMIPEXOLE DIHYDROCHLORIDE 0.5 MG TABLET PO SCH (22:00)
[2018-12-24] MEDS: LEVOTHYROXINE NA 100 MCG TABLET (FP) PO SCH (06:10)
[2018-12-24] MEDS: INSULIN SLIDING SCALE (NOVOLOG) 1 VIAL SQ SCH ×2 (06:11→12:16)
[2018-12-24] MEDS ORDERED: INSULIN (NOVOLOG MIX 70/30) 100 UNITS/ML MDV SQ ONE (06:24)
[2018-12-24 07:25] LABS: BASO % 0.5 % (0-2.0); EOS % 1.7 % (0-4.5); HEMATOCRIT 28.1 % (32.4-45.2); HEMOGLOBIN 9.3 GM/dL (10.7-15.3); LYMPH % 23.3 % (8-40); MCH 29.1 pg (25.7-33.7); MCHC 33.1 g/dl (32.0-36.0); MEAN CELL VOLUME 87.8 fl (80-96); MEAN PLT VOLUME 6.9 fl (7.5-11.1); MONO % 7.2 % (3.8-10.2); NEUT % 67.3 % (42.8-82.8); PLATELET COUNT 311 K/MM3 (134-434); RDW 17.4 % (11.6-15.6); WHITE BLOOD COUNT 5.7 K/mm3 (4.0-10.0)
[2018-12-24] MEDS ORDERED: PT OWN MED DRAWER 7, Y5N ONE ×2 (09:07→10:12)
[2018-12-24] MEDS: FUROSEMIDE 20 MG TABLET (FP) PO SCH (09:54)
[2018-12-24] MEDS: CEPHALEXIN MONOHYDRATE 500 MG CAPSULE (UD) PO SCH (09:54)
[2018-12-24] MEDS: LOSARTAN POTASSIUM 50 MG TABLET (FP) PO SCH (09:54)
[2018-12-24] MEDS: ACETAMINOPHEN 325 MG TABLET (FP) PO PRN (09:54)
[2018-12-24] MEDS: PANTOPRAZOLE 40 MG TABLET (FP) PO SCH (09:54)
[2018-12-24] MEDS: HYDROCHLOROTHIAZIDE 12.5 MG CAPSULE (FP) PO SCH (09:54)
[2018-12-24] MEDS: amLODIPine BESYLATE 2.5 MG TABLET (FP) PO SCH (09:54)
[2018-12-24] MEDS ORDERED: PRAMIPEXOLE DIHYDROCHLORIDE 0.125 MG TABLET PO SCH (10:00)
--- NOTE | 2018-12-24 13:29 | PN ---
Teaching Attending Note Name of Resident: Hanh Guevara ATTENDING PHYSICIAN STATEMENT I saw and evaluated the patient. I reviewed the resident's note and discussed the case with the resident. I agree with the resident's findings and plan as documented with exceptions below. SUBJECTIVE: Patient seen and examined. feeling better, leg symptoms improved. OBJECTIVE: Vital Signs Period Temp Pulse Resp BP Sys/Brandt Pulse Ox Last 24 Hr 97.9 F-98.7 F 76-92 18-20 113-151/62-71 96-96 Intake & Output 12/21/18 12/22/18 12/23/18 12/24/18 23:59 23:59 23:59 23:59 Intake Total 50 550 500 Output Total 500 Balance -450 550 500 Weight 291 lb 289 lb 12.8 oz General: ASSESSMENT AND PLAN: 73 yof with PMHx of HTN, HLD, stage 3 CKD, DM2, GERD, anemia, hypothyroidism, b/ l extremity DVT's most recent RLE in 03/2018, breast CA (s/p tomoxifen therapy & radiation), colon CA (s/o chemo & resection), morbid obesity admitted with RLE pain/swelling after fall and trauma to the leg 1 week ago. -RLE hematoma -Acute on chronic anemia, suspect blood loss from above in the setting of trauma /on full dose AC -Fall with right leg trauma 1 week ago -NEGRA on CKD stage III, suspect hypovolumia/blood loss and continuation of lasix/ HCTZ/Losartan -Hypokalemia, hypomagnesemia, hypophosphatemia -HTN -HLD -Morbid obesity -GERD -Type II DM -Hypothyroidism -Bilateral LE DVT, most recent RLE 03/2018 -Breast ca s/p tamoxifen/radiation -Colon Ca s/p chemo/resection Plan: Continues to improve, h/h stable, xarelto resumed with no concerns x 48 hours patient wants to go home with aide and services, declines SNF Advised caution with activity, fall precautions. resume home meds, start PO fe with bowel regimen. dc home today with outpatient PCP, hematology follow up. discussed with patient and nursing, all questions answered.
[2018-12-24 14:14] VITALS: BP 119/58; PULSE 81; TEMP 98.1
--- NOTE | 2018-12-24 15:42 | DS ---
Physical Exam: SUBJECTIVE: Patient seen and examined. She reports leg pain is slightly increased 6/10. She denies shortness of breath, chest pain, n/v/d, and calf pain. Yesterday she was able to walk to and sit in the chair. Pt tolerating diet well. OBJECTIVE: Vital Signs Period Temp Pulse Resp BP Sys/Brandt Pulse Ox Last 24 Hr 98.1 F-98.7 F 76-92 18-20 113-125/58-69 96-97 PHYSICAL EXAM GENERAL: The patient is awake, alert, and fully oriented, in no acute distress. HEAD: Normal with no signs of trauma. EYES: PERRL, extraocular movements intact ENT: Ears normal, nares patent, moist mucous membranes. NECK: Trachea midline, full range of motion. LUNGS: Breath sounds equal, clear to auscultation bilaterally HEART: Regular rate and rhythm, no murmur ABDOMEN: Soft, nontender, nondistended, normoactive bowel sounds EXTREMITIES: warm, well-perfused, right lower extremity hyperpigmentation ( resolving erythema) and edema with multiple small areas of healing hypopigmentation on anterior surface. NEUROLOGICAL: Normal speech PSYCH: Normal mood, normal affect. SKIN: Warm, dry, normal turgor LABS Laboratory Results - last 24 hr 12/23/18 12/24/18 12/24/18 17:34 06:09 06:45 WBC 5.7 RBC 3.20 L Hgb 9.3 L Hct 28.1 L MCV 87.8 MCH 29.1 MCHC 33.1 RDW 17.4 H Plt Count 311 MPV 6.9 L Absolute Neuts (auto) 3.9 Neutrophils % 67.3 Lymphocytes % 23.3 Monocytes % 7.2 Eosinophils % 1.7 Basophils % 0.5 Nucleated RBC % 0 POC Glucometer 85 89 Magnesium 12/24/18 12/24/18 06:45 11:40 WBC RBC Hgb Hct MCV MCH MCHC RDW Plt Count MPV Absolute Neuts (auto) Neutrophils % Lymphocytes % Monocytes % Eosinophils % Basophils % Nucleated RBC % POC Glucometer 108 Magnesium 1.6 L HOSPITAL COURSE: Ms. Ashford is a 73 y/o female with HTN, HLD, stage 3 CKD, DM2, GERD, anemia, hypothyroidism, b/l extremity DVTs most recently RLE in 03/2018, breast CA (s/p tomoxifen therapy & possibly radiation), colon CA (s/o chemo & resection), and morbid obesity presenting with RLE pain s/p mechanical fall 2 weeks prior as well as diarrhea with blood on toilet paper x 2 days. Hb was 6.7 at admission and felt weak. She was also iron-deficient. She received 2 units PRBCs and hemoglobin has stabilized. Xarelto was held. CT LE showed hematoma. There was a decrease in size of swelling with ice then some increase when warm compresses were introduced. Keflex was given for a total of 7 days. Pt was hypokalemic, hypomagnesemic, and hypophosphatemic and supplemented. 2 days prior to d/c Xarelto was re-started. Pt was sent home with PT. Date of Admission:12/18/18 Date of Discharge: 12/24/18 Minutes to complete discharge: 35 Discharge Summary Problems reviewed: Yes Reason For Visit: ACUTE KIDNEY INJURY,ANEMIA,CELLULITIS Current Active Problems Cellulitis (Acute) Hematoma (Acute) Hypomagnesemia (Acute) Anemia (Chronic) Condition: Stable - Instructions Diet, Activity, Other Instructions: Hospital visit: You were admitted to the hospital for leg pain and anemia. You had a hematoma in your leg that likely caused bleeding and worsening anemia. Your blood thinner was stopped for a few days, but your are back on it again. Your anemia is stable, and you are able to go home. Medications: Continue all your home medications as directed, including Xarelto everyday. Take Magnesium 800mg once a day for 5 days because your levels were low in the hospital. Start taking Ferrous sulfate 325mg twice a day Colace 100 mg twice daily and senna at bedtime as needed to avoid constipation ( While on iron pills) Follow up: Dr. Arroyo, primary care, in 1 week to check your leg for improvement in swelling and pain. You will need a CBC and BMP (lab work) to check for bleeding and electrolyte levels. Dr. Freedman, hematology, in 2 weeks to discuss further management of your anemia. Dr. Elliott, gastroenterology, in 4 weeks Diet: Eat a diet high in fiber. This will help with constipation and decrease bleeding associated with hemorrhoids. Activity: Continue physical therapy as instructed. Be careful when walking around and use a cane or walker if necessary. Check your home for potential fall hazards, like rugs on the floor. Instructions: You are on a blood thinner because you have blood clots. This puts you at risk of bleeding and you already have anemia. After discussing with you the risks and benefits of taking the blood thinner, it was decided to restart the medication. You should take extra care to avoid falls and other injuries. Ice packs to affected leg areas as tolerated. Your iron levels are low, please have this rechecked in 6 weeks with your PCP. Return to the emergency room if your leg gets larger, more painful, gets red or more bruised, gets cold, or you lose sensation in it. Also return if you have rectal bleeding, calf pain, shortness of breath, or chest pain. Referrals: Isidro Freedman MD [Staff Physician] - Ana Arroyo [Staff Physician] - Julien Elliott MD [Staff Physician] - Disposition: VNS/HOME HEALTH CARE - Home Medications Comprehensive Discharge Medication List: Ambulatory Orders Cholecalciferol (Vitamin D3) [Vitamin D3] 50,000 unit PO WEEKLY 12/10/16 Atorvastatin Calcium [Lipitor] 40 mg PO DAILY 03/21/18 Omeprazole 40 mg PO DAILY 03/21/18 Rivaroxaban [Xarelto -] 20 mg PO DAILY #30 tablet 04/21/18 Clotrimazole/Betamet Diprop [Lotrisone -] 1 applic TP BID 12/19/18 Furosemide 20 mg PO DAILY 12/19/18 Levothyroxine [Synthroid -] 112 mcg PO AM 12/19/18 Losartan/Hydrochlorothiazide [Losartan-Hctz 50-12.5 mg Tab] 1 each PO DAILY 01/27 Pramipexole Di-HCl [Mirapex] 0.75 mg PO HS 12/19/18 Pramipexole Di-HCl [Pramipexole Dihydrochloride] 0.375 mg PO AM 12/19/18 Amlodipine Besylate [Norvasc -] 2.5 mg PO DAILY 12/24/18 Docusate Sodium 100 mg PO BID PRN 15 Days #30 capsule 12/24/18 Ferrous Sulfate [Feosol] 325 mg PO BID 30 Days #60 mg 12/24/18 Magnesium Oxide [Magnesium] 800 mg PO DAILY 5 Days #10 tablet 12/24/18 Sennosides [Senna] 8.6 mg PO BID PRN 15 Days #30 tablet 12/24/18 This patient is new to me today: Yes Date on this admission: 12/24/18 Emergency Visit: Yes ED Registration Date: 12/18/18 Care time: The patient presented to the Emergency Department on the above date and was hospitalized for further evaluation of their emergent condition. Critical Care patient: No - Discharge Referral Referred to [facility] Med [facility] No ATTENDING PHYSICIAN STATEMENT I saw and evaluated the patient. I reviewed the resident's note and discussed the case with the resident. I agree with the resident's findings and plan as documented. SUBJECTIVE: OBJECTIVE: ASSESSMENT AND PLAN:
== END 2018-12-24 17:22 | disposition home health service (06) | DRG 683 ==
LOC: JER 20:35 → JERBED 22:57 → J7W 12-19 11:33
PROVIDERS: ADMIT Internal Medicine; ATTEND Hospitalist
PROC: 30233N1 Transfusion of Nonautologous Red Blood Cells into Peripheral Vein, Percutaneous Approach (ICD-10-PCS; principal; 2018-12-19)
DX: N17.9 Acute kidney failure, unspecified (principal); D62 Acute posthemorrhagic anemia; L03.115 Cellulitis of right lower limb; I13.0 Hypertensive heart and chronic kidney disease with heart failure and stage 1 through stage 4 chronic kidney disease, or unspecified chronic kidney disease; Z68.41 Body mass index [BMI] 40.0-44.9, adult; E46 Unspecified protein-calorie malnutrition; K62.5 Hemorrhage of anus and rectum; T14.8XXA Other injury of unspecified body region, initial encounter; E78.5 Hyperlipidemia, unspecified; E11.9 Type 2 diabetes mellitus without complications; E88.09 Other disorders of plasma-protein metabolism, not elsewhere classified; S80.11XA Contusion of right lower leg, initial encounter; N18.3 Chronic kidney disease, stage 3 (moderate); K21.9 Gastro-esophageal reflux disease without esophagitis; E03.9 Hypothyroidism, unspecified; E87.6 Hypokalemia; E83.42 Hypomagnesemia; E83.39 Other disorders of phosphorus metabolism; W19.XXXA Unspecified fall, initial encounter; Y93.9 Activity, unspecified; Y92.89 Other specified places as the place of occurrence of the external cause; Y99.9 Unspecified external cause status; E66.01 Morbid (severe) obesity due to excess calories; E86.0 Dehydration; D63.1 Anemia in chronic kidney disease
CPT/HCPCS: 36415; 36430; 36511; 71045-TC-FY; 73590-TC-RT-FY; 73700-TC-RT; 80048; 80053; 81003; 82272; 82436; 82565; 82607; 82728; 82746; 82962; 83540; 83550; 83605; 83735; 84100; 84133; 84300; 84443; 84466; 84484; 85025; 85027; 85044; 85610; 86850; 86900; 86901; 86922; 87040; 87077; 87086; 93005; 93010; 93971-TC; 97116-GP; 97161-GP; 99285-25; J7030; P9038; P9058

== ENCOUNTER 2020-06-24 04:20 | Day surgery (SDC) | payer OTHER ==
[2020-06-23 11:47] VITALS: BMI 40.2
[2020-06-24] MEDS ORDERED: BUPIVACAINE HCL/PF 0.75% 10 ML VIAL ONE (11:07)
[2020-06-24] MEDS ORDERED: LIDOCAINE HCL/PF 1% SDV 5ML VIAL ONE (11:07)
[2020-06-24 15:42] VITALS: BP 150/72; PULSE 86; TEMP 97.8
== END 2020-06-24 15:46 | disposition home or self-care (01) ==
LOC: JASU-SURG 04:20
PROVIDERS: ATTEND Pain Medicine Pain Medicine
PROC: 01HY3MZ Insertion of Neurostimulator Lead into Peripheral Nerve, Percutaneous Approach (ICD-10-PCS; principal; 2020-06-24 14:00)
DX: G89.4 Chronic pain syndrome (principal)